=== PATIENT | female | born 1940 | race Caucasian/White ===

== ENCOUNTER → 2018-07-13 10:31 | Outpatient (CLI) | payer MEDICARE, OTHER, SELFPAY ==
[2018-07-13 11:13] LABS: Add Manual Diff / Slide Review NO; Basophils Percent Auto 0.7 % (0-2); Eosinophils Percent Auto 2.1 % (2-4); Hematocrit 43.7 % (36-46); Hemoglobin 14.8 g/dL (12.0-16.0); Lymphocytes Percent Auto 30.4 % (25-40); Mean Corpuscular Hemoglobin 31.5 PG (26-34); Mean Corpuscular Volume 92.6 fL (80-100); Monocytes Percent Auto 8.8 % (3-14); Neutrophils Absolute Auto 3700 /uL (3000-5900); Platelet Count 262 X10^3/uL (150-400); Red Blood Cell Count 4.72 X10^6/uL (4.0-5.2); Red Cell Distribution Width 12.7 % (11.6-14.8); White Blood Cell Count 6.4 X10^3/uL (4.5-11.0)
[2018-07-13 12:29] LABS: Alanine Aminotransferase 28 IU/L (9-52); Albumin 4.2 g/dL (3.5-5.0); Albumin Globulin Ratio 1.4 (1.0-2.8); Alkaline Phosphatase 79 U/L (38-126); Aspartate Aminotransferase 25 IU/L (14-36); BUN Creatinine Ratio 23.8 (6-22); Bilirubin Total 0.7 mg/dL (0.2-1.3); Blood Urea Nitrogen 19 mg/dL (7-17); Calcium 10.3 mg/dL (8.4-10.2); Carbon Dioxide 29 mmol/L (22-32); Chloride 105 mmol/L (98-107); Cholesterol 252 mg/dL (140-199); Estimated Glomerular Filt Rate > 60.0 mL/min (>60); Globulin 3.1 g/dL (1.7-4.1); Glucose 87 mg/dL (80-110); HDL Cholesterol 67 mg/dL (40-60); HEMOLYSIS < 15 (0-50); LDL Cholesterol Calculated 160 mg/dL (<100); Sodium 141 mmol/L (137-145); Total Protein 7.3 g/dL (6.3-8.2); Triglycerides 126 mg/dL (35-150)
[2018-07-13 12:33] LABS: Potassium 5.8 mmol/L (3.4-5.1)
[2018-07-13 12:58] LABS: TSH w/ Reflex to FT4 1.18 uIU/mL (0.47-4.68)
== END ==
PROVIDERS: PCP Internal Medicine; Visit Provider Internal Medicine
DX: E78.2 Mixed hyperlipidemia (principal); I10 Essential (primary) hypertension
CPT/HCPCS: 36415; 80053; 80061; 84443; 85025

== ENCOUNTER → 2018-07-19 15:12 | Outpatient (CLI) | payer MEDICARE, OTHER, SELFPAY ==
[2018-07-19 16:08] LABS: HEMOLYSIS < 15 (0-50)
== END ==
PROVIDERS: PCP Internal Medicine; Visit Provider Internal Medicine
DX: E87.5 Hyperkalemia (principal)
CPT/HCPCS: 36415; 84132

== ENCOUNTER → 2018-11-27 15:22 | Outpatient (CLI) | payer MEDICARE, OTHER, SELFPAY | PROVIDERS: PCP Internal Medicine; Visit Provider Internal Medicine | DX: M85.852 Other specified disorders of bone density and structure, left thigh (principal); Z78.0 Asymptomatic menopausal state; Z87.891 Personal history of nicotine dependence | CPT/HCPCS: 77080 ==

== ENCOUNTER 2018-12-01 14:30 | Outpatient (RCR) | payer MEDICARE, OTHER, SELFPAY ==
--- NOTE | 2018-08-25 11:15 | PT.OPPOC ---
Current Diagnoses Pain in left shoulder (08/25/18) Stiffness of left shoulder, not elsewhere classified (08/25/18) Muscle weakness (generalized) (08/25/18) Unspecified nondisplaced fracture of surgical neck of left humerus, initial encounter for closed fracture (08/25/18) Provider Visit Care Team Role Provider Type TANA Stock Primary Care Provider Advanced Air Conditioning Sheet Metal Installer Specialty: Family Practice Address: [address] [place] [address], [id number] Email: [email or web address] Kevin Corona MD Attending Provider Physician Specialty: Orthopedic Surgery Address: [address] [place] [address], [phone] Email: [email or web address] Plan Of Care PT-OP-T Assessment and Plan Start: 08/25/18 12:55 Freq: Status: Active Protocol: Document 08/25/18 11:15 DLM (Rec: 08/25/18 19:17 DLM [id number]) Physical Therapy Assessment Rehab Potential Rehabilitation Potential Good Evaluation Complexity Number of Personal Factors/Comorbidities 1-2 Number of Body Systems Impaired 4 or More Clinical Presentation at Evaluation Evolving Impairments Impairments Activity Tolerance Functional Activities Functional Mobility Pain ROM Soft Tissue Mobility Strength Goals Three Impairment Impaired left shoulder strength Short Term Goal (STG) she will be able to use left UE for simple functional ADL's at home STG Duration 4 weeks Group Home Goal (LTG) Increase left UE strength to 4 /5 in available ROM LTG Duration 8 weeks Two Impairment Impaired ROM Short Term Goal (STG) PROM left shoulder flexion 170 degrees and ER to 50 degrees STG Duration 4 weeks Group Home Goal (LTG) AROM left shoulder flexion 110 degrees, ER to 80 degrees, IR behind back to waistline LTG Duration 8 weeks One Impairment pain left shoulder Short Term Goal (STG) She will tolerate lying in supine to sleep STG Duration 2 weeks Group Home Goal (LTG) She will be able to use left shoulder functionally with less than 3/10 pain LTG Duration 8 weeks Assessment Summary Assessment She presents with left shoulder impairments following a fall from a chair and fx. Bruising and edema continues in left UE with an abrasion noted left forearm. She feels her pain is well managed at this time. She has no functional use of her left UE at this time and is immobilized in a sling. Will plan to advance her ROM and strength per her physician's protocal. Physical Therapy Plan Frequency and Duration Frequency of Treatment 2x/Week Duration of Treatment 8 weeks Plan of Care Start Date 08/25/18 Plan of Care End Date 10/29/18 Therapeutic Interventions Therapeutic Interventions Home Exercise Program Manual Therapy Patient/Caregiver Education Self-Care/Home Management Soft Tissue Mobilization Therapeutic Activities Therapeutic Exercises Modalities Cold Pack/Ice Massage Electric Stimulation Hot Packs Next Visit Focus/Plan Next Note Type Treatment Note Next Visit Plan progress PROM as tolerated, physician protocal in paper chart Plan of Care Dates Plan of Care Start Date 08/25/18 Plan of Care End Date 10/29/18 Please Sign and Return: I have reviewed this Plan of Care and certify that the skilled therapy services above are required to meet the patient?s needs. Physician Signature Date Printed Name and Credentials Clinical Instructor Signature Printed Name and Credentials
--- NOTE | 2018-08-25 11:15 | PT.OIE ---
Current Diagnoses Pain in left shoulder (08/25/18) Stiffness of left shoulder, not elsewhere classified (08/25/18) Muscle weakness (generalized) (08/25/18) Unspecified nondisplaced fracture of surgical neck of left humerus, initial encounter for closed fracture (08/25/18) Past Medical History (Last Updated 07/28/18 @ 18:56 by Rekha Vargas) Back pain (Chronic ~1973) Colon polyps (Chronic ~2011) Gas bloat syndrome (Chronic ~1984) Headache (Chronic ~1979) Knee pain (Chronic ~2013) Seasonal allergies (Chronic ~2011) Chicken pox (Resolved ~1944) Fractures (Resolved) Hepatitis B (Resolved ~1970) Herpes (Resolved ~1998) Measles (Resolved ~1944) Mumps (Resolved ~1944) Past Surgical History (Last Updated 07/28/18 @ 18:56 by Rekha Vargas) Anesthesia (Resolved) History of oral surgery (Resolved ~1979) History of varicose vein stripping (Resolved ~1977) Status post breast reduction (~1969) Status post colonoscopy Status post laminectomy (~1973) Provider Visit Care Team Role Provider Type TANA Stock Primary Care Provider Advanced Director Of Group Sales Specialty: Family Practice Address: [address] [place] [address], [address] Email: [email or web address] Kevin Corona MD Attending Provider Physician Specialty: Orthopedic Surgery Address: [address] [place] [address], [phone] Email: [email or web address] Physical Therapy Initial Evaluation PT-OP-A Visit Information Start: 08/25/18 12:55 Freq: Status: Active Protocol: Document 08/25/18 11:15 DLM (Rec: 08/25/18 13:45 DLM [id number]) Out-Patient Physical Therapy Visit Information Visit Information Visit Type Initial Evaluation Visit Start Time 11:20 Visit Stop Time 12:20 Total Visit Minutes 60 Visit Number 11/09 Number of PROMOTION WRITER Visits 0 Evaluation Information Evaluation Date 08/25/18 PT-OP-B Current Condition Start: 08/25/18 12:55 Freq: Status: Active Protocol: Document 08/25/18 11:15 DLM (Rec: 08/25/18 13:45 DL [id number]) Current Condition History of Current Condition Onset Date 08/09/18 Current Complaints left shoulder pain and unable to use it History of Current Condition She was in [place] when she pushed her chair back, it got stuck in a crack and she fell backwards onto her left shoulder. She had immediate pain. She also had dizziness and nausea after her fall that took an extended period of time to resolve while she sat on the ground. She received medical attention and was diagnosed with left humeral fx . She was placed in a shoulder sling. Once she got home she went to see Dr Corona who re- xrayed her shoulder and changed her to a different sling. She has been unable to sleep or lie in bed since the injury. She is sleeping in a chair. She also had an episode of stomach upset and diarrhea immediately after her injury that has resolved. 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 Function- Recreation/Hobbies likes to walk for exercise, walks 2-4 miles per day, likes to travel Baseline Function- Other left handed Current Functional Impairments (Reported) Functional Limitations- ADL's She needs assistance with all her ADL's, not able to lie in supine, has not been able to use her bed, staying in recliner, not sleeping well Functional Limitations- Mobility/Gait Independent gait without device Functional Limitations- Recreation/ has been walking with her Hobbies Spouse but not as far as usual Personal Factors Other Personal Factors That May Effect left handed Therapy/Recovery PT-OP-C Subjective Start: 08/25/18 12:55 Freq: Status: Active Protocol: Document 08/25/18 11:15 DLM (Rec: 08/25/18 13:45 [facility] [id number]) Patient Questionnaires Quick Dash- Upper Extremity Quick Dash UE Score 70.45 Quick Dash UE Impairment 60 to 79% Impaired (Score 60- 79) OP-PT Pain Assessment Location Left Shoulder Pain Location Details no pain at rest Intensity 1 Scale Used Numeric (1 - 10) Description Aching Frequency Intermittent Pain Aggravating Factors Changing Position Pain Alleviating Factors Cold Medication Splinting Other Pain Alleviating Factors wearing sling, supporting left shoulder Home Pain Medication Use Pain Medications Used Yes: Tylenol Home Pain Medication Frequency 2 x/day Pain Behaviors Pain Behaviors Guarding Comments Pain Comments she has also been using ice on an off PT-OP-G Mobility & Gait Start: 08/25/18 12:55 Freq: Status: Active Protocol: Document 08/25/18 11:15 DLM (Rec: 08/25/18 19:21 [facility] [id number]) OP Mobility Evaluation Bed Mobility Rolling needs assist to right side Supine to and from Sit needs min assist Transfers Sit to Stand independent OP Gait Assessment Gait Gait Assistance Required: Independent Assistive Devices Assistive Device None PT-OP-J Posture/Palpation/Skin Start: 08/25/18 12:55 Freq: Status: Active Protocol: Document 08/25/18 11:15 DLM (Rec: 08/25/18 19:21 [facility] [id number]) Skin Assessment Edema Assessment Left Arm Edema Type Pitting Edema Degree 2+ Edema Appearance Firm Comments bruising scattered on left UE, abrasion noted left forearm, edema greatest from wrist to just above elbow PT-OP-K Range of Motion Start: 08/25/18 12:55 Freq: Status: Active Protocol: Document 08/25/18 11:15 DLM (Rec: 08/25/18 19:17 [facility] [id number]) Shoulder Goniometric Range of Motion Shoulder Measured in Degrees Right Active Shoulder ROM WFL Yes Left Passive Testing Position Supine Flexion 60 Extension 0 Abduction 65 External Rotation at 0 degrees Abduction 0 Shoulder ROM Limitations Shoulder ROM Limitations Pain Comments shoulder IR to body only Orthopedic precautions at this time Pt wearing sling left LE Elbow/Forearm Range of Motion Elbow/Forearm Measured in Degrees Right Active Elbow/Forearm ROM WFL Yes Left Passive ROM Testing Position Supine Elbow Flexion (degrees) 137 Elbow Extension (degrees) 4 Wrist Goniometric Range of Motion Wrist Measured in Degrees Left Wrist ROM WFL No ROM Limitations Wrist Limitations of Range of Motion Swelling Comments general stiffness related to edema Finger Goniometric Range of Motion Finger Measured in Degrees Left Finger ROM WFL Yes Finger ROM Limitations Comments mild edema left hand PT-OP-M Strength Start: 08/25/18 12:55 Freq: Status: Active Protocol: Document 08/25/18 11:15 DLM (Rec: 08/25/18 19:17 DL [id number]) Shoulder Strength Shoulder Manual Muscle Testing Left Reason Not Measured Orthopedic Precautions Pain Comments unable to test at this time due to fx, orthopedic protocal for Passive ROM only at this time Right Reason Not Measured WFL Elbow/Forearm Strength Elbow and Forearm Manual Muscle Testing Left Flexion (C6) 2- Poor- Reason Not Measured Orthopedic Precautions Pain Comments needs assist to flex her elbow with weakness and pain Hand Professor Of Chemistry/Pinch Strength Hand Dominance Hand Dominance Left Hand Strength Left Comments weakness associated with pain and edema PT-OP-Q Treatments Start: 08/25/18 12:55 Freq: Status: Active Protocol: Document 08/25/18 11:15 DLM (Rec: 08/25/18 19:17 [facility] [id number]) Therapeutic Exercises Supine Exercises 2 Supine Exercise Name passive and active elbow flex/ ext Side left Comments therapist assisted to manage pain 1 Supine Exercise Name PROM left shoulder flexion, IR and ER Side left Comments within pain tolerance, per physician protocal Standing Exercises Pendulums Standing Exercise Name Pendulums Side left Resistance passive Comments right UE support Self-Care/Home Management Treatment Education Patient Education Home Exercise Program Pain Management Safety Other Education Educated her in use of sling, ice for home, how to get button-up shirt on with left shoulder precautions, and educated her in pendulum exercises. Explained her current precautions. Activities Self-Care/Home Management Activities how to get up/down from bed on right side to manage left shoulder pain and precautions PT-OP-T Assessment and Plan Start: 08/25/18 12:55 Freq: Status: Active Protocol: Document 08/25/18 11:15 DLM (Rec: 08/25/18 19:17 [facility] [id number]) Physical Therapy Assessment Rehab Potential Rehabilitation Potential Good Evaluation Complexity Number of Personal Factors/Comorbidities 1-2 Number of Body Systems Impaired 4 or More Clinical Presentation at Evaluation Evolving Impairments Impairments Activity Tolerance Functional Activities Functional Mobility Pain ROM Soft Tissue Mobility Strength Goals Three Impairment Impaired left shoulder strength Short Term Goal (STG) she will be able to use left UE for simple functional ADL's at home STG Duration 4 weeks Director Of Software Development Goal (LTG) Increase left UE strength to 4 /5 in available ROM LTG Duration 8 weeks Two Impairment Impaired ROM Short Term Goal (STG) PROM left shoulder flexion 170 degrees and ER to 50 degrees STG Duration 4 weeks Usp Goal (LTG) AROM left shoulder flexion 110 degrees, ER to 80 degrees, IR behind back to waistline LTG Duration 8 weeks One Impairment pain left shoulder Short Term Goal (STG) She will tolerate lying in supine to sleep STG Duration 2 weeks Usp Goal (LTG) She will be able to use left shoulder functionally with less than 3/10 pain LTG Duration 8 weeks Assessment Summary Assessment She presents with left shoulder impairments following a fall from a chair and fx. Bruising and edema continues in left UE with an abrasion noted left forearm. She feels her pain is well managed at this time. She has no functional use of her left UE at this time and is immobilized in a sling. Will plan to advance her ROM and strength per her physician's protocal. Physical Therapy Plan Frequency and Duration Frequency of Treatment 2x/Week Duration of Treatment 8 weeks Plan of Care Start Date 08/25/18 Plan of Care End Date 10/29/18 Therapeutic Interventions Therapeutic Interventions Home Exercise Program Manual Therapy Patient/Caregiver Education Self-Care/Home Management Soft Tissue Mobilization Therapeutic Activities Therapeutic Exercises Modalities Cold Pack/Ice Massage Electric Stimulation Hot Packs Next Visit Focus/Plan Next Note Type Treatment Note Next Visit Plan progress PROM as tolerated, physician protocal in paper chart
--- NOTE | 2018-08-28 13:00 | PT.OTN ---
Current Diagnoses Unspecified nondisplaced fracture of surgical neck of left humerus, initial encounter for closed fracture (08/28/18) Physical Therapy Treatment Note PT-OP-A Visit Information Start: 08/25/18 12:55 Freq: Status: Active Protocol: Document 08/28/18 13:00 DLM (Rec: 08/28/18 15:26 DLM [id number]) Out-Patient Physical Therapy Visit Information Visit Information Visit Type Treatment Note Visit Start Time 13:00 Visit Stop Time 13:44 Total Visit Minutes 44 Visit Number 2/ Number of HYDROTEL OPERATOR Visits 0 Evaluation Information Evaluation Date 08/25/18 PT-OP-B Current Condition Start: 08/25/18 12:55 Freq: Status: Active Protocol: Document 08/25/18 11:15 DLM (Rec: 08/25/18 13:45 DLM [id number]) Current Condition History of Current Condition Onset Date 08/09/18 Current Complaints left shoulder pain and unable to use it History of Current Condition She was in [place] when she pushed her chair back, it got stuck in a crack and she fell backwards onto her left shoulder. She had immediate pain. She also had dizziness and nausea after her fall that took an extended period of time to resolve while she sat on the ground. She received medical attention and was diagnosed with left humeral fx . She was placed in a shoulder sling. Once she got home she went to see Dr Corona who re- xrayed her shoulder and changed her to a different sling. She has been unable to sleep or lie in bed since the injury. She is sleeping in a chair. She also had an episode of stomach upset and diarrhea immediately after her injury that has resolved. 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 Function- Recreation/Hobbies likes to walk for exercise, walks 2-4 miles per day, likes to travel Baseline Function- Other left handed Current Functional Impairments (Reported) Functional Limitations- ADL's She needs assistance with all her ADL's, not able to lie in supine, has not been able to use her bed, staying in recliner, not sleeping well Functional Limitations- Mobility/Gait Independent gait without device Functional Limitations- Recreation/ has been walking with her Hobbies Spouse but not as far as usual Personal Factors Other Personal Factors That May Effect left handed Therapy/Recovery PT-OP-C Subjective Start: 08/25/18 12:55 Freq: Status: Active Protocol: Document 08/28/18 13:00 DLM (Rec: 08/28/18 15:26 DLM [id number]) OP-PT Subjective Patient Comments Patient Comments She has been able to wear shirts and was able to shower with help from her Spouse. She has questions about her exercises. Patient Reported Progress Improving PT-OP-G Mobility & Gait Start: 08/25/18 12:55 Freq: Status: Active Protocol: Document 08/25/18 11:15 DLM (Rec: 08/25/18 19:21 DLM [id number]) OP Mobility Evaluation Bed Mobility Rolling needs assist to right side Supine to and from Sit needs min assist Transfers Sit to Stand independent OP Gait Assessment Gait Gait Assistance Required: Independent Assistive Devices Assistive Device None PT-OP-J Posture/Palpation/Skin Start: 08/25/18 12:55 Freq: Status: Active Protocol: Document 08/25/18 11:15 DLM (Rec: 08/25/18 19:21 DLM [id number]) Skin Assessment Edema Assessment Left Arm Edema Type Pitting Edema Degree 2+ Edema Appearance Firm Comments bruising scattered on left UE, abrasion noted left forearm, edema greatest from wrist to just above elbow PT-OP-K Range of Motion Start: 08/25/18 12:55 Freq: Status: Active Protocol: Document 08/28/18 13:00 DLM (Rec: 08/28/18 15:26 DLM [id number]) Shoulder Goniometric Range of Motion Shoulder Measured in Degrees Left Passive Testing Position Supine Flexion 80 Extension 0 External Rotation at 0 degrees Abduction 12 PT-OP-M Strength Start: 08/25/18 12:55 Freq: Status: Active Protocol: Document 08/25/18 11:15 DLM (Rec: 08/25/18 19:17 DLM [id number]) Shoulder Strength Shoulder Manual Muscle Testing Left Reason Not Measured Orthopedic Precautions Pain Comments unable to test at this time due to fx, orthopedic protocal for Passive ROM only at this time Right Reason Not Measured WFL Elbow/Forearm Strength Elbow and Forearm Manual Muscle Testing Left Flexion (C6) 2- Poor- Reason Not Measured Orthopedic Precautions Pain Comments needs assist to flex her elbow with weakness and pain Hand Clinical Psychologist/Pinch Strength Hand Dominance Hand Dominance Left Hand Strength Left Comments weakness associated with pain and edema PT-OP-Q Treatments Start: 08/25/18 12:55 Freq: Status: Active Protocol: Document 08/28/18 13:00 DLM (Rec: 08/28/18 15:26 DLM [id number]) Therapeutic Exercises Supine Exercises 3 Supine Exercise Name AAROM pronation/supination Side left 2 Supine Exercise Name passive and active elbow flex/ ext Side left Comments pt able to do actively this visit 1 Supine Exercise Name PROM left shoulder flexion, IR and ER Side left Resistance gentle Comments within pain tolerance, per physician protocal Standing Exercises Pendulums Standing Exercise Name Pendulums Side left Resistance passive Comments right UE support Manual Therapy Treatment Soft Tissue Mobilization 3 Body Location left mid trap, just below scapula Mobilization Type Myofascial Release Strumming Intensity/Depth Superficial Body Position Standing Comments pt having pain in this area, no indication of rib involvement, improved with soft tissue mobilization 2 Body Location left upper trap Mobilization Type Strumming Sustained Pressure Intensity/Depth Moderate Body Position Supine Comments soft tissue tightness and pain improved with treatment 1 Body Location hand to elbow, left UE Mobilization Type Myofascial Release Strumming Other Intensity/Depth Superficial Body Position Supine Comments edema managment and scar tissue management in forearm PT-OP-T Assessment and Plan Start: 08/25/18 12:55 Freq: Status: Active Protocol: Document 08/28/18 13:00 DLM (Rec: 08/28/18 15:26 DLM [id number]) Physical Therapy Assessment Progress Towards Goals Progress Towards Goals Progressing Toward Goals Progress Comments improved PROM Assessment Summary Assessment She is tolerating treatment well. She is advancing in her ADL's at home. She is still not sleeping in bed (still in chair). Clarified her HEP this visit. She continues to ice at home. Bruising is improving but still present with the most severe at left medial elbow. Edema continues to pocket at her elbow but has improved in her left hand. Her PROM shows improvement this visit. Physical Therapy Plan Frequency and Duration Frequency of Treatment 2x/Week Duration of Treatment 8 weeks Plan of Care Start Date 08/25/18 Plan of Care End Date 10/29/18 Therapeutic Interventions Therapeutic Interventions Home Exercise Program Manual Therapy Patient/Caregiver Education Self-Care/Home Management Soft Tissue Mobilization Therapeutic Activities Therapeutic Exercises Modalities Cold Pack/Ice Massage Electric Stimulation Hot Packs Next Visit Focus/Plan Next Note Type Treatment Note Next Visit Plan progress PROM as tolerated, physician protocal in paper chart
--- NOTE | 2018-09-01 15:56 | PT.OTN ---
Current Diagnoses Unspecified nondisplaced fracture of surgical neck of left humerus, initial encounter for closed fracture (09/01/18) Physical Therapy Treatment Note PT-OP-A Visit Information Start: 08/25/18 12:55 Freq: Status: Active Protocol: Document 09/01/18 15:48 SA (Rec: 09/01/18 15:56 SA [id number]) Out-Patient Physical Therapy Visit Information Visit Information Visit Type Treatment Note Visit Start Time 14:30 Visit Stop Time 15:15 Total Visit Minutes 45 Visit Number 3/ Number of CIRCUS AGENT Visits 1 PT-OP-B Current Condition Start: 08/25/18 12:55 Freq: Status: Active Protocol: Document 08/25/18 11:15 DLM (Rec: 08/25/18 13:45 DLM [id number]) Current Condition History of Current Condition Onset Date 08/09/18 Current Complaints left shoulder pain and unable to use it History of Current Condition She was in [place] when she pushed her chair back, it got stuck in a crack and she fell backwards onto her left shoulder. She had immediate pain. She also had dizziness and nausea after her fall that took an extended period of time to resolve while she sat on the ground. She received medical attention and was diagnosed with left humeral fx . She was placed in a shoulder sling. Once she got home she went to see Dr Corona who re- xrayed her shoulder and changed her to a different sling. She has been unable to sleep or lie in bed since the injury. She is sleeping in a chair. She also had an episode of stomach upset and diarrhea immediately after her injury that has resolved. 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 Function- Recreation/Hobbies likes to walk for exercise, walks 2-4 miles per day, likes to travel Baseline Function- Other left handed Current Functional Impairments (Reported) Functional Limitations- ADL's She needs assistance with all her ADL's, not able to lie in supine, has not been able to use her bed, staying in recliner, not sleeping well Functional Limitations- Mobility/Gait Independent gait without device Functional Limitations- Recreation/ has been walking with her Hobbies Spouse but not as far as usual Personal Factors Other Personal Factors That May Effect left handed Therapy/Recovery PT-OP-C Subjective Start: 08/25/18 12:55 Freq: Status: Active Protocol: Document 09/01/18 15:48 SA (Rec: 09/01/18 15:56 SA [id number]) OP-PT Subjective Patient Comments Patient Comments Concerned about UE edema, has been doing pendulums, sup/ pronation and elbow flex/ extension at home with good tolerance. Patient Reported Progress Improving PT-OP-G Mobility & Gait Start: 08/25/18 12:55 Freq: Status: Active Protocol: Document 08/25/18 11:15 DLM (Rec: 08/25/18 19:21 DLM [id number]) OP Mobility Evaluation Bed Mobility Rolling needs assist to right side Supine to and from Sit needs min assist Transfers Sit to Stand independent OP Gait Assessment Gait Gait Assistance Required: Independent Assistive Devices Assistive Device None PT-OP-J Posture/Palpation/Skin Start: 08/25/18 12:55 Freq: Status: Active Protocol: Document 08/25/18 11:15 DLM (Rec: 08/25/18 19:21 DLM [id number]) Skin Assessment Edema Assessment Left Arm Edema Type Pitting Edema Degree 2+ Edema Appearance Firm Comments bruising scattered on left UE, abrasion noted left forearm, edema greatest from wrist to just above elbow PT-OP-K Range of Motion Start: 08/25/18 12:55 Freq: Status: Active Protocol: Document 08/28/18 13:00 DLM (Rec: 08/28/18 15:26 DLM [id number]) Shoulder Goniometric Range of Motion Shoulder Measured in Degrees Left Passive Testing Position Supine Flexion 80 Extension 0 External Rotation at 0 degrees Abduction 12 PT-OP-M Strength Start: 08/25/18 12:55 Freq: Status: Active Protocol: Document 08/25/18 11:15 DLM (Rec: 08/25/18 19:17 DLM [id number]) Shoulder Strength Shoulder Manual Muscle Testing Left Reason Not Measured Orthopedic Precautions Pain Comments unable to test at this time due to fx, orthopedic protocal for Passive ROM only at this time Right Reason Not Measured WFL Elbow/Forearm Strength Elbow and Forearm Manual Muscle Testing Left Flexion (C6) 2- Poor- Reason Not Measured Orthopedic Precautions Pain Comments needs assist to flex her elbow with weakness and pain Hand Machine Shop Repair Technician/Pinch Strength Hand Dominance Hand Dominance Left Hand Strength Left Comments weakness associated with pain and edema PT-OP-Q Treatments Start: 08/25/18 12:55 Freq: Status: Active Protocol: Document 09/01/18 15:48 SA (Rec: 09/01/18 15:56 SA [email or web address]) Therapeutic Exercises Supine Exercises 3 Supine Exercise Name AAROM pronation/supination Side left 2 Supine Exercise Name passive and active elbow flex/ ext Side left Comments pt able to do actively this visit 1 Supine Exercise Name PROM left shoulder flexion, IR and ER Side left Resistance gentle Comments within pain tolerance, per physician protocal Standing Exercises Pendulums Standing Exercise Name Pendulums Side left Resistance passive Comments right UE support Manual Therapy Treatment Soft Tissue Mobilization 3 Body Location left mid trap, just below scapula Mobilization Type Myofascial Release Strumming Intensity/Depth Superficial Body Position Standing Comments pt having pain in this area, no indication of rib involvement, improved with soft tissue mobilization 2 Body Location left upper trap Mobilization Type Strumming Sustained Pressure Intensity/Depth Moderate Body Position Supine Comments soft tissue tightness and pain improved with treatment 1 Body Location hand to elbow, left UE Mobilization Type Myofascial Release Strumming Other Intensity/Depth Superficial Body Position Supine Comments edema managment and scar tissue management in forearm PT-OP-T Assessment and Plan Start: 08/25/18 12:55 Freq: Status: Active Protocol: Document 09/01/18 15:48 SA (Rec: 09/01/18 15:56 SA [id number]) Physical Therapy Plan Frequency and Duration Frequency of Treatment 2x/Week Duration of Treatment 8 weeks Plan of Care Start Date 08/25/18 Plan of Care End Date 10/29/18 Next Visit Focus/Plan Next Note Type Treatment Note Next Visit Plan Continue with MD protocol, re- assess UE edema and response to STM and icing at home.
--- NOTE | 2018-09-04 17:23 | PT.OTN ---
Current Diagnoses Unspecified nondisplaced fracture of surgical neck of left humerus, initial encounter for closed fracture (09/04/18) Physical Therapy Treatment Note PT-OP-A Visit Information Start: 08/25/18 12:55 Freq: Status: Active Protocol: Document 09/04/18 15:08 EA (Rec: 09/04/18 15:12 EA [id number]) Out-Patient Physical Therapy Visit Information Visit Information Visit Type Treatment Note Visit Start Time 14:30 Visit Stop Time 15:15 Total Visit Minutes 45 Visit Number 4/10 Number of CORPORATE BOND TRADER Visits 1 PT-OP-B Current Condition Start: 08/25/18 12:55 Freq: Status: Active Protocol: Document 08/25/18 11:15 DLM (Rec: 08/25/18 13:45 DLM [id number]) Current Condition History of Current Condition Onset Date 08/09/18 Current Complaints left shoulder pain and unable to use it History of Current Condition She was in [place] when she pushed her chair back, it got stuck in a crack and she fell backwards onto her left shoulder. She had immediate pain. She also had dizziness and nausea after her fall that took an extended period of time to resolve while she sat on the ground. She received medical attention and was diagnosed with left humeral fx . She was placed in a shoulder sling. Once she got home she went to see Dr Corona who re- xrayed her shoulder and changed her to a different sling. She has been unable to sleep or lie in bed since the injury. She is sleeping in a chair. She also had an episode of stomach upset and diarrhea immediately after her injury that has resolved. 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 Function- Recreation/Hobbies likes to walk for exercise, walks 2-4 miles per day, likes to travel Baseline Function- Other left handed Current Functional Impairments (Reported) Functional Limitations- ADL's She needs assistance with all her ADL's, not able to lie in supine, has not been able to use her bed, staying in recliner, not sleeping well Functional Limitations- Mobility/Gait Independent gait without device Functional Limitations- Recreation/ has been walking with her Hobbies Spouse but not as far as usual Personal Factors Other Personal Factors That May Effect left handed Therapy/Recovery PT-OP-C Subjective Start: 08/25/18 12:55 Freq: Status: Active Protocol: Document 09/04/18 15:08 EA (Rec: 09/04/18 15:12 EA [id number]) OP-PT Subjective Patient Comments Patient Comments Pt reports she will be seeing her physician this week. Pt also reports that she is still using sling at all times and asking if she allowed to removed it. PT-OP-G Mobility & Gait Start: 08/25/18 12:55 Freq: Status: Active Protocol: Document 08/25/18 11:15 DLM (Rec: 08/25/18 19:21 DLM [id number]) OP Mobility Evaluation Bed Mobility Rolling needs assist to right side Supine to and from Sit needs min assist Transfers Sit to Stand independent OP Gait Assessment Gait Gait Assistance Required: Independent Assistive Devices Assistive Device None PT-OP-J Posture/Palpation/Skin Start: 08/25/18 12:55 Freq: Status: Active Protocol: Document 08/25/18 11:15 DLM (Rec: 08/25/18 19:21 DLM [id number]) Skin Assessment Edema Assessment Left Arm Edema Type Pitting Edema Degree 2+ Edema Appearance Firm Comments bruising scattered on left UE, abrasion noted left forearm, edema greatest from wrist to just above elbow PT-OP-K Range of Motion Start: 08/25/18 12:55 Freq: Status: Active Protocol: Document 08/28/18 13:00 DLM (Rec: 08/28/18 15:26 DLM [id number]) Shoulder Goniometric Range of Motion Shoulder Measured in Degrees Left Passive Testing Position Supine Flexion 80 Extension 0 External Rotation at 0 degrees Abduction 12 PT-OP-M Strength Start: 08/25/18 12:55 Freq: Status: Active Protocol: Document 08/25/18 11:15 DLM (Rec: 08/25/18 19:17 DLM [id number]) Shoulder Strength Shoulder Manual Muscle Testing Left Reason Not Measured Orthopedic Precautions Pain Comments unable to test at this time due to fx, orthopedic protocal for Passive ROM only at this time Right Reason Not Measured WFL Elbow/Forearm Strength Elbow and Forearm Manual Muscle Testing Left Flexion (C6) 2- Poor- Reason Not Measured Orthopedic Precautions Pain Comments needs assist to flex her elbow with weakness and pain Hand Cargoman/Pinch Strength Hand Dominance Hand Dominance Left Hand Strength Left Comments weakness associated with pain and edema PT-OP-Q Treatments Start: 08/25/18 12:55 Freq: Status: Active Protocol: Document 09/04/18 15:08 EA (Rec: 09/04/18 15:12 EA [id number]) Therapeutic Exercises Supine Exercises 3 Supine Exercise Name AAROM pronation/supination Side left 2 Supine Exercise Name passive and active elbow flex/ ext Side left Comments pt able to do actively this visit 1 Supine Exercise Name PROM left shoulder flexion, IR and ER Side left Resistance gentle Comments within pain tolerance, per physician protocal Standing Exercises Pendulums Standing Exercise Name Pendulums Side left Resistance passive Comments right UE support Manual Therapy Treatment Soft Tissue Mobilization 3 Body Location left mid trap, just below scapula Mobilization Type Myofascial Release Strumming Intensity/Depth Superficial Body Position Standing Comments pt having pain in this area, no indication of rib involvement, improved with soft tissue mobilization 2 Body Location left upper trap Mobilization Type Strumming Sustained Pressure Intensity/Depth Moderate Body Position Supine Comments soft tissue tightness and pain improved with treatment 1 Body Location hand to elbow, left UE Mobilization Type Myofascial Release Strumming Other Intensity/Depth Superficial Body Position Supine Comments edema managment and scar tissue management in forearm PT-OP-R Modalities Start: 08/25/18 12:55 Freq: Status: Active Protocol: Document 09/04/18 15:13 EA (Rec: 09/04/18 15:13 EA [id number]) Hot Pack/Cold Pack Treatment Cold Pack Location left shoulder Patient Position Supine Treatment Duration (minutes) 12 Patient Tolerance Good PT-OP-T Assessment and Plan Start: 08/25/18 12:55 Freq: Status: Active Protocol: Document 09/04/18 15:08 EA (Rec: 09/04/18 15:12 EA [id number]) Physical Therapy Assessment Assessment Summary Assessment Pt tolerated treatment well. Recommends frequents out of sling at home but no weight bearing and active motion to shoulder until next check up from the doctor Physical Therapy Plan Next Visit Focus/Plan Next Note Type Treatment Note Next Visit Plan Continue with MD protocol, re- assess UE edema and response to STM and icing at home.
--- NOTE | 2018-09-06 16:47 | PT.OTN ---
Current Diagnoses Unspecified nondisplaced fracture of surgical neck of left humerus, initial encounter for closed fracture (09/06/18) Physical Therapy Treatment Note PT-OP-A Visit Information Start: 08/25/18 12:55 Freq: Status: Active Protocol: Document 09/06/18 16:34 EA (Rec: 09/06/18 16:39 EA [id number]) Out-Patient Physical Therapy Visit Information Visit Information Visit Type Treatment Note Visit Start Time 16:00 Visit Stop Time 16:45 Visit Number 5/ Number of NEWSPAPER OR PERIODICAL EDITOR Visits 1 PT-OP-B Current Condition Start: 08/25/18 12:55 Freq: Status: Active Protocol: Document 08/25/18 11:15 DLM (Rec: 08/25/18 13:45 DLM [id number]) Current Condition History of Current Condition Onset Date 08/09/18 Current Complaints left shoulder pain and unable to use it History of Current Condition She was in [place] when she pushed her chair back, it got stuck in a crack and she fell backwards onto her left shoulder. She had immediate pain. She also had dizziness and nausea after her fall that took an extended period of time to resolve while she sat on the ground. She received medical attention and was diagnosed with left humeral fx . She was placed in a shoulder sling. Once she got home she went to see Dr Corona who re- xrayed her shoulder and changed her to a different sling. She has been unable to sleep or lie in bed since the injury. She is sleeping in a chair. She also had an episode of stomach upset and diarrhea immediately after her injury that has resolved. 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 Function- Recreation/Hobbies likes to walk for exercise, walks 2-4 miles per day, likes to travel Baseline Function- Other left handed Current Functional Impairments (Reported) Functional Limitations- ADL's She needs assistance with all her ADL's, not able to lie in supine, has not been able to use her bed, staying in recliner, not sleeping well Functional Limitations- Mobility/Gait Independent gait without device Functional Limitations- Recreation/ has been walking with her Hobbies Spouse but not as far as usual Personal Factors Other Personal Factors That May Effect left handed Therapy/Recovery PT-OP-C Subjective Start: 08/25/18 12:55 Freq: Status: Active Protocol: Document 09/06/18 16:34 EA (Rec: 09/06/18 16:39 EA [id number]) OP-PT Subjective Patient Comments Patient Comments Pt reports complaint to HEP and understands safety when out of sling at home; denies increased in pain. PT-OP-G Mobility & Gait Start: 08/25/18 12:55 Freq: Status: Active Protocol: Document 08/25/18 11:15 DLM (Rec: 08/25/18 19:21 DLM [id number]) OP Mobility Evaluation Bed Mobility Rolling needs assist to right side Supine to and from Sit needs min assist Transfers Sit to Stand independent OP Gait Assessment Gait Gait Assistance Required: Independent Assistive Devices Assistive Device None PT-OP-J Posture/Palpation/Skin Start: 08/25/18 12:55 Freq: Status: Active Protocol: Document 08/25/18 11:15 DLM (Rec: 08/25/18 19:21 DLM [id number]) Skin Assessment Edema Assessment Left Arm Edema Type Pitting Edema Degree 2+ Edema Appearance Firm Comments bruising scattered on left UE, abrasion noted left forearm, edema greatest from wrist to just above elbow PT-OP-K Range of Motion Start: 08/25/18 12:55 Freq: Status: Active Protocol: Document 08/28/18 13:00 DLM (Rec: 08/28/18 15:26 DLM [id number]) Shoulder Goniometric Range of Motion Shoulder Measured in Degrees Left Passive Testing Position Supine Flexion 80 Extension 0 External Rotation at 0 degrees Abduction 12 PT-OP-M Strength Start: 08/25/18 12:55 Freq: Status: Active Protocol: Document 08/25/18 11:15 DLM (Rec: 08/25/18 19:17 DLM [id number]) Shoulder Strength Shoulder Manual Muscle Testing Left Reason Not Measured Orthopedic Precautions Pain Comments unable to test at this time due to fx, orthopedic protocal for Passive ROM only at this time Right Reason Not Measured WFL Elbow/Forearm Strength Elbow and Forearm Manual Muscle Testing Left Flexion (C6) 2- Poor- Reason Not Measured Orthopedic Precautions Pain Comments needs assist to flex her elbow with weakness and pain Hand Inspector Repairer [place]stone/Pinch Strength Hand Dominance Hand Dominance Left Hand Strength Left Comments weakness associated with pain and edema PT-OP-Q Treatments Start: 08/25/18 12:55 Freq: Status: Active Protocol: Document 09/06/18 16:34 EA (Rec: 09/06/18 16:39 EA [id number]) Therapeutic Exercises Supine Exercises 2 Supine Exercise Name passive and active elbow flex/ ext Side left Comments pt able to do actively this visit 1 Supine Exercise Name PROM left shoulder flexion, IR and ER Side left Resistance gentle Comments within pain tolerance, per physician protocal Sitting Exercises 1 Sitting Exercise Name elbow,wrist DHARMESH Reps/Minutes x 15 reps x 2 sets Standing Exercises Pendulums Standing Exercise Name Pendulums Side left Resistance passive Comments right UE support Manual Therapy Treatment Soft Tissue Mobilization 3 Body Location left mid trap, just below scapula Mobilization Type Myofascial Release Strumming Intensity/Depth Superficial Body Position Standing Comments pt having pain in this area, no indication of rib involvement, improved with soft tissue mobilization 2 Body Location left upper trap Mobilization Type Strumming Sustained Pressure Intensity/Depth Moderate Body Position Supine Comments soft tissue tightness and pain improved with treatment 1 Body Location hand to elbow, left UE Mobilization Type Myofascial Release Strumming Other Intensity/Depth Superficial Body Position Supine Comments edema managment and scar tissue management in forearm PT-OP-R Modalities Start: 08/25/18 12:55 Freq: Status: Active Protocol: Document 09/06/18 16:34 EA (Rec: 09/06/18 16:39 EA [id number]) Hot Pack/Cold Pack Treatment Cold Pack Location left shoulder Patient Position Supine Treatment Duration (minutes) 12 Patient Tolerance Good PT-OP-T Assessment and Plan Start: 08/25/18 12:55 Freq: Status: Active Protocol: Document 09/06/18 16:34 EA (Rec: 09/06/18 16:39 EA [id number]) Physical Therapy Assessment Assessment Summary Assessment Patient received pendulum handout and educated with pre- cautions and safety. Physical Therapy Plan Next Visit Focus/Plan Next Note Type Treatment Note Next Visit Plan Continue with MD protocol, re- assess UE edema and response to STM and icing at home.
--- NOTE | 2018-09-12 17:54 | PT.OTN ---
Current Diagnoses Unspecified nondisplaced fracture of surgical neck of left humerus, initial encounter for closed fracture (09/12/18) Physical Therapy Treatment Note PT-OP-A Visit Information Start: 08/25/18 12:55 Freq: Status: Active Protocol: Document 09/12/18 15:15 DCW (Rec: 09/12/18 17:54 DCW [id number]) Out-Patient Physical Therapy Visit Information Visit Information Visit Type Treatment Note Visit Start Time 15:15 Visit Stop Time 16:00 Visit Number 04/09 Number of SUPERVISOR DAIRY SANITATION Visits 0 PT-OP-B Current Condition Start: 08/25/18 12:55 Freq: Status: Active Protocol: Document 08/25/18 11:15 DLM (Rec: 08/25/18 13:45 DLM [id number]) Current Condition History of Current Condition Onset Date 08/09/18 Current Complaints left shoulder pain and unable to use it History of Current Condition She was in [place] when she pushed her chair back, it got stuck in a crack and she fell backwards onto her left shoulder. She had immediate pain. She also had dizziness and nausea after her fall that took an extended period of time to resolve while she sat on the ground. She received medical attention and was diagnosed with left humeral fx . She was placed in a shoulder sling. Once she got home she went to see Dr Corona who re- xrayed her shoulder and changed her to a different sling. She has been unable to sleep or lie in bed since the injury. She is sleeping in a chair. She also had an episode of stomach upset and diarrhea immediately after her injury that has resolved. 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 Function- Recreation/Hobbies likes to walk for exercise, walks 2-4 miles per day, likes to travel Baseline Function- Other left handed Current Functional Impairments (Reported) Functional Limitations- ADL's She needs assistance with all her ADL's, not able to lie in supine, has not been able to use her bed, staying in recliner, not sleeping well Functional Limitations- Mobility/Gait Independent gait without device Functional Limitations- Recreation/ has been walking with her Hobbies Spouse but not as far as usual Personal Factors Other Personal Factors That May Effect left handed Therapy/Recovery PT-OP-C Subjective Start: 08/25/18 12:55 Freq: Status: Active Protocol: Document 09/12/18 15:15 DCW (Rec: 09/12/18 17:54 DCW [id number]) OP-PT Subjective Patient Comments Patient Comments Pt directly from ortho follow- up appointment, cleared for active ROM exercises. PT-OP-G Mobility & Gait Start: 08/25/18 12:55 Freq: Status: Active Protocol: Document 08/25/18 11:15 DLM (Rec: 08/25/18 19:21 DLM [id number]) OP Mobility Evaluation Bed Mobility Rolling needs assist to right side Supine to and from Sit needs min assist Transfers Sit to Stand independent OP Gait Assessment Gait Gait Assistance Required: Independent Assistive Devices Assistive Device None PT-OP-J Posture/Palpation/Skin Start: 08/25/18 12:55 Freq: Status: Active Protocol: Document 08/25/18 11:15 DLM (Rec: 08/25/18 19:21 DLM [id number]) Skin Assessment Edema Assessment Left Arm Edema Type Pitting Edema Degree 2+ Edema Appearance Firm Comments bruising scattered on left UE, abrasion noted left forearm, edema greatest from wrist to just above elbow PT-OP-K Range of Motion Start: 08/25/18 12:55 Freq: Status: Active Protocol: Document 08/28/18 13:00 DLM (Rec: 08/28/18 15:26 DLM [id number]) Shoulder Goniometric Range of Motion Shoulder Measured in Degrees Left Passive Testing Position Supine Flexion 80 Extension 0 External Rotation at 0 degrees Abduction 12 PT-OP-M Strength Start: 08/25/18 12:55 Freq: Status: Active Protocol: Document 08/25/18 11:15 DLM (Rec: 08/25/18 19:17 DLM [id number]) Shoulder Strength Shoulder Manual Muscle Testing Left Reason Not Measured Orthopedic Precautions Pain Comments unable to test at this time due to fx, orthopedic protocal for Passive ROM only at this time Right Reason Not Measured WFL Elbow/Forearm Strength Elbow and Forearm Manual Muscle Testing Left Flexion (C6) 2- Poor- Reason Not Measured Orthopedic Precautions Pain Comments needs assist to flex her elbow with weakness and pain Hand Commercial Lines Assistant/Pinch Strength Hand Dominance Hand Dominance Left Hand Strength Left Comments weakness associated with pain and edema PT-OP-Q Treatments Start: 08/25/18 12:55 Freq: Status: Active Protocol: Document 09/12/18 15:15 DCW (Rec: 09/12/18 17:54 DCW [id number]) Therapeutic Exercises Supine Exercises 1 Supine Exercise Name PROM left shoulder flexion, IR and ER Side left Resistance gentle Comments within pain tolerance, per physician protocal Sitting Exercises Shoulder IR/ER Sitting Exercise Name AROM ER/IR Side left Comments pain-free Shoulder Abduction Sitting Exercise Name AROM abduction Side left Comments pain-free Shoulder Flexion Sitting Exercise Name AROM flexion Side left Comments pain-free Standing Exercises Pendulums Standing Exercise Name Pendulums Side left Resistance passive Comments right UE support PT-OP-R Modalities Start: 08/25/18 12:55 Freq: Status: Active Protocol: Document 09/12/18 15:15 DCW (Rec: 09/12/18 17:54 DCW [id number]) Hot Pack/Cold Pack Treatment Cold Pack Location left shoulder Patient Position Supine Treatment Duration (minutes) 10 Patient Tolerance Good PT-OP-T Assessment and Plan Start: 08/25/18 12:55 Freq: Status: Active Protocol: Document 09/12/18 15:15 DCW (Rec: 09/12/18 17:54 DC [id number]) Physical Therapy Assessment Goals Three Impairment Impaired left shoulder strength Short Term Goal (STG) she will be able to use left UE for simple functional ADL's at home STG Duration 4 weeks Lobby Attendant Goal (LTG) Increase left UE strength to 4 /5 in available ROM LTG Duration 8 weeks Two Impairment Impaired ROM Short Term Goal (STG) PROM left shoulder flexion 170 degrees and ER to 50 degrees STG Duration 4 weeks Lobby Attendant Goal (LTG) AROM left shoulder flexion 110 degrees, ER to 80 degrees, IR behind back to waistline LTG Duration 8 weeks One Impairment pain left shoulder Short Term Goal (STG) She will tolerate lying in supine to sleep STG Duration 2 weeks Lobby Attendant Goal (LTG) She will be able to use left shoulder functionally with less than 3/10 pain LTG Duration 8 weeks Assessment Summary Assessment Pt required further instruction for proper pendulum exercises, and also received hand-out for new AROM mobility Physical Therapy Plan Frequency and Duration Frequency of Treatment 2x/Week Duration of Treatment 8 weeks Plan of Care Start Date 08/25/18 Plan of Care End Date 10/29/18 Next Visit Focus/Plan Next Note Type Treatment Note Next Visit Plan Continue with MD protocol, re- assess UE edema and response to STM and icing at home.
--- NOTE | 2018-09-15 15:17 | PT.OTN ---
Current Diagnoses Unspecified nondisplaced fracture of surgical neck of left humerus, initial encounter for closed fracture (09/15/18) Physical Therapy Treatment Note PT-OP-A Visit Information Start: 08/25/18 12:55 Freq: Status: Active Protocol: Document 09/15/18 15:07 SA (Rec: 09/15/18 15:17 SA [email or web address]) Out-Patient Physical Therapy Visit Information Visit Information Visit Type Treatment Note Visit Start Time 13:00 Visit Stop Time 13:47 Visit Number 05/09 Number of MATHEMATICAL ENGINEER Visits 1 PT-OP-B Current Condition Start: 08/25/18 12:55 Freq: Status: Active Protocol: Document 08/25/18 11:15 DLM (Rec: 08/25/18 13:45 DLM [id number]) Current Condition History of Current Condition Onset Date 08/09/18 Current Complaints left shoulder pain and unable to use it History of Current Condition She was in [place] when she pushed her chair back, it got stuck in a crack and she fell backwards onto her left shoulder. She had immediate pain. She also had dizziness and nausea after her fall that took an extended period of time to resolve while she sat on the ground. She received medical attention and was diagnosed with left humeral fx . She was placed in a shoulder sling. Once she got home she went to see Dr Corona who re- xrayed her shoulder and changed her to a different sling. She has been unable to sleep or lie in bed since the injury. She is sleeping in a chair. She also had an episode of stomach upset and diarrhea immediately after her injury that has resolved. 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 Function- Recreation/Hobbies likes to walk for exercise, walks 2-4 miles per day, likes to travel Baseline Function- Other left handed Current Functional Impairments (Reported) Functional Limitations- ADL's She needs assistance with all her ADL's, not able to lie in supine, has not been able to use her bed, staying in recliner, not sleeping well Functional Limitations- Mobility/Gait Independent gait without device Functional Limitations- Recreation/ has been walking with her Hobbies Spouse but not as far as usual Personal Factors Other Personal Factors That May Effect left handed Therapy/Recovery PT-OP-C Subjective Start: 08/25/18 12:55 Freq: Status: Active Protocol: Document 09/15/18 15:07 SA (Rec: 09/15/18 15:17 SA [email or web address]) OP-PT Subjective Patient Comments Patient Comments Needed some clarification on HEP for active ROM, feeling pretty good and not wearing sling. PT-OP-G Mobility & Gait Start: 08/25/18 12:55 Freq: Status: Active Protocol: Document 08/25/18 11:15 DLM (Rec: 08/25/18 19:21 DLM [id number]) OP Mobility Evaluation Bed Mobility Rolling needs assist to right side Supine to and from Sit needs min assist Transfers Sit to Stand independent OP Gait Assessment Gait Gait Assistance Required: Independent Assistive Devices Assistive Device None PT-OP-J Posture/Palpation/Skin Start: 08/25/18 12:55 Freq: Status: Active Protocol: Document 08/25/18 11:15 DLM (Rec: 08/25/18 19:21 DLM [id number]) Skin Assessment Edema Assessment Left Arm Edema Type Pitting Edema Degree 2+ Edema Appearance Firm Comments bruising scattered on left UE, abrasion noted left forearm, edema greatest from wrist to just above elbow PT-OP-K Range of Motion Start: 08/25/18 12:55 Freq: Status: Active Protocol: Document 08/28/18 13:00 DLM (Rec: 08/28/18 15:26 DLM [id number]) Shoulder Goniometric Range of Motion Shoulder Measured in Degrees Left Passive Testing Position Supine Flexion 80 Extension 0 External Rotation at 0 degrees Abduction 12 PT-OP-M Strength Start: 08/25/18 12:55 Freq: Status: Active Protocol: Document 08/25/18 11:15 DLM (Rec: 08/25/18 19:17 DLM [id number]) Shoulder Strength Shoulder Manual Muscle Testing Left Reason Not Measured Orthopedic Precautions Pain Comments unable to test at this time due to fx, orthopedic protocal for Passive ROM only at this time Right Reason Not Measured WFL Elbow/Forearm Strength Elbow and Forearm Manual Muscle Testing Left Flexion (C6) 2- Poor- Reason Not Measured Orthopedic Precautions Pain Comments needs assist to flex her elbow with weakness and pain Hand Tow Mate/Pinch Strength Hand Dominance Hand Dominance Left Hand Strength Left Comments weakness associated with pain and edema PT-OP-Q Treatments Start: 08/25/18 12:55 Freq: Status: Active Protocol: Document 09/15/18 15:07 (Rec: 09/15/18 15:17 [email or web address]) Therapeutic Exercises Sitting Exercises Shoulder IR/ER Sitting Exercise Name AROM ER/IR Side left Comments pain-free Shoulder Abduction Sitting Exercise Name AROM abduction Side left Comments pain-free Shoulder Flexion Sitting Exercise Name AROM flexion Side left Equipment Used Used stair banister for AA in standing Comments pain-free 1 Sitting Exercise Name elbow,wrist DHARMESH Reps/Minutes x 15 reps x 2 sets Standing Exercises Shoulder IR with Pulleys Equipment Used pulleys Reps/Minutes 2 min Comments pain-free Manual Therapy Treatment Soft Tissue Mobilization 3 Body Location left mid trap, just below scapula Mobilization Type Myofascial Release Strumming Intensity/Depth Superficial Body Position Side lying 2 Body Location left upper trap Mobilization Type Strumming Sustained Pressure Intensity/Depth Moderate Body Position Supine Comments soft tissue tightness and pain improved with treatment PT-OP-R Modalities Start: 08/25/18 12:55 Freq: Status: Active Protocol: Document 09/15/18 15:07 (Rec: 09/15/18 15:17 [email or web address]) Hot Pack/Cold Pack Treatment Cold Pack Location left shoulder Patient Position Supine Treatment Duration (minutes) 10 Patient Tolerance Good PT-OP-T Assessment and Plan Start: 08/25/18 12:55 Freq: Status: Active Protocol: Document 09/15/18 15:07 (Rec: 09/15/18 15:17 [email or web address]) Physical Therapy Assessment Progress Towards Goals Progress Towards Goals Progressing Toward Goals Assessment Summary Assessment Pt understands new HEP better and is doing AROM to tolerance and avoiding increased pain. Physical Therapy Plan Next Visit Focus/Plan Next Note Type Treatment Note Next Visit Plan Continue to progress AROM and strengthening as tolerated per MD protocol.
--- NOTE | 2018-09-26 15:53 | PT.OTN ---
Current Diagnoses Unspecified nondisplaced fracture of surgical neck of left humerus, initial encounter for closed fracture (09/26/18) Physical Therapy Treatment Note PT-OP-A Visit Information Start: 08/25/18 12:55 Freq: Status: Active Protocol: Document 09/26/18 15:42 SA (Rec: 09/26/18 15:52 SA [email or web address]) Out-Patient Physical Therapy Visit Information Visit Information Visit Type Treatment Note Visit Start Time 13:45 Visit Stop Time 14:29 Visit Number 06/09 Number of INSTRUMENT SPECIALIST Visits 2 PT-OP-B Current Condition Start: 08/25/18 12:55 Freq: Status: Active Protocol: Document 08/25/18 11:15 DLM (Rec: 08/25/18 13:45 DLM [id number]) Current Condition History of Current Condition Onset Date 08/09/18 Current Complaints left shoulder pain and unable to use it History of Current Condition She was in [place] when she pushed her chair back, it got stuck in a crack and she fell backwards onto her left shoulder. She had immediate pain. She also had dizziness and nausea after her fall that took an extended period of time to resolve while she sat on the ground. She received medical attention and was diagnosed with left humeral fx . She was placed in a shoulder sling. Once she got home she went to see Dr Corona who re- xrayed her shoulder and changed her to a different sling. She has been unable to sleep or lie in bed since the injury. She is sleeping in a chair. She also had an episode of stomach upset and diarrhea immediately after her injury that has resolved. 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 Function- Recreation/Hobbies likes to walk for exercise, walks 2-4 miles per day, likes to travel Baseline Function- Other left handed Current Functional Impairments (Reported) Functional Limitations- ADL's She needs assistance with all her ADL's, not able to lie in supine, has not been able to use her bed, staying in recliner, not sleeping well Functional Limitations- Mobility/Gait Independent gait without device Functional Limitations- Recreation/ has been walking with her Hobbies Spouse but not as far as usual Personal Factors Other Personal Factors That May Effect left handed Therapy/Recovery PT-OP-C Subjective Start: 08/25/18 12:55 Freq: Status: Active Protocol: Document 09/26/18 15:42 SA (Rec: 09/26/18 15:52 SA [email or web address]) OP-PT Subjective Patient Comments Patient Comments Pt reports having some mile pain with active movements but overall doing better each day . PT-OP-G Mobility & Gait Start: 08/25/18 12:55 Freq: Status: Active Protocol: Document 08/25/18 11:15 DLM (Rec: 08/25/18 19:21 DLM [id number]) OP Mobility Evaluation Bed Mobility Rolling needs assist to right side Supine to and from Sit needs min assist Transfers Sit to Stand independent OP Gait Assessment Gait Gait Assistance Required: Independent Assistive Devices Assistive Device None PT-OP-J Posture/Palpation/Skin Start: 08/25/18 12:55 Freq: Status: Active Protocol: Document 08/25/18 11:15 DLM (Rec: 08/25/18 19:21 DLM [id number]) Skin Assessment Edema Assessment Left Arm Edema Type Pitting Edema Degree 2+ Edema Appearance Firm Comments bruising scattered on left UE, abrasion noted left forearm, edema greatest from wrist to just above elbow PT-OP-K Range of Motion Start: 08/25/18 12:55 Freq: Status: Active Protocol: Document 08/28/18 13:00 DLM (Rec: 08/28/18 15:26 DLM [id number]) Shoulder Goniometric Range of Motion Shoulder Measured in Degrees Left Passive Testing Position Supine Flexion 80 Extension 0 External Rotation at 0 degrees Abduction 12 PT-OP-M Strength Start: 08/25/18 12:55 Freq: Status: Active Protocol: Document 08/25/18 11:15 DLM (Rec: 08/25/18 19:17 DLM [id number]) Shoulder Strength Shoulder Manual Muscle Testing Left Reason Not Measured Orthopedic Precautions Pain Comments unable to test at this time due to fx, orthopedic protocal for Passive ROM only at this time Right Reason Not Measured WFL Elbow/Forearm Strength Elbow and Forearm Manual Muscle Testing Left Flexion (C6) 2- Poor- Reason Not Measured Orthopedic Precautions Pain Comments needs assist to flex her elbow with weakness and pain Hand Metal Painter/Pinch Strength Hand Dominance Hand Dominance Left Hand Strength Left Comments weakness associated with pain and edema PT-OP-Q Treatments Start: 08/25/18 12:55 Freq: Status: Active Protocol: Document 09/26/18 15:42 SA (Rec: 09/26/18 15:52 SA [email or web address]) Therapeutic Exercises Sitting Exercises Shoulder IR/ER Sitting Exercise Name AROM ER/IR Side left Comments pain-free Shoulder Abduction Sitting Exercise Name AROM abduction Side left Comments pain-free Shoulder Flexion Sitting Exercise Name AROM flexion Side left Equipment Used Used stair banister for AA in standing Comments pain-free 1 Sitting Exercise Name elbow,wrist DHARMESH Reps/Minutes x 15 reps x 2 sets Standing Exercises Shoulder IR with Pulleys Equipment Used pulleys Reps/Minutes 2 min Comments pain-free Manual Therapy Treatment Soft Tissue Mobilization 3 Body Location left mid trap, just below scapula Mobilization Type Myofascial Release Strumming Intensity/Depth Moderate Body Position Side lying 2 Body Location left upper trap Mobilization Type Strumming Sustained Pressure Intensity/Depth Moderate Body Position Supine Comments soft tissue tightness and pain improved with treatment 1 Body Location hand to elbow, left UE Mobilization Type Myofascial Release Strumming Other Intensity/Depth Moderate Body Position Supine PT-OP-R Modalities Start: 08/25/18 12:55 Freq: Status: Active Protocol: Document 09/26/18 15:42 SA (Rec: 09/26/18 15:52 [email or web address]) Hot Pack/Cold Pack Treatment Cold Pack Location left shoulder Patient Position Supine Treatment Duration (minutes) 10 Patient Tolerance Good PT-OP-T Assessment and Plan Start: 08/25/18 12:55 Freq: Status: Active Protocol: Document 09/26/18 15:42 SA (Rec: 09/26/18 15:52 [email or web address]) Physical Therapy Assessment Progress Towards Goals Progress Towards Goals Progressing Toward Goals Assessment Summary Assessment Pt doing well with HEP, discussed sleeping positions and use of pillows for optimal comfort. Gradual improvement with active IE and shoulder flexion. Physical Therapy Plan Next Visit Focus/Plan Next Note Type Treatment Note Next Visit Plan Continue to progress AROM and gentle strengthening as tolerated.
--- NOTE | 2018-09-29 09:48 | PT.OTN ---
Current Diagnoses Unspecified nondisplaced fracture of surgical neck of left humerus, initial encounter for closed fracture (09/29/18) Physical Therapy Treatment Note PT-OP-A Visit Information Start: 08/25/18 12:55 Freq: Status: Active Protocol: Document 09/29/18 09:00 DCW (Rec: 09/29/18 09:48 DCW [id number]) Out-Patient Physical Therapy Visit Information Visit Information Visit Type Treatment Note Visit Start Time 09:00 Visit Stop Time 09:45 Visit Number 07/10 Number of MANUFACTURING MAINTENANCE MECHANIC Visits 0 Evaluation Information Evaluation Date 08/25/18 PT-OP-B Current Condition Start: 08/25/18 12:55 Freq: Status: Active Protocol: Document 08/25/18 11:15 DLM (Rec: 08/25/18 13:45 DLM [id number]) Current Condition History of Current Condition Onset Date 08/09/18 Current Complaints left shoulder pain and unable to use it History of Current Condition She was in [place] when she pushed her chair back, it got stuck in a crack and she fell backwards onto her left shoulder. She had immediate pain. She also had dizziness and nausea after her fall that took an extended period of time to resolve while she sat on the ground. She received medical attention and was diagnosed with left humeral fx . She was placed in a shoulder sling. Once she got home she went to see Dr Corona who re- xrayed her shoulder and changed her to a different sling. She has been unable to sleep or lie in bed since the injury. She is sleeping in a chair. She also had an episode of stomach upset and diarrhea immediately after her injury that has resolved. 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 Function- Recreation/Hobbies likes to walk for exercise, walks 2-4 miles per day, likes to travel Baseline Function- Other left handed Current Functional Impairments (Reported) Functional Limitations- ADL's She needs assistance with all her ADL's, not able to lie in supine, has not been able to use her bed, staying in recliner, not sleeping well Functional Limitations- Mobility/Gait Independent gait without device Functional Limitations- Recreation/ has been walking with her Hobbies Spouse but not as far as usual Personal Factors Other Personal Factors That May Effect left handed Therapy/Recovery PT-OP-C Subjective Start: 08/25/18 12:55 Freq: Status: Active Protocol: Document 09/29/18 09:00 DCW (Rec: 09/29/18 09:48 DCW [id number]) OP-PT Subjective Patient Comments Patient Comments It seems to be getting better every day. PT-OP-G Mobility & Gait Start: 08/25/18 12:55 Freq: Status: Active Protocol: Document 08/25/18 11:15 DLM (Rec: 08/25/18 19:21 DLM [id number]) OP Mobility Evaluation Bed Mobility Rolling needs assist to right side Supine to and from Sit needs min assist Transfers Sit to Stand independent OP Gait Assessment Gait Gait Assistance Required: Independent Assistive Devices Assistive Device None PT-OP-J Posture/Palpation/Skin Start: 08/25/18 12:55 Freq: Status: Active Protocol: Document 08/25/18 11:15 DLM (Rec: 08/25/18 19:21 DLM [id number]) Skin Assessment Edema Assessment Left Arm Edema Type Pitting Edema Degree 2+ Edema Appearance Firm Comments bruising scattered on left UE, abrasion noted left forearm, edema greatest from wrist to just above elbow PT-OP-K Range of Motion Start: 08/25/18 12:55 Freq: Status: Active Protocol: Document 08/28/18 13:00 DLM (Rec: 08/28/18 15:26 DLM [id number]) Shoulder Goniometric Range of Motion Shoulder Measured in Degrees Left Passive Testing Position Supine Flexion 80 Extension 0 External Rotation at 0 degrees Abduction 12 PT-OP-M Strength Start: 08/25/18 12:55 Freq: Status: Active Protocol: Document 08/25/18 11:15 DLM (Rec: 08/25/18 19:17 DLM [id number]) Shoulder Strength Shoulder Manual Muscle Testing Left Reason Not Measured Orthopedic Precautions Pain Comments unable to test at this time due to fx, orthopedic protocal for Passive ROM only at this time Right Reason Not Measured WFL Elbow/Forearm Strength Elbow and Forearm Manual Muscle Testing Left Flexion (C6) 2- Poor- Reason Not Measured Orthopedic Precautions Pain Comments needs assist to flex her elbow with weakness and pain Hand Multimedia Instructional Designer/Pinch Strength Hand Dominance Hand Dominance Left Hand Strength Left Comments weakness associated with pain and edema PT-OP-Q Treatments Start: 08/25/18 12:55 Freq: Status: Active Protocol: Document 09/29/18 09:00 DCW (Rec: 09/29/18 09:48 DCW [id number]) Therapeutic Exercises Sitting Exercises Shoulder Abduction Sitting Exercise Name AROM abduction Side left Equipment Used Pullies Comments pain-free Shoulder Flexion Sitting Exercise Name AROM flexion Side left Equipment Used Pullies Comments pain-free Standing Exercises Shoulder Flexion Standing Exercise Name Flexion Side bilateral Resistance 2# Equipment Used Wand Comments VCs to decrease shoulder shrug Shoulder Adduction Standing Exercise Name Adduction Side bilateral Resistance Lv 2 Equipment Used T-band Shoulder Extension Standing Exercise Name Extension Side bilateral Resistance Lv 2 Equipment Used T-band Shoulder IR with Pulleys Standing Exercise Name Shoulder IR Equipment Used pulleys Comments pain-free Manual Therapy Treatment Soft Tissue Mobilization 3 Body Location left mid trap, just below scapula Mobilization Type Myofascial Release Strumming Intensity/Depth Moderate Body Position Side lying 2 Body Location left upper trap Mobilization Type Strumming Sustained Pressure Intensity/Depth Moderate Body Position Supine Comments soft tissue tightness and pain improved with treatment PT-OP-R Modalities Start: 08/25/18 12:55 Freq: Status: Active Protocol: Document 09/29/18 09:00 DCW (Rec: 09/29/18 09:48 [facility] [id number]) Hot Pack/Cold Pack Treatment Cold Pack Location left shoulder Patient Position Supine Treatment Duration (minutes) 10 Patient Tolerance Good PT-OP-T Assessment and Plan Start: 08/25/18 12:55 Freq: Status: Active Protocol: Document 09/29/18 09:00 DCW (Rec: 09/29/18 09:48 [facility] [id number]) Physical Therapy Assessment Goals Three Impairment Impaired left shoulder strength Short Term Goal (STG) she will be able to use left UE for simple functional ADL's at home STG Duration 4 weeks Spreader Box Operator Goal (LTG) Increase left UE strength to 4 /5 in available ROM LTG Duration 8 weeks Two Impairment Impaired ROM Short Term Goal (STG) PROM left shoulder flexion 170 degrees and ER to 50 degrees STG Duration 4 weeks Spreader Box Operator Goal (LTG) AROM left shoulder flexion 110 degrees, ER to 80 degrees, IR behind back to waistline LTG Duration 8 weeks One Impairment pain left shoulder Short Term Goal (STG) She will tolerate lying in supine to sleep STG Duration 2 weeks Group Home Goal (LTG) She will be able to use left shoulder functionally with less than 3/10 pain LTG Duration 8 weeks Assessment Summary Assessment Per rehab protocol, advanced pt to active resistance training/strengthening, however limited ROM required continued PROM/Stretching as well. Physical Therapy Plan Frequency and Duration Frequency of Treatment 2x/Week Duration of Treatment 8 weeks Plan of Care Start Date 08/25/18 Plan of Care End Date 10/29/18 Next Visit Focus/Plan Next Note Type Treatment Note Next Visit Plan Continue with MD protocol, advance resistance training/ strengthening as tolerated
--- NOTE | 2018-10-03 14:28 | PT.OTN ---
Current Diagnoses Unspecified nondisplaced fracture of surgical neck of left humerus, initial encounter for closed fracture (10/03/18) Physical Therapy Treatment Note PT-OP-A Visit Information Start: 08/25/18 12:55 Freq: Status: Active Protocol: Document 10/03/18 13:45 DCW (Rec: 10/03/18 14:27 DCW [id number]) Out-Patient Physical Therapy Visit Information Visit Information Visit Type Treatment Note Visit Start Time 13:45 Visit Stop Time 14:35 Total Visit Minutes 50 Visit Number 08/09 Number of COST ESTIMATING MANAGER Visits 0 Evaluation Information Evaluation Date 08/25/18 PT-OP-B Current Condition Start: 08/25/18 12:55 Freq: Status: Active Protocol: Document 08/25/18 11:15 DLM (Rec: 08/25/18 13:45 DLM [id number]) Current Condition History of Current Condition Onset Date 08/09/18 Current Complaints left shoulder pain and unable to use it History of Current Condition She was in [place] when she pushed her chair back, it got stuck in a crack and she fell backwards onto her left shoulder. She had immediate pain. She also had dizziness and nausea after her fall that took an extended period of time to resolve while she sat on the ground. She received medical attention and was diagnosed with left humeral fx . She was placed in a shoulder sling. Once she got home she went to see Dr Corona who re- xrayed her shoulder and changed her to a different sling. She has been unable to sleep or lie in bed since the injury. She is sleeping in a chair. She also had an episode of stomach upset and diarrhea immediately after her injury that has resolved. 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 Function- Recreation/Hobbies likes to walk for exercise, walks 2-4 miles per day, likes to travel Baseline Function- Other left handed Current Functional Impairments (Reported) Functional Limitations- ADL's She needs assistance with all her ADL's, not able to lie in supine, has not been able to use her bed, staying in recliner, not sleeping well Functional Limitations- Mobility/Gait Independent gait without device Functional Limitations- Recreation/ has been walking with her Hobbies Spouse but not as far as usual Personal Factors Other Personal Factors That May Effect left handed Therapy/Recovery PT-OP-C Subjective Start: 08/25/18 12:55 Freq: Status: Active Protocol: Document 10/03/18 13:45 DCW (Rec: 10/03/18 14:27 DCW [id number]) OP-PT Subjective Patient Comments Patient Comments I think it is getting better, but I'm still having trouble doing things like ringing out a rag. PT-OP-G Mobility & Gait Start: 08/25/18 12:55 Freq: Status: Active Protocol: Document 08/25/18 11:15 DLM (Rec: 08/25/18 19:21 DLM [id number]) OP Mobility Evaluation Bed Mobility Rolling needs assist to right side Supine to and from Sit needs min assist Transfers Sit to Stand independent OP Gait Assessment Gait Gait Assistance Required: Independent Assistive Devices Assistive Device None PT-OP-J Posture/Palpation/Skin Start: 08/25/18 12:55 Freq: Status: Active Protocol: Document 08/25/18 11:15 DLM (Rec: 08/25/18 19:21 DLM [id number]) Skin Assessment Edema Assessment Left Arm Edema Type Pitting Edema Degree 2+ Edema Appearance Firm Comments bruising scattered on left UE, abrasion noted left forearm, edema greatest from wrist to just above elbow PT-OP-K Range of Motion Start: 08/25/18 12:55 Freq: Status: Active Protocol: Document 08/28/18 13:00 DLM (Rec: 08/28/18 15:26 DLM [id number]) Shoulder Goniometric Range of Motion Shoulder Measured in Degrees Left Passive Testing Position Supine Flexion 80 Extension 0 External Rotation at 0 degrees Abduction 12 PT-OP-M Strength Start: 08/25/18 12:55 Freq: Status: Active Protocol: Document 08/25/18 11:15 DLM (Rec: 08/25/18 19:17 DLM [id number]) Shoulder Strength Shoulder Manual Muscle Testing Left Reason Not Measured Orthopedic Precautions Pain Comments unable to test at this time due to fx, orthopedic protocal for Passive ROM only at this time Right Reason Not Measured WFL Elbow/Forearm Strength Elbow and Forearm Manual Muscle Testing Left Flexion (C6) 2- Poor- Reason Not Measured Orthopedic Precautions Pain Comments needs assist to flex her elbow with weakness and pain Hand Staff Software Engineer/Pinch Strength Hand Dominance Hand Dominance Left Hand Strength Left Comments weakness associated with pain and edema PT-OP-Q Treatments Start: 08/25/18 12:55 Freq: Status: Active Protocol: Document 10/03/18 13:45 DCW (Rec: 10/03/18 14:27 DCW [id number]) Cardio Equipment Upper Body Ergometer (UBE) Duration (Minutes) 6 Seat Position 12 Height 3 Therapeutic Exercises Supine Exercises 1 Supine Exercise Name PROM left shoulder flexion, IR and ER Side left Resistance gentle Comments within pain tolerance, per physician protocal Sitting Exercises Shoulder Abduction Sitting Exercise Name AROM abduction Side left Equipment Used Pullies Comments pain-free Shoulder Flexion Sitting Exercise Name AROM flexion Side left Equipment Used Pullies Comments pain-free Standing Exercises Wall slides Standing Exercise Name Flex/Abd wall slides Side left Equipment Used Superslider Shoulder Abduction Standing Exercise Name Abduction Side bilateral Resistance 1# Equipment Used Dumbbells Shoulder Flexion Standing Exercise Name Flexion Side bilateral Resistance 2# Equipment Used Wand Comments VCs to decrease shoulder shrug Shoulder Adduction Standing Exercise Name Adduction Side bilateral Resistance Lv 2 Equipment Used T-band Shoulder Extension Standing Exercise Name Extension Side bilateral Resistance Lv 2 Equipment Used T-band Shoulder IR with Pulleys Standing Exercise Name Shoulder IR Equipment Used pulleys Comments pain-free Manual Therapy Treatment Soft Tissue Mobilization 2 Body Location left upper trap Mobilization Type Strumming Sustained Pressure Intensity/Depth Moderate Body Position Supine Comments soft tissue tightness and pain improved with treatment PT-OP-R Modalities Start: 08/25/18 12:55 Freq: Status: Active Protocol: Document 10/03/18 13:45 DCW (Rec: 10/03/18 14:27 DCW [id number]) Hot Pack/Cold Pack Treatment Cold Pack Location left shoulder Patient Position Supine Treatment Duration (minutes) 10 Patient Tolerance Good PT-OP-T Assessment and Plan Start: 08/25/18 12:55 Freq: Status: Active Protocol: Document 10/03/18 13:45 DCW (Rec: 10/03/18 14:27 DCW [id number]) Physical Therapy Assessment Goals Three Impairment Impaired left shoulder strength Short Term Goal (STG) she will be able to use left UE for simple functional ADL's at home STG Duration 4 weeks Shelter Goal (LTG) Increase left UE strength to 4 /5 in available ROM LTG Duration 8 weeks Two Impairment Impaired ROM Short Term Goal (STG) PROM left shoulder flexion 170 degrees and ER to 50 degrees STG Duration 4 weeks Poll Clerk Goal (LTG) AROM left shoulder flexion 110 degrees, ER to 80 degrees, IR behind back to waistline LTG Duration 8 weeks One Impairment pain left shoulder Short Term Goal (STG) She will tolerate lying in supine to sleep STG Duration 2 weeks Poll Clerk Goal (LTG) She will be able to use left shoulder functionally with less than 3/10 pain LTG Duration 8 weeks Assessment Summary Assessment Pt progressing slowly, however tolerating new resistance exercises with no complaints of increased pain or stiffness . Physical Therapy Plan Frequency and Duration Frequency of Treatment 2x/Week Duration of Treatment 8 weeks Plan of Care Start Date 08/25/18 Plan of Care End Date 10/29/18 Next Visit Focus/Plan Next Note Type Treatment Note Next Visit Plan Continue with MD protocol, advance resistance training/ strengthening as tolerated
--- NOTE | 2018-10-06 15:34 | PT.OTN ---
Current Diagnoses Unspecified nondisplaced fracture of surgical neck of left humerus, initial encounter for closed fracture (10/06/18) Physical Therapy Treatment Note PT-OP-A Visit Information Start: 08/25/18 12:55 Freq: Status: Active Protocol: Document 10/06/18 15:24 SA (Rec: 10/06/18 15:33 SA [id number]) Out-Patient Physical Therapy Visit Information Visit Information Visit Type Treatment Note Visit Start Time 13:45 Visit Stop Time 14:33 Total Visit Minutes 45 Visit Number 11 Number of CURRENCY COUNTER Visits 1 PT-OP-B Current Condition Start: 08/25/18 12:55 Freq: Status: Active Protocol: Document 08/25/18 11:15 DLM (Rec: 08/25/18 13:45 DLM [id number]) Current Condition History of Current Condition Onset Date 08/09/18 Current Complaints left shoulder pain and unable to use it History of Current Condition She was in [place] when she pushed her chair back, it got stuck in a crack and she fell backwards onto her left shoulder. She had immediate pain. She also had dizziness and nausea after her fall that took an extended period of time to resolve while she sat on the ground. She received medical attention and was diagnosed with left humeral fx . She was placed in a shoulder sling. Once she got home she went to see Dr Corona who re- xrayed her shoulder and changed her to a different sling. She has been unable to sleep or lie in bed since the injury. She is sleeping in a chair. She also had an episode of stomach upset and diarrhea immediately after her injury that has resolved. 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 Function- Recreation/Hobbies likes to walk for exercise, walks 2-4 miles per day, likes to travel Baseline Function- Other left handed Current Functional Impairments (Reported) Functional Limitations- ADL's She needs assistance with all her ADL's, not able to lie in supine, has not been able to use her bed, staying in recliner, not sleeping well Functional Limitations- Mobility/Gait Independent gait without device Functional Limitations- Recreation/ has been walking with her Hobbies Spouse but not as far as usual Personal Factors Other Personal Factors That May Effect left handed Therapy/Recovery PT-OP-C Subjective Start: 08/25/18 12:55 Freq: Status: Active Protocol: Document 10/06/18 15:24 SA (Rec: 10/06/18 15:33 SA [id number]) OP-PT Subjective Patient Comments Patient Comments Seems to be gaining motion gradually. Doing exercises at home. PT-OP-G Mobility & Gait Start: 08/25/18 12:55 Freq: Status: Active Protocol: Document 08/25/18 11:15 DLM (Rec: 08/25/18 19:21 DLM [id number]) OP Mobility Evaluation Bed Mobility Rolling needs assist to right side Supine to and from Sit needs min assist Transfers Sit to Stand independent OP Gait Assessment Gait Gait Assistance Required: Independent Assistive Devices Assistive Device None PT-OP-J Posture/Palpation/Skin Start: 08/25/18 12:55 Freq: Status: Active Protocol: Document 08/25/18 11:15 DLM (Rec: 08/25/18 19:21 DLM [id number]) Skin Assessment Edema Assessment Left Arm Edema Type Pitting Edema Degree 2+ Edema Appearance Firm Comments bruising scattered on left UE, abrasion noted left forearm, edema greatest from wrist to just above elbow PT-OP-K Range of Motion Start: 08/25/18 12:55 Freq: Status: Active Protocol: Document 08/28/18 13:00 DLM (Rec: 08/28/18 15:26 DLM [id number]) Shoulder Goniometric Range of Motion Shoulder Measured in Degrees Left Passive Testing Position Supine Flexion 80 Extension 0 External Rotation at 0 degrees Abduction 12 PT-OP-M Strength Start: 08/25/18 12:55 Freq: Status: Active Protocol: Document 08/25/18 11:15 DLM (Rec: 08/25/18 19:17 DLM [id number]) Shoulder Strength Shoulder Manual Muscle Testing Left Reason Not Measured Orthopedic Precautions Pain Comments unable to test at this time due to fx, orthopedic protocal for Passive ROM only at this time Right Reason Not Measured WFL Elbow/Forearm Strength Elbow and Forearm Manual Muscle Testing Left Flexion (C6) 2- Poor- Reason Not Measured Orthopedic Precautions Pain Comments needs assist to flex her elbow with weakness and pain Hand Supervisor Electronics Inspection/Pinch Strength Hand Dominance Hand Dominance Left Hand Strength Left Comments weakness associated with pain and edema PT-OP-Q Treatments Start: 08/25/18 12:55 Freq: Status: Active Protocol: Document 10/06/18 15:24 SA (Rec: 10/06/18 15:33 SA [id number]) Cardio Equipment Upper Body Ergometer (UBE) Duration (Minutes) 6 Seat Position 12 Height 3 Therapeutic Exercises Standing Exercises Wall slides Standing Exercise Name Flex/Abd wall slides Side left Equipment Used Superslider Shoulder Abduction Standing Exercise Name Abduction Side bilateral Resistance 1# Equipment Used Dumbbells Shoulder Flexion Standing Exercise Name Flexion Side bilateral Resistance 2# Equipment Used Wand Comments VCs to decrease shoulder shrug Shoulder Adduction Standing Exercise Name Adduction Side bilateral Resistance Lv 2 Equipment Used T-band Shoulder Extension Standing Exercise Name Extension Side bilateral Resistance Lv 2 Equipment Used T-band Shoulder IR with Pulleys Standing Exercise Name Shoulder IR Equipment Used pulleys Comments pain-free PT-OP-R Modalities Start: 08/25/18 12:55 Freq: Status: Active Protocol: Document 10/06/18 15:33 SA (Rec: 10/06/18 15:33 SA [id number]) Hot Pack/Cold Pack Treatment Cold Pack Patient Position Supine Patient Tolerance Good PT-OP-T Assessment and Plan Start: 08/25/18 12:55 Freq: Status: Active Protocol: Document 10/06/18 15:24 SA (Rec: 10/06/18 15:33 SA [id number]) Physical Therapy Assessment Assessment Summary Assessment Pt still limited with IR but continues to work on with HEP, gradual improvement of ROM and strength. Physical Therapy Plan Next Visit Focus/Plan Next Note Type Treatment Note Next Visit Plan Continue to progress as per MD protocol.
--- NOTE | 2018-10-09 15:13 | PT.OTN ---
Current Diagnoses Unspecified nondisplaced fracture of surgical neck of left humerus, initial encounter for closed fracture (10/09/18) Physical Therapy Treatment Note PT-OP-A Visit Information Start: 08/25/18 12:55 Freq: Status: Active Protocol: Document 10/09/18 14:30 DCW (Rec: 10/09/18 15:13 DCW [id number]) Out-Patient Physical Therapy Visit Information Visit Information Visit Type Treatment Note Visit Start Time 13:45 Visit Stop Time 14:35 Total Visit Minutes 50 Visit Number 12 Number of CLIENT PROGRAM MANAGER Visits 0 Evaluation Information Evaluation Date 08/25/18 Precautions Precautions Advance per Ortho protocol. PT-OP-B Current Condition Start: 08/25/18 12:55 Freq: Status: Active Protocol: Document 08/25/18 11:15 DLM (Rec: 08/25/18 13:45 DLM [id number]) Current Condition History of Current Condition Onset Date 08/09/18 Current Complaints left shoulder pain and unable to use it History of Current Condition She was in [place] when she pushed her chair back, it got stuck in a crack and she fell backwards onto her left shoulder. She had immediate pain. She also had dizziness and nausea after her fall that took an extended period of time to resolve while she sat on the ground. She received medical attention and was diagnosed with left humeral fx . She was placed in a shoulder sling. Once she got home she went to see Dr Corona who re- xrayed her shoulder and changed her to a different sling. She has been unable to sleep or lie in bed since the injury. She is sleeping in a chair. She also had an episode of stomach upset and diarrhea immediately after her injury that has resolved. 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 Function- Recreation/Hobbies likes to walk for exercise, walks 2-4 miles per day, likes to travel Baseline Function- Other left handed Current Functional Impairments (Reported) Functional Limitations- ADL's She needs assistance with all her ADL's, not able to lie in supine, has not been able to use her bed, staying in recliner, not sleeping well Functional Limitations- Mobility/Gait Independent gait without device Functional Limitations- Recreation/ has been walking with her Hobbies Spouse but not as far as usual Personal Factors Other Personal Factors That May Effect left handed Therapy/Recovery PT-OP-C Subjective Start: 08/25/18 12:55 Freq: Status: Active Protocol: Document 10/09/18 14:30 DCW (Rec: 10/09/18 15:13 DCW [id number]) OP-PT Subjective Patient Comments Patient Comments Every week, it seems like I'm able to do stuff I couldn't do the week before. Pt does note some soreness due to trying to turn her steering wheel when parking today PT-OP-G Mobility & Gait Start: 08/25/18 12:55 Freq: Status: Active Protocol: Document 08/25/18 11:15 DLM (Rec: 08/25/18 19:21 DLM [id number]) OP Mobility Evaluation Bed Mobility Rolling needs assist to right side Supine to and from Sit needs min assist Transfers Sit to Stand independent OP Gait Assessment Gait Gait Assistance Required: Independent Assistive Devices Assistive Device None PT-OP-J Posture/Palpation/Skin Start: 08/25/18 12:55 Freq: Status: Active Protocol: Document 08/25/18 11:15 DLM (Rec: 08/25/18 19:21 DLM [id number]) Skin Assessment Edema Assessment Left Arm Edema Type Pitting Edema Degree 2+ Edema Appearance Firm Comments bruising scattered on left UE, abrasion noted left forearm, edema greatest from wrist to just above elbow PT-OP-K Range of Motion Start: 08/25/18 12:55 Freq: Status: Active Protocol: Document 08/28/18 13:00 DLM (Rec: 08/28/18 15:26 DLM [id number]) Shoulder Goniometric Range of Motion Shoulder Measured in Degrees Left Passive Testing Position Supine Flexion 80 Extension 0 External Rotation at 0 degrees Abduction 12 PT-OP-M Strength Start: 08/25/18 12:55 Freq: Status: Active Protocol: Document 08/25/18 11:15 DLM (Rec: 08/25/18 19:17 DLM [id number]) Shoulder Strength Shoulder Manual Muscle Testing Left Reason Not Measured Orthopedic Precautions Pain Comments unable to test at this time due to fx, orthopedic protocal for Passive ROM only at this time Right Reason Not Measured WFL Elbow/Forearm Strength Elbow and Forearm Manual Muscle Testing Left Flexion (C6) 2- Poor- Reason Not Measured Orthopedic Precautions Pain Comments needs assist to flex her elbow with weakness and pain Hand Physical Therapy Assistant Instructor/Pinch Strength Hand Dominance Hand Dominance Left Hand Strength Left Comments weakness associated with pain and edema PT-OP-Q Treatments Start: 08/25/18 12:55 Freq: Status: Active Protocol: Document 10/09/18 14:30 DCW (Rec: 10/09/18 15:13 DCW [id number]) Cardio Equipment Upper Body Ergometer (UBE) Duration (Minutes) 6 Seat Position 12 Height 3 Therapeutic Exercises Supine Exercises 1 Supine Exercise Name PROM left shoulder flexion, IR and ER Side left Resistance gentle Comments within pain tolerance, per physician protocal Sitting Exercises Shoulder Abduction Sitting Exercise Name AROM abduction Side left Equipment Used Pullies Comments pain-free Shoulder Flexion Sitting Exercise Name AROM flexion Side left Equipment Used Pullies Comments pain-free Standing Exercises Biceps Curls Standing Exercise Name Curls/Reverse Curls Side bilateral Resistance 2# Equipment Used Dumbbell Internal Rotation Standing Exercise Name Internal Rotation Side left Resistance Lv 2 Equipment Used T-band External Rotation Standing Exercise Name External Rotation Side left Resistance Lv 2 Equipment Used T-band Wall slides Standing Exercise Name Flex/Abd wall slides Side left Equipment Used Superslider Shoulder Abduction Standing Exercise Name Abduction Side bilateral Resistance 1# Equipment Used Dumbbells Shoulder Flexion Standing Exercise Name Flexion Side bilateral Resistance 2# Equipment Used Wand Comments VCs to decrease shoulder shrug Shoulder IR with Pulleys Standing Exercise Name Shoulder IR Equipment Used pulleys Comments pain-free PT-OP-R Modalities Start: 08/25/18 12:55 Freq: Status: Active Protocol: Document 10/09/18 14:30 DCW (Rec: 10/09/18 15:13 DCW [id number]) Hot Pack/Cold Pack Treatment Cold Pack Location left shoulder Patient Position Supine Treatment Duration (minutes) 10 Patient Tolerance Good PT-OP-T Assessment and Plan Start: 08/25/18 12:55 Freq: Status: Active Protocol: Document 10/09/18 14:30 DCW (Rec: 10/09/18 15:13 DCW [id number]) Physical Therapy Assessment Goals Three Impairment Impaired left shoulder strength Short Term Goal (STG) she will be able to use left UE for simple functional ADL's at home STG Duration 4 weeks Skilled Nursing Goal (LTG) Increase left UE strength to 4 /5 in available ROM LTG Duration 8 weeks Two Impairment Impaired ROM Short Term Goal (STG) PROM left shoulder flexion 170 degrees and ER to 50 degrees STG Duration 4 weeks Skilled Nursing Goal (LTG) AROM left shoulder flexion 110 degrees, ER to 80 degrees, IR behind back to waistline LTG Duration 8 weeks One Impairment pain left shoulder Short Term Goal (STG) She will tolerate lying in supine to sleep STG Duration 2 weeks Skilled Nursing Goal (LTG) She will be able to use left shoulder functionally with less than 3/10 pain LTG Duration 8 weeks Assessment Summary Assessment No new complaints with increased resistance exercises , continued limited ROM Physical Therapy Plan Frequency and Duration Frequency of Treatment 2x/Week Duration of Treatment 8 weeks Plan of Care Start Date 08/25/18 Plan of Care End Date 10/29/18 Next Visit Focus/Plan Next Note Type Treatment Note Next Visit Plan Continue with MD protocol, advance resistance training/ strengthening as tolerated
--- NOTE | 2018-10-13 15:31 | PT.OTN ---
Current Diagnoses Unspecified nondisplaced fracture of surgical neck of left humerus, initial encounter for closed fracture (10/13/18) Physical Therapy Treatment Note PT-OP-A Visit Information Start: 08/25/18 12:55 Freq: Status: Active Protocol: Document 10/13/18 15:22 SA (Rec: 10/13/18 15:31 SA [id number]) Out-Patient Physical Therapy Visit Information Visit Information Visit Type Treatment Note Visit Start Time 13:45 Visit Stop Time 14:32 Total Visit Minutes 47 Visit Number 13 Number of SECURITY INSTALLER Visits 1 PT-OP-B Current Condition Start: 08/25/18 12:55 Freq: Status: Active Protocol: Document 08/25/18 11:15 DLM (Rec: 08/25/18 13:45 DLM [id number]) Current Condition History of Current Condition Onset Date 08/09/18 Current Complaints left shoulder pain and unable to use it History of Current Condition She was in [place] when she pushed her chair back, it got stuck in a crack and she fell backwards onto her left shoulder. She had immediate pain. She also had dizziness and nausea after her fall that took an extended period of time to resolve while she sat on the ground. She received medical attention and was diagnosed with left humeral fx . She was placed in a shoulder sling. Once she got home she went to see Dr Corona who re- xrayed her shoulder and changed her to a different sling. She has been unable to sleep or lie in bed since the injury. She is sleeping in a chair. She also had an episode of stomach upset and diarrhea immediately after her injury that has resolved. 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 Function- Recreation/Hobbies likes to walk for exercise, walks 2-4 miles per day, likes to travel Baseline Function- Other left handed Current Functional Impairments (Reported) Functional Limitations- ADL's She needs assistance with all her ADL's, not able to lie in supine, has not been able to use her bed, staying in recliner, not sleeping well Functional Limitations- Mobility/Gait Independent gait without device Functional Limitations- Recreation/ has been walking with her Hobbies Spouse but not as far as usual Personal Factors Other Personal Factors That May Effect left handed Therapy/Recovery PT-OP-C Subjective Start: 08/25/18 12:55 Freq: Status: Active Protocol: Document 10/13/18 15:22 SA (Rec: 10/13/18 15:31 SA [id number]) OP-PT Subjective Patient Comments Patient Comments I would like to be able to put a baret in my hair Other than that I feel like my motion is getting better. PT-OP-G Mobility & Gait Start: 08/25/18 12:55 Freq: Status: Active Protocol: Document 08/25/18 11:15 DLM (Rec: 08/25/18 19:21 DLM [id number]) OP Mobility Evaluation Bed Mobility Rolling needs assist to right side Supine to and from Sit needs min assist Transfers Sit to Stand independent OP Gait Assessment Gait Gait Assistance Required: Independent Assistive Devices Assistive Device None PT-OP-J Posture/Palpation/Skin Start: 08/25/18 12:55 Freq: Status: Active Protocol: Document 08/25/18 11:15 DLM (Rec: 08/25/18 19:21 DLM [id number]) Skin Assessment Edema Assessment Left Arm Edema Type Pitting Edema Degree 2+ Edema Appearance Firm Comments bruising scattered on left UE, abrasion noted left forearm, edema greatest from wrist to just above elbow PT-OP-K Range of Motion Start: 08/25/18 12:55 Freq: Status: Active Protocol: Document 08/28/18 13:00 DLM (Rec: 08/28/18 15:26 DLM [id number]) Shoulder Goniometric Range of Motion Shoulder Measured in Degrees Left Passive Testing Position Supine Flexion 80 Extension 0 External Rotation at 0 degrees Abduction 12 PT-OP-M Strength Start: 08/25/18 12:55 Freq: Status: Active Protocol: Document 08/25/18 11:15 DLM (Rec: 08/25/18 19:17 DLM [id number]) Shoulder Strength Shoulder Manual Muscle Testing Left Reason Not Measured Orthopedic Precautions Pain Comments unable to test at this time due to fx, orthopedic protocal for Passive ROM only at this time Right Reason Not Measured WFL Elbow/Forearm Strength Elbow and Forearm Manual Muscle Testing Left Flexion (C6) 2- Poor- Reason Not Measured Orthopedic Precautions Pain Comments needs assist to flex her elbow with weakness and pain Hand Insurance Instructor/Pinch Strength Hand Dominance Hand Dominance Left Hand Strength Left Comments weakness associated with pain and edema PT-OP-Q Treatments Start: 08/25/18 12:55 Freq: Status: Active Protocol: Document 10/13/18 15:22 (Rec: 10/13/18 15:31 [email or web address]) Cardio Equipment Upper Body Ergometer (UBE) Duration (Minutes) 6 Seat Position 12 Height 3 Therapeutic Exercises Standing Exercises Biceps Curls Standing Exercise Name Curls/Reverse Curls Side bilateral Resistance 2# Equipment Used Dumbbell Internal Rotation Standing Exercise Name Internal Rotation Side left Resistance Lv 2 Equipment Used T-band External Rotation Standing Exercise Name External Rotation Side left Resistance Lv 2 Equipment Used T-band Wall slides Standing Exercise Name Flex/Abd wall slides Side left Equipment Used Superslider Shoulder Abduction Standing Exercise Name Abduction Side bilateral Resistance 2# Equipment Used Dumbbells Shoulder Flexion Standing Exercise Name Flexion Side bilateral Resistance 2# Comments VCs to decrease shoulder shrug Shoulder Adduction Standing Exercise Name Adduction Side bilateral Resistance Lv 2 Equipment Used T-band Shoulder Extension Standing Exercise Name Extension Side bilateral Resistance Lv 2 Equipment Used T-band Shoulder IR with Pulleys Standing Exercise Name Shoulder IR Equipment Used pulleys Manual Therapy Treatment Soft Tissue Mobilization 2 Body Location left upper trap/biceps/pecs Mobilization Type Rolling Strumming Sustained Pressure Intensity/Depth Moderate Body Position Supine PT-OP-R Modalities Start: 08/25/18 12:55 Freq: Status: Active Protocol: Document 10/13/18 15:22 (Rec: 10/13/18 15:31 [id number]) Hot Pack/Cold Pack Treatment Cold Pack Location left shoulder Patient Position Supine Treatment Duration (minutes) 10 Patient Tolerance Good PT-OP-T Assessment and Plan Start: 08/25/18 12:55 Freq: Status: Active Protocol: Document 10/13/18 15:22 (Rec: 10/13/18 15:31 [id number]) Physical Therapy Assessment Assessment Summary Assessment Pt tolerating exercise progressions well, consistent with HEP, continued ROM limitation. Passive stretching completed and tolerated well today. Physical Therapy Plan Next Visit Focus/Plan Next Note Type Treatment Note Next Visit Plan Continue to progress ROM and strengthening ther ex as tolerated.
--- NOTE | 2018-10-17 14:28 | PT.OTN ---
Current Diagnoses Unspecified nondisplaced fracture of surgical neck of left humerus, initial encounter for closed fracture (10/17/18) Physical Therapy Treatment Note PT-OP-A Visit Information Start: 08/25/18 12:55 Freq: Status: Active Protocol: Document 10/17/18 13:45 DCW (Rec: 10/17/18 14:28 DCW [id number]) Out-Patient Physical Therapy Visit Information Visit Information Visit Type Treatment Note Visit Start Time 13:45 Visit Stop Time 14:35 Total Visit Minutes 50 Visit Number 14 Number of DIRECTOR OF THERAPY SERVICES Visits 0 Evaluation Information Evaluation Date 08/25/18 Precautions Precautions Advance per Ortho protocol. PT-OP-B Current Condition Start: 08/25/18 12:55 Freq: Status: Active Protocol: Document 08/25/18 11:15 DLM (Rec: 08/25/18 13:45 DLM [id number]) Current Condition History of Current Condition Onset Date 08/09/18 Current Complaints left shoulder pain and unable to use it History of Current Condition She was in [place] when she pushed her chair back, it got stuck in a crack and she fell backwards onto her left shoulder. She had immediate pain. She also had dizziness and nausea after her fall that took an extended period of time to resolve while she sat on the ground. She received medical attention and was diagnosed with left humeral fx . She was placed in a shoulder sling. Once she got home she went to see Dr Corona who re- xrayed her shoulder and changed her to a different sling. She has been unable to sleep or lie in bed since the injury. She is sleeping in a chair. She also had an episode of stomach upset and diarrhea immediately after her injury that has resolved. 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 Function- Recreation/Hobbies likes to walk for exercise, walks 2-4 miles per day, likes to travel Baseline Function- Other left handed Current Functional Impairments (Reported) Functional Limitations- ADL's She needs assistance with all her ADL's, not able to lie in supine, has not been able to use her bed, staying in recliner, not sleeping well Functional Limitations- Mobility/Gait Independent gait without device Functional Limitations- Recreation/ has been walking with her Hobbies Spouse but not as far as usual Personal Factors Other Personal Factors That May Effect left handed Therapy/Recovery PT-OP-C Subjective Start: 08/25/18 12:55 Freq: Status: Active Protocol: Document 10/17/18 13:45 DCW (Rec: 10/17/18 14:28 DCW [id number]) OP-PT Subjective Patient Comments Patient Comments Pt notes that she has been able to put in earrings and do her own make-up, but still cannot get her arm up high enough to do her hair. PT-OP-G Mobility & Gait Start: 08/25/18 12:55 Freq: Status: Active Protocol: Document 08/25/18 11:15 DLM (Rec: 08/25/18 19:21 DLM [id number]) OP Mobility Evaluation Bed Mobility Rolling needs assist to right side Supine to and from Sit needs min assist Transfers Sit to Stand independent OP Gait Assessment Gait Gait Assistance Required: Independent Assistive Devices Assistive Device None PT-OP-J Posture/Palpation/Skin Start: 08/25/18 12:55 Freq: Status: Active Protocol: Document 08/25/18 11:15 DLM (Rec: 08/25/18 19:21 DLM [id number]) Skin Assessment Edema Assessment Left Arm Edema Type Pitting Edema Degree 2+ Edema Appearance Firm Comments bruising scattered on left UE, abrasion noted left forearm, edema greatest from wrist to just above elbow PT-OP-K Range of Motion Start: 08/25/18 12:55 Freq: Status: Active Protocol: Document 08/28/18 13:00 DLM (Rec: 08/28/18 15:26 DLM [id number]) Shoulder Goniometric Range of Motion Shoulder Measured in Degrees Left Passive Testing Position Supine Flexion 80 Extension 0 External Rotation at 0 degrees Abduction 12 PT-OP-M Strength Start: 08/25/18 12:55 Freq: Status: Active Protocol: Document 08/25/18 11:15 DLM (Rec: 08/25/18 19:17 DLM [id number]) Shoulder Strength Shoulder Manual Muscle Testing Left Reason Not Measured Orthopedic Precautions Pain Comments unable to test at this time due to fx, orthopedic protocal for Passive ROM only at this time Right Reason Not Measured WFL Elbow/Forearm Strength Elbow and Forearm Manual Muscle Testing Left Flexion (C6) 2- Poor- Reason Not Measured Orthopedic Precautions Pain Comments needs assist to flex her elbow with weakness and pain Hand Motor Vehicle Parts Interpreter/Pinch Strength Hand Dominance Hand Dominance Left Hand Strength Left Comments weakness associated with pain and edema PT-OP-Q Treatments Start: 08/25/18 12:55 Freq: Status: Active Protocol: Document 10/17/18 13:45 DCW (Rec: 10/17/18 14:28 DCW [id number]) Cardio Equipment Upper Body Ergometer (UBE) Duration (Minutes) 6 Seat Position 12 Height 3 Therapeutic Exercises Supine Exercises 1 Supine Exercise Name PROM left shoulder flexion, IR and ER Side left Resistance gentle Comments within pain tolerance, per physician protocal Sitting Exercises Shoulder Abduction Sitting Exercise Name AROM abduction Side left Equipment Used Pullies Comments pain-free Shoulder Flexion Sitting Exercise Name AROM flexion Side left Equipment Used Pullies Comments pain-free Standing Exercises Biceps Curls Standing Exercise Name Curls/Reverse Curls Side bilateral Resistance 2# Equipment Used Dumbbell Shoulder Abduction Standing Exercise Name Abduction Side bilateral Resistance 2# Equipment Used Dumbbells Shoulder Flexion Standing Exercise Name Flexion Side bilateral Resistance 2# Shoulder Extension Standing Exercise Name Extension Side bilateral Resistance 4# Equipment Used Wand Shoulder IR with Pulleys Standing Exercise Name Shoulder IR Equipment Used pulleys Manual Therapy Treatment Soft Tissue Mobilization 2 Body Location left upper trap/biceps/pecs Mobilization Type Rolling Strumming Sustained Pressure Intensity/Depth Moderate Body Position Supine PT-OP-R Modalities Start: 08/25/18 12:55 Freq: Status: Active Protocol: Document 10/17/18 13:45 DCW (Rec: 10/17/18 14:28 DCW [id number]) Hot Pack/Cold Pack Treatment Cold Pack Location left shoulder Patient Position Supine Treatment Duration (minutes) 10 Patient Tolerance Good PT-OP-T Assessment and Plan Start: 08/25/18 12:55 Freq: Status: Active Protocol: Document 10/17/18 13:45 DCW (Rec: 10/17/18 14:28 DCW [id number]) Physical Therapy Assessment Goals Three Impairment Impaired left shoulder strength Short Term Goal (STG) she will be able to use left UE for simple functional ADL's at home STG Duration 4 weeks Usp Goal (LTG) Increase left UE strength to 4 /5 in available ROM LTG Duration 8 weeks Two Impairment Impaired ROM Short Term Goal (STG) PROM left shoulder flexion 170 degrees and ER to 50 degrees STG Duration 4 weeks Usp Goal (LTG) AROM left shoulder flexion 110 degrees, ER to 80 degrees, IR behind back to waistline LTG Duration 8 weeks One Impairment pain left shoulder Short Term Goal (STG) She will tolerate lying in supine to sleep STG Duration 2 weeks Utility Worker [employer] Goal (LTG) She will be able to use left shoulder functionally with less than 3/10 pain LTG Duration 8 weeks Assessment Summary Assessment ROM continues to improve, pt reporting increased functional mobility of left GH joint. Physical Therapy Plan Frequency and Duration Frequency of Treatment 2x/Week Duration of Treatment 8 weeks Plan of Care Start Date 08/25/18 Plan of Care End Date 10/29/18 Next Visit Focus/Plan Next Note Type Treatment Note Next Visit Plan Continue with MD protocol, advance resistance training/ strengthening as tolerated
--- NOTE | 2018-10-20 15:24 | PT.OTN ---
Current Diagnoses Unspecified nondisplaced fracture of surgical neck of left humerus, initial encounter for closed fracture (10/20/18) Physical Therapy Treatment Note PT-OP-A Visit Information Start: 08/25/18 12:55 Freq: Status: Active Protocol: Document 10/20/18 15:14 SA (Rec: 10/20/18 15:24 SA [email or web address]) Out-Patient Physical Therapy Visit Information Visit Information Visit Type Treatment Note Visit Start Time 13:45 Visit Stop Time 14:31 Total Visit Minutes 46 Visit Number 15 Number of FENDER MECHANIC APPRENTICE Visits 1 PT-OP-B Current Condition Start: 08/25/18 12:55 Freq: Status: Active Protocol: Document 08/25/18 11:15 DLM (Rec: 08/25/18 13:45 DLM [id number]) Current Condition History of Current Condition Onset Date 08/09/18 Current Complaints left shoulder pain and unable to use it History of Current Condition She was in [place] when she pushed her chair back, it got stuck in a crack and she fell backwards onto her left shoulder. She had immediate pain. She also had dizziness and nausea after her fall that took an extended period of time to resolve while she sat on the ground. She received medical attention and was diagnosed with left humeral fx . She was placed in a shoulder sling. Once she got home she went to see Dr Corona who re- xrayed her shoulder and changed her to a different sling. She has been unable to sleep or lie in bed since the injury. She is sleeping in a chair. She also had an episode of stomach upset and diarrhea immediately after her injury that has resolved. 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 Function- Recreation/Hobbies likes to walk for exercise, walks 2-4 miles per day, likes to travel Baseline Function- Other left handed Current Functional Impairments (Reported) Functional Limitations- ADL's She needs assistance with all her ADL's, not able to lie in supine, has not been able to use her bed, staying in recliner, not sleeping well Functional Limitations- Mobility/Gait Independent gait without device Functional Limitations- Recreation/ has been walking with her Hobbies Spouse but not as far as usual Personal Factors Other Personal Factors That May Effect left handed Therapy/Recovery PT-OP-C Subjective Start: 08/25/18 12:55 Freq: Status: Active Protocol: Document 10/20/18 15:14 SA (Rec: 10/20/18 15:24 SA [email or web address]) OP-PT Subjective Patient Comments Patient Comments Pt reports increased soreness today d/t being cold all night since she lost power at home. PT-OP-G Mobility & Gait Start: 08/25/18 12:55 Freq: Status: Active Protocol: Document 08/25/18 11:15 DLM (Rec: 08/25/18 19:21 DLM [id number]) OP Mobility Evaluation Bed Mobility Rolling needs assist to right side Supine to and from Sit needs min assist Transfers Sit to Stand independent OP Gait Assessment Gait Gait Assistance Required: Independent Assistive Devices Assistive Device None PT-OP-J Posture/Palpation/Skin Start: 08/25/18 12:55 Freq: Status: Active Protocol: Document 08/25/18 11:15 DLM (Rec: 08/25/18 19:21 DLM [id number]) Skin Assessment Edema Assessment Left Arm Edema Type Pitting Edema Degree 2+ Edema Appearance Firm Comments bruising scattered on left UE, abrasion noted left forearm, edema greatest from wrist to just above elbow PT-OP-K Range of Motion Start: 08/25/18 12:55 Freq: Status: Active Protocol: Document 08/28/18 13:00 DLM (Rec: 08/28/18 15:26 DLM [id number]) Shoulder Goniometric Range of Motion Shoulder Measured in Degrees Left Passive Testing Position Supine Flexion 80 Extension 0 External Rotation at 0 degrees Abduction 12 PT-OP-M Strength Start: 08/25/18 12:55 Freq: Status: Active Protocol: Document 08/25/18 11:15 DLM (Rec: 08/25/18 19:17 DLM [id number]) Shoulder Strength Shoulder Manual Muscle Testing Left Reason Not Measured Orthopedic Precautions Pain Comments unable to test at this time due to fx, orthopedic protocal for Passive ROM only at this time Right Reason Not Measured WFL Elbow/Forearm Strength Elbow and Forearm Manual Muscle Testing Left Flexion (C6) 2- Poor- Reason Not Measured Orthopedic Precautions Pain Comments needs assist to flex her elbow with weakness and pain Hand Food Or Baggage Handling Rampman/Pinch Strength Hand Dominance Hand Dominance Left Hand Strength Left Comments weakness associated with pain and edema PT-OP-Q Treatments Start: 08/25/18 12:55 Freq: Status: Active Protocol: Document 10/20/18 15:14 SA (Rec: 10/20/18 15:24 [email or web address]) Cardio Equipment Upper Body Ergometer (UBE) Duration (Minutes) 6 Seat Position 12 Height 3 Therapeutic Exercises Standing Exercises Biceps Curls Standing Exercise Name Curls/Reverse Curls Side bilateral Resistance 2# Equipment Used Dumbbell Internal Rotation Standing Exercise Name Internal Rotation Side left Resistance Lv 2 Equipment Used T-band External Rotation Standing Exercise Name External Rotation Side left Resistance Lv 2 Equipment Used T-band Wall slides Standing Exercise Name Flex/Abd wall slides Side left Equipment Used Superslider Shoulder Abduction Standing Exercise Name Abduction Side bilateral Resistance 2# Equipment Used Dumbbells Shoulder Flexion Standing Exercise Name Flexion Side bilateral Resistance 2# Comments VCs to decrease shoulder shrug Shoulder Adduction Standing Exercise Name Adduction Side bilateral Resistance Lv 2 Equipment Used T-band Shoulder Extension Standing Exercise Name Extension Side bilateral Resistance 4# Equipment Used Wand Shoulder IR with Pulleys Standing Exercise Name Shoulder IR Equipment Used pulleys Manual Therapy Treatment Soft Tissue Mobilization 2 Body Location left upper trap/biceps/pecs Mobilization Type Rolling Strumming Sustained Pressure Intensity/Depth Moderate Body Position Supine Comments pocket of swelling persists at post/lateral upper arm. PT-OP-R Modalities Start: 08/25/18 12:55 Freq: Status: Active Protocol: Document 10/20/18 15:14 (Rec: 10/20/18 15:24 [email or web address]) Hot Pack/Cold Pack Treatment Moist hot pack Location L shoulder Patient Position Supine Treatment Duration (minutes) 10 PT-OP-T Assessment and Plan Start: 08/25/18 12:55 Freq: Status: Active Protocol: Document 10/20/18 15:14 (Rec: 10/20/18 15:24 [email or web address]) Physical Therapy Assessment Assessment Summary Assessment Pt with gradual ROM improvements and ability to completed HEP. Slight increase in soreness this visit from sleeping poorly and being cold. Physical Therapy Plan Next Visit Focus/Plan Next Note Type Treatment Note Next Visit Plan Continue to progress shoulder strengthening and ROM exercise as per MD protocol.
--- NOTE | 2018-11-03 16:04 | PT.OTN ---
Current Diagnoses Unspecified nondisplaced fracture of surgical neck of left humerus, initial encounter for closed fracture (11/03/18) Physical Therapy Treatment Note PT-OP-A Visit Information Start: 08/25/18 12:55 Freq: Status: Active Protocol: Document 11/03/18 15:15 SAK (Rec: 11/03/18 16:04 SAK [id number]) Out-Patient Physical Therapy Visit Information Visit Information Visit Type Treatment Note Visit Start Time 15:16 Visit Stop Time 16:06 Total Visit Minutes 50 Visit Number 16 Number of SUPERVISOR SIGN SHOP Visits 0 Evaluation Information Evaluation Date 08/25/18 PT-OP-B Current Condition Start: 08/25/18 12:55 Freq: Status: Active Protocol: Document 08/25/18 11:15 DLM (Rec: 08/25/18 13:45 DLM [id number]) Current Condition History of Current Condition Onset Date 08/09/18 Current Complaints left shoulder pain and unable to use it History of Current Condition She was in [place] when she pushed her chair back, it got stuck in a crack and she fell backwards onto her left shoulder. She had immediate pain. She also had dizziness and nausea after her fall that took an extended period of time to resolve while she sat on the ground. She received medical attention and was diagnosed with left humeral fx . She was placed in a shoulder sling. Once she got home she went to see Dr Corona who re- xrayed her shoulder and changed her to a different sling. She has been unable to sleep or lie in bed since the injury. She is sleeping in a chair. She also had an episode of stomach upset and diarrhea immediately after her injury that has resolved. 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 Function- Recreation/Hobbies likes to walk for exercise, walks 2-4 miles per day, likes to travel Baseline Function- Other left handed Current Functional Impairments (Reported) Functional Limitations- ADL's She needs assistance with all her ADL's, not able to lie in supine, has not been able to use her bed, staying in recliner, not sleeping well Functional Limitations- Mobility/Gait Independent gait without device Functional Limitations- Recreation/ has been walking with her Hobbies Spouse but not as far as usual Personal Factors Other Personal Factors That May Effect left handed Therapy/Recovery PT-OP-C Subjective Start: 08/25/18 12:55 Freq: Status: Active Protocol: Document 11/03/18 15:15 SAK (Rec: 11/03/18 16:04 SAK [id number]) OP-PT Subjective Patient Comments Patient Comments Reports when she put up [place] tree unable to reach the top, but when taking it down was able to reach the ornaments at the top. Still difficult to put shetty in hair well. Pain variable PT-OP-G Mobility & Gait Start: 08/25/18 12:55 Freq: Status: Active Protocol: Document 08/25/18 11:15 DLM (Rec: 08/25/18 19:21 DLM [id number]) OP Mobility Evaluation Bed Mobility Rolling needs assist to right side Supine to and from Sit needs min assist Transfers Sit to Stand independent OP Gait Assessment Gait Gait Assistance Required: Independent Assistive Devices Assistive Device None PT-OP-J Posture/Palpation/Skin Start: 08/25/18 12:55 Freq: Status: Active Protocol: Document 08/25/18 11:15 DLM (Rec: 08/25/18 19:21 DLM [id number]) Skin Assessment Edema Assessment Left Arm Edema Type Pitting Edema Degree 2+ Edema Appearance Firm Comments bruising scattered on left UE, abrasion noted left forearm, edema greatest from wrist to just above elbow PT-OP-K Range of Motion Start: 08/25/18 12:55 Freq: Status: Active Protocol: Document 08/28/18 13:00 DLM (Rec: 08/28/18 15:26 DLM [id number]) Shoulder Goniometric Range of Motion Shoulder Measured in Degrees Left Passive Testing Position Supine Flexion 80 Extension 0 External Rotation at 0 degrees Abduction 12 PT-OP-M Strength Start: 08/25/18 12:55 Freq: Status: Active Protocol: Document 08/25/18 11:15 DLM (Rec: 08/25/18 19:17 DLM [id number]) Shoulder Strength Shoulder Manual Muscle Testing Left Reason Not Measured Orthopedic Precautions Pain Comments unable to test at this time due to fx, orthopedic protocal for Passive ROM only at this time Right Reason Not Measured WFL Elbow/Forearm Strength Elbow and Forearm Manual Muscle Testing Left Flexion (C6) 2- Poor- Reason Not Measured Orthopedic Precautions Pain Comments needs assist to flex her elbow with weakness and pain Hand Optical Engineering Manager/Pinch Strength Hand Dominance Hand Dominance Left Hand Strength Left Comments weakness associated with pain and edema PT-OP-Q Treatments Start: 08/25/18 12:55 Freq: Status: Active Protocol: Document 11/03/18 15:15 [facility] (Rec: 11/03/18 16:04 [facility] [id number]) Cardio Equipment Upper Body Ergometer (UBE) Duration (Minutes) 6 Seat Position 12 Height 3 Therapeutic Exercises Supine Exercises shoulder flex with wand Reps/Minutes 10x butterfly stretch Supine Exercise Name hands behind head Reps/Minutes 10x Sidelying Exercises reach and roll Reps/Minutes 5x Sitting Exercises Shoulder Abduction Sitting Exercise Name AROM abduction Side left Equipment Used pulleys Comments pain-free Shoulder Flexion Sitting Exercise Name AROM flexion Side left Equipment Used pulleys Comments pain-free Standing Exercises Biceps Curls Standing Exercise Name Curls/Reverse Curls Side bilateral Resistance 2# Equipment Used Dumbbell Internal Rotation Standing Exercise Name Internal Rotation Side left Resistance Lv 2 Equipment Used T-band External Rotation Standing Exercise Name External Rotation Side left Resistance Lv 2 Equipment Used T-band Shoulder Abduction Standing Exercise Name Abduction Side bilateral Resistance 2# Equipment Used Dumbbells Shoulder Flexion Standing Exercise Name Flexion Side bilateral Resistance 2# Comments VCs to decrease shoulder shrug Shoulder Adduction Standing Exercise Name Adduction Side bilateral Resistance Lv 2 Equipment Used T-band Shoulder Extension Standing Exercise Name Extension Side bilateral Resistance 4# Equipment Used Wand Manual Therapy Treatment Soft Tissue Mobilization 2 Body Location left upper trap/biceps/pecs Mobilization Type Rolling Strumming Sustained Pressure Intensity/Depth Moderate Body Position Supine PT-OP-R Modalities Start: 08/25/18 12:55 Freq: Status: Active Protocol: Document 11/03/18 15:15 [facility] (Rec: 11/03/18 16:04 [facility] [id number]) Hot Pack/Cold Pack Treatment Moist hot pack Location L shoulder Patient Position Supine Treatment Duration (minutes) 10 PT-OP-T Assessment and Plan Start: 08/25/18 12:55 Freq: Status: Active Protocol: Document 11/03/18 15:15 [facility] (Rec: 11/03/18 16:04 [facility] [id number]) Physical Therapy Assessment Goals Three Impairment Impaired left shoulder strength Short Term Goal (STG) she will be able to use left UE for simple functional ADL's at home STG Duration 4 weeks Skilled Nursing Goal (LTG) Increase left UE strength to 4 /5 in available ROM LTG Duration 8 weeks Two Impairment Impaired ROM Short Term Goal (STG) PROM left shoulder flexion 170 degrees and ER to 50 degrees STG Duration 4 weeks Skilled Nursing Goal (LTG) AROM left shoulder flexion 110 degrees, ER to 80 degrees, IR behind back to waistline LTG Duration 8 weeks One Impairment pain left shoulder Short Term Goal (STG) She will tolerate lying in supine to sleep STG Duration 2 weeks Monotype Keyboard Operator Goal (LTG) She will be able to use left shoulder functionally with less than 3/10 pain LTG Duration 8 weeks Assessment Summary Assessment shoulder ROM continues to improve. Pain level variable. Needs verbal and manual cues for alignment and to prevent overactivation of upper traps Physical Therapy Plan Frequency and Duration Frequency of Treatment 2x/Week Duration of Treatment 8 weeks Plan of Care Start Date 08/25/18 Plan of Care End Date 10/29/18 Next Visit Focus/Plan Next Note Type Treatment Note Next Visit Plan Continue to progress shoulder strengthening and ROM exercise as per MD protocol.
--- NOTE | 2018-11-07 10:41 | PT.OTRE ---
Current Diagnoses Unspecified nondisplaced fracture of surgical neck of left humerus, initial encounter for closed fracture (11/03/18) Past Medical History (Last Updated 07/28/18 @ 18:56 by Rekha Vargas) Back pain (Chronic ~1973) Colon polyps (Chronic ~2011) Gas bloat syndrome (Chronic ~1984) Headache (Chronic ~1979) Knee pain (Chronic ~2013) Seasonal allergies (Chronic ~2011) Chicken pox (Resolved ~1944) Fractures (Resolved) Hepatitis B (Resolved ~1970) Herpes (Resolved ~1998) Measles (Resolved ~1944) Mumps (Resolved ~1944) Surgical History (Last Updated 07/28/18 @ 18:56 by Rekha Vargas) Anesthesia (Resolved) History of oral surgery (Resolved ~1979) History of varicose vein stripping (Resolved ~1977) Status post breast reduction (~1969) Status post colonoscopy Status post laminectomy (~1973) Provider Visit Care Team Role Provider Type TANA Stock Primary Care Provider Advanced Senior Wind Turbine Technician Specialty: Family Practice Address: [address] [place] [address], [id number] Email: [email or web address] Kevin Corona MD Attending Provider Physician Specialty: Orthopedic Surgery Address: [address] [place] [address], [id number] Email: [email or web address] Physical Therapy Re-Evaluation PT-OP-A Visit Information Start: 08/25/18 12:55 Freq: Status: Active Protocol: Document 11/03/18 15:15 SAK (Rec: 11/03/18 16:04 SAK [id number]) Out-Patient Physical Therapy Visit Information Visit Information Visit Type Treatment Note Visit Start Time 15:16 Visit Stop Time 16:06 Total Visit Minutes 50 Visit Number 16 Number of SAFE TECHNICIAN Visits 0 Evaluation Information Evaluation Date 08/25/18 PT-OP-B Current Condition Start: 08/25/18 12:55 Freq: Status: Active Protocol: Document 08/25/18 11:15 DLM (Rec: 08/25/18 13:45 DLM [id number]) Current Condition History of Current Condition Onset Date 08/09/18 Current Complaints left shoulder pain and unable to use it History of Current Condition She was in [place] when she pushed her chair back, it got stuck in a crack and she fell backwards onto her left shoulder. She had immediate pain. She also had dizziness and nausea after her fall that took an extended period of time to resolve while she sat on the ground. She received medical attention and was diagnosed with left humeral fx . She was placed in a shoulder sling. Once she got home she went to see Dr Corona who re- xrayed her shoulder and changed her to a different sling. She has been unable to sleep or lie in bed since the injury. She is sleeping in a chair. She also had an episode of stomach upset and diarrhea immediately after her injury that has resolved. 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 Function- Recreation/Hobbies likes to walk for exercise, walks 2-4 miles per day, likes to travel Baseline Function- Other left handed Current Functional Impairments (Reported) Functional Limitations- ADL's She needs assistance with all her ADL's, not able to lie in supine, has not been able to use her bed, staying in recliner, not sleeping well Functional Limitations- Mobility/Gait Independent gait without device Functional Limitations- Recreation/ has been walking with her Hobbies Spouse but not as far as usual Personal Factors Other Personal Factors That May Effect left handed Therapy/Recovery PT-OP-C Subjective Start: 08/25/18 12:55 Freq: Status: Active Protocol: Document 11/03/18 15:15 SAK (Rec: 11/03/18 16:04 SAK [id number]) OP-PT Subjective Patient Comments Patient Comments Reports when she put up [place] tree unable to reach the top, but when taking it down was able to reach the ornaments at the top. Still difficult to put shetty in hair well. Pain variable PT-OP-G Mobility & Gait Start: 08/25/18 12:55 Freq: Status: Active Protocol: Document 08/25/18 11:15 DLM (Rec: 08/25/18 19:21 DL [id number]) OP Mobility Evaluation Bed Mobility Rolling needs assist to right side Supine to and from Sit needs min assist Transfers Sit to Stand independent OP Gait Assessment Gait Gait Assistance Required: Independent Assistive Devices Assistive Device None PT-OP-J Posture/Palpation/Skin Start: 08/25/18 12:55 Freq: Status: Active Protocol: Document 08/25/18 11:15 DLM (Rec: 08/25/18 19:21 DL [id number]) Skin Assessment Edema Assessment Left Arm Edema Type Pitting Edema Degree 2+ Edema Appearance Firm Comments bruising scattered on left UE, abrasion noted left forearm, edema greatest from wrist to just above elbow PT-OP-K Range of Motion Start: 08/25/18 12:55 Freq: Status: Active Protocol: Document 08/28/18 13:00 DLM (Rec: 08/28/18 15:26 DLM [id number]) Shoulder Goniometric Range of Motion Shoulder Measured in Degrees Left Passive Testing Position Supine Flexion 80 Extension 0 External Rotation at 0 degrees Abduction 12 PT-OP-M Strength Start: 08/25/18 12:55 Freq: Status: Active Protocol: Document 08/25/18 11:15 DLM (Rec: 08/25/18 19:17 DL [id number]) Shoulder Strength Shoulder Manual Muscle Testing Left Reason Not Measured Orthopedic Precautions Pain Comments unable to test at this time due to fx, orthopedic protocal for Passive ROM only at this time Right Reason Not Measured WFL Elbow/Forearm Strength Elbow and Forearm Manual Muscle Testing Left Flexion (C6) 2- Poor- Reason Not Measured Orthopedic Precautions Pain Comments needs assist to flex her elbow with weakness and pain Hand Portfolio Analyst/Pinch Strength Hand Dominance Hand Dominance Left Hand Strength Left Comments weakness associated with pain and edema PT-OP-Q Treatments Start: 08/25/18 12:55 Freq: Status: Active Protocol: Document 11/03/18 15:15 SAK (Rec: 11/03/18 16:04 SAK [id number]) Cardio Equipment Upper Body Ergometer (UBE) Duration (Minutes) 6 Seat Position 12 Height 3 Therapeutic Exercises Supine Exercises shoulder flex with wand Reps/Minutes 10x butterfly stretch Supine Exercise Name hands behind head Reps/Minutes 10x Sidelying Exercises reach and roll Reps/Minutes 5x Sitting Exercises Shoulder Abduction Sitting Exercise Name AROM abduction Side left Equipment Used pulleys Comments pain-free Shoulder Flexion Sitting Exercise Name AROM flexion Side left Equipment Used pulleys Comments pain-free Standing Exercises Biceps Curls Standing Exercise Name Curls/Reverse Curls Side bilateral Resistance 2# Equipment Used Dumbbell Internal Rotation Standing Exercise Name Internal Rotation Side left Resistance Lv 2 Equipment Used T-band External Rotation Standing Exercise Name External Rotation Side left Resistance Lv 2 Equipment Used T-band Shoulder Abduction Standing Exercise Name Abduction Side bilateral Resistance 2# Equipment Used Dumbbells Shoulder Flexion Standing Exercise Name Flexion Side bilateral Resistance 2# Comments VCs to decrease shoulder shrug Shoulder Adduction Standing Exercise Name Adduction Side bilateral Resistance Lv 2 Equipment Used T-band Shoulder Extension Standing Exercise Name Extension Side bilateral Resistance 4# Equipment Used Wand Manual Therapy Treatment Soft Tissue Mobilization 2 Body Location left upper trap/biceps/pecs Mobilization Type Rolling Strumming Sustained Pressure Intensity/Depth Moderate Body Position Supine PT-OP-R Modalities Start: 08/25/18 12:55 Freq: Status: Active Protocol: Document 11/03/18 15:15 [facility] (Rec: 11/03/18 16:04 [facility] [id number]) Hot Pack/Cold Pack Treatment Moist hot pack Location L shoulder Patient Position Supine Treatment Duration (minutes) 10 PT-OP-T Assessment and Plan Start: 08/25/18 12:55 Freq: Status: Active Protocol: Document 11/03/18 15:15 [facility] (Rec: 11/03/18 16:04 [facility] [id number]) Physical Therapy Assessment Goals Three Impairment Impaired left shoulder strength Short Term Goal (STG) she will be able to use left UE for simple functional ADL's at home 11/03/18: goal achieved. Helmet Hat Sweatband Puncher Goal (LTG) Increase left UE strength to 4 /5 in available ROM 11/03/18: good goal progress LTG Duration 8 weeks Two Impairment Impaired ROM Short Term Goal (STG) PROM left shoulder flexion 170 degrees and ER to 50 degrees 11/03/18: good goal progress STG Duration 4 weeks Group Home Goal (LTG) AROM left shoulder flexion 110 degrees, ER to 80 degrees, IR behind back to waistline 11/03/18: goal progress LTG Duration 8 weeks One Impairment pain left shoulder Short Term Goal (STG) She will tolerate lying in supine to sleep 11/03/18: good goal progress STG Duration 2 weeks Group Home Goal (LTG) She will be able to use left shoulder functionally with less than 3/10 pain 11/03/18: good goal progress LTG Duration 8 weeks Assessment Summary Assessment shoulder ROM continues to improve. Pain level variable. Needs verbal and manual cues for alignment and to prevent overactivation of upper traps Would benefit from further PT to help her fully achieve her goals. Physical Therapy Plan Frequency and Duration Frequency of Treatment 2x/Week Duration of Treatment 8 weeks Plan of Care Start Date 11/03/18 Plan of Care End Date 01/01/19 Next Visit Focus/Plan Next Note Type Treatment Note Next Visit Plan Continue to progress shoulder strengthening and ROM exercise as per MD protocol.
--- NOTE | 2018-11-07 10:41 | PT.OPPOC ---
Current Diagnoses Unspecified nondisplaced fracture of surgical neck of left humerus, initial encounter for closed fracture (11/03/18) Provider Visit Care Team Role Provider Type TANA Stock Primary Care Provider Advanced Felling Machine Operator Specialty: Family Practice Address: [address] [place] [address], [address] Email: [email or web address] Kevin Corona MD Attending Provider Physician Specialty: Orthopedic Surgery Address: [address] [place] [address], [address] Email: [email or web address] Plan Of Care PT-OP-T Assessment and Plan Start: 08/25/18 12:55 Freq: Status: Active Protocol: Document 11/03/18 15:15 SAK (Rec: 11/03/18 16:04 SAK [id number]) Physical Therapy Assessment Goals Three Impairment Impaired left shoulder strength Short Term Goal (STG) she will be able to use left UE for simple functional ADL's at home 11/03/18: goal achieved. Couturiere Goal (LTG) Increase left UE strength to 4 /5 in available ROM 11/03/18: good goal progress LTG Duration 8 weeks Two Impairment Impaired ROM Short Term Goal (STG) PROM left shoulder flexion 170 degrees and ER to 50 degrees 11/03/18: good goal progress STG Duration 4 weeks Correction Goal (LTG) AROM left shoulder flexion 110 degrees, ER to 80 degrees, IR behind back to waistline 11/03/18: goal progress LTG Duration 8 weeks One Impairment pain left shoulder Short Term Goal (STG) She will tolerate lying in supine to sleep 11/03/18: good goal progress STG Duration 2 weeks Correction Goal (LTG) She will be able to use left shoulder functionally with less than 3/10 pain 11/03/18: good goal progress LTG Duration 8 weeks Assessment Summary Assessment shoulder ROM continues to improve. Pain level variable. Needs verbal and manual cues for alignment and to prevent overactivation of upper traps Would benefit from further PT to help her fully achieve her goals. Physical Therapy Plan Frequency and Duration Frequency of Treatment 2x/Week Duration of Treatment 8 weeks Plan of Care Start Date 11/03/18 Plan of Care End Date 01/01/19 Next Visit Focus/Plan Next Note Type Treatment Note Next Visit Plan Continue to progress shoulder strengthening and ROM exercise as per MD protocol. Plan of Care Dates Plan of Care Start Date 11/03/18 Plan of Care End Date 01/01/19 Please Sign and Return: I have reviewed this Plan of Care and certify that the skilled therapy services above are required to meet the patient?s needs. Physician Signature Date Printed Name and Credentials Clinical Instructor Signature Printed Name and Credentials
--- NOTE | 2018-11-07 15:58 | PT.OTN ---
Current Diagnoses Unspecified nondisplaced fracture of surgical neck of left humerus, initial encounter for closed fracture (11/07/18) Physical Therapy Treatment Note PT-OP-A Visit Information Start: 08/25/18 12:55 Freq: Status: Active Protocol: Document 11/07/18 15:15 DCW (Rec: 11/07/18 15:58 DCW [id number]) Out-Patient Physical Therapy Visit Information Visit Information Visit Type Treatment Note Visit Start Time 15:15 Visit Stop Time 16:05 Total Visit Minutes 50 Visit Number 17 Number of COUNTER INTELLIGENCE AGENT Visits 0 Evaluation Information Evaluation Date 08/25/18 PT-OP-B Current Condition Start: 08/25/18 12:55 Freq: Status: Active Protocol: Document 08/25/18 11:15 DLM (Rec: 08/25/18 13:45 DLM [id number]) Current Condition History of Current Condition Onset Date 08/09/18 Current Complaints left shoulder pain and unable to use it History of Current Condition She was in [place] when she pushed her chair back, it got stuck in a crack and she fell backwards onto her left shoulder. She had immediate pain. She also had dizziness and nausea after her fall that took an extended period of time to resolve while she sat on the ground. She received medical attention and was diagnosed with left humeral fx . She was placed in a shoulder sling. Once she got home she went to see Dr Corona who re- xrayed her shoulder and changed her to a different sling. She has been unable to sleep or lie in bed since the injury. She is sleeping in a chair. She also had an episode of stomach upset and diarrhea immediately after her injury that has resolved. 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 Function- Recreation/Hobbies likes to walk for exercise, walks 2-4 miles per day, likes to travel Baseline Function- Other left handed Current Functional Impairments (Reported) Functional Limitations- ADL's She needs assistance with all her ADL's, not able to lie in supine, has not been able to use her bed, staying in recliner, not sleeping well Functional Limitations- Mobility/Gait Independent gait without device Functional Limitations- Recreation/ has been walking with her Hobbies Spouse but not as far as usual Personal Factors Other Personal Factors That May Effect left handed Therapy/Recovery PT-OP-C Subjective Start: 08/25/18 12:55 Freq: Status: Active Protocol: Document 11/07/18 15:15 DCW (Rec: 11/07/18 15:58 DCW [id number]) OP-PT Subjective Patient Comments Patient Comments Pt reports that she saw Dr Corona today, and after seeing that her x-ray was all healed up, reportedly told her to continue with therapy for the remainder of this month, and then discharge to an indepednent HEP. Pt notes she still struggles getting her arm up high enough to assist clipping her hair into a barrette. Patient Reported Progress Improving PT-OP-G Mobility & Gait Start: 08/25/18 12:55 Freq: Status: Active Protocol: Document 08/25/18 11:15 DLM (Rec: 08/25/18 19:21 DL [id number]) OP Mobility Evaluation Bed Mobility Rolling needs assist to right side Supine to and from Sit needs min assist Transfers Sit to Stand independent OP Gait Assessment Gait Gait Assistance Required: Independent Assistive Devices Assistive Device None PT-OP-J Posture/Palpation/Skin Start: 08/25/18 12:55 Freq: Status: Active Protocol: Document 08/25/18 11:15 DLM (Rec: 08/25/18 19:21 DL [id number]) Skin Assessment Edema Assessment Left Arm Edema Type Pitting Edema Degree 2+ Edema Appearance Firm Comments bruising scattered on left UE, abrasion noted left forearm, edema greatest from wrist to just above elbow PT-OP-K Range of Motion Start: 08/25/18 12:55 Freq: Status: Active Protocol: Document 08/28/18 13:00 DLM (Rec: 08/28/18 15:26 DLM [id number]) Shoulder Goniometric Range of Motion Shoulder Measured in Degrees Left Passive Testing Position Supine Flexion 80 Extension 0 External Rotation at 0 degrees Abduction 12 PT-OP-M Strength Start: 08/25/18 12:55 Freq: Status: Active Protocol: Document 08/25/18 11:15 DLM (Rec: 08/25/18 19:17 DLM [id number]) Shoulder Strength Shoulder Manual Muscle Testing Left Reason Not Measured Orthopedic Precautions Pain Comments unable to test at this time due to fx, orthopedic protocal for Passive ROM only at this time Right Reason Not Measured WFL Elbow/Forearm Strength Elbow and Forearm Manual Muscle Testing Left Flexion (C6) 2- Poor- Reason Not Measured Orthopedic Precautions Pain Comments needs assist to flex her elbow with weakness and pain Hand Stationary Steam Engineer/Pinch Strength Hand Dominance Hand Dominance Left Hand Strength Left Comments weakness associated with pain and edema PT-OP-Q Treatments Start: 08/25/18 12:55 Freq: Status: Active Protocol: Document 11/07/18 15:15 DCW (Rec: 11/07/18 15:58 DCW [id number]) Cardio Equipment Upper Body Ergometer (UBE) Duration (Minutes) 6 Seat Position 12 Height 3 Therapeutic Exercises Supine Exercises butterfly stretch Supine Exercise Name hands behind head Reps/Minutes 10x 1 Supine Exercise Name PROM left shoulder flexion, IR and ER Side left Resistance gentle Comments within pain tolerance, per physician protocal Sitting Exercises Shoulder Abduction Sitting Exercise Name AROM abduction Side left Equipment Used pulleys Comments pain-free Shoulder Flexion Sitting Exercise Name AROM flexion Side left Equipment Used pulleys Comments pain-free Standing Exercises Biceps Curls Standing Exercise Name Curls/Reverse Curls Side bilateral Resistance 5# Equipment Used Dumbbell Internal Rotation Standing Exercise Name Internal Rotation Side left Resistance Lv 2 Equipment Used T-band External Rotation Standing Exercise Name External Rotation Side left Resistance Lv 2 Equipment Used T-band Shoulder Abduction Standing Exercise Name Abduction Side bilateral Resistance 5# Equipment Used Dumbbells Shoulder Flexion Standing Exercise Name Flexion Side bilateral Resistance 4# wand Comments VCs to decrease shoulder shrug Shoulder Extension Standing Exercise Name Extension Side bilateral Resistance 4# Equipment Used Wand Shoulder IR with Pulleys Standing Exercise Name Shoulder IR Equipment Used pulleys PT-OP-R Modalities Start: 08/25/18 12:55 Freq: Status: Active Protocol: Document 11/07/18 15:15 DCW (Rec: 11/07/18 15:58 DCW [id number]) Hot Pack/Cold Pack Treatment Moist hot pack Location L shoulder Patient Position Supine Treatment Duration (minutes) 10 PT-OP-T Assessment and Plan Start: 08/25/18 12:55 Freq: Status: Active Protocol: Document 11/07/18 15:15 DCW (Rec: 11/07/18 15:58 DCW [id number]) Physical Therapy Assessment Goals Three Impairment Impaired left shoulder strength Short Term Goal (STG) she will be able to use left UE for simple functional ADL's at home 11/03/18: goal achieved. Diver Helper Goal (LTG) Increase left UE strength to 4 /5 in available ROM 11/03/18: good goal progress LTG Duration 8 weeks Two Impairment Impaired ROM Short Term Goal (STG) PROM left shoulder flexion 170 degrees and ER to 50 degrees 11/03/18: good goal progress STG Duration 4 weeks Diver Helper Goal (LTG) AROM left shoulder flexion 110 degrees, ER to 80 degrees, IR behind back to waistline 11/03/18: goal progress LTG Duration 8 weeks One Impairment pain left shoulder Short Term Goal (STG) She will tolerate lying in supine to sleep 11/03/18: good goal progress STG Duration 2 weeks Diver Helper Goal (LTG) She will be able to use left shoulder functionally with less than 3/10 pain 11/03/18: good goal progress LTG Duration 8 weeks Assessment Summary Assessment Pt should continue planned PT appointments in an effort to improve ROM and strength as much as possible prior to discharge to an independent [facility]. Physical Therapy Plan Frequency and Duration Frequency of Treatment 2x/Week Duration of Treatment 8 weeks Plan of Care Start Date 11/03/18 Plan of Care End Date 01/01/19 Next Visit Focus/Plan Next Note Type Treatment Note Next Visit Plan Continue to progress shoulder strengthening and ROM exercise as per MD protocol.
--- NOTE | 2018-11-10 15:22 | PT.OTN ---
Current Diagnoses Unspecified nondisplaced fracture of surgical neck of left humerus, initial encounter for closed fracture (11/10/18) Physical Therapy Treatment Note PT-OP-A Visit Information Start: 08/25/18 12:55 Freq: Status: Active Protocol: Document 11/10/18 15:09 SA (Rec: 11/10/18 15:22 SA [email or web address]) Out-Patient Physical Therapy Visit Information Visit Information Visit Type Treatment Note Visit Start Time 14:30 Visit Stop Time 15:15 Total Visit Minutes 45 Visit Number 18 Number of FABRIC SEPARATOR OPERATOR Visits 1 PT-OP-B Current Condition Start: 08/25/18 12:55 Freq: Status: Active Protocol: Document 08/25/18 11:15 DLM (Rec: 08/25/18 13:45 DLM [id number]) Current Condition History of Current Condition Onset Date 08/09/18 Current Complaints left shoulder pain and unable to use it History of Current Condition She was in [place] when she pushed her chair back, it got stuck in a crack and she fell backwards onto her left shoulder. She had immediate pain. She also had dizziness and nausea after her fall that took an extended period of time to resolve while she sat on the ground. She received medical attention and was diagnosed with left humeral fx . She was placed in a shoulder sling. Once she got home she went to see Dr Corona who re- xrayed her shoulder and changed her to a different sling. She has been unable to sleep or lie in bed since the injury. She is sleeping in a chair. She also had an episode of stomach upset and diarrhea immediately after her injury that has resolved. 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 Function- Recreation/Hobbies likes to walk for exercise, walks 2-4 miles per day, likes to travel Baseline Function- Other left handed Current Functional Impairments (Reported) Functional Limitations- ADL's She needs assistance with all her ADL's, not able to lie in supine, has not been able to use her bed, staying in recliner, not sleeping well Functional Limitations- Mobility/Gait Independent gait without device Functional Limitations- Recreation/ has been walking with her Hobbies Spouse but not as far as usual Personal Factors Other Personal Factors That May Effect left handed Therapy/Recovery PT-OP-C Subjective Start: 08/25/18 12:55 Freq: Status: Active Protocol: Document 11/10/18 15:09 SA (Rec: 11/10/18 15:22 SA [email or web address]) OP-PT Subjective Patient Comments Patient Comments Pt reports feeling pretty good but still unable to clip hair in shetty at base of head but butterfly stretch is helping a little. PT-OP-G Mobility & Gait Start: 08/25/18 12:55 Freq: Status: Active Protocol: Document 08/25/18 11:15 DLM (Rec: 08/25/18 19:21 DLM [id number]) OP Mobility Evaluation Bed Mobility Rolling needs assist to right side Supine to and from Sit needs min assist Transfers Sit to Stand independent OP Gait Assessment Gait Gait Assistance Required: Independent Assistive Devices Assistive Device None PT-OP-J Posture/Palpation/Skin Start: 08/25/18 12:55 Freq: Status: Active Protocol: Document 08/25/18 11:15 DLM (Rec: 08/25/18 19:21 DLM [id number]) Skin Assessment Edema Assessment Left Arm Edema Type Pitting Edema Degree 2+ Edema Appearance Firm Comments bruising scattered on left UE, abrasion noted left forearm, edema greatest from wrist to just above elbow PT-OP-K Range of Motion Start: 08/25/18 12:55 Freq: Status: Active Protocol: Document 08/28/18 13:00 DLM (Rec: 08/28/18 15:26 DLM [id number]) Shoulder Goniometric Range of Motion Shoulder Measured in Degrees Left Passive Testing Position Supine Flexion 80 Extension 0 External Rotation at 0 degrees Abduction 12 PT-OP-M Strength Start: 08/25/18 12:55 Freq: Status: Active Protocol: Document 08/25/18 11:15 DLM (Rec: 08/25/18 19:17 DLM [id number]) Shoulder Strength Shoulder Manual Muscle Testing Left Reason Not Measured Orthopedic Precautions Pain Comments unable to test at this time due to fx, orthopedic protocal for Passive ROM only at this time Right Reason Not Measured WFL Elbow/Forearm Strength Elbow and Forearm Manual Muscle Testing Left Flexion (C6) 2- Poor- Reason Not Measured Orthopedic Precautions Pain Comments needs assist to flex her elbow with weakness and pain Hand Warp Tension Tester/Pinch Strength Hand Dominance Hand Dominance Left Hand Strength Left Comments weakness associated with pain and edema PT-OP-Q Treatments Start: 08/25/18 12:55 Freq: Status: Active Protocol: Document 11/10/18 15:09 (Rec: 11/10/18 15:22 [email or web address]) Cardio Equipment Upper Body Ergometer (UBE) Duration (Minutes) 6 Seat Position 12 Height 3 Other forward/backward Therapeutic Exercises Supine Exercises shoulder flex with wand Resistance 4# Reps/Minutes 10x butterfly stretch Supine Exercise Name hands behind head Reps/Minutes 10x Sitting Exercises Shoulder Flexion Sitting Exercise Name AROM flexion Side left Equipment Used pulleys Standing Exercises Biceps Curls Standing Exercise Name Curls/Reverse Curls Side bilateral Resistance 4# Equipment Used Dumbbell Internal Rotation Standing Exercise Name Internal Rotation Side left Resistance Lv 2 Equipment Used T-band External Rotation Standing Exercise Name External Rotation Side left Resistance Lv 2 Equipment Used T-band Shoulder Abduction Standing Exercise Name Abduction Side bilateral Resistance 5# Equipment Used Dumbbells Shoulder Flexion Standing Exercise Name Flexion Side bilateral Resistance 4# wand Shoulder Adduction Standing Exercise Name Adduction Side bilateral Resistance Lv 2 Equipment Used T-band Shoulder Extension Standing Exercise Name Extension Side bilateral Resistance 4# Equipment Used Wand Shoulder IR with Pulleys Standing Exercise Name Shoulder IR Equipment Used pulleys Reps/Minutes 2 min Manual Therapy Treatment Soft Tissue Mobilization 2 Body Location left upper trap/biceps/pecs Mobilization Type Rolling Strumming Sustained Pressure Intensity/Depth Moderate Body Position Hooklying PT-OP-R Modalities Start: 08/25/18 12:55 Freq: Status: Active Protocol: Document 11/10/18 15:09 (Rec: 11/10/18 15:22 [email or web address]) Hot Pack/Cold Pack Treatment Cold Pack Location left shoulder Patient Position Supine Treatment Duration (minutes) 10 Patient Tolerance Good PT-OP-T Assessment and Plan Start: 08/25/18 12:55 Freq: Status: Active Protocol: Document 11/10/18 15:09 (Rec: 11/10/18 15:22 [email or web address]) Physical Therapy Assessment Assessment Summary Assessment Pt still limited with IR and Flex with pain at end range. Consistent with HEP and demonstrates improving strength. Physical Therapy Plan Next Visit Focus/Plan Next Note Type Treatment Note Next Visit Plan Cont to progress ROM and strength program, encourage pt consistency with HEP.
--- NOTE | 2018-11-14 15:16 | PT.OTN ---
Current Diagnoses Unspecified nondisplaced fracture of surgical neck of left humerus, initial encounter for closed fracture (11/14/18) Physical Therapy Treatment Note PT-OP-A Visit Information Start: 08/25/18 12:55 Freq: Status: Active Protocol: Document 11/14/18 14:30 DCW (Rec: 11/14/18 15:16 DCW [id number]) Out-Patient Physical Therapy Visit Information Visit Information Visit Type Treatment Note Visit Start Time 14:30 Visit Stop Time 15:20 Total Visit Minutes 50 Visit Number 19 Number of FORESTRY AND WILDLIFE MANAGER Visits 1 Evaluation Information Evaluation Date 08/25/18 PT-OP-B Current Condition Start: 08/25/18 12:55 Freq: Status: Active Protocol: Document 08/25/18 11:15 DLM (Rec: 08/25/18 13:45 DLM [id number]) Current Condition History of Current Condition Onset Date 08/09/18 Current Complaints left shoulder pain and unable to use it History of Current Condition She was in [place] when she pushed her chair back, it got stuck in a crack and she fell backwards onto her left shoulder. She had immediate pain. She also had dizziness and nausea after her fall that took an extended period of time to resolve while she sat on the ground. She received medical attention and was diagnosed with left humeral fx . She was placed in a shoulder sling. Once she got home she went to see Dr Corona who re- xrayed her shoulder and changed her to a different sling. She has been unable to sleep or lie in bed since the injury. She is sleeping in a chair. She also had an episode of stomach upset and diarrhea immediately after her injury that has resolved. 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 Function- Recreation/Hobbies likes to walk for exercise, walks 2-4 miles per day, likes to travel Baseline Function- Other left handed Current Functional Impairments (Reported) Functional Limitations- ADL's She needs assistance with all her ADL's, not able to lie in supine, has not been able to use her bed, staying in recliner, not sleeping well Functional Limitations- Mobility/Gait Independent gait without device Functional Limitations- Recreation/ has been walking with her Hobbies Spouse but not as far as usual Personal Factors Other Personal Factors That May Effect left handed Therapy/Recovery PT-OP-C Subjective Start: 08/25/18 12:55 Freq: Status: Active Protocol: Document 11/14/18 14:30 DCW (Rec: 11/14/18 15:16 DCW [id number]) OP-PT Subjective Patient Comments Patient Comments It feels good, seems like I can do more each week. PT-OP-G Mobility & Gait Start: 08/25/18 12:55 Freq: Status: Active Protocol: Document 08/25/18 11:15 DLM (Rec: 08/25/18 19:21 DLM [id number]) OP Mobility Evaluation Bed Mobility Rolling needs assist to right side Supine to and from Sit needs min assist Transfers Sit to Stand independent OP Gait Assessment Gait Gait Assistance Required: Independent Assistive Devices Assistive Device None PT-OP-J Posture/Palpation/Skin Start: 08/25/18 12:55 Freq: Status: Active Protocol: Document 08/25/18 11:15 DLM (Rec: 08/25/18 19:21 DLM [id number]) Skin Assessment Edema Assessment Left Arm Edema Type Pitting Edema Degree 2+ Edema Appearance Firm Comments bruising scattered on left UE, abrasion noted left forearm, edema greatest from wrist to just above elbow PT-OP-K Range of Motion Start: 08/25/18 12:55 Freq: Status: Active Protocol: Document 08/28/18 13:00 DLM (Rec: 08/28/18 15:26 DLM [id number]) Shoulder Goniometric Range of Motion Shoulder Measured in Degrees Left Passive Testing Position Supine Flexion 80 Extension 0 External Rotation at 0 degrees Abduction 12 PT-OP-M Strength Start: 08/25/18 12:55 Freq: Status: Active Protocol: Document 08/25/18 11:15 DLM (Rec: 08/25/18 19:17 DLM [id number]) Shoulder Strength Shoulder Manual Muscle Testing Left Reason Not Measured Orthopedic Precautions Pain Comments unable to test at this time due to fx, orthopedic protocal for Passive ROM only at this time Right Reason Not Measured WFL Elbow/Forearm Strength Elbow and Forearm Manual Muscle Testing Left Flexion (C6) 2- Poor- Reason Not Measured Orthopedic Precautions Pain Comments needs assist to flex her elbow with weakness and pain Hand Lacing String Cutter/Pinch Strength Hand Dominance Hand Dominance Left Hand Strength Left Comments weakness associated with pain and edema PT-OP-Q Treatments Start: 08/25/18 12:55 Freq: Status: Active Protocol: Document 11/14/18 14:30 DCW (Rec: 11/14/18 15:16 DCW [id number]) Cardio Equipment Upper Body Ergometer (UBE) Duration (Minutes) 6 Seat Position 10 Height 4.5 Other forward/backward Therapeutic Exercises Supine Exercises shoulder flex with wand Resistance 5# Reps/Minutes 10x butterfly stretch Supine Exercise Name hands behind head Reps/Minutes 10x 1 Supine Exercise Name PROM left shoulder flexion, IR and ER Side left Resistance gentle Comments within pain tolerance, per physician protocal Sitting Exercises Shoulder Abduction Sitting Exercise Name AROM abduction Side left Equipment Used pulleys Comments pain-free Shoulder Flexion Sitting Exercise Name AROM flexion Side left Equipment Used pulleys Comments pain-free Standing Exercises Internal Rotation Standing Exercise Name Internal Rotation Side left Resistance Lv 3 Equipment Used T-band External Rotation Standing Exercise Name External Rotation Side left Resistance Lv 3 Equipment Used T-band Shoulder Abduction Standing Exercise Name Abduction Side bilateral Resistance 5# Equipment Used Dumbbells Shoulder Flexion Standing Exercise Name Flexion Side bilateral Resistance 5# wand Shoulder Adduction Standing Exercise Name Adduction Side bilateral Resistance Lv 3 Equipment Used T-band Shoulder Extension Standing Exercise Name Extension Side bilateral Resistance 5# Equipment Used Wand Shoulder IR with Pulleys Standing Exercise Name Shoulder IR Equipment Used pulleys Manual Therapy Treatment Soft Tissue Mobilization 2 Body Location left upper trap/biceps/pecs Mobilization Type Rolling Strumming Sustained Pressure Intensity/Depth Moderate Body Position Hooklying PT-OP-R Modalities Start: 08/25/18 12:55 Freq: Status: Active Protocol: Document 11/14/18 14:30 DCW (Rec: 11/14/18 15:16 DCW [id number]) Hot Pack/Cold Pack Treatment Cold Pack Location left shoulder Patient Position Supine Treatment Duration (minutes) 10 Patient Tolerance Good PT-OP-T Assessment and Plan Start: 08/25/18 12:55 Freq: Status: Active Protocol: Document 11/14/18 14:30 DCW (Rec: 11/14/18 15:16 DCW [id number]) Physical Therapy Assessment Goals Three Impairment Impaired left shoulder strength Short Term Goal (STG) she will be able to use left UE for simple functional ADL's at home 11/03/18: goal achieved. Longterm Goal (LTG) Increase left UE strength to 4 /5 in available ROM 11/03/18: good goal progress LTG Duration 8 weeks Two Impairment Impaired ROM Short Term Goal (STG) PROM left shoulder flexion 170 degrees and ER to 50 degrees 11/03/18: good goal progress STG Duration 4 weeks Longterm Goal (LTG) AROM left shoulder flexion 110 degrees, ER to 80 degrees, IR behind back to waistline 11/03/18: goal progress LTG Duration 8 weeks One Impairment pain left shoulder Short Term Goal (STG) She will tolerate lying in supine to sleep 11/03/18: good goal progress STG Duration 2 weeks Longterm Goal (LTG) She will be able to use left shoulder functionally with less than 3/10 pain 11/03/18: good goal progress LTG Duration 8 weeks Assessment Summary Assessment IR/ER ROM improving, pt tolerated increased PROM with no complaints of pain or difficulty. Increased resistance for some exercises did not cause any increased pain or symptoms. Physical Therapy Plan Frequency and Duration Frequency of Treatment 2x/Week Duration of Treatment 8 weeks Plan of Care Start Date 11/03/18 Plan of Care End Date 01/01/19 Next Visit Focus/Plan Next Note Type Treatment Note Next Visit Plan Continue to progress shoulder strengthening and ROM exercise as per MD protocol.
--- NOTE | 2018-11-17 15:26 | PT.OTN ---
Current Diagnoses Unspecified nondisplaced fracture of surgical neck of left humerus, initial encounter for closed fracture (11/17/18) Physical Therapy Treatment Note PT-OP-A Visit Information Start: 08/25/18 12:55 Freq: Status: Active Protocol: Document 11/17/18 15:16 SA (Rec: 11/17/18 15:26 SA [email or web address]) Out-Patient Physical Therapy Visit Information Visit Information Visit Type Treatment Note Visit Start Time 14:30 Visit Stop Time 15:16 Visit Number 20 Number of PULMONOLOGIST Visits 1 PT-OP-B Current Condition Start: 08/25/18 12:55 Freq: Status: Active Protocol: Document 08/25/18 11:15 DLM (Rec: 08/25/18 13:45 DLM [id number]) Current Condition History of Current Condition Onset Date 08/09/18 Current Complaints left shoulder pain and unable to use it History of Current Condition She was in [place] when she pushed her chair back, it got stuck in a crack and she fell backwards onto her left shoulder. She had immediate pain. She also had dizziness and nausea after her fall that took an extended period of time to resolve while she sat on the ground. She received medical attention and was diagnosed with left humeral fx . She was placed in a shoulder sling. Once she got home she went to see Dr Corona who re- xrayed her shoulder and changed her to a different sling. She has been unable to sleep or lie in bed since the injury. She is sleeping in a chair. She also had an episode of stomach upset and diarrhea immediately after her injury that has resolved. 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 Function- Recreation/Hobbies likes to walk for exercise, walks 2-4 miles per day, likes to travel Baseline Function- Other left handed Current Functional Impairments (Reported) Functional Limitations- ADL's She needs assistance with all her ADL's, not able to lie in supine, has not been able to use her bed, staying in recliner, not sleeping well Functional Limitations- Mobility/Gait Independent gait without device Functional Limitations- Recreation/ has been walking with her Hobbies Spouse but not as far as usual Personal Factors Other Personal Factors That May Effect left handed Therapy/Recovery PT-OP-C Subjective Start: 08/25/18 12:55 Freq: Status: Active Protocol: Document 11/17/18 15:16 SA (Rec: 11/17/18 15:26 SA [email or web address]) OP-PT Subjective Patient Comments Patient Comments Pt reports feeling sore from exercise but understands she may feel sore with strength and ROM progression. PT-OP-G Mobility & Gait Start: 08/25/18 12:55 Freq: Status: Active Protocol: Document 08/25/18 11:15 DLM (Rec: 08/25/18 19:21 DLM [id number]) OP Mobility Evaluation Bed Mobility Rolling needs assist to right side Supine to and from Sit needs min assist Transfers Sit to Stand independent OP Gait Assessment Gait Gait Assistance Required: Independent Assistive Devices Assistive Device None PT-OP-J Posture/Palpation/Skin Start: 08/25/18 12:55 Freq: Status: Active Protocol: Document 08/25/18 11:15 DLM (Rec: 08/25/18 19:21 DLM [id number]) Skin Assessment Edema Assessment Left Arm Edema Type Pitting Edema Degree 2+ Edema Appearance Firm Comments bruising scattered on left UE, abrasion noted left forearm, edema greatest from wrist to just above elbow PT-OP-K Range of Motion Start: 08/25/18 12:55 Freq: Status: Active Protocol: Document 08/28/18 13:00 DLM (Rec: 08/28/18 15:26 DLM [id number]) Shoulder Goniometric Range of Motion Shoulder Measured in Degrees Left Passive Testing Position Supine Flexion 80 Extension 0 External Rotation at 0 degrees Abduction 12 PT-OP-M Strength Start: 08/25/18 12:55 Freq: Status: Active Protocol: Document 08/25/18 11:15 DLM (Rec: 08/25/18 19:17 DLM [id number]) Shoulder Strength Shoulder Manual Muscle Testing Left Reason Not Measured Orthopedic Precautions Pain Comments unable to test at this time due to fx, orthopedic protocal for Passive ROM only at this time Right Reason Not Measured WFL Elbow/Forearm Strength Elbow and Forearm Manual Muscle Testing Left Flexion (C6) 2- Poor- Reason Not Measured Orthopedic Precautions Pain Comments needs assist to flex her elbow with weakness and pain Hand Field Inspector/Pinch Strength Hand Dominance Hand Dominance Left Hand Strength Left Comments weakness associated with pain and edema PT-OP-Q Treatments Start: 08/25/18 12:55 Freq: Status: Active Protocol: Document 11/17/18 15:16 (Rec: 11/17/18 15:26 [email or web address]) Cardio Equipment Upper Body Ergometer (UBE) Duration (Minutes) 6 Seat Position 10 Height 4.5 Other forward/backward Therapeutic Exercises Supine Exercises shoulder flex with wand Resistance 5# Reps/Minutes 15x butterfly stretch Supine Exercise Name hands behind head Reps/Minutes 10x 10 Standing Exercises Biceps Curls Standing Exercise Name Curls/Reverse Curls Side bilateral Resistance 5# Equipment Used Dumbbell Internal Rotation Standing Exercise Name Internal Rotation Side left Resistance Lv 3 Equipment Used T-band External Rotation Standing Exercise Name External Rotation Side left Resistance Lv 3 Equipment Used T-band Shoulder Abduction Standing Exercise Name Abduction Side bilateral Resistance 5# Equipment Used Dumbbells Shoulder Flexion Standing Exercise Name Flexion Side bilateral Resistance 5# wand Shoulder Adduction Standing Exercise Name Adduction Side bilateral Resistance Lv 3 Equipment Used T-band Shoulder Extension Standing Exercise Name Extension Side bilateral Resistance 5# Equipment Used Wand Manual Therapy Treatment Soft Tissue Mobilization 2 Body Location left upper trap/biceps/pecs Mobilization Type Rolling Strumming Sustained Pressure Intensity/Depth Moderate Body Position Supine Comments PROM with manual stretching into Flexion PT-OP-R Modalities Start: 08/25/18 12:55 Freq: Status: Active Protocol: Document 11/17/18 15:16 (Rec: 11/17/18 15:26 [email or web address]) Hot Pack/Cold Pack Treatment Moist hot pack Location L shoulder Patient Position Supine Treatment Duration (minutes) 10 PT-OP-T Assessment and Plan Start: 08/25/18 12:55 Freq: Status: Active Protocol: Document 11/17/18 15:16 (Rec: 11/17/18 15:26 [email or web address]) Physical Therapy Assessment Assessment Summary Assessment Pt tolerating exercise progressions well, encouraged to use mirror at home with HEP to monitor form and avoid shoulder hike with UT during Flexion and ABD. Physical Therapy Plan Next Visit Focus/Plan Next Note Type Treatment Note Next Visit Plan Continue to progress shoulder strengthening and ROM exercise as per MD protocol.
--- NOTE | 2018-11-21 15:46 | PT.OTN ---
Current Diagnoses Unspecified nondisplaced fracture of surgical neck of left humerus, initial encounter for closed fracture (11/21/18) Physical Therapy Treatment Note PT-OP-A Visit Information Start: 08/25/18 12:55 Freq: Status: Active Protocol: Document 11/21/18 15:35 SA (Rec: 11/21/18 15:46 SA [email or web address]) Out-Patient Physical Therapy Visit Information Visit Information Visit Start Time 14:30 Visit Stop Time 15:17 Visit Number 21 Number of DIRECTOR ADVANCED Visits 2 PT-OP-B Current Condition Start: 08/25/18 12:55 Freq: Status: Active Protocol: Document 08/25/18 11:15 DLM (Rec: 08/25/18 13:45 DLM [id number]) Current Condition History of Current Condition Onset Date 08/09/18 Current Complaints left shoulder pain and unable to use it History of Current Condition She was in [place] when she pushed her chair back, it got stuck in a crack and she fell backwards onto her left shoulder. She had immediate pain. She also had dizziness and nausea after her fall that took an extended period of time to resolve while she sat on the ground. She received medical attention and was diagnosed with left humeral fx . She was placed in a shoulder sling. Once she got home she went to see Dr Corona who re- xrayed her shoulder and changed her to a different sling. She has been unable to sleep or lie in bed since the injury. She is sleeping in a chair. She also had an episode of stomach upset and diarrhea immediately after her injury that has resolved. 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 Function- Recreation/Hobbies likes to walk for exercise, walks 2-4 miles per day, likes to travel Baseline Function- Other left handed Current Functional Impairments (Reported) Functional Limitations- ADL's She needs assistance with all her ADL's, not able to lie in supine, has not been able to use her bed, staying in recliner, not sleeping well Functional Limitations- Mobility/Gait Independent gait without device Functional Limitations- Recreation/ has been walking with her Hobbies Spouse but not as far as usual Personal Factors Other Personal Factors That May Effect left handed Therapy/Recovery PT-OP-C Subjective Start: 08/25/18 12:55 Freq: Status: Active Protocol: Document 11/21/18 15:35 SA (Rec: 11/21/18 15:46 SA [email or web address]) OP-PT Subjective Patient Comments Patient Comments Pt sore again today specificaaly with active flexion and ER, soing HEP daily. PT-OP-G Mobility & Gait Start: 08/25/18 12:55 Freq: Status: Active Protocol: Document 08/25/18 11:15 DLM (Rec: 08/25/18 19:21 DLM [id number]) OP Mobility Evaluation Bed Mobility Rolling needs assist to right side Supine to and from Sit needs min assist Transfers Sit to Stand independent OP Gait Assessment Gait Gait Assistance Required: Independent Assistive Devices Assistive Device None PT-OP-J Posture/Palpation/Skin Start: 08/25/18 12:55 Freq: Status: Active Protocol: Document 08/25/18 11:15 DLM (Rec: 08/25/18 19:21 DLM [id number]) Skin Assessment Edema Assessment Left Arm Edema Type Pitting Edema Degree 2+ Edema Appearance Firm Comments bruising scattered on left UE, abrasion noted left forearm, edema greatest from wrist to just above elbow PT-OP-K Range of Motion Start: 08/25/18 12:55 Freq: Status: Active Protocol: Document 08/28/18 13:00 DLM (Rec: 08/28/18 15:26 DLM [id number]) Shoulder Goniometric Range of Motion Shoulder Measured in Degrees Left Passive Testing Position Supine Flexion 80 Extension 0 External Rotation at 0 degrees Abduction 12 PT-OP-M Strength Start: 08/25/18 12:55 Freq: Status: Active Protocol: Document 08/25/18 11:15 DLM (Rec: 08/25/18 19:17 DLM [id number]) Shoulder Strength Shoulder Manual Muscle Testing Left Reason Not Measured Orthopedic Precautions Pain Comments unable to test at this time due to fx, orthopedic protocal for Passive ROM only at this time Right Reason Not Measured WFL Elbow/Forearm Strength Elbow and Forearm Manual Muscle Testing Left Flexion (C6) 2- Poor- Reason Not Measured Orthopedic Precautions Pain Comments needs assist to flex her elbow with weakness and pain 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 Strength Hand Dominance Hand Dominance Left Hand Strength Left Comments weakness associated with pain and edema PT-OP-Q Treatments Start: 08/25/18 12:55 Freq: Status: Active Protocol: Document 11/21/18 15:35 (Rec: 11/21/18 15:46 [email or web address]) Cardio Equipment Upper Body Ergometer (UBE) Duration (Minutes) 6 Seat Position 10 Height 4.5 Other forward/backward Therapeutic Exercises Supine Exercises shoulder flex with wand Resistance 5# Reps/Minutes 15 butterfly stretch Supine Exercise Name hands behind head Reps/Minutes 10x 10 1 Supine Exercise Name PROM left shoulder flexion, IR and ER Side left Comments gentle overpressure with ER and flexion Prone Exercises Scapular protraction Side left Resistance 3# Reps/Minutes 15x Standing Exercises Biceps Curls Standing Exercise Name Curls/Reverse Curls Side bilateral Resistance 5# Equipment Used Dumbbell Internal Rotation Standing Exercise Name Internal Rotation Side left Resistance Lv 3 Equipment Used T-band External Rotation Standing Exercise Name External Rotation Side left Resistance Lv 3 Equipment Used T-band Shoulder Abduction Standing Exercise Name Abduction Side bilateral Resistance 5# Equipment Used Dumbbells Shoulder Flexion Standing Exercise Name Flexion Side bilateral Resistance 5# wand Shoulder Extension Standing Exercise Name Extension Side bilateral Resistance 5# Equipment Used Wand Manual Therapy Treatment Soft Tissue Mobilization 2 Body Location left upper trap/biceps/pecs Mobilization Type Rolling Strumming Sustained Pressure Intensity/Depth Moderate Body Position Supine Comments PROM with manual stretching into Flexion PT-OP-R Modalities Start: 08/25/18 12:55 Freq: Status: Active Protocol: Document 11/21/18 15:35 (Rec: 11/21/18 15:46 [email or web address]) Hot Pack/Cold Pack Treatment Cold Pack Location left shoulder Patient Position Supine Treatment Duration (minutes) 10 Patient Tolerance Good PT-OP-T Assessment and Plan Start: 08/25/18 12:55 Freq: Status: Active Protocol: Document 11/21/18 15:35 (Rec: 11/21/18 15:46 [email or web address]) Physical Therapy Assessment Assessment Summary Assessment Pt with noted soreness with ROM progressions and strengthening, but understands this is normal and continues to do HEP regularly and use ice at home. Physical Therapy Plan Next Visit Focus/Plan Next Note Type Treatment Note Next Visit Plan Continue to progress shoulder strengthening and ROM exercise as per MD protocol.
--- NOTE | 2018-11-24 16:12 | PT.OTN ---
Current Diagnoses Unspecified nondisplaced fracture of surgical neck of left humerus, initial encounter for closed fracture (11/24/18) Physical Therapy Treatment Note PT-OP-A Visit Information Start: 08/25/18 12:55 Freq: Status: Active Protocol: Document 11/24/18 16:06 SA (Rec: 11/24/18 16:12 SA [email or web address]) Out-Patient Physical Therapy Visit Information Visit Information Visit Type Treatment Note Visit Start Time 14:30 Visit Stop Time 15:16 Visit Number 22 Number of PRODUCTION LAPPING MACHINE OPERATOR Visits 3 PT-OP-B Current Condition Start: 08/25/18 12:55 Freq: Status: Active Protocol: Document 08/25/18 11:15 DLM (Rec: 08/25/18 13:45 DLM [id number]) Current Condition History of Current Condition Onset Date 08/09/18 Current Complaints left shoulder pain and unable to use it History of Current Condition She was in [place] when she pushed her chair back, it got stuck in a crack and she fell backwards onto her left shoulder. She had immediate pain. She also had dizziness and nausea after her fall that took an extended period of time to resolve while she sat on the ground. She received medical attention and was diagnosed with left humeral fx . She was placed in a shoulder sling. Once she got home she went to see Dr Corona who re- xrayed her shoulder and changed her to a different sling. She has been unable to sleep or lie in bed since the injury. She is sleeping in a chair. She also had an episode of stomach upset and diarrhea immediately after her injury that has resolved. 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 Function- Recreation/Hobbies likes to walk for exercise, walks 2-4 miles per day, likes to travel Baseline Function- Other left handed Current Functional Impairments (Reported) Functional Limitations- ADL's She needs assistance with all her ADL's, not able to lie in supine, has not been able to use her bed, staying in recliner, not sleeping well Functional Limitations- Mobility/Gait Independent gait without device Functional Limitations- Recreation/ has been walking with her Hobbies Spouse but not as far as usual Personal Factors Other Personal Factors That May Effect left handed Therapy/Recovery PT-OP-C Subjective Start: 08/25/18 12:55 Freq: Status: Active Protocol: Document 11/24/18 16:06 SA (Rec: 11/24/18 16:12 SA [email or web address]) OP-PT Subjective Patient Comments Patient Comments Pt reports feeling good yeterday but sore again today, doing HEp with mirror at home . PT-OP-G Mobility & Gait Start: 08/25/18 12:55 Freq: Status: Active Protocol: Document 08/25/18 11:15 DLM (Rec: 08/25/18 19:21 DLM [id number]) OP Mobility Evaluation Bed Mobility Rolling needs assist to right side Supine to and from Sit needs min assist Transfers Sit to Stand independent OP Gait Assessment Gait Gait Assistance Required: Independent Assistive Devices Assistive Device None PT-OP-J Posture/Palpation/Skin Start: 08/25/18 12:55 Freq: Status: Active Protocol: Document 08/25/18 11:15 DLM (Rec: 08/25/18 19:21 DLM [id number]) Skin Assessment Edema Assessment Left Arm Edema Type Pitting Edema Degree 2+ Edema Appearance Firm Comments bruising scattered on left UE, abrasion noted left forearm, edema greatest from wrist to just above elbow PT-OP-K Range of Motion Start: 08/25/18 12:55 Freq: Status: Active Protocol: Document 08/28/18 13:00 DLM (Rec: 08/28/18 15:26 DLM [id number]) Shoulder Goniometric Range of Motion Shoulder Measured in Degrees Left Passive Testing Position Supine Flexion 80 Extension 0 External Rotation at 0 degrees Abduction 12 PT-OP-M Strength Start: 08/25/18 12:55 Freq: Status: Active Protocol: Document 08/25/18 11:15 DLM (Rec: 08/25/18 19:17 DLM [id number]) Shoulder Strength Shoulder Manual Muscle Testing Left Reason Not Measured Orthopedic Precautions Pain Comments unable to test at this time due to fx, orthopedic protocal for Passive ROM only at this time Right Reason Not Measured WFL Elbow/Forearm Strength Elbow and Forearm Manual Muscle Testing Left Flexion (C6) 2- Poor- Reason Not Measured Orthopedic Precautions Pain Comments needs assist to flex her elbow with weakness and pain Hand Block Hacker/Pinch Strength Hand Dominance Hand Dominance Left Hand Strength Left Comments weakness associated with pain and edema PT-OP-Q Treatments Start: 08/25/18 12:55 Freq: Status: Active Protocol: Document 11/24/18 16:06 (Rec: 11/24/18 16:12 [email or web address]) Cardio Equipment Upper Body Ergometer (UBE) Duration (Minutes) 6 Seat Position 10 Height 4.5 Other forward/backward Therapeutic Exercises Supine Exercises shoulder flex with wand Resistance 5# Reps/Minutes 20 butterfly stretch Supine Exercise Name hands behind head Reps/Minutes 10x 10 Standing Exercises Biceps Curls Standing Exercise Name Curls/Reverse Curls Side bilateral Resistance 4# Equipment Used Dumbbell Internal Rotation Standing Exercise Name Internal Rotation Side left Resistance 4# dumbell External Rotation Standing Exercise Name External Rotation Side left Resistance 4# dumbell Shoulder Abduction Standing Exercise Name Abduction Side bilateral Resistance 4# Equipment Used Dumbbells Shoulder Adduction Standing Exercise Name Adduction Side bilateral Resistance 4 # dumbell Shoulder Extension Standing Exercise Name Extension Side bilateral Resistance 5# Equipment Used Wand Shoulder IR with Pulleys Standing Exercise Name Shoulder IR Equipment Used pulleys Manual Therapy Treatment Soft Tissue Mobilization 2 Body Location left upper trap/biceps/pecs Mobilization Type Rolling Strumming Sustained Pressure Intensity/Depth Moderate Body Position Supine Comments PROM with manual stretching into Flexion PT-OP-R Modalities Start: 08/25/18 12:55 Freq: Status: Active Protocol: Document 11/24/18 16:06 (Rec: 11/24/18 16:12 [email or web address]) Hot Pack/Cold Pack Treatment Cold Pack Location left shoulder Patient Position Supine Treatment Duration (minutes) 10 Patient Tolerance Good PT-OP-T Assessment and Plan Start: 08/25/18 12:55 Freq: Status: Active Protocol: Document 11/24/18 16:06 (Rec: 11/24/18 16:12 [email or web address]) Physical Therapy Assessment Assessment Summary Assessment Pt tolerating ROM/ strengthening progressions well, continues to be limited with active Flexion and ER. Physical Therapy Plan Next Visit Focus/Plan Next Note Type Treatment Note Next Visit Plan Continue to progress shoulder strengthening and ROM exercise as per MD protocol.
--- NOTE | 2018-11-28 15:18 | PT.OTN ---
Current Diagnoses Unspecified nondisplaced fracture of surgical neck of left humerus, initial encounter for closed fracture (11/28/18) Physical Therapy Treatment Note PT-OP-A Visit Information Start: 08/25/18 12:55 Freq: Status: Active Protocol: Document 11/28/18 14:30 DCW (Rec: 11/28/18 15:18 DCW [id number]) Out-Patient Physical Therapy Visit Information Visit Information Visit Type Treatment Note Visit Start Time 14:30 Visit Stop Time 15:20 Total Visit Minutes 50 Visit Number 23 Number of CARD MAKER Visits 0 PT-OP-B Current Condition Start: 08/25/18 12:55 Freq: Status: Active Protocol: Document 08/25/18 11:15 DLM (Rec: 08/25/18 13:45 DLM [id number]) Current Condition History of Current Condition Onset Date 08/09/18 Current Complaints left shoulder pain and unable to use it History of Current Condition She was in [place] when she pushed her chair back, it got stuck in a crack and she fell backwards onto her left shoulder. She had immediate pain. She also had dizziness and nausea after her fall that took an extended period of time to resolve while she sat on the ground. She received medical attention and was diagnosed with left humeral fx . She was placed in a shoulder sling. Once she got home she went to see Dr Corona who re- xrayed her shoulder and changed her to a different sling. She has been unable to sleep or lie in bed since the injury. She is sleeping in a chair. She also had an episode of stomach upset and diarrhea immediately after her injury that has resolved. 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 Function- Recreation/Hobbies likes to walk for exercise, walks 2-4 miles per day, likes to travel Baseline Function- Other left handed Current Functional Impairments (Reported) Functional Limitations- ADL's She needs assistance with all her ADL's, not able to lie in supine, has not been able to use her bed, staying in recliner, not sleeping well Functional Limitations- Mobility/Gait Independent gait without device Functional Limitations- Recreation/ has been walking with her Hobbies Spouse but not as far as usual Personal Factors Other Personal Factors That May Effect left handed Therapy/Recovery PT-OP-C Subjective Start: 08/25/18 12:55 Freq: Status: Active Protocol: Document 11/28/18 14:30 DCW (Rec: 11/28/18 15:18 DCW [id number]) OP-PT Subjective Patient Comments Patient Comments Pt reports that she is overall doing well, she just feels like she needs to learn to use it more efficiently. PT-OP-G Mobility & Gait Start: 08/25/18 12:55 Freq: Status: Active Protocol: Document 08/25/18 11:15 DLM (Rec: 08/25/18 19:21 DLM [id number]) OP Mobility Evaluation Bed Mobility Rolling needs assist to right side Supine to and from Sit needs min assist Transfers Sit to Stand independent OP Gait Assessment Gait Gait Assistance Required: Independent Assistive Devices Assistive Device None PT-OP-J Posture/Palpation/Skin Start: 08/25/18 12:55 Freq: Status: Active Protocol: Document 08/25/18 11:15 DLM (Rec: 08/25/18 19:21 DLM [id number]) Skin Assessment Edema Assessment Left Arm Edema Type Pitting Edema Degree 2+ Edema Appearance Firm Comments bruising scattered on left UE, abrasion noted left forearm, edema greatest from wrist to just above elbow PT-OP-K Range of Motion Start: 08/25/18 12:55 Freq: Status: Active Protocol: Document 08/28/18 13:00 DLM (Rec: 08/28/18 15:26 DLM [id number]) Shoulder Goniometric Range of Motion Shoulder Measured in Degrees Left Passive Testing Position Supine Flexion 80 Extension 0 External Rotation at 0 degrees Abduction 12 PT-OP-M Strength Start: 08/25/18 12:55 Freq: Status: Active Protocol: Document 08/25/18 11:15 DLM (Rec: 08/25/18 19:17 DLM [id number]) Shoulder Strength Shoulder Manual Muscle Testing Left Reason Not Measured Orthopedic Precautions Pain Comments unable to test at this time due to fx, orthopedic protocal for Passive ROM only at this time Right Reason Not Measured WFL Elbow/Forearm Strength Elbow and Forearm Manual Muscle Testing Left Flexion (C6) 2- Poor- Reason Not Measured Orthopedic Precautions Pain Comments needs assist to flex her elbow with weakness and pain Hand Ediphone Operator/Pinch Strength Hand Dominance Hand Dominance Left Hand Strength Left Comments weakness associated with pain and edema PT-OP-Q Treatments Start: 08/25/18 12:55 Freq: Status: Active Protocol: Document 11/28/18 14:30 DCW (Rec: 11/28/18 15:18 DCW [id number]) Cardio Equipment Upper Body Ergometer (UBE) Duration (Minutes) 6 Seat Position 10 Height 4.5 Other forward/backward Therapeutic Exercises Supine Exercises 1 Supine Exercise Name PROM left shoulder flexion, IR and ER Side left Comments gentle overpressure with ER and flexion Sitting Exercises Shoulder Abduction Sitting Exercise Name AROM abduction Side left Equipment Used pulleys Comments pain-free Shoulder Flexion Sitting Exercise Name AROM flexion Side left Equipment Used pulleys Comments pain-free Standing Exercises Internal Rotation Standing Exercise Name Internal Rotation Side left Resistance Lv 3 Equipment Used T-band External Rotation Standing Exercise Name External Rotation Side left Resistance Lv 3 Equipment Used T-band Shoulder Abduction Standing Exercise Name Abduction Side bilateral Resistance 4# Equipment Used Dumbbells Shoulder Flexion Standing Exercise Name Flexion Side bilateral Resistance 5# wand Shoulder Adduction Standing Exercise Name Adduction Side left Resistance Lv 3 Equipment Used T-band Shoulder Extension Standing Exercise Name Extension Side bilateral Resistance 5# Equipment Used Wand Shoulder IR with Pulleys Standing Exercise Name Shoulder IR Equipment Used pulleys Manual Therapy Treatment Soft Tissue Mobilization 2 Body Location left upper trap/biceps/pecs Mobilization Type Rolling Strumming Sustained Pressure Intensity/Depth Moderate Body Position Supine Comments PROM with manual stretching into Flexion PT-OP-R Modalities Start: 08/25/18 12:55 Freq: Status: Active Protocol: Document 11/28/18 14:30 DCW (Rec: 11/28/18 15:18 DCW [id number]) Hot Pack/Cold Pack Treatment Cold Pack Location left shoulder Patient Position Supine Treatment Duration (minutes) 10 Patient Tolerance Good PT-OP-T Assessment and Plan Start: 08/25/18 12:55 Freq: Status: Active Protocol: Document 11/28/18 14:30 DCW (Rec: 11/28/18 15:18 DCW [id number]) Physical Therapy Assessment Goals Three Impairment Impaired left shoulder strength Short Term Goal (STG) she will be able to use left UE for simple functional ADL's at home 11/03/18: goal achieved. Prison Goal (LTG) Increase left UE strength to 4 /5 in available ROM 11/03/18: good goal progress LTG Duration 8 weeks Two Impairment Impaired ROM Short Term Goal (STG) PROM left shoulder flexion 170 degrees and ER to 50 degrees 11/03/18: good goal progress STG Duration 4 weeks [employer] Goal (LTG) AROM left shoulder flexion 110 degrees, ER to 80 degrees, IR behind back to waistline 11/03/18: goal progress LTG Duration 8 weeks One Impairment pain left shoulder Short Term Goal (STG) She will tolerate lying in supine to sleep 11/03/18: good goal progress STG Duration 2 weeks [employer] Goal (LTG) She will be able to use left shoulder functionally with less than 3/10 pain 11/03/18: good goal progress LTG Duration 8 weeks Assessment Summary Assessment Pt doing well, feels like she is appropriate for discharge following her next visit. Pt will likely do well post- discharge if she continues to be complaint with her HEP Physical Therapy Plan Frequency and Duration Frequency of Treatment 2x/Week Duration of Treatment 8 weeks Plan of Care Start Date 11/03/18 Plan of Care End Date 01/01/19 Next Visit Focus/Plan Next Note Type Discharge Summary Next Visit Plan Discharge following next visit .
--- NOTE | 2018-12-01 15:35 | PT.OTN ---
Current Diagnoses Unspecified nondisplaced fracture of surgical neck of left humerus, initial encounter for closed fracture (12/01/18) Physical Therapy Treatment Note PT-OP-A Visit Information Start: 08/25/18 12:55 Freq: Status: Active Protocol: Document 12/01/18 15:25 SA (Rec: 12/01/18 15:35 SA [email or web address]) Out-Patient Physical Therapy Visit Information Visit Information Visit Type Treatment Note Visit Start Time 14:30 Visit Stop Time 15:18 Visit Number 24 Number of SCORE CALLER Visits 1 PT-OP-B Current Condition Start: 08/25/18 12:55 Freq: Status: Active Protocol: Document 08/25/18 11:15 DLM (Rec: 08/25/18 13:45 DLM [id number]) Current Condition History of Current Condition Onset Date 08/09/18 Current Complaints left shoulder pain and unable to use it History of Current Condition She was in [place] when she pushed her chair back, it got stuck in a crack and she fell backwards onto her left shoulder. She had immediate pain. She also had dizziness and nausea after her fall that took an extended period of time to resolve while she sat on the ground. She received medical attention and was diagnosed with left humeral fx . She was placed in a shoulder sling. Once she got home she went to see Dr Corona who re- xrayed her shoulder and changed her to a different sling. She has been unable to sleep or lie in bed since the injury. She is sleeping in a chair. She also had an episode of stomach upset and diarrhea immediately after her injury that has resolved. 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 Function- Recreation/Hobbies likes to walk for exercise, walks 2-4 miles per day, likes to travel Baseline Function- Other left handed Current Functional Impairments (Reported) Functional Limitations- ADL's She needs assistance with all her ADL's, not able to lie in supine, has not been able to use her bed, staying in recliner, not sleeping well Functional Limitations- Mobility/Gait Independent gait without device Functional Limitations- Recreation/ has been walking with her Hobbies Spouse but not as far as usual Personal Factors Other Personal Factors That May Effect left handed Therapy/Recovery PT-OP-C Subjective Start: 08/25/18 12:55 Freq: Status: Active Protocol: Document 12/01/18 15:25 SA (Rec: 12/01/18 15:35 SA [email or web address]) OP-PT Subjective Patient Comments Patient Comments Pt reports that she purchased over door pulleys for home, understands her HEP and feels prepared to be d/homero from PT. PT-OP-G Mobility & Gait Start: 08/25/18 12:55 Freq: Status: Active Protocol: Document 08/25/18 11:15 DLM (Rec: 08/25/18 19:21 DLM [id number]) OP Mobility Evaluation Bed Mobility Rolling needs assist to right side Supine to and from Sit needs min assist Transfers Sit to Stand independent OP Gait Assessment Gait Gait Assistance Required: Independent Assistive Devices Assistive Device None PT-OP-J Posture/Palpation/Skin Start: 08/25/18 12:55 Freq: Status: Active Protocol: Document 08/25/18 11:15 DLM (Rec: 08/25/18 19:21 DLM [id number]) Skin Assessment Edema Assessment Left Arm Edema Type Pitting Edema Degree 2+ Edema Appearance Firm Comments bruising scattered on left UE, abrasion noted left forearm, edema greatest from wrist to just above elbow PT-OP-K Range of Motion Start: 08/25/18 12:55 Freq: Status: Active Protocol: Document 08/28/18 13:00 DLM (Rec: 08/28/18 15:26 DLM [id number]) Shoulder Goniometric Range of Motion Shoulder Measured in Degrees Left Passive Testing Position Supine Flexion 80 Extension 0 External Rotation at 0 degrees Abduction 12 PT-OP-M Strength Start: 08/25/18 12:55 Freq: Status: Active Protocol: Document 08/25/18 11:15 DLM (Rec: 08/25/18 19:17 DLM [id number]) Shoulder Strength Shoulder Manual Muscle Testing Left Reason Not Measured Orthopedic Precautions Pain Comments unable to test at this time due to fx, orthopedic protocal for Passive ROM only at this time Right Reason Not Measured WFL Elbow/Forearm Strength Elbow and Forearm Manual Muscle Testing Left Flexion (C6) 2- Poor- Reason Not Measured Orthopedic Precautions Pain Comments needs assist to flex her elbow with weakness and pain Hand Vice President [employer]/Pinch Strength Hand Dominance Hand Dominance Left Hand Strength Left Comments weakness associated with pain and edema PT-OP-Q Treatments Start: 08/25/18 12:55 Freq: Status: Active Protocol: Document 12/01/18 15:25 SA (Rec: 12/01/18 15:35 SA [email or web address]) Cardio Equipment Upper Body Ergometer (UBE) Duration (Minutes) 6 Seat Position 10 Height 4.5 Other forward/backward Therapeutic Exercises Supine Exercises shoulder flex with wand Resistance 5# Reps/Minutes 20 butterfly stretch Supine Exercise Name hands behind head Reps/Minutes 10x 10 1 Supine Exercise Name PROM left shoulder flexion, IR and ER Side left Comments gentle overpressure with ER and flexion Standing Exercises Shoulder Abduction Standing Exercise Name Abduction Side bilateral Resistance 4# Equipment Used Dumbbells Shoulder Adduction Standing Exercise Name Adduction Side left Resistance 4# dumbbell Shoulder Extension Standing Exercise Name Extension Side bilateral Resistance 5# Equipment Used Wand Shoulder IR with Pulleys Standing Exercise Name Shoulder IR Equipment Used pulleys Reps/Minutes 3 min Manual Therapy Treatment Soft Tissue Mobilization 2 Body Location left upper trap/biceps/pecs Mobilization Type Rolling Strumming Sustained Pressure Intensity/Depth Moderate Body Position Supine Comments PROM with manual stretching into Flexion PT-OP-R Modalities Start: 08/25/18 12:55 Freq: Status: Active Protocol: Document 12/01/18 15:25 SA (Rec: 12/01/18 15:35 [email or web address]) Hot Pack/Cold Pack Treatment Moist hot pack Location L shoulder Patient Position Supine Treatment Duration (minutes) 10 PT-OP-T Assessment and Plan Start: 08/25/18 12:55 Freq: Status: Active Protocol: Document 12/01/18 15:25 SA (Rec: 12/01/18 15:35 SA [email or web address]) Physical Therapy Assessment Assessment Summary Assessment Active L shoulder Flexion at 116 degrees and ABD 115 degrees. Pt plans to continue with strengthening/ROM HEP to progress as able and feels ready for d/c. Physical Therapy Plan Next Visit Focus/Plan Next Visit Plan Pt's last visit today.
--- NOTE | 2019-02-20 12:22 | PT.OPDS ---
Current Diagnoses Unspecified nondisplaced fracture of surgical neck of left humerus, initial encounter for closed fracture (12/01/18) Provider Visit Care Team Role Provider Type TANA Stock Primary Care Provider Advanced Blood Bank Custodian Specialty: Family Practice Address: [address] [place] [address], [facility] [place], [address] Email: [email or web address] Kevin Corona MD Attending Provider Physician Specialty: Orthopedic Surgery Address: [address] [place] [address], [id number] Email: [email or web address] Visit Number Visit Number 24 Discharge Summary PT-OP-B Current Condition Start: 08/25/18 12:55 Freq: Status: Active Protocol: Document 08/25/18 11:15 DLM (Rec: 08/25/18 13:45 DLM [id number]) Current Condition History of Current Condition Onset Date 08/09/18 Current Complaints left shoulder pain and unable to use it History of Current Condition She was in [place] when she pushed her chair back, it got stuck in a crack and she fell backwards onto her left shoulder. She had immediate pain. She also had dizziness and nausea after her fall that took an extended period of time to resolve while she sat on the ground. She received medical attention and was diagnosed with left humeral fx . She was placed in a shoulder sling. Once she got home she went to see Dr Corona who re- xrayed her shoulder and changed her to a different sling. She has been unable to sleep or lie in bed since the injury. She is sleeping in a chair. She also had an episode of stomach upset and diarrhea immediately after her injury that has resolved. 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 Function- Recreation/Hobbies likes to walk for exercise, walks 2-4 miles per day, likes to travel Baseline Function- Other left handed Current Functional Impairments (Reported) Functional Limitations- ADL's She needs assistance with all her ADL's, not able to lie in supine, has not been able to use her bed, staying in recliner, not sleeping well Functional Limitations- Mobility/Gait Independent gait without device Functional Limitations- Recreation/ has been walking with her Hobbies Spouse but not as far as usual Personal Factors Other Personal Factors That May Effect left handed Therapy/Recovery PT-OP-C Subjective Start: 08/25/18 12:55 Freq: Status: Active Protocol: Document 12/01/18 15:25 SA (Rec: 12/01/18 15:35 SA [email or web address]) OP-PT Subjective Patient Comments Patient Comments Pt reports that she purchased over door pulleys for home, understands her HEP and feels prepared to be d/homero from PT. PT-OP-G Mobility & Gait Start: 08/25/18 12:55 Freq: Status: Active Protocol: Document 08/25/18 11:15 DLM (Rec: 08/25/18 19:21 DLM [id number]) OP Mobility Evaluation Bed Mobility Rolling needs assist to right side Supine to and from Sit needs min assist Transfers Sit to Stand independent OP Gait Assessment Gait Gait Assistance Required: Independent Assistive Devices Assistive Device None PT-OP-J Posture/Palpation/Skin Start: 08/25/18 12:55 Freq: Status: Active Protocol: Document 08/25/18 11:15 DLM (Rec: 08/25/18 19:21 DLM [id number]) Skin Assessment Edema Assessment Left Arm Edema Type Pitting Edema Degree 2+ Edema Appearance Firm Comments bruising scattered on left UE, abrasion noted left forearm, edema greatest from wrist to just above elbow PT-OP-K Range of Motion Start: 08/25/18 12:55 Freq: Status: Active Protocol: Document 08/28/18 13:00 DLM (Rec: 08/28/18 15:26 DLM [id number]) Shoulder Goniometric Range of Motion Shoulder Measured in Degrees Left Passive Testing Position Supine Flexion 80 Extension 0 External Rotation at 0 degrees Abduction 12 PT-OP-M Strength Start: 08/25/18 12:55 Freq: Status: Active Protocol: Document 08/25/18 11:15 DLM (Rec: 08/25/18 19:17 DL [id number]) Shoulder Strength Shoulder Manual Muscle Testing Left Reason Not Measured Orthopedic Precautions Pain Comments unable to test at this time due to fx, orthopedic protocal for Passive ROM only at this time Right Reason Not Measured WFL Elbow/Forearm Strength Elbow and Forearm Manual Muscle Testing Left Flexion (C6) 2- Poor- Reason Not Measured Orthopedic Precautions Pain Comments needs assist to flex her elbow with weakness and pain Hand [employer]/Pinch Strength Hand Dominance Hand Dominance Left Hand Strength Left Comments weakness associated with pain and edema PT-OP-T Assessment and Plan Start: 08/25/18 12:55 Freq: Status: Active Protocol: Document 02/20/19 12:22 DCW (Rec: 02/20/19 12:22 DC [id number]) Physical Therapy Assessment Assessment Summary Assessment Pt appropriate for discharge at this time. Physical Therapy Plan Discharge Physical Therapy Discharge Reasons Goals Met Next Visit Focus/Plan Next Note Type Discharge Summary
== END 2018-12-01 16:30 ==
LOC: PHYS 14:30
PROVIDERS: PCP Internal Medicine; Visit Provider Orthopaedic Surgery
DX: S42.215A Unspecified nondisplaced fracture of surgical neck of left humerus, initial encounter for closed fracture (principal)
CPT/HCPCS: 97010; 97110; 97140; 97162

== ENCOUNTER → 2019-12-12 11:03 | Outpatient (CLI) | payer MEDICARE, OTHER, SELFPAY ==
--- NOTE | 2019-12-12 | DI.RAD.S_ITS ---
PROCEDURE: XR KNEE RT 3V INDICATIONS: RIGHT KNEE PAIN TECHNIQUE: 3 views of the knee were acquired. COMPARISON: [facility], , KNEE 3V LEFT, 11/22/2013, 11:22. FINDINGS: Bones: No fractures or dislocations. No suspicious bony lesions. Scattered degenerative subchondral sclerosis and spurring. Chondrocalcinosis projects in the medial compartment. There is mild medial joint space narrowing. Mild patellofemoral joint space narrowing Soft tissues: Small joint effusion. IMPRESSION: Mild knee joint degeneration Small joint effusion Right knee chondrocalcinosis. Dictated by: Kevan aBrfield M.D. on 12/12/2019 at 15:45 Approved by: Kevan Barfield M.D. on 12/12/2019 at 15:47
== END ==
PROVIDERS: PCP Internal Medicine; Referring Provider Internal Medicine; Visit Provider Internal Medicine
DX: M25.561 Pain in right knee (principal); M17.11 Unilateral primary osteoarthritis, right knee; M25.461 Effusion, right knee; M11.261 Other chondrocalcinosis, right knee
CPT/HCPCS: 73562

== ENCOUNTER 2020-04-10 14:30 | Outpatient (RCR) | payer MEDICARE, OTHER, SELFPAY ==
--- NOTE | 2020-01-08 15:13 | PT.OIE ---
Current Diagnoses Pain in right knee (01/08/20) Past Medical History (Last Updated 07/28/18 @ 18:56 by Rekha Vargas) Back pain (Chronic ~1973) Chicken pox (Resolved ~1944) Colon polyps (Chronic ~2011) Fractures (Resolved) Gas bloat syndrome (Chronic ~1984) Headache (Chronic ~1979) Hepatitis B (Resolved ~1970) Herpes (Resolved ~1998) Knee pain (Chronic ~2013) Measles (Resolved ~1944) Mumps (Resolved ~1944) Seasonal allergies (Chronic ~2011) Past Surgical History (Last Updated 07/28/18 @ 18:56 by Rekha Vargas) Anesthesia (Resolved) History of oral surgery (Resolved ~1979) History of varicose vein stripping (Resolved ~1977) Status post breast reduction (~1969) Status post colonoscopy Status post laminectomy (~1973) Visit Care Team Role Provider Type TANA Stock Attending Provider Advanced Senior Instrumentation Engineer Primary Care Provider Referring Provider Specialty: [facility] Address: [address] [place] [address], [facility] Email: [email or web address] Physical Therapy Initial Evaluation PT-OP-A Visit Information Start: 01/08/20 12:53 Freq: Status: Active Protocol: Document 01/08/20 13:50 HH (Rec: 01/08/20 15:13 HH [email or web address]) Out-Patient Physical Therapy Visit Information Visit Information Visit Type Initial Evaluation Visit Start Time 13:50 Visit Stop Time 14:30 Total Visit Minutes 40 Visit Number 11/18 Number of CANE PILER Visits 0 Evaluation Information Evaluation Date 01/08/20 PT-OP-B Current Condition Start: 01/08/20 12:53 Freq: Status: Active Protocol: Document 01/08/20 13:50 HH (Rec: 01/08/20 15:13 HH [email or web address]) Current Condition History of Current Condition Onset Date 6 months ago Current Complaints R knee pain, difficulty in prolonged walking, fall risk History of Current Condition Pt is a 79 yo female presented to clinic with c/o R knee pain started 6 months ago. Pt reports her pain started randomly in the morning. She described her pain 3/10 as achy and sore which usually gets worse with going downstairs/ walking downhill and specifically placing her R leg onto pedal during car transfers. Her pain tends to take place at knee joint line center and medial > lateral. She stated ice helps and she did try some hamstrings exercises but it did not help. Pt also reports she has a few falls and usually caused by tripping over obstacles but does not remember which side. She currently walks 2 miles/ day x 5 /week. 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 Prior Treatments and Tests 12/12/19 X-ray : Bones: No fractures or dislocations. No suspicious bony lesions. Scattered degenerative subchondral sclerosis and spurring. Chondrocalcinosis projects in the medial compartment. There is mild medial joint space narrowing. Mild patellofemoral joint space narrowing Soft tissues: Small joint effusion. IMPRESSION: Mild knee joint degeneration Small joint effusion Right knee chondrocalcinosis. Treatment Goals Patient/Caregiver Goals 1. To be able to walk long distance without any discomfort 2. To be able to strengthen her R LE Current Functional Impairments (Reported) Functional Limitations- Mobility/Gait pain during downstairs and downhill discomfort during car transfer . PT-OP-C Subjective Start: 01/08/20 12:53 Freq: Status: Active Protocol: Document 01/08/20 13:50 HH (Rec: 01/08/20 15:13 HH [email or web address]) OP-PT Subjective Patient Comments Patient Comments I am just wondering how can i get better PT-OP-D Balance Start: 01/08/20 12:53 Freq: Status: Active Protocol: Document 01/08/20 13:50 HH (Rec: 01/08/20 15:13 HH [email or web address]) Balance Tests Single Limb Standing Single Limb- Right 5-7s Single Limb- Left 7s Other Other Balance Tests Performed excessive R knee strategy during SLS PT-OP-F Manual Assessment Start: 01/08/20 12:53 Freq: Status: Active Protocol: Document 01/08/20 13:50 HH (Rec: 01/08/20 15:13 HH [email or web address]) Manual Assessments Joint Mobility Assessment Joint Mobility Assessment decreased R patella lateral and medial mobility. PT-OP-G Mobility & Gait Start: 01/08/20 12:53 Freq: Status: Active Protocol: Document 01/08/20 13:50 HH (Rec: 01/08/20 15:13 HH [email or web address]) OP Gait Assessment Gait Deviations General Gait Pattern Decreased Stride Length, Decreased Feet Clearance Factors Limiting Gait Function Factors Limiting Gait Function Decreased Strength,Limited Range of Motion,Pain Comments Gait Comments Decreased R knee extension during initial contact on RLE, along with decreased heel strike. PT-OP-H Neuro Start: 01/08/20 12:53 Freq: Status: Active Protocol: Document 01/08/20 13:50 HH (Rec: 01/08/20 15:13 [email or web address]) Deep Tendon Reflex & Clonus Assessment Deep Tendon Reflex Bilateral Achilles Deep Tendon Reflex 2+ Normal Bilateral Patellar Deep Tendon Reflex 2+ Normal PT-OP-J Posture/Palpation/Skin Start: 01/08/20 12:53 Freq: Status: Active Protocol: Document 01/08/20 13:50 HH (Rec: 01/08/20 15:13 [email or web address]) Posture Evaluation Position Standing Weight Distribution Weight Shifted Left Knee Posture (R) Excess Flexion PT-OP-K Range of Motion Start: 01/08/20 12:53 Freq: Status: Active Protocol: Document 01/08/20 13:50 HH (Rec: 01/08/20 15:13 [email or web address]) Knee Goniometric Range of Motion Knee Right Knee ROM WFL No Patient Position Supine Flexion Active (degrees) 125 Extension Passive (degrees) 4 Left Knee ROM WFL Yes Flexion Active (degrees) 131 Extension Passive (degrees) 0 Knee ROM Limitations Knee ROM Limitations Pain Comments pain at end range of active knee flexion and extension PT-OP-L Special Tests Start: 01/08/20 12:53 Freq: Status: Active Protocol: Document 01/08/20 13:50 HH (Rec: 01/08/20 15:13 [email or web address]) Special Tests Knee Special Tests Luis's Sign Test Results +VE R Varus- 25 Degrees Test Results -ve R Varus- 0 Degrees Test Results -ve R Valgus- 0 Degrees Test Results +VE R Comments medial joint line pain at R knee Valgus- 25 Degrees Test Results +VE R Comments medial joint line pain at R knee PT-OP-M Strength Start: 01/08/20 12:53 Freq: Status: Active Protocol: Document 01/08/20 13:50 HH (Rec: 01/08/20 15:13 [email or web address]) Hip Strength Hip Manual Muscle Testing Right Flexion (L2) 5 Normal Extension (S1) 4+ Good+ Abduction 4+ Good+ Adduction 5 Normal Left Flexion (L2) 5 Normal Extension (S1) 5 Normal Abduction 5 Normal Adduction 5 Normal Knee Strength Knee Manual Muscle Testing Right Flexion (S2) 5 Normal Extension (L3) 4+ Good+ Reason Not Measured Pain Left Flexion (S2) 5 Normal Extension (L3) 5 Normal PT-OP-Q Treatments Start: 01/08/20 12:53 Freq: Status: Active Protocol: Document 01/08/20 13:50 (Rec: 01/08/20 15:13 HH [email or web address]) Manual Therapy Treatment Soft Tissue Mobilization knee joint line Mobilization Type Sustained Pressure,Trigger Point Release Intensity/Depth Moderate Body Position Supine Comments proximal stroke R lateral quad Mobilization Type Instrument Assisted,Sustained Pressure,Trigger Point Release Intensity/Depth Moderate Body Position Supine Comments with rolling pin Taping KT tape Body Location R knee Treatment Focus patellar stabilization Type of Tape Kinesio Tape PT-OP-T Assessment and Plan Start: 01/08/20 12:53 Freq: Status: Active Protocol: Document 01/08/20 13:50 (Rec: 01/08/20 15:13 [email or web address]) Physical Therapy Assessment Goals balance Impairment Pt has poor single leg balance Short Term Goal (STG) Pt will improve single leg balance to 10 secs bilaterally STG Duration 4 weeks Residential Goal (LTG) Pt will improve single leg balance to 15 secs bilaterally to reduce her fall risk. LTG Duration 8 weeks HEP Impairment pt does not have a HEP [place]man Goal (LTG) Pt will be compliant to HEP daily to improve her overall RLE strength and mobility LTG Duration 4 weeks ROM Impairment ROM deficits Short Term Goal (STG) Pt will improve her extension to 0 and 130' with minimal pain no more than 2>10 STG Duration 4 weeks Residential Goal (LTG) Pt will improve her extension to 0 and 130' with no pain to improve her gait mechanics on initial contact on heel. LTG Duration 8 weeks Assessment Summary Assessment This is a low complexity evaluation for this 79yo female with c/o R knee pain started 6 months ago. X-ray in Dec shows : Mild knee joint degeneration Small joint effusion and Right knee chondrocalcinosis. Upon assessment, pt has lack of full R knee extension and flexion which limited by pain. There's noticeable weakness on R hip and knee as well. She was positive for valgus stress test and menon's test which show degenerative changes at her knee joint. Pt also has limited knee extension during heel strike/ static standing which possibly increase her fall risk with decreased toe clearance and increase biomechanical stress on patellofemoral joint during stair climbing and walking downhill. Pt will benefit from skilled therapy to improve her R knee ROM, balance and strength to maintain her lifestyle in pain free. Physical Therapy Plan Frequency and Duration Frequency of Treatment 2x/Week Duration of Treatment 8 weeks Plan of Care Start Date 01/08/20 Plan of Care End Date 03/08/20 Therapeutic Interventions Therapeutic Interventions Balance Training,Gait Training ,Home Exercise Program,Joint Mobilizations,Manual Therapy, Neuromuscular Re-education, Patient/Caregiver Education, Self-Care/Home Management,Soft Tissue Mobilization,Taping, Therapeutic Activities, Therapeutic Exercises Modalities Cold Pack/Ice Massage,Electric Stimulation,Hot Packs, Infrared Therapy,Ultrasound Next Visit Focus/Plan Next Note Type Treatment Note Next Visit Plan complete LEFS knee ext and flexion (supine) R TKE marching in place
--- NOTE | 2020-01-08 15:13 | PT.OPPOC ---
Physical, Occupational & Speech Therapy At [facility] Current Diagnoses Pain in right knee (01/08/20) Visit Care Team Role Provider Type TANA Stock Attending Provider Advanced Substance Abuse Specialist Primary Care Provider Referring Provider Specialty: Family Practice Address: [address] [place] [address], [facility] [place], [address] Email: [email or web address] Plan Of Care PT-OP-T Assessment and Plan Start: 01/08/20 12:53 Freq: Status: Active Protocol: Document 01/08/20 13:50 HH (Rec: 01/08/20 15:13 HH [email or web address]) Physical Therapy Assessment Goals balance Impairment Pt has poor single leg balance Short Term Goal (STG) Pt will improve single leg balance to 10 secs bilaterally STG Duration 4 weeks Crown Ceramist Goal (LTG) Pt will improve single leg balance to 15 secs bilaterally to reduce her fall risk. LTG Duration 8 weeks HEP Impairment pt does not have a HEP Detention Goal (LTG) Pt will be compliant to HEP daily to improve her overall RLE strength and mobility LTG Duration 4 weeks ROM Impairment ROM deficits Short Term Goal (STG) Pt will improve her extension to 0 and 130' with minimal pain no more than 2>10 STG Duration 4 weeks Crown Ceramist Goal (LTG) Pt will improve her extension to 0 and 130' with no pain to improve her gait mechanics on initial contact on heel. LTG Duration 8 weeks Assessment Summary Assessment This is a low complexity evaluation for this 79yo female with c/o R knee pain started 6 months ago. X-ray in Dec shows : Mild knee joint degeneration Small joint effusion and Right knee chondrocalcinosis. Upon assessment, pt has lack of full R knee extension and flexion which limited by pain. There's noticeable weakness on R hip and knee as well. She was positive for valgus stress test and menon's test which show degenerative changes at her knee joint. Pt also has limited knee extension during heel strike/ static standing which possibly increase her fall risk with decreased toe clearance and increase biomechanical stress on patellofemoral joint during stair climbing and walking downhill. Pt will benefit from skilled therapy to improve her R knee ROM, balance and strength to maintain her lifestyle in pain free. Physical Therapy Plan Frequency and Duration Frequency of Treatment 2x/Week Duration of Treatment 8 weeks Plan of Care Start Date 01/08/20 Plan of Care End Date 03/08/20 Therapeutic Interventions Therapeutic Interventions Balance Training,Gait Training ,Home Exercise Program,Joint Mobilizations,Manual Therapy, Neuromuscular Re-education, Patient/Caregiver Education, Self-Care/Home Management,Soft Tissue Mobilization,Taping, Therapeutic Activities, Therapeutic Exercises Modalities Cold Pack/Ice Massage,Electric Stimulation,Hot Packs, Infrared Therapy,Ultrasound Next Visit Focus/Plan Next Note Type Treatment Note Next Visit Plan complete LEFS knee ext and flexion (supine) R TKE marching in place Plan of Care Dates Plan of Care Start Date 01/08/20 Plan of Care End Date 03/08/20 Electronically Signed by: Kevin Mayorga, PT 01/08/20 6810 Please Sign and Return: I have reviewed this Plan of Care and certify that the skilled therapy services above are required to meet the patient?s needs. Physician Signature Date Printed Name and Credentials Clinical Instructor Signature Printed Name and Credentials
--- NOTE | 2020-01-08 16:01 | PT.OTN ---
Current Diagnoses Pain in right knee (01/08/20) Physical Therapy Treatment Note PT-OP-A Visit Information Start: 01/08/20 12:53 Freq: Status: Active Protocol: Document 01/08/20 13:50 HH (Rec: 01/08/20 15:13 HH [email or web address]) Out-Patient Physical Therapy Visit Information Visit Information Visit Type Initial Evaluation Visit Start Time 13:50 Visit Stop Time 14:30 Total Visit Minutes 40 Visit Number 11/18 Number of STRAP MAKING MACHINE OPERATOR Visits 0 Evaluation Information Evaluation Date 01/08/20 PT-OP-B Current Condition Start: 01/08/20 12:53 Freq: Status: Active Protocol: Document 01/08/20 13:50 HH (Rec: 01/08/20 15:13 HH [email or web address]) Current Condition History of Current Condition Onset Date 6 months ago Current Complaints R knee pain, difficulty in prolonged walking, fall risk History of Current Condition Pt is a 79 yo female presented to clinic with c/o R knee pain started 6 months ago. Pt reports her pain started randomly in the morning. She described her pain 3/10 as achy and sore which usually gets worse with going downstairs/ walking downhill and specifically placing her R leg onto pedal during car transfers. Her pain tends to take place at knee joint line center and medial > lateral. She stated ice helps and she did try some hamstrings exercises but it did not help. Pt also reports she has a few falls and usually caused by tripping over obstacles but does not remember which side. She currently walks 2 miles/ day x 5 /week. 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 Prior Treatments and Tests 12/12/19 X-ray : Bones: No fractures or dislocations. No suspicious bony lesions. Scattered degenerative subchondral sclerosis and spurring. Chondrocalcinosis projects in the medial compartment. There is mild medial joint space narrowing. Mild patellofemoral joint space narrowing Soft tissues: Small joint effusion. IMPRESSION: Mild knee joint degeneration Small joint effusion Right knee chondrocalcinosis. Treatment Goals Patient/Caregiver Goals 1. To be able to walk long distance without any discomfort 2. To be able to strengthen her R LE Current Functional Impairments (Reported) Functional Limitations- Mobility/Gait pain during downstairs and downhill discomfort during car transfer . PT-OP-C Subjective Start: 01/08/20 12:53 Freq: Status: Active Protocol: Document 01/08/20 13:50 HH (Rec: 01/08/20 15:13 [email or web address]) OP-PT Subjective Patient Comments Patient Comments I am just wondering how can i get better PT-OP-D Balance Start: 01/08/20 12:53 Freq: Status: Active Protocol: Document 01/08/20 13:50 HH (Rec: 01/08/20 15:13 [email or web address]) Balance Tests Single Limb Standing Single Limb- Right 5-7s Single Limb- Left 7s Other Other Balance Tests Performed excessive R knee strategy during SLS PT-OP-F Manual Assessment Start: 01/08/20 12:53 Freq: Status: Active Protocol: Document 01/08/20 13:50 HH (Rec: 01/08/20 15:13 [email or web address]) Manual Assessments Joint Mobility Assessment Joint Mobility Assessment decreased R patella lateral and medial mobility. PT-OP-G Mobility & Gait Start: 01/08/20 12:53 Freq: Status: Active Protocol: Document 01/08/20 13:50 HH (Rec: 01/08/20 15:13 [email or web address]) OP Gait Assessment Gait Deviations General Gait Pattern Decreased Stride Length, Decreased Feet Clearance Factors Limiting Gait Function Factors Limiting Gait Function Decreased Strength,Limited Range of Motion,Pain Comments Gait Comments Decreased R knee extension during initial contact on RLE, along with decreased heel strike. PT-OP-H Neuro Start: 01/08/20 12:53 Freq: Status: Active Protocol: Document 01/08/20 13:50 HH (Rec: 01/08/20 15:13 [email or web address]) Deep Tendon Reflex & Clonus Assessment Deep Tendon Reflex Bilateral Achilles Deep Tendon Reflex 2+ Normal Bilateral Patellar Deep Tendon Reflex 2+ Normal PT-OP-J Posture/Palpation/Skin Start: 01/08/20 12:53 Freq: Status: Active Protocol: Document 01/08/20 13:50 HH (Rec: 01/08/20 15:13 [email or web address]) Posture Evaluation Position Standing Weight Distribution Weight Shifted Left Knee Posture (R) Excess Flexion PT-OP-K Range of Motion Start: 01/08/20 12:53 Freq: Status: Active Protocol: Document 01/08/20 13:50 HH (Rec: 01/08/20 15:13 [email or web address]) Knee Goniometric Range of Motion Knee Right Knee ROM WFL No Patient Position Supine Flexion Active (degrees) 125 Extension Passive (degrees) 4 Left Knee ROM WFL Yes Flexion Active (degrees) 131 Extension Passive (degrees) 0 Knee ROM Limitations Knee ROM Limitations Pain Comments pain at end range of active knee flexion and extension PT-OP-L Special Tests Start: 01/08/20 12:53 Freq: Status: Active Protocol: Document 01/08/20 13:50 (Rec: 01/08/20 15:13 [email or web address]) Special Tests Knee Special Tests Luis's Sign Test Results +VE R Varus- 25 Degrees Test Results -ve R Varus- 0 Degrees Test Results -ve R Valgus- 0 Degrees Test Results +VE R Comments medial joint line pain at R knee Valgus- 25 Degrees Test Results +VE R Comments medial joint line pain at R knee PT-OP-M Strength Start: 01/08/20 12:53 Freq: Status: Active Protocol: Document 01/08/20 13:50 (Rec: 01/08/20 15:13 [email or web address]) Hip Strength Hip Manual Muscle Testing Right Flexion (L2) 5 Normal Extension (S1) 4+ Good+ Abduction 4+ Good+ Adduction 5 Normal Left Flexion (L2) 5 Normal Extension (S1) 5 Normal Abduction 5 Normal Adduction 5 Normal Knee Strength Knee Manual Muscle Testing Right Flexion (S2) 5 Normal Extension (L3) 4+ Good+ Reason Not Measured Pain Left Flexion (S2) 5 Normal Extension (L3) 5 Normal PT-OP-Q Treatments Start: 01/08/20 12:53 Freq: Status: Active Protocol: Document 01/08/20 13:50 HH (Rec: 01/08/20 15:13 [email or web address]) Manual Therapy Treatment Soft Tissue Mobilization knee joint line Mobilization Type Sustained Pressure,Trigger Point Release Intensity/Depth Moderate Body Position Supine Comments proximal stroke R lateral quad Mobilization Type Instrument Assisted,Sustained Pressure,Trigger Point Release Intensity/Depth Moderate Body Position Supine Comments with rolling pin Taping KT tape Body Location R knee Treatment Focus patellar stabilization Type of Tape Kinesio Tape PT-OP-T Assessment and Plan Start: 01/08/20 12:53 Freq: Status: Active Protocol: Document 01/08/20 13:50 (Rec: 01/08/20 15:13 HH [email or web address]) Physical Therapy Assessment Goals balance Impairment Pt has poor single leg balance Short Term Goal (STG) Pt will improve single leg balance to 10 secs bilaterally STG Duration 4 weeks Automotive Title Clerk Goal (LTG) Pt will improve single leg balance to 15 secs bilaterally to reduce her fall risk. LTG Duration 8 weeks HEP Impairment pt does not have a HEP Automotive Title Clerk Goal (LTG) Pt will be compliant to HEP daily to improve her overall RLE strength and mobility LTG Duration 4 weeks ROM Impairment ROM deficits Short Term Goal (STG) Pt will improve her extension to 0 and 130' with minimal pain no more than 2>10 STG Duration 4 weeks Automotive Title Clerk Goal (LTG) Pt will improve her extension to 0 and 130' with no pain to improve her gait mechanics on initial contact on heel. LTG Duration 8 weeks Assessment Summary Assessment This is a low complexity evaluation for this 79yo female with c/o R knee pain started 6 months ago. X-ray in Feb shows : Mild knee joint degeneration Small joint effusion and Right knee chondrocalcinosis. Upon assessment, pt has lack of full R knee extension and flexion which limited by pain. There's noticeable weakness on R hip and knee as well. She was positive for valgus stress test and menon's test which show degenerative changes at her knee joint. Pt also has limited knee extension during heel strike/ static standing which possibly increase her fall risk with decreased toe clearance and increase biomechanical stress on patellofemoral joint during stair climbing and walking downhill. Pt will benefit from skilled therapy to improve her R knee ROM, balance and strength to maintain her lifestyle in pain free. Physical Therapy Plan Frequency and Duration Frequency of Treatment 2x/Week Duration of Treatment 8 weeks Plan of Care Start Date 01/08/20 Plan of Care End Date 03/08/20 Therapeutic Interventions Therapeutic Interventions Balance Training,Gait Training ,Home Exercise Program,Joint Mobilizations,Manual Therapy, Neuromuscular Re-education, Patient/Caregiver Education, Self-Care/Home Management,Soft Tissue Mobilization,Taping, Therapeutic Activities, Therapeutic Exercises Modalities Cold Pack/Ice Massage,Electric Stimulation,Hot Packs, Infrared Therapy,Ultrasound Next Visit Focus/Plan Next Note Type Treatment Note Next Visit Plan complete LEFS knee ext and flexion (supine) R TKE marching in place
--- NOTE | 2020-01-11 14:51 | PT.OTN ---
Current Diagnoses Pain in right knee (01/11/20) Physical Therapy Treatment Note PT-OP-A Visit Information Start: 01/08/20 12:53 Freq: Status: Active Protocol: Document 01/11/20 13:51 HH (Rec: 01/11/20 14:48 HH [id number]) Out-Patient Physical Therapy Visit Information Visit Information Visit Type Treatment Note Visit Start Time 13:51 Visit Stop Time 14:35 Total Visit Minutes 44 Visit Number 12/19 PT-OP-B Current Condition Start: 01/08/20 12:53 Freq: Status: Active Protocol: Document 01/08/20 13:50 HH (Rec: 01/08/20 15:13 HH [email or web address]) Current Condition History of Current Condition Onset Date 6 months ago Current Complaints R knee pain, difficulty in prolonged walking, fall risk History of Current Condition Pt is a 79 yo female presented to clinic with c/o R knee pain started 6 months ago. Pt reports her pain started randomly in the morning. She described her pain 3/10 as achy and sore which usually gets worse with going downstairs/ walking downhill and specifically placing her R leg onto pedal during car transfers. Her pain tends to take place at knee joint line center and medial > lateral. She stated ice helps and she did try some hamstrings exercises but it did not help. Pt also reports she has a few falls and usually caused by tripping over obstacles but does not remember which side. She currently walks 2 miles/ day x 5 /week. 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 Prior Treatments and Tests 12/12/19 X-ray : Bones: No fractures or dislocations. No suspicious bony lesions. Scattered degenerative subchondral sclerosis and spurring. Chondrocalcinosis projects in the medial compartment. There is mild medial joint space narrowing. Mild patellofemoral joint space narrowing Soft tissues: Small joint effusion. IMPRESSION: Mild knee joint degeneration Small joint effusion Right knee chondrocalcinosis. Treatment Goals Patient/Caregiver Goals 1. To be able to walk long distance without any discomfort 2. To be able to strengthen her R LE Current Functional Impairments (Reported) Functional Limitations- Mobility/Gait pain during downstairs and downhill discomfort during car transfer . PT-OP-C Subjective Start: 01/08/20 12:53 Freq: Status: Active Protocol: Document 01/11/20 13:51 HH (Rec: 01/11/20 14:48 HH [id number]) OP-PT Subjective Patient Comments Patient Comments I actually getting better since last time and it didnt hurt since then. Lucy been using rolling pin and it seems to help. I acutally 2-3 miles yesterday and it didnt bother me at all. Patient Reported Progress Improving Patient Questionnaires Lower Extremity Functional Scale LEFS Score 45 LEFS Impairment 40 to 59% Impaired (Score 32- 47) PT-OP-D Balance Start: 01/08/20 12:53 Freq: Status: Active Protocol: Document 01/08/20 13:50 HH (Rec: 01/08/20 15:13 [email or web address]) Balance Tests Single Limb Standing Single Limb- Right 5-7s Single Limb- Left 7s Other Other Balance Tests Performed excessive R knee strategy during SLS PT-OP-F Manual Assessment Start: 01/08/20 12:53 Freq: Status: Active Protocol: Document 01/08/20 13:50 HH (Rec: 01/08/20 15:13 [email or web address]) Manual Assessments Joint Mobility Assessment Joint Mobility Assessment decreased R patella lateral and medial mobility. PT-OP-G Mobility & Gait Start: 01/08/20 12:53 Freq: Status: Active Protocol: Document 01/08/20 13:50 HH (Rec: 01/08/20 15:13 HH [email or web address]) OP Gait Assessment Gait Deviations General Gait Pattern Decreased Stride Length, Decreased Feet Clearance Factors Limiting Gait Function Factors Limiting Gait Function Decreased Strength,Limited Range of Motion,Pain Comments Gait Comments Decreased R knee extension during initial contact on RLE, along with decreased heel strike. PT-OP-H Neuro Start: 01/08/20 12:53 Freq: Status: Active Protocol: Document 01/08/20 13:50 HH (Rec: 01/08/20 15:13 HH [email or web address]) Deep Tendon Reflex & Clonus Assessment Deep Tendon Reflex Bilateral Achilles Deep Tendon Reflex 2+ Normal Bilateral Patellar Deep Tendon Reflex 2+ Normal PT-OP-J Posture/Palpation/Skin Start: 01/08/20 12:53 Freq: Status: Active Protocol: Document 01/08/20 13:50 HH (Rec: 01/08/20 15:13 [email or web address]) Posture Evaluation Position Standing Weight Distribution Weight Shifted Left Knee Posture (R) Excess Flexion PT-OP-K Range of Motion Start: 01/08/20 12:53 Freq: Status: Active Protocol: Document 01/08/20 13:50 HH (Rec: 01/08/20 15:13 HH [email or web address]) Knee Goniometric Range of Motion Knee Right Knee ROM WFL No Patient Position Supine Flexion Active (degrees) 125 Extension Passive (degrees) 4 Left Knee ROM WFL Yes Flexion Active (degrees) 131 Extension Passive (degrees) 0 Knee ROM Limitations Knee ROM Limitations Pain Comments pain at end range of active knee flexion and extension PT-OP-L Special Tests Start: 01/08/20 12:53 Freq: Status: Active Protocol: Document 01/08/20 13:50 HH (Rec: 01/08/20 15:13 HH [email or web address]) Special Tests Knee Special Tests Luis's Sign Test Results +VE R Varus- 25 Degrees Test Results -ve R Varus- 0 Degrees Test Results -ve R Valgus- 0 Degrees Test Results +VE R Comments medial joint line pain at R knee Valgus- 25 Degrees Test Results +VE R Comments medial joint line pain at R knee PT-OP-M Strength Start: 01/08/20 12:53 Freq: Status: Active Protocol: Document 01/08/20 13:50 HH (Rec: 01/08/20 15:13 [email or web address]) Hip Strength Hip Manual Muscle Testing Right Flexion (L2) 5 Normal Extension (S1) 4+ Good+ Abduction 4+ Good+ Adduction 5 Normal Left Flexion (L2) 5 Normal Extension (S1) 5 Normal Abduction 5 Normal Adduction 5 Normal Knee Strength Knee Manual Muscle Testing Right Flexion (S2) 5 Normal Extension (L3) 4+ Good+ Reason Not Measured Pain Left Flexion (S2) 5 Normal Extension (L3) 5 Normal PT-OP-Q Treatments Start: 01/08/20 12:53 Freq: Status: Active Protocol: Document 01/11/20 13:51 HH (Rec: 01/11/20 14:48 HH [id number]) Cardio Equipment Recumbent Bicycle Duration (Minutes) 5 Resistance 5 Therapeutic Exercises Supine Exercises supine heel slide Side right Reps/Minutes 10 x2 Comments pain reported at the end range supine knee extension Supine Exercise Name towel underneath ankle Side right Reps/Minutes 3 secs hold x15 reps x 2 Comments tightness c/o at back of the knee Manual Therapy Treatment Soft Tissue Mobilization hamstrings Mobilization Type Sustained Pressure,Trigger Point Release Intensity/Depth Moderate Body Position Prone knee joint line Mobilization Type Sustained Pressure,Trigger Point Release Intensity/Depth Moderate Body Position Supine Comments proximal stroke R lateral quad Body Location R lateral HS Mobilization Type Instrument Assisted,Sustained Pressure,Trigger Point Release Intensity/Depth Moderate Body Position Supine Comments with rolling pin Joint Mobilizations patella Joint lateral and medial glide Grade III Body Position Supine Reps/Duration 4 mins Taping KT tape Body Location R knee Treatment Focus patellar stabilization Type of Tape Kinesio Tape Comments cross pattern at patella tendon with 2 I strips PT-OP-T Assessment and Plan Start: 01/08/20 12:53 Freq: Status: Active Protocol: Document 01/11/20 13:51 (Rec: 01/11/20 14:48 [id number]) Physical Therapy Assessment Goals LEFS Impairment pt scores 45 on LEFS Short Term Goal (STG) Pt will score >48 (20-39% impairment) to improver her quality of life. STG Duration 4 weeks Stitch Cleaner Goal (LTG) Pt will score >63 (1-19% impairment) to improve her overall mobility so she could walk 2-3 miles including up or downhill daily without discomfort LTG Duration 8 weeks balance Impairment Pt has poor single leg balance Short Term Goal (STG) Pt will improve single leg balance to 10 secs bilaterally STG Duration 4 weeks Prison Goal (LTG) Pt will improve single leg balance to 15 secs bilaterally to reduce her fall risk. LTG Duration 8 weeks HEP Impairment pt does not have a HEP Stitch Cleaner Goal (LTG) Pt will be compliant to HEP daily to improve her overall RLE strength and mobility LTG Duration 4 weeks ROM Impairment ROM deficits Short Term Goal (STG) Pt will improve her extension to 0 and 130' with minimal pain no more than 2>10 STG Duration 4 weeks Prison Goal (LTG) Pt will improve her extension to 0 and 130' with no pain to improve her gait mechanics on initial contact on heel. LTG Duration 8 weeks Assessment Summary Assessment Pt appears to have significant improvements since evaluation . Her ROM does improve after manual therapy at lateral quad and lateral hamstrings. Added TKE, heel slide and rolling pin for HEP. Physical Therapy Plan Next Visit Focus/Plan Next Note Type Treatment Note Next Visit Plan knee ext and flexion (supine) R TKE in standing if tolerable marching in place bike after manual therapy
--- NOTE | 2020-01-16 13:52 | PT.OTN ---
Current Diagnoses Pain in right knee (01/16/20) Physical Therapy Treatment Note PT-OP-A Visit Information Start: 01/08/20 12:53 Freq: Status: Active Protocol: Document 01/16/20 13:02 HH (Rec: 01/16/20 13:52 HH [id number]) Out-Patient Physical Therapy Visit Information Visit Information Visit Type Treatment Note Visit Start Time 13:02 Visit Stop Time 13:47 Total Visit Minutes 45 Visit Number 01/16 PT-OP-B Current Condition Start: 01/08/20 12:53 Freq: Status: Active Protocol: Document 01/08/20 13:50 HH (Rec: 01/08/20 15:13 HH [email or web address]) Current Condition History of Current Condition Onset Date 6 months ago Current Complaints R knee pain, difficulty in prolonged walking, fall risk History of Current Condition Pt is a 79 yo female presented to clinic with c/o R knee pain started 6 months ago. Pt reports her pain started randomly in the morning. She described her pain 3/10 as achy and sore which usually gets worse with going downstairs/ walking downhill and specifically placing her R leg onto pedal during car transfers. Her pain tends to take place at knee joint line center and medial > lateral. She stated ice helps and she did try some hamstrings exercises but it did not help. Pt also reports she has a few falls and usually caused by tripping over obstacles but does not remember which side. She currently walks 2 miles/ day x 5 /week. 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 Prior Treatments and Tests 12/12/19 X-ray : Bones: No fractures or dislocations. No suspicious bony lesions. Scattered degenerative subchondral sclerosis and spurring. Chondrocalcinosis projects in the medial compartment. There is mild medial joint space narrowing. Mild patellofemoral joint space narrowing Soft tissues: Small joint effusion. IMPRESSION: Mild knee joint degeneration Small joint effusion Right knee chondrocalcinosis. Treatment Goals Patient/Caregiver Goals 1. To be able to walk long distance without any discomfort 2. To be able to strengthen her R LE Current Functional Impairments (Reported) Functional Limitations- Mobility/Gait pain during downstairs and downhill discomfort during car transfer . PT-OP-C Subjective Start: 01/08/20 12:53 Freq: Status: Active Protocol: Document 01/16/20 13:02 HH (Rec: 01/16/20 13:52 HH [id number]) OP-PT Subjective Patient Comments Patient Comments I did get soreness at the back of my knee after knee extension. Lucy been doing better going downstairs now with less pain. I was able to walk 3 miles sometimes but it' s pretty good also. Patient Reported Progress Improving PT-OP-D Balance Start: 01/08/20 12:53 Freq: Status: Active Protocol: Document 01/08/20 13:50 HH (Rec: 01/08/20 15:13 HH [email or web address]) Balance Tests Single Limb Standing Single Limb- Right 5-7s Single Limb- Left 7s Other Other Balance Tests Performed excessive R knee strategy during SLS PT-OP-F Manual Assessment Start: 01/08/20 12:53 Freq: Status: Active Protocol: Document 01/08/20 13:50 HH (Rec: 01/08/20 15:13 [email or web address]) Manual Assessments Joint Mobility Assessment Joint Mobility Assessment decreased R patella lateral and medial mobility. PT-OP-G Mobility & Gait Start: 01/08/20 12:53 Freq: Status: Active Protocol: Document 01/08/20 13:50 HH (Rec: 01/08/20 15:13 HH [email or web address]) OP Gait Assessment Gait Deviations General Gait Pattern Decreased Stride Length, Decreased Feet Clearance Factors Limiting Gait Function Factors Limiting Gait Function Decreased Strength,Limited Range of Motion,Pain Comments Gait Comments Decreased R knee extension during initial contact on RLE, along with decreased heel strike. PT-OP-H Neuro Start: 01/08/20 12:53 Freq: Status: Active Protocol: Document 01/08/20 13:50 HH (Rec: 01/08/20 15:13 HH [email or web address]) Deep Tendon Reflex & Clonus Assessment Deep Tendon Reflex Bilateral Achilles Deep Tendon Reflex 2+ Normal Bilateral Patellar Deep Tendon Reflex 2+ Normal PT-OP-J Posture/Palpation/Skin Start: 01/08/20 12:53 Freq: Status: Active Protocol: Document 01/08/20 13:50 HH (Rec: 01/08/20 15:13 HH [email or web address]) Posture Evaluation Position Standing Weight Distribution Weight Shifted Left Knee Posture (R) Excess Flexion PT-OP-K Range of Motion Start: 01/08/20 12:53 Freq: Status: Active Protocol: Document 01/08/20 13:50 HH (Rec: 01/08/20 15:13 [email or web address]) Knee Goniometric Range of Motion Knee Right Knee ROM WFL No Patient Position Supine Flexion Active (degrees) 125 Extension Passive (degrees) 4 Left Knee ROM WFL Yes Flexion Active (degrees) 131 Extension Passive (degrees) 0 Knee ROM Limitations Knee ROM Limitations Pain Comments pain at end range of active knee flexion and extension PT-OP-L Special Tests Start: 01/08/20 12:53 Freq: Status: Active Protocol: Document 01/08/20 13:50 HH (Rec: 01/08/20 15:13 [email or web address]) Special Tests Knee Special Tests Luis's Sign Test Results +VE R Varus- 25 Degrees Test Results -ve R Varus- 0 Degrees Test Results -ve R Valgus- 0 Degrees Test Results +VE R Comments medial joint line pain at R knee Valgus- 25 Degrees Test Results +VE R Comments medial joint line pain at R knee PT-OP-M Strength Start: 01/08/20 12:53 Freq: Status: Active Protocol: Document 01/08/20 13:50 HH (Rec: 01/08/20 15:13 [email or web address]) Hip Strength Hip Manual Muscle Testing Right Flexion (L2) 5 Normal Extension (S1) 4+ Good+ Abduction 4+ Good+ Adduction 5 Normal Left Flexion (L2) 5 Normal Extension (S1) 5 Normal Abduction 5 Normal Adduction 5 Normal Knee Strength Knee Manual Muscle Testing Right Flexion (S2) 5 Normal Extension (L3) 4+ Good+ Reason Not Measured Pain Left Flexion (S2) 5 Normal Extension (L3) 5 Normal PT-OP-Q Treatments Start: 01/08/20 12:53 Freq: Status: Active Protocol: Document 01/16/20 13:02 HH (Rec: 01/16/20 13:52 HH [id number]) Cardio Equipment Recumbent Bicycle Duration (Minutes) 6 Resistance 5 Gym Equipment Shuttle Rebound single leg squat Exercise Details #50 Reps/Duration 12 x2 Therapeutic Exercises Supine Exercises supine knee extension Supine Exercise Name towel underneath ankle Side right Reps/Minutes 3 secs hold x10 reps Comments tightness c/o at back of the knee Prone Exercises hamstrings curl Side right Equipment Used 3 lb ankle weight Reps/Minutes 2 mins Comments pillow underneath upper thigh Standing Exercises single leg stance Standing Exercise Name finger touch on grab bar Side bilateral Reps/Minutes 5 secs each leg x 5 Manual Therapy Treatment Soft Tissue Mobilization hamstrings Mobilization Type Sustained Pressure,Trigger Point Release Intensity/Depth Moderate Body Position Prone knee joint line Mobilization Type Sustained Pressure,Trigger Point Release Intensity/Depth Moderate Body Position Supine Comments proximal stroke R lateral quad Body Location R lateral HS Mobilization Type Instrument Assisted,Sustained Pressure,Trigger Point Release Intensity/Depth Moderate Body Position Supine Comments with rolling pin PT-OP-T Assessment and Plan Start: 01/08/20 12:53 Freq: Status: Active Protocol: Document 01/16/20 13:02 (Rec: 01/16/20 13:52 [id number]) Physical Therapy Assessment Goals LEFS Impairment pt scores 45 on LEFS Short Term Goal (STG) Pt will score >48 (20-39% impairment) to improver her quality of life. STG Duration 4 weeks Fci Goal (LTG) Pt will score >63 (1-19% impairment) to improve her overall mobility so she could walk 2-3 miles including up or downhill daily without discomfort LTG Duration 8 weeks balance Impairment Pt has poor single leg balance Short Term Goal (STG) Pt will improve single leg balance to 10 secs bilaterally STG Duration 4 weeks Intelligence Senior Sergeant Goal (LTG) Pt will improve single leg balance to 15 secs bilaterally to reduce her fall risk. LTG Duration 8 weeks HEP Impairment pt does not have a HEP [facility]ci Goal (LTG) Pt will be compliant to HEP daily to improve her overall RLE strength and mobility LTG Duration 4 weeks ROM Impairment ROM deficits Short Term Goal (STG) Pt will improve her extension to 0 and 130' with minimal pain no more than 2>10 STG Duration 4 weeks [facility]ci Goal (LTG) Pt will improve her extension to 0 and 130' with no pain to improve her gait mechanics on initial contact on heel. LTG Duration 8 weeks Assessment Summary Assessment Pt cont to improve with activity tolerance and knee AROM. She also stated she has been able to 2-3 miles without much discomfort. Tx focused on R knee A/PROM, SL balance and single leg strengthening. Will add standing TKE next time.
--- NOTE | 2020-03-03 15:08 | PT-OP ANOTE ---
This PT clinic has been closed since 01/22 d/t coronavirus pademic. Contacted pt via phone 02/27/20 but her answered since pt was not available, he stated pt has been doing very well with knee pain, but she would like to continue therapy service to improve her knee and hip mobility and single leg strength for walking. Reminded them to follow CDC guidelines to wear mask, wash hands frequently and maintain social distancing during visits.
--- NOTE | 2020-03-13 18:48 | PT.OPPN ---
Current Diagnoses Pain in right knee (03/13/20) Physical Therapy Progress Note PT-OP-A Visit Information Start: 01/08/20 12:53 Freq: Status: Active Protocol: Document 03/13/20 14:30 HH (Rec: 03/13/20 18:48 HH [email or web address]) Out-Patient Physical Therapy Visit Information Visit Information Visit Type Progress Note Visit Start Time 14:30 Visit Stop Time 15:16 Total Visit Minutes 46 Visit Number 02/16 PT-OP-B Current Condition Start: 01/08/20 12:53 Freq: Status: Active Protocol: Document 01/08/20 13:50 HH (Rec: 01/08/20 15:13 HH [email or web address]) Current Condition History of Current Condition Onset Date 6 months ago Current Complaints R knee pain, difficulty in prolonged walking, fall risk History of Current Condition Pt is a 79 yo female presented to clinic with c/o R knee pain started 6 months ago. Pt reports her pain started randomly in the morning. She described her pain 3/10 as achy and sore which usually gets worse with going downstairs/ walking downhill and specifically placing her R leg onto pedal during car transfers. Her pain tends to take place at knee joint line center and medial > lateral. She stated ice helps and she did try some hamstrings exercises but it did not help. Pt also reports she has a few falls and usually caused by tripping over obstacles but does not remember which side. She currently walks 2 miles/ day x 5 /week. 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 Prior Treatments and Tests 12/12/19 X-ray : Bones: No fractures or dislocations. No suspicious bony lesions. Scattered degenerative subchondral sclerosis and spurring. Chondrocalcinosis projects in the medial compartment. There is mild medial joint space narrowing. Mild patellofemoral joint space narrowing Soft tissues: Small joint effusion. IMPRESSION: Mild knee joint degeneration Small joint effusion Right knee chondrocalcinosis. Treatment Goals Patient/Caregiver Goals 1. To be able to walk long distance without any discomfort 2. To be able to strengthen her R LE Current Functional Impairments (Reported) Functional Limitations- Mobility/Gait pain during downstairs and downhill discomfort during car transfer . PT-OP-C Subjective Start: 01/08/20 12:53 Freq: Status: Active Protocol: Document 03/13/20 14:30 HH (Rec: 03/13/20 18:48 HH [email or web address]) OP-PT Subjective Patient Comments Patient Comments I am getting better in general. Able to walk and climb stair without much discomfort. I still have achy pain at night once in awhile. Patient Reported Progress Improving PT-OP-D Balance Start: 01/08/20 12:53 Freq: Status: Active Protocol: Document 03/13/20 14:30 HH (Rec: 03/13/20 18:48 HH [email or web address]) Balance Tests Single Limb Standing Single Limb- Right 3 Single Limb- Left 8 PT-OP-F Manual Assessment Start: 01/08/20 12:53 Freq: Status: Active Protocol: Document 01/08/20 13:50 HH (Rec: 01/08/20 15:13 HH [email or web address]) Manual Assessments Joint Mobility Assessment Joint Mobility Assessment decreased R patella lateral and medial mobility. PT-OP-G Mobility & Gait Start: 01/08/20 12:53 Freq: Status: Active Protocol: Document 03/13/20 14:30 HH (Rec: 03/13/20 18:48 HH [email or web address]) OP Gait Assessment Comments Gait Comments pt has lack of R heel strike and R knee extension and B hip extension during gait. PT-OP-H Neuro Start: 01/08/20 12:53 Freq: Status: Active Protocol: Document 01/08/20 13:50 HH (Rec: 01/08/20 15:13 HH [email or web address]) Deep Tendon Reflex & Clonus Assessment Deep Tendon Reflex Bilateral Achilles Deep Tendon Reflex 2+ Normal Bilateral Patellar Deep Tendon Reflex 2+ Normal PT-OP-J Posture/Palpation/Skin Start: 01/08/20 12:53 Freq: Status: Active Protocol: Document 01/08/20 13:50 HH (Rec: 01/08/20 15:13 HH [email or web address]) Posture Evaluation Position Standing Weight Distribution Weight Shifted Left Knee Posture (R) Excess Flexion PT-OP-K Range of Motion Start: 01/08/20 12:53 Freq: Status: Active Protocol: Document 03/13/20 14:30 HH (Rec: 03/13/20 18:48 HH [email or web address]) Knee Goniometric Range of Motion Knee Measured in Degrees Right Patient Position Supine Flexion Active (degrees) 125 Extension Active (degrees) 3 Left Patient Position Supine Flexion Active (degrees) 130 Flexion Passive (degrees) 0 Ankle and Foot Goniometric Range of Motion Ankle and Foot Measured in Degrees Right Active Testing Position Supine Dorsiflexion with Knee Extended 7 Left Active Testing Position Supine Dorsiflexion with Knee Extended 8 PT-OP-L Special Tests Start: 01/08/20 12:53 Freq: Status: Active Protocol: Document 01/08/20 13:50 HH (Rec: 01/08/20 15:13 HH [email or web address]) Special Tests Knee Special Tests Luis's Sign Test Results +VE R Varus- 25 Degrees Test Results -ve R Varus- 0 Degrees Test Results -ve R Valgus- 0 Degrees Test Results +VE R Comments medial joint line pain at R knee Valgus- 25 Degrees Test Results +VE R Comments medial joint line pain at R knee PT-OP-M Strength Start: 01/08/20 12:53 Freq: Status: Active Protocol: Document 03/13/20 14:30 HH (Rec: 03/13/20 18:48 HH [email or web address]) Knee Strength Knee Manual Muscle Testing Right Flexion (S2) 4+ Good+ Extension (L3) 4+ Good+ Left Flexion (S2) 4+ Good+ Extension (L3) 4+ Good+ PT-OP-T Assessment and Plan Start: 01/08/20 12:53 Freq: Status: Active Protocol: Document 03/13/20 14:30 HH (Rec: 03/13/20 18:48 HH [email or web address]) Physical Therapy Assessment Goals stairs/ hill climbing Impairment pain noted during ascend / descending Snf Goal (LTG) Pt will be pain free during walking on uphill/ downhill as her daily routine. LTG Duration 8 weeks balance Impairment Pt has poor single leg balance Short Term Goal (STG) 03/13 cont in progress Pt will improve single leg balance to 10 secs bilaterally STG Duration 4 weeks Supervisor Color Paste Mixing Goal (LTG) Pt will improve single leg balance to 15 secs bilaterally to reduce her fall risk. LTG Duration 8 weeks HEP Impairment pt does not have a HEP Supervisor Color Paste Mixing Goal (LTG) cont in progress 03/13. Pt currently does HEP 3-4x/ week Pt will be compliant to HEP daily to improve her overall RLE strength and mobility LTG Duration 4 weeks ROM Impairment ROM deficits Short Term Goal (STG) 03/13 cont in progress Pt will improve her extension to 0 and 130' with minimal pain no more than 2>10 STG Duration 4 weeks Supervisor Color Paste Mixing Goal (LTG) Pt will improve her extension to 0 and 130' with no pain to improve her gait mechanics on initial contact on heel. LTG Duration 8 weeks Assessment Summary Assessment Pt overall shows improved knee pain and activity tolerance. However, she still presents lack of R heel strike and knee extension, along with lack of B hip extension during gait. Added heel toe gait for new HEP to improve balance and gait quality. Pt will cont benefit from skilled therapy to improve her overall single leg balance, gait efficiency in order to reduce her fall risks. Physical Therapy Plan Frequency and Duration Frequency of Treatment 1x/Week Duration of Treatment 8 weeks Plan of Care Start Date 03/13/20 Plan of Care End Date 05/12/20
--- NOTE | 2020-03-13 18:48 | PT.OPPOC ---
Physical, Occupational & Speech Therapy At [facility] Current Diagnoses Pain in right knee (03/13/20) Visit Care Team Role Provider Type TANA Stock Attending Provider Advanced Sql Data Architect Primary Care Provider Referring Provider Specialty: Family Practice Address: [address] [place] [address] [place], [address] Email: [email or web address] Plan Of Care PT-OP-T Assessment and Plan Start: 01/08/20 12:53 Freq: Status: Active Protocol: Document 03/13/20 14:30 HH (Rec: 03/13/20 18:48 HH [email or web address]) Physical Therapy Assessment Goals stairs/ hill climbing Impairment pain noted during ascend / descending Custodial Goal (LTG) Pt will be pain free during walking on uphill/ downhill as her daily routine. LTG Duration 8 weeks balance Impairment Pt has poor single leg balance Short Term Goal (STG) 03/13 cont in progress Pt will improve single leg balance to 10 secs bilaterally STG Duration 4 weeks Custodial Goal (LTG) Pt will improve single leg balance to 15 secs bilaterally to reduce her fall risk. LTG Duration 8 weeks HEP Impairment pt does not have a HEP Irrigation Pump Installer Goal (LTG) cont in progress 03/13. Pt currently does HEP 3-4x/ week Pt will be compliant to HEP daily to improve her overall RLE strength and mobility LTG Duration 4 weeks ROM Impairment ROM deficits Short Term Goal (STG) 03/13 cont in progress Pt will improve her extension to 0 and 130' with minimal pain no more than 2>10 STG Duration 4 weeks Irrigation Pump Installer Goal (LTG) Pt will improve her extension to 0 and 130' with no pain to improve her gait mechanics on initial contact on heel. LTG Duration 8 weeks Assessment Summary Assessment Pt overall shows improved knee pain and activity tolerance. However, she still presents lack of R heel strike and knee extension, along with lack of B hip extension during gait. Added heel toe gait for new HEP to improve balance and gait quality. Pt will cont benefit from skilled therapy to improve her overall single leg balance, gait efficiency in order to reduce her fall risks. Physical Therapy Plan Frequency and Duration Frequency of Treatment 1x/Week Duration of Treatment 8 weeks Plan of Care Start Date 03/13/20 Plan of Care End Date 05/12/20 Plan of Care Dates Plan of Care Start Date 03/13/20 Plan of Care End Date 05/12/20 Electronically Signed by: Kevin Mayorga, PT 03/13/20 [id number] Please Sign and Return: I have reviewed this Plan of Care and certify that the skilled therapy services above are required to meet the patient?s needs. Physician Signature Date Printed Name and Credentials Clinical Instructor Signature Printed Name and Credentials
--- NOTE | 2020-03-20 17:51 | PT.OTN ---
Current Diagnoses Pain in right knee (03/20/20) Physical Therapy Treatment Note PT-OP-A Visit Information Start: 01/08/20 12:53 Freq: Status: Active Protocol: Document 03/20/20 15:01 HH (Rec: 03/20/20 17:51 [id number]) Out-Patient Physical Therapy Visit Information Visit Information Visit Type Treatment Note Visit Start Time 15:01 Visit Stop Time 15:45 Total Visit Minutes 44 Visit Number 03/18 PT-OP-B Current Condition Start: 01/08/20 12:53 Freq: Status: Active Protocol: Document 01/08/20 13:50 HH (Rec: 01/08/20 15:13 [email or web address]) Current Condition History of Current Condition Onset Date 6 months ago Current Complaints R knee pain, difficulty in prolonged walking, fall risk History of Current Condition Pt is a 79 yo female presented to clinic with c/o R knee pain started 6 months ago. Pt reports her pain started randomly in the morning. She described her pain 3/10 as achy and sore which usually gets worse with going downstairs/ walking downhill and specifically placing her R leg onto pedal during car transfers. Her pain tends to take place at knee joint line center and medial > lateral. She stated ice helps and she did try some hamstrings exercises but it did not help. Pt also reports she has a few falls and usually caused by tripping over obstacles but does not remember which side. She currently walks 2 miles/ day x 5 /week. 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 Prior Treatments and Tests 12/12/19 X-ray : Bones: No fractures or dislocations. No suspicious bony lesions. Scattered degenerative subchondral sclerosis and spurring. Chondrocalcinosis projects in the medial compartment. There is mild medial joint space narrowing. Mild patellofemoral joint space narrowing Soft tissues: Small joint effusion. IMPRESSION: Mild knee joint degeneration Small joint effusion Right knee chondrocalcinosis. Treatment Goals Patient/Caregiver Goals 1. To be able to walk long distance without any discomfort 2. To be able to strengthen her R LE Current Functional Impairments (Reported) Functional Limitations- Mobility/Gait pain during downstairs and downhill discomfort during car transfer . PT-OP-C Subjective Start: 01/08/20 12:53 Freq: Status: Active Protocol: Document 03/20/20 15:01 HH (Rec: 03/20/20 17:51 HH [id number]) OP-PT Subjective Patient Comments Patient Comments Lucy been working on landing on my heels. Patient Reported Progress Improving PT-OP-D Balance Start: 01/08/20 12:53 Freq: Status: Active Protocol: Document 03/13/20 14:30 HH (Rec: 03/13/20 18:48 HH [email or web address]) Balance Tests Single Limb Standing Single Limb- Right 3 Single Limb- Left 8 PT-OP-F Manual Assessment Start: 01/08/20 12:53 Freq: Status: Active Protocol: Document 01/08/20 13:50 HH (Rec: 01/08/20 15:13 HH [email or web address]) Manual Assessments Joint Mobility Assessment Joint Mobility Assessment decreased R patella lateral and medial mobility. PT-OP-G Mobility & Gait Start: 01/08/20 12:53 Freq: Status: Active Protocol: Document 03/13/20 14:30 HH (Rec: 03/13/20 18:48 HH [email or web address]) OP Gait Assessment Comments Gait Comments pt has lack of R heel strike and R knee extension and B hip extension during gait. PT-OP-H Neuro Start: 01/08/20 12:53 Freq: Status: Active Protocol: Document 01/08/20 13:50 HH (Rec: 01/08/20 15:13 HH [email or web address]) Deep Tendon Reflex & Clonus Assessment Deep Tendon Reflex Bilateral Achilles Deep Tendon Reflex 2+ Normal Bilateral Patellar Deep Tendon Reflex 2+ Normal PT-OP-J Posture/Palpation/Skin Start: 01/08/20 12:53 Freq: Status: Active Protocol: Document 01/08/20 13:50 HH (Rec: 01/08/20 15:13 HH [email or web address]) Posture Evaluation Position Standing Weight Distribution Weight Shifted Left Knee Posture (R) Excess Flexion PT-OP-K Range of Motion Start: 01/08/20 12:53 Freq: Status: Active Protocol: Document 03/13/20 14:30 HH (Rec: 03/13/20 18:48 HH [email or web address]) Knee Goniometric Range of Motion Knee Right Patient Position Supine Flexion Active (degrees) 125 Extension Active (degrees) 3 Left Patient Position Supine Flexion Active (degrees) 130 Flexion Passive (degrees) 0 Ankle and Foot Goniometric Range of Motion Ankle and Foot Right Active Testing Position Supine Dorsiflexion with Knee Extended 7 Left Active Testing Position Supine Dorsiflexion with Knee Extended 8 PT-OP-L Special Tests Start: 01/08/20 12:53 Freq: Status: Active Protocol: Document 01/08/20 13:50 HH (Rec: 01/08/20 15:13 HH [email or web address]) Special Tests Knee Special Tests Luis's Sign Test Results +VE R Varus- 25 Degrees Test Results -ve R Varus- 0 Degrees Test Results -ve R Valgus- 0 Degrees Test Results +VE R Comments medial joint line pain at R knee Valgus- 25 Degrees Test Results +VE R Comments medial joint line pain at R knee PT-OP-M Strength Start: 01/08/20 12:53 Freq: Status: Active Protocol: Document 03/13/20 14:30 HH (Rec: 03/13/20 18:48 HH [email or web address]) Knee Strength Knee Manual Muscle Testing Right Flexion (S2) 4+ Good+ Extension (L3) 4+ Good+ Left Flexion (S2) 4+ Good+ Extension (L3) 4+ Good+ PT-OP-Q Treatments Start: 01/08/20 12:53 Freq: Status: Active Protocol: Document 03/20/20 15:01 HH (Rec: 03/20/20 17:51 [id number]) Cardio Equipment Bicycle (Upright) Duration (Minutes) 8 Resistance 5 Gym Equipment Shuttle Rebound single leg squat Exercise Details #50 Reps/Duration 12 x2 Shuttle Balance red Details regular stance then staggered stance Reps/Duration 10 mins total Comments witohut support 20 secs each, gait belt on Therapeutic Exercises Supine Exercises supine hip flexor Supine Exercise Name PT assistance Side bilateral Manual Therapy Treatment Soft Tissue Mobilization knee joint line Mobilization Type Sustained Pressure,Trigger Point Release Intensity/Depth Moderate Body Position Supine Comments proximal stroke Joint Mobilizations tibial IR /ER Joint tibialfemoral joint Grade II Body Position Supine Comments tibial IR during flexion tibial ER during ext Neuro Re-Education Treatment Balance Activities heel toe walk Details semi tandem Surface ground level Equipment next to grab bar Reps/Duration 8 round of 20 ft Comments cues on heel strike and knee extension PT-OP-T Assessment and Plan Start: 01/08/20 12:53 Freq: Status: Active Protocol: Document 03/20/20 15:01 HH (Rec: 03/20/20 17:51 [id number]) Physical Therapy Assessment Goals stairs/ hill climbing Impairment pain noted during ascend / descending Halfway Goal (LTG) Pt will be pain free during walking on uphill/ downhill as her daily routine. LTG Duration 8 weeks LEFS Impairment pt scores 45 on LEFS Short Term Goal (STG) Pt will score >48 (20-39% impairment) to improver her quality of life. STG Duration 4 weeks Bonding Supervisor Goal (LTG) Pt will score >63 (1-19% impairment) to improve her overall mobility so she could walk 2-3 miles including up or downhill daily without discomfort LTG Duration 8 weeks balance Impairment Pt has poor single leg balance Short Term Goal (STG) Pt will improve single leg balance to 10 secs bilaterally STG Duration 4 weeks Halfway Goal (LTG) Pt will improve single leg balance to 15 secs bilaterally to reduce her fall risk. LTG Duration 8 weeks HEP Impairment pt does not have a HEP Bonding Supervisor Goal (LTG) cont in progress 03/13. Pt currently does HEP 3-4x/ week Pt will be compliant to HEP daily to improve her overall RLE strength and mobility LTG Duration 4 weeks ROM Impairment ROM deficits Short Term Goal (STG) Pt will improve her extension to 0 and 130' with minimal pain no more than 2>10 STG Duration 4 weeks Halfway Goal (LTG) Pt will improve her extension to 0 and 130' with no pain to improve her gait mechanics on initial contact on heel. LTG Duration 8 weeks Assessment Summary Assessment Pt ann marie session very well. No discomfort noted. Pt shows good retention from gait training with focus on heel strike. Added balance board ex today to facilitate ankle strategy for balance. She also ann marie well with leg press and biking. Physical Therapy Plan Next Visit Focus/Plan Next Note Type Treatment Note Next Visit Plan start with manual therapy for TKE and end range flexion, single leg strengthening (step up and down) single leg balance gait training end with biking
--- NOTE | 2020-03-27 15:18 | PT.OTN ---
Current Diagnoses Pain in right knee (03/27/20) Physical Therapy Treatment Note PT-OP-A Visit Information Start: 01/08/20 12:53 Freq: Status: Active Protocol: Document 03/27/20 14:37 HH (Rec: 03/27/20 15:17 HH [id number]) Out-Patient Physical Therapy Visit Information Visit Information Visit Type Treatment Note Visit Start Time 14:37 Visit Stop Time 15:17 Total Visit Minutes 45 Visit Number 04/18 PT-OP-B Current Condition Start: 01/08/20 12:53 Freq: Status: Active Protocol: Document 01/08/20 13:50 HH (Rec: 01/08/20 15:13 HH [email or web address]) Current Condition History of Current Condition Onset Date 6 months ago Current Complaints R knee pain, difficulty in prolonged walking, fall risk History of Current Condition Pt is a 79 yo female presented to clinic with c/o R knee pain started 6 months ago. Pt reports her pain started randomly in the morning. She described her pain 3/10 as achy and sore which usually gets worse with going downstairs/ walking downhill and specifically placing her R leg onto pedal during car transfers. Her pain tends to take place at knee joint line center and medial > lateral. She stated ice helps and she did try some hamstrings exercises but it did not help. Pt also reports she has a few falls and usually caused by tripping over obstacles but does not remember which side. She currently walks 2 miles/ day x 5 /week. 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 Prior Treatments and Tests 12/12/19 X-ray : Bones: No fractures or dislocations. No suspicious bony lesions. Scattered degenerative subchondral sclerosis and spurring. Chondrocalcinosis projects in the medial compartment. There is mild medial joint space narrowing. Mild patellofemoral joint space narrowing Soft tissues: Small joint effusion. IMPRESSION: Mild knee joint degeneration Small joint effusion Right knee chondrocalcinosis. Treatment Goals Patient/Caregiver Goals 1. To be able to walk long distance without any discomfort 2. To be able to strengthen her R LE Current Functional Impairments (Reported) Functional Limitations- Mobility/Gait pain during downstairs and downhill discomfort during car transfer . PT-OP-C Subjective Start: 01/08/20 12:53 Freq: Status: Active Protocol: Document 03/27/20 14:37 HH (Rec: 03/27/20 15:17 HH [id number]) OP-PT Subjective Patient Comments Patient Comments I got little sore from last time, but it went away overnight. Lucy been able to get in and out of the car and stepping on gas pedal without discomfort. Also able to stretch before sleep so i t doenst hurt . Patient Reported Progress Improving PT-OP-D Balance Start: 01/08/20 12:53 Freq: Status: Active Protocol: Document 03/13/20 14:30 HH (Rec: 03/13/20 18:48 HH [email or web address]) Balance Tests Single Limb Standing Single Limb- Right 3 Single Limb- Left 8 PT-OP-F Manual Assessment Start: 01/08/20 12:53 Freq: Status: Active Protocol: Document 01/08/20 13:50 HH (Rec: 01/08/20 15:13 HH [email or web address]) Manual Assessments Joint Mobility Assessment Joint Mobility Assessment decreased R patella lateral and medial mobility. PT-OP-G Mobility & Gait Start: 01/08/20 12:53 Freq: Status: Active Protocol: Document 03/13/20 14:30 HH (Rec: 03/13/20 18:48 HH [email or web address]) OP Gait Assessment Comments Gait Comments pt has lack of R heel strike and R knee extension and B hip extension during gait. PT-OP-H Neuro Start: 01/08/20 12:53 Freq: Status: Active Protocol: Document 01/08/20 13:50 HH (Rec: 01/08/20 15:13 HH [email or web address]) Deep Tendon Reflex & Clonus Assessment Deep Tendon Reflex Bilateral Achilles Deep Tendon Reflex 2+ Normal Bilateral Patellar Deep Tendon Reflex 2+ Normal PT-OP-J Posture/Palpation/Skin Start: 01/08/20 12:53 Freq: Status: Active Protocol: Document 01/08/20 13:50 HH (Rec: 01/08/20 15:13 HH [email or web address]) Posture Evaluation Position Standing Weight Distribution Weight Shifted Left Knee Posture (R) Excess Flexion PT-OP-K Range of Motion Start: 01/08/20 12:53 Freq: Status: Active Protocol: Document 03/13/20 14:30 HH (Rec: 03/13/20 18:48 HH [email or web address]) Knee Goniometric Range of Motion Knee Right Patient Position Supine Flexion Active (degrees) 125 Extension Active (degrees) 3 Left Patient Position Supine Flexion Active (degrees) 130 Flexion Passive (degrees) 0 Ankle and Foot Goniometric Range of Motion Ankle and Foot Right Active Testing Position Supine Dorsiflexion with Knee Extended 7 Left Active Testing Position Supine Dorsiflexion with Knee Extended 8 PT-OP-L Special Tests Start: 01/08/20 12:53 Freq: Status: Active Protocol: Document 01/08/20 13:50 HH (Rec: 01/08/20 15:13 HH [email or web address]) Special Tests Knee Special Tests Luis's Sign Test Results +VE R Varus- 25 Degrees Test Results -ve R Varus- 0 Degrees Test Results -ve R Valgus- 0 Degrees Test Results +VE R Comments medial joint line pain at R knee Valgus- 25 Degrees Test Results +VE R Comments medial joint line pain at R knee PT-OP-M Strength Start: 01/08/20 12:53 Freq: Status: Active Protocol: Document 03/13/20 14:30 HH (Rec: 03/13/20 18:48 HH [email or web address]) Knee Strength Knee Manual Muscle Testing Right Flexion (S2) 4+ Good+ Extension (L3) 4+ Good+ Left Flexion (S2) 4+ Good+ Extension (L3) 4+ Good+ PT-OP-Q Treatments Start: 01/08/20 12:53 Freq: Status: Active Protocol: Document 03/27/20 14:37 HH (Rec: 03/27/20 15:17 [id number]) Cardio Equipment Recumbent Bicycle Duration (Minutes) 6 Resistance 8 Therapeutic Exercises Standing Exercises static standing sway Standing Exercise Name sagittal plane with B knee extension Side bilateral Reps/Minutes 15 times Comments to faciliate ankle strategy adn closed chain TKE. side steps Side bilateral Reps/Minutes 10 ft x 4rounds step up Standing Exercise Name on bosu ball Side bilateral Reps/Minutes 10 x2 each Comments pt reported R leg is weaker high knee walks Standing Exercise Name next to grab bar Side bilateral Reps/Minutes 10 ft each x 8 Manual Therapy Treatment Joint Mobilizations tibial IR /ER Joint tibialfemoral joint Grade II Body Position Supine Comments tibial IR during flexion tibial ER during ext PT-OP-T Assessment and Plan Start: 01/08/20 12:53 Freq: Status: Active Protocol: Document 03/27/20 14:37 (Rec: 03/27/20 15:17 [id number]) Physical Therapy Assessment Goals stairs/ hill climbing Impairment pain noted during ascend / descending Shelter Goal (LTG) Pt will be pain free during walking on uphill/ downhill as her daily routine. LTG Duration 8 weeks LEFS Impairment pt scores 45 on LEFS Short Term Goal (STG) Pt will score >48 (20-39% impairment) to improver her quality of life. STG Duration 4 weeks Shelter Goal (LTG) Pt will score >63 (1-19% impairment) to improve her overall mobility so she could walk 2-3 miles including up or downhill daily without discomfort LTG Duration 8 weeks balance Impairment Pt has poor single leg balance Short Term Goal (STG) Pt will improve single leg balance to 10 secs bilaterally STG Duration 4 weeks Wafer Polisher Goal (LTG) Pt will improve single leg balance to 15 secs bilaterally to reduce her fall risk. LTG Duration 8 weeks HEP Impairment pt does not have a HEP Wafer Polisher Goal (LTG) cont in progress 03/13. Pt currently does HEP 3-4x/ week Pt will be compliant to HEP daily to improve her overall RLE strength and mobility LTG Duration 4 weeks ROM Impairment ROM deficits Short Term Goal (STG) Pt will improve her extension to 0 and 130' with minimal pain no more than 2>10 STG Duration 4 weeks Shelter Goal (LTG) Pt will improve her extension to 0 and 130' with no pain to improve her gait mechanics on initial contact on heel. LTG Duration 8 weeks Assessment Summary Assessment Pt R knee ROM = WNL now. She also does not c/o knee pain with car transfer and driving. Cont to focus on single leg balance and single leg strengthening. Educated pt to do step up and high knee walk at home. Physical Therapy Plan Next Visit Focus/Plan Next Note Type Treatment Note Next Visit Plan start with manual therapy for TKE and end range flexion, single leg strengthening (step up and down) single leg balance gait training end with biking
--- NOTE | 2020-04-03 16:02 | PT.OTN ---
Current Diagnoses Pain in right knee (04/03/20) Physical Therapy Treatment Note PT-OP-A Visit Information Start: 01/08/20 12:53 Freq: Status: Active Protocol: Document 04/03/20 15:18 HH (Rec: 04/03/20 16:02 HH [id number]) Out-Patient Physical Therapy Visit Information Visit Information Visit Type Treatment Note Visit Start Time 15:18 Visit Stop Time 16:00 Total Visit Minutes 43 Visit Number 05/18 PT-OP-B Current Condition Start: 01/08/20 12:53 Freq: Status: Active Protocol: Document 01/08/20 13:50 HH (Rec: 01/08/20 15:13 HH [email or web address]) Current Condition History of Current Condition Onset Date 6 months ago Current Complaints R knee pain, difficulty in prolonged walking, fall risk History of Current Condition Pt is a 79 yo female presented to clinic with c/o R knee pain started 6 months ago. Pt reports her pain started randomly in the morning. She described her pain 3/10 as achy and sore which usually gets worse with going downstairs/ walking downhill and specifically placing her R leg onto pedal during car transfers. Her pain tends to take place at knee joint line center and medial > lateral. She stated ice helps and she did try some hamstrings exercises but it did not help. Pt also reports she has a few falls and usually caused by tripping over obstacles but does not remember which side. She currently walks 2 miles/ day x 5 /week. 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 Prior Treatments and Tests 12/12/19 X-ray : Bones: No fractures or dislocations. No suspicious bony lesions. Scattered degenerative subchondral sclerosis and spurring. Chondrocalcinosis projects in the medial compartment. There is mild medial joint space narrowing. Mild patellofemoral joint space narrowing Soft tissues: Small joint effusion. IMPRESSION: Mild knee joint degeneration Small joint effusion Right knee chondrocalcinosis. Treatment Goals Patient/Caregiver Goals 1. To be able to walk long distance without any discomfort 2. To be able to strengthen her R LE Current Functional Impairments (Reported) Functional Limitations- Mobility/Gait pain during downstairs and downhill discomfort during car transfer . PT-OP-C Subjective Start: 01/08/20 12:53 Freq: Status: Active Protocol: Document 04/03/20 15:18 HH (Rec: 04/03/20 16:02 HH [id number]) OP-PT Subjective Patient Comments Patient Comments My knee is doing pretty good most of the time. But yesterday my knee got sore with supine knee extension/ flexion. Patient Reported Progress Improving PT-OP-D Balance Start: 01/08/20 12:53 Freq: Status: Active Protocol: Document 03/13/20 14:30 HH (Rec: 03/13/20 18:48 HH [email or web address]) Balance Tests Single Limb Standing Single Limb- Right 3 Single Limb- Left 8 PT-OP-F Manual Assessment Start: 01/08/20 12:53 Freq: Status: Active Protocol: Document 01/08/20 13:50 HH (Rec: 01/08/20 15:13 HH [email or web address]) Manual Assessments Joint Mobility Assessment Joint Mobility Assessment decreased R patella lateral and medial mobility. PT-OP-G Mobility & Gait Start: 01/08/20 12:53 Freq: Status: Active Protocol: Document 03/13/20 14:30 HH (Rec: 03/13/20 18:48 HH [email or web address]) OP Gait Assessment Comments Gait Comments pt has lack of R heel strike and R knee extension and B hip extension during gait. PT-OP-H Neuro Start: 01/08/20 12:53 Freq: Status: Active Protocol: Document 01/08/20 13:50 HH (Rec: 01/08/20 15:13 HH [email or web address]) Deep Tendon Reflex & Clonus Assessment Deep Tendon Reflex Bilateral Achilles Deep Tendon Reflex 2+ Normal Bilateral Patellar Deep Tendon Reflex 2+ Normal PT-OP-J Posture/Palpation/Skin Start: 01/08/20 12:53 Freq: Status: Active Protocol: Document 01/08/20 13:50 HH (Rec: 01/08/20 15:13 HH [email or web address]) Posture Evaluation Position Standing Weight Distribution Weight Shifted Left Knee Posture (R) Excess Flexion PT-OP-K Range of Motion Start: 01/08/20 12:53 Freq: Status: Active Protocol: Document 03/13/20 14:30 HH (Rec: 03/13/20 18:48 HH [email or web address]) Knee Goniometric Range of Motion Knee Right Patient Position Supine Flexion Active (degrees) 125 Extension Active (degrees) 3 Left Patient Position Supine Flexion Active (degrees) 130 Flexion Passive (degrees) 0 Ankle and Foot Goniometric Range of Motion Ankle and Foot Right Active Testing Position Supine Dorsiflexion with Knee Extended 7 Left Active Testing Position Supine Dorsiflexion with Knee Extended 8 PT-OP-L Special Tests Start: 01/08/20 12:53 Freq: Status: Active Protocol: Document 01/08/20 13:50 HH (Rec: 01/08/20 15:13 [email or web address]) Special Tests Knee Special Tests Luis's Sign Test Results +VE R Varus- 25 Degrees Test Results -ve R Varus- 0 Degrees Test Results -ve R Valgus- 0 Degrees Test Results +VE R Comments medial joint line pain at R knee Valgus- 25 Degrees Test Results +VE R Comments medial joint line pain at R knee PT-OP-M Strength Start: 01/08/20 12:53 Freq: Status: Active Protocol: Document 03/13/20 14:30 HH (Rec: 03/13/20 18:48 [email or web address]) Knee Strength Knee Manual Muscle Testing Right Flexion (S2) 4+ Good+ Extension (L3) 4+ Good+ Left Flexion (S2) 4+ Good+ Extension (L3) 4+ Good+ PT-OP-Q Treatments Start: 01/08/20 12:53 Freq: Status: Active Protocol: Document 04/03/20 15:18 HH (Rec: 04/03/20 16:02 [id number]) Cardio Equipment Bicycle (Upright) Duration (Minutes) 6 Resistance 5 Therapeutic Exercises Standing Exercises toe tap Standing Exercise Name next to table, toe tap to 4 direction Side bilateral Reps/Minutes 4 mins Comments single leg balance step down Standing Exercise Name 4 inch (foward) Side bilateral Reps/Minutes 10 x2 Comments eccentric control ankle board Standing Exercise Name ankle rock platform Side bilateral Equipment Used within //bar Reps/Minutes 4 mins Comments to facilitate ankle strategy. side step Standing Exercise Name with hurdles Side bilateral Equipment Used within //bar Comments 4 rounds hurdles Standing Exercise Name with heel toe gait Side bilateral Equipment Used within //bar Comments 8 rounds sissy squat Side bilateral Equipment Used christiano wedge Reps/Minutes 12 x 2 PT-OP-T Assessment and Plan Start: 01/08/20 12:53 Freq: Status: Active Protocol: Document 04/03/20 15:18 HH (Rec: 06/04/20 16:02 [id number]) Physical Therapy Assessment Goals stairs/ hill climbing Impairment pain noted during ascend / descending Penitentiary Goal (LTG) Pt will be pain free during walking on uphill/ downhill as her daily routine. LTG Duration 8 weeks LEFS Impairment pt scores 45 on LEFS Short Term Goal (STG) Pt will score >48 (20-39% impairment) to improver her quality of life. STG Duration 4 weeks Penitentiary Goal (LTG) Pt will score >63 (1-19% impairment) to improve her overall mobility so she could walk 2-3 miles including up or downhill daily without discomfort LTG Duration 8 weeks balance Impairment Pt has poor single leg balance Short Term Goal (STG) Pt will improve single leg balance to 10 secs bilaterally STG Duration 4 weeks Penitentiary Goal (LTG) Pt will improve single leg balance to 15 secs bilaterally to reduce her fall risk. LTG Duration 8 weeks HEP Impairment pt does not have a HEP Hunting Sales Leader Goal (LTG) cont in progress 03/13. Pt currently does HEP 3-4x/ week Pt will be compliant to HEP daily to improve her overall RLE strength and mobility LTG Duration 4 weeks ROM Impairment ROM deficits Short Term Goal (STG) Pt will improve her extension to 0 and 130' with minimal pain no more than 2>10 STG Duration 4 weeks Penitentiary Goal (LTG) Pt will improve her extension to 0 and 130' with no pain to improve her gait mechanics on initial contact on heel. LTG Duration 8 weeks Assessment Summary Assessment Pt cont to progress with only occasional discomfort. Pt was able to tolerate single leg step down from 4, SL balance upto 10secs each, and good awareness for heel toe gait. Expect to be DC from next visit. Physical Therapy Plan Next Visit Focus/Plan Next Note Type Treatment Note Next Visit Plan single leg strengthening (step up and down) single leg balance gait training end with biking
--- NOTE | 2020-04-10 15:16 | PT.OTN ---
Current Diagnoses Pain in right knee (04/10/20) Physical Therapy Treatment Note PT-OP-A Visit Information Start: 01/08/20 12:53 Freq: Status: Active Protocol: Document 04/10/20 14:32 HH (Rec: 04/10/20 15:16 HH [id number]) Out-Patient Physical Therapy Visit Information Visit Information Visit Type Treatment Note Visit Start Time 14:35 Visit Stop Time 15:10 Total Visit Minutes 35 Visit Number 05/18 PT-OP-B Current Condition Start: 01/08/20 12:53 Freq: Status: Active Protocol: Document 01/08/20 13:50 HH (Rec: 01/08/20 15:13 HH [email or web address]) Current Condition History of Current Condition Onset Date 6 months ago Current Complaints R knee pain, difficulty in prolonged walking, fall risk History of Current Condition Pt is a 79 yo female presented to clinic with c/o R knee pain started 6 months ago. Pt reports her pain started randomly in the morning. She described her pain 3/10 as achy and sore which usually gets worse with going downstairs/ walking downhill and specifically placing her R leg onto pedal during car transfers. Her pain tends to take place at knee joint line center and medial > lateral. She stated ice helps and she did try some hamstrings exercises but it did not help. Pt also reports she has a few falls and usually caused by tripping over obstacles but does not remember which side. She currently walks 2 miles/ day x 5 /week. 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 Prior Treatments and Tests 12/12/19 X-ray : Bones: No fractures or dislocations. No suspicious bony lesions. Scattered degenerative subchondral sclerosis and spurring. Chondrocalcinosis projects in the medial compartment. There is mild medial joint space narrowing. Mild patellofemoral joint space narrowing Soft tissues: Small joint effusion. IMPRESSION: Mild knee joint degeneration Small joint effusion Right knee chondrocalcinosis. Treatment Goals Patient/Caregiver Goals 1. To be able to walk long distance without any discomfort 2. To be able to strengthen her R LE Current Functional Impairments (Reported) Functional Limitations- Mobility/Gait pain during downstairs and downhill discomfort during car transfer . PT-OP-C Subjective Start: 01/08/20 12:53 Freq: Status: Active Protocol: Document 04/10/20 14:32 HH (Rec: 04/10/20 15:16 HH [id number]) OP-PT Subjective Patient Comments Patient Comments My knees have been doing really good. And i am ready to be discharged Patient Reported Progress Improving PT-OP-D Balance Start: 01/08/20 12:53 Freq: Status: Active Protocol: Document 03/13/20 14:30 HH (Rec: 03/13/20 18:48 HH [email or web address]) Balance Tests Single Limb Standing Single Limb- Right 3 Single Limb- Left 8 PT-OP-F Manual Assessment Start: 01/08/20 12:53 Freq: Status: Active Protocol: Document 01/08/20 13:50 HH (Rec: 01/08/20 15:13 HH [email or web address]) Manual Assessments Joint Mobility Assessment Joint Mobility Assessment decreased R patella lateral and medial mobility. PT-OP-G Mobility & Gait Start: 01/08/20 12:53 Freq: Status: Active Protocol: Document 03/13/20 14:30 HH (Rec: 03/13/20 18:48 HH [email or web address]) OP Gait Assessment Comments Gait Comments pt has lack of R heel strike and R knee extension and B hip extension during gait. PT-OP-H Neuro Start: 01/08/20 12:53 Freq: Status: Active Protocol: Document 01/08/20 13:50 HH (Rec: 01/08/20 15:13 HH [email or web address]) Deep Tendon Reflex & Clonus Assessment Deep Tendon Reflex Bilateral Achilles Deep Tendon Reflex 2+ Normal Bilateral Patellar Deep Tendon Reflex 2+ Normal PT-OP-J Posture/Palpation/Skin Start: 01/08/20 12:53 Freq: Status: Active Protocol: Document 01/08/20 13:50 HH (Rec: 01/08/20 15:13 HH [email or web address]) Posture Evaluation Position Standing Weight Distribution Weight Shifted Left Knee Posture (R) Excess Flexion PT-OP-K Range of Motion Start: 01/08/20 12:53 Freq: Status: Active Protocol: Document 03/13/20 14:30 HH (Rec: 03/13/20 18:48 HH [email or web address]) Knee Goniometric Range of Motion Knee Right Patient Position Supine Flexion Active (degrees) 125 Extension Active (degrees) 3 Left Patient Position Supine Flexion Active (degrees) 130 Flexion Passive (degrees) 0 Ankle and Foot Goniometric Range of Motion Ankle and Foot Right Active Testing Position Supine Dorsiflexion with Knee Extended 7 Left Active Testing Position Supine Dorsiflexion with Knee Extended 8 PT-OP-L Special Tests Start: 01/08/20 12:53 Freq: Status: Active Protocol: Document 01/08/20 13:50 HH (Rec: 01/08/20 15:13 HH [email or web address]) Special Tests Knee Special Tests Luis's Sign Test Results +VE R Varus- 25 Degrees Test Results -ve R Varus- 0 Degrees Test Results -ve R Valgus- 0 Degrees Test Results +VE R Comments medial joint line pain at R knee Valgus- 25 Degrees Test Results +VE R Comments medial joint line pain at R knee PT-OP-M Strength Start: 01/08/20 12:53 Freq: Status: Active Protocol: Document 03/13/20 14:30 HH (Rec: 03/13/20 18:48 HH [email or web address]) Knee Strength Knee Manual Muscle Testing Right Flexion (S2) 4+ Good+ Extension (L3) 4+ Good+ Left Flexion (S2) 4+ Good+ Extension (L3) 4+ Good+ PT-OP-Q Treatments Start: 01/08/20 12:53 Freq: Status: Active Protocol: Document 04/10/20 14:32 HH (Rec: 04/10/20 15:16 HH [id number]) Cardio Equipment Recumbent Bicycle Duration (Minutes) 8 Resistance 5 Therapeutic Exercises Standing Exercises toe tap Standing Exercise Name next to table, toe tap to 4 direction Side bilateral Reps/Minutes 8 mins Comments single leg balance step down Standing Exercise Name 4 inch (foward) Side bilateral Reps/Minutes 10 x2 Comments eccentric control ankle board Standing Exercise Name ankle rock platform Side bilateral Equipment Used within //bar Reps/Minutes 4 mins Comments to facilitate ankle strategy. sissy squat Side bilateral Equipment Used christiano wedge Reps/Minutes 12 x 2 step up Standing Exercise Name on bosu ball Side bilateral Reps/Minutes 10 x2 each Comments pt reported R leg is weaker high knee walks Standing Exercise Name next to grab bar Side bilateral Reps/Minutes 10 ft each x 8 PT-OP-T Assessment and Plan Start: 01/08/20 12:53 Freq: Status: Active Protocol: Document 04/10/20 14:32 HH (Rec: 04/10/20 15:16 [id number]) Physical Therapy Assessment Goals stairs/ hill climbing Impairment pain noted during ascend / descending Longterm Goal (LTG) 04/10 pt still has minimal discomfort during downhill only but not uphill. LTG Duration 8 weeks balance Longterm Goal (LTG) 04/10 Pt reached 20 secs each for SLS HEP Longterm Goal (LTG) goal met 04/10 pt has been compliant to all her HEP ROM Longterm Goal (LTG) 04/10 reach full ROM in pain free. Progress Towards Goals Progress Towards Goals Goals Met Assessment Summary Assessment Pt has met all her rehab goals . Was able to reach SLS 20seconds each and pain free for most activities except going downhill occasionally. D /C from PT today. Physical Therapy Plan Discharge Physical Therapy Discharge Reasons Goals Met
== END 2020-04-10 17:00 ==
LOC: PHYS 14:30
PROVIDERS: PCP Internal Medicine; Referring Provider Internal Medicine; Visit Provider Internal Medicine
DX: M25.561 Pain in right knee (principal)
CPT/HCPCS: 97110; 97112; 97140; 97161

== ENCOUNTER → 2021-01-16 11:34 | Outpatient (CLI) | payer MEDICARE, OTHER, SELFPAY ==
--- NOTE | 2021-01-16 | DI.RAD.S_ITS ---
PROCEDURE: XR CERVICAL SPINE 2V OR 3V INDICATIONS: Bilateral Paresthesias hand TECHNIQUE: 3 view(s) of the cervical spine were acquired. COMPARISON: None. FINDINGS: Bones: No fractures or dislocations to the T1 level. The lateral masses of C1 appear intact on the odontoid view. No suspicious bony lesions. Severe C3-C4, C5-C6 and C6-C7 degenerative disc disease. Moderate C4-C5 degenerative disc disease. Moderate facet arthropathy noted throughout the cervical spine. Moderate bilateral C3-C4, C4-C5, C5-C6 and C6-C7 uncovertebral joint hypertrophy. Soft tissues: No prevertebral soft tissue swelling. IMPRESSION: 1. Multilevel degenerative disc disease. 2. Multilevel facet and uncovertebral arthropathy. 3. No fracture. No acute osseous lesion. If symptoms and/or clinical suspicion for pathology persists, evaluation with MRI should be considered for further assessment. Dictated by: Rebecca Andrews MD, PhD on 01/16/2021 at 16:48 Approved by: Rebecca Andrews MD, PhD on 01/16/2021 at 16:50
== END ==
PROVIDERS: PCP Internal Medicine; Referring Provider Internal Medicine; Visit Provider Internal Medicine
DX: R20.2 Paresthesia of skin (principal); M47.812 Spondylosis without myelopathy or radiculopathy, cervical region
CPT/HCPCS: 72040

== ENCOUNTER → 2021-02-12 12:39 | Outpatient (CLI) | payer MEDICARE, OTHER, SELFPAY ==
--- NOTE | 2021-02-12 12:41 | DI.MRI.S_ITS ---
PROCEDURE: MR CERVICAL SPINE WO CON INDICATIONS: Paresthesia of skin TECHNIQUE: Noncontrast sagittal T1 spin echo and T2 fast spin echo, sagittal STIR, foraminal oblique sagittal T2 fast spin echo, and axial gradient echo or T2 fast spin echo through the cervical spine. COMPARISON: None. Vertebral body height and marrow signal is normal throughout the exam. Normal cervical lordosis present. The craniocervical relationships are unremarkable. The cervical cord is normal in caliber and signal intensity. The paravertebral soft tissues are unremarkable. Occiput-C2: The anatomic relationships are normal without canal stenosis. C2-3: Disc height is maintained. There is posterior disc bulge which touches the ventral surface of the cord without cord indentation. Both neural foramina are patent. C3-4: Moderate disc space narrowing with posterior disc osteophyte complex and hypertrophic facet joints is associated mild retrolisthesis resulting in moderate canal stenosis. No cord indentation. Hypertrophic facet and uncovertebral joints results in severe bilateral foraminal stenosis. C4-5: Moderate disc space narrowing without significant disc bulge present. Hypertrophic facet and uncovertebral joints results in moderate bilateral foraminal stenosis no central stenosis. C5-6: Moderate disc space narrowing with circumferential disc osteophyte complex results in moderate central stenosis and mild cord flattening. Hypertrophic facet joints results in mild right and moderate left foraminal stenosis C6-7: Moderate disc space narrowing and small circumferential disc bulge combines with hypertrophic facet and uncovertebral joints resulting moderate bilateral foraminal stenosis and no significant central stenosis. C7-T1: Moderate disc space narrowing and hypertrophic facet joints results in grade 1 anterior subluxation of C7 over T1. Circumferential disc bulge contributes to mild central stenosis. There is mild right moderate left foraminal stenosis. IMPRESSION: 1. Multilevel degenerative disc disease arthropathy results in varying degrees of central and foraminal stenosis including moderate central stenosis at C3-4 and C5-6 Dictated by: Keith Wolfe M.D. on 02/12/2021 at 13:48 Approved by: Keith Wofle M.D. on 02/12/2021 at 14:09
== END ==
PROVIDERS: PCP Internal Medicine; Referring Provider Internal Medicine; Visit Provider Internal Medicine
DX: R20.2 Paresthesia of skin (principal); M50.31 Other cervical disc degeneration, high cervical region; M48.02 Spinal stenosis, cervical region
CPT/HCPCS: 72141

== ENCOUNTER 2021-06-18 09:00 | Outpatient (RCR) | payer MEDICARE, OTHER, SELFPAY ==
--- NOTE | 2021-06-09 16:15 | PT.OIE ---
Current Diagnoses Spondylosis without myelopathy or radiculopathy, cervical region (06/09/21) Cervicalgia (06/09/21) Muscle weakness (generalized) (06/09/21) Weakness (06/09/21) Past Medical History (Last Updated 07/28/18 @ 18:56 by Rekha Vargas) Back pain (~1973) Chicken pox (~194) Colon polyps (~2011) Fractures Gas bloat syndrome (~1984) Headache (~1979) Hepatitis B (~1970) Herpes (~1998) History of oral surgery (~1979) History of varicose vein stripping (~1977) Knee pain (~2013) Measles (~194) Mumps (~1944) Seasonal allergies (~2011) Past Surgical History (Last Updated 07/28/18 @ 18:56 by Rekha Vargas) Anesthesia History of oral surgery (~1979) History of varicose vein stripping (~1977) Status post breast reduction (~1969) Status post colonoscopy Status post laminectomy (~1973) Visit Care Team Role Provider Type TANA Stock Primary Care Provider [employer] Teacher Specialty: [facility] Address: [address] [place] [address], [facility] Email: [email or web address] Maryann Ferguson MD Attending Provider Non-Staff Referring Provider Specialty: Neurology Address: [address] [place] [address], [id number] Email: Physical Therapy Initial Evaluation PT-OP-A Visit Information Start: 06/05/21 18:26 Freq: Status: Active Protocol: Document 06/09/21 14:20 LRN (Rec: 06/09/21 16:03 LRN [id number]) Out-Patient Physical Therapy Visit Information Visit Information Visit Type Initial Evaluation Visit Start Time 14:20 Visit Stop Time 15:15 Total Visit Minutes 55 Visit Number 1 Evaluation Information Evaluation Date 06/09/21 Precautions Precautions Osteopenia, bilateral hand neuropathy PT-OP-B Current Condition Start: 06/05/21 18:26 Freq: Status: Active Protocol: Document 06/09/21 14:20 LRN (Rec: 06/09/21 16:03 LRN [id number]) Current Condition History of Current Condition Onset Date 1.5 yrs ago. Current Complaints Tinging at night and constant numbness. History of Current Condition Pt having numbness of all 10 fingers, can feel pressure. When started, thought it was carpel tunnel and wears splints that helps minimize numbness and helps keep her sleeping. Sometimes happens anyway and wakes due to tingling in the hands. NEW: 10 days ago felt zap from collar bone to ear. Spouse opens things for her. Has contraptions to help open jars . Prior Treatments and Tests X-ray of neck: No fracture, Multilevel degenerative disc disease, Multilevel facet and uncovertebral arthropathy. MRI of neck: Shows Multilevel degenerative disc disease arthropathy results in varying degrees of central and foraminal stenosis including moderate central stenosis at C3-4 and C5-6 Future Testing and Treatments Planned Nerve conduction study this week. Developmental History Developmental History PMH: arthritis, osteopenia with treatments of Fosomax and vit D, neuropathy of hands, high blood pressure controlled by medication, hepatitis, laminectomy 1969'. Pt is L handed. Treatment Goals Patient/Caregiver Goals Pt goal is to normalize hand sensation, decrease tingling at nighttime. can't open jars, fumbles picking up objects off the floor, can't button clothing easily, can't put in ear rings easily and clumsy with use of knife. Goals: yard coupler a piece of food or something small within 1 try. Button clothing in 1 try without fumbling. Less clumsy with knife (hold knife with fingers vs palm of hand). Pt agreeable to independent HEP at [place] Prior Functional Status Baseline Function- ADL's Independent Baseline Function- Mobility Independent Baseline Function- Other Able to open jars, slate picker small objects, button clothing , use a knife properly Current Functional Impairments (Reported) Functional Limitations- Other Clumsy and difficulty with opening jars, picking up small objects, buttoning clothing, using a knife properly Personal Factors Other Personal Factors That May Effect Hx of fx'd L shoulder, L Therapy/Recovery middle trigger finger, neuropathy of hands, osteopenia. PT-OP-C Subjective Start: 06/05/21 18:26 Freq: Status: Active Protocol: Document 06/09/21 14:20 LRN (Rec: 06/09/21 16:03 LRN [id number]) OP-PT Subjective Patient Comments Patient Comments Pt will wait to do OT until after PT is started in the process, then will decide if needed. Patient Questionnaires Neck Disability Index NDI Score 5 Neck Disability Index Impairment 1 to 19% Impaired (Score 1-9) Quick Dash- Upper Extremity Quick Dash UE Score 18.18 Quick Dash UE Impairment 1 to 19% Impaired (Score 1-19) OP-PT Pain Assessment Pain Assessment Grid Paper Pain Assessment Grid Completed Yes Location Neck Pain Location Details Neck Intensity 0 Scale Used Numeric (0 - 10) Comments Pain Comments Pt primary plan complaint is L middle trigger finger. PT-OP-H Neuro Start: 06/05/21 18:26 Freq: Status: Active Protocol: Document 06/09/21 14:20 LRN (Rec: 06/09/21 16:03 LRN [id number]) Sensation Evaluation Comments Summary Comments Decreased sensation of hands from MCP joints distally of all digits. Pt able to detect sharp and dull pressure accurately in the hand/wrist forearm bilaterally. Pt reports lack of hot/cold sensation at home. Deep Tendon Reflex & Clonus Assessment Deep Tendon Reflex Bilateral Brachioradialis Deep Tendon Reflex 2+ Normal Bilateral Tricep Deep Tendon Reflex 2+ Normal Bilateral Bicep Deep Tendon Reflex 2+ Normal PT-OP-J Posture/Palpation/Skin Start: 06/05/21 18:26 Freq: Status: Active Protocol: Document 06/09/21 14:20 LRN (Rec: 06/09/21 16:03 LRN [id number]) Posture Evaluation Position Standing Head/C-Spine Posture Forward Head T-Spine Posture Increased Kyphosis L-Spine Posture Increased Lordosis Shoulder Posture Neutral Scapula Posture (L) Neutral,(R) Neutral Arm Posture (L) Internally Rotated,(R) Internally Rotated PT-OP-K Range of Motion Start: 06/05/21 18:26 Freq: Status: Active Protocol: Document 06/09/21 14:20 LRN (Rec: 06/09/21 16:03 LRN [id number]) Cervical Spine Range of Motion Cervical Spine Active Degrees Testing Position Sitting Flexion 17 Extension 42 Rotation Left 32 Rotation Right 43 Lateral Flexion Left 15 Lateral Flexion Right 17 Shoulder Goniometric Range of Motion Shoulder Right Active Shoulder ROM WFL Yes Testing Position Sitting Flexion 160 Abduction 160 External Rotation at 0 degrees Abduction 80 Internal Rotation Behind Back (text) T7 Left Active Shoulder ROM WFL No Testing Position Sitting Flexion 145 Abduction 160 External Rotation at 0 degrees Abduction 58 Internal Rotation Behind Back (text) T9 Finger Goniometric Range of Motion Finger ROM Limitations Comments Able to perform opposition with all fingers and able to touch thumb to MCP fortune surface. PT-OP-L Special Tests Start: 06/05/21 18:26 Freq: Status: Active Protocol: Document 06/09/21 14:20 LRN (Rec: 06/09/21 16:03 LRN [id number]) Special Tests Cervical Spine Special Tests Traction Test Results + Comments Decrease numbness of hands, indicative of cervical involvement. Foraminal Compression Test Results - Comments No change in sensatioin Vertebral Artery Test Results negative bilaterally Comments Stiff with L neck rotation Shoulder Special Tests Addson's Test Results L side: Negative Comments Positive is indicative of thoracic outlet syndrome. 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 Strength Hand Dominance Hand Dominance Left Hand Strength Left Comments High School Drafting Teacher strength in kg's (3 trials): 10, 8, 6 Right Comments High School Drafting Teacher strength in kg's (3 trials): 15, 13, 12 kg PT-OP-Q Treatments Start: 06/05/21 18:26 Freq: Status: Active Protocol: Document 06/09/21 14:20 LRN (Rec: 06/09/21 16:03 LRN [id number]) Therapeutic Exercises Sitting Exercises Neck stretch Sitting Exercise Name Active Rotation Side bilateral Reps/Minutes 3' Pec stretch Sitting Exercise Name AA Pec stretch Side left Reps/Minutes 3' Manual Therapy Treatment Manual Traction Cervical Details Sitting manual C. Tx Body Position Sitting Reps/Duration 3' Comments Decrease sensation of numbness in fingers. Self-Care/Home Management Treatment Education Other Education Discussed at length and educated pt in result of evaluation, discussed goals and plan of care. PT-OP-T Assessment and Plan Start: 06/05/21 18:26 Freq: Status: Active Protocol: Document 06/09/21 14:20 LRN (Rec: 06/09/21 16:03 LRN [id number]) Physical Therapy Assessment Rehab Potential Rehabilitation Potential Good Evaluation Complexity Number of Personal Factors/Comorbidities 1-2 Number of Body Systems Impaired 4 or More Clinical Presentation at Evaluation Evolving Impairments Impairments Functional Activities,ROM, Sensation,Strength Goals Four Impairment Decreased strength of dominant L hand Fpc Goal (LTG) Improve strength of hands with pt able to open jars with greater ease. LTG Duration 09/07/21 Three Impairment Decreased functional of picking up small objects (food ) & buttoning Short Term Goal (STG) Pt will be able to slate picker pieces of food dropped within 1 try, or put in earrings without fumbling/dropping. STG Duration 07/24/21 Craft Superintendent Goal (LTG) Pt will be able to button clothing in 1 try with minimal fumbling. LTG Duration 09/07/21 Two Impairment Decreased function per UE Quick DASH score of 18.18 (1- 19% impaired) Short Term Goal (STG) Pt will be able to be less clumsy with a knife by holding it with her fingers (vs palm) to cut food, (improving QuickDASH score) STG Duration 07/24/21 Fpc Goal (LTG) Pt will normalize numbness/ nighttime tingiling in the hands for improved function as noted with UE QuickDASH score of no greater than 11. LTG Duration 09/07/21 One Impairment Lacks appropriate self care HEP Short Term Goal (STG) Pt will be independent on a self care HEP to do while on vacation of neck stretches/ stabilization, shoulder stretches and postural ex's. STG Duration 07/24/21 Craft Superintendent Goal (LTG) Pt will be independent on a self care HEP at [place]. LTG Duration 09/07/21 Assessment Summary Assessment Pt presents with symptoms of cervical involvement in her decreased sensation of her fingers and thumbs (distal of MCP jt's), with some sensation improvement with manual cervical traction. Pt shows signs of neck and bilateral shoulder mobility restrictions that will hinder her progress towards improving her hand sensation. She actually is able to discern between sharp/ dull sensation and is able to accurately identify sharp or dull locations of her hands with eyes closed, but she feels she has lack of sensation. She reported concerns of not being able to identify things that are hot in temperature. This will be assessed at the next appointment due to time constraints today. The pt shows decreased strength of her L dominant hand with grounds maintenance supervisor testing and decreased neck and shoulder mobility (R worse than L), probably due to her prior history of L shoulder fracture. The pt requests a HEP this month since she will be going away on vacation until July and is agreeable to start consistently scheduled PT on her return. The pt will benefit from skilled physical therapy to work towards achieving the above stated goals. Physical Therapy Plan Frequency and Duration Frequency of Treatment 2x/Week Plan of Care Start Date 06/09/21 Plan of Care End Date 09/07/21 Therapeutic Interventions Therapeutic Interventions Home Exercise Program,Joint Mobilizations,Manual Therapy, Neuromuscular Re-education, Patient/Caregiver Education, Self-Care/Home Management,Soft Tissue Mobilization, Therapeutic Activities, Therapeutic Exercises Modalities Cold Pack/Ice Massage,Electric Stimulation,Hot Packs, Ultrasound Other Therapeutic Interventions Manual cervical traction. Other Referrals/Consults Referrals/Consults Recommended Recommend pt see a hand specialist for her L middle tigger finger splint. Next Visit Focus/Plan Next Note Type Treatment Note Next Visit Plan Check hot/cold sensation, Cervical/shoulder and pincer strength (caution L middle tigger finger), Rib mobility. HEP within 3 visits appropriate for current condition and manual cervical traction (caution osteopenia), then pt will be seen in Jul after she returns from vacation for formal rehab of the neck, shoulders, hands and thoracic region for ROM ex's and mobility of neck/shoulders to decrease numbness of hands and improve function.
--- NOTE | 2021-06-09 16:16 | PT.OPPOC ---
Physical, Occupational & Speech Therapy At [facility] Current Diagnoses Spondylosis without myelopathy or radiculopathy, cervical region (06/09/21) Cervicalgia (06/09/21) Muscle weakness (generalized) (06/09/21) Weakness (06/09/21) Visit Care Team Role Provider Type TANA Stock Primary Care Provider Advanced Property Claim Rep Specialty: Family Practice Address: [address] [place] [address], [facility] [place], [address] Email: Maryann Ferguson MD Attending Provider Non-Staff Referring Provider Specialty: Neurology Address: [address] [place], [address] Email: Plan Of Care PT-OP-T Assessment and Plan Start: 06/05/21 18:26 Freq: Status: Active Protocol: Document 06/09/21 14:20 LRN (Rec: 06/09/21 16:03 LRN [id number]) Physical Therapy Assessment Rehab Potential Rehabilitation Potential Good Evaluation Complexity Number of Personal Factors/Comorbidities 1-2 Number of Body Systems Impaired 4 or More Clinical Presentation at Evaluation Evolving Impairments Impairments Functional Activities,ROM, Sensation,Strength Goals Four Impairment Decreased strength of dominant L hand Pill Coater Goal (LTG) Improve strength of hands with pt able to open jars with greater ease. LTG Duration 09/07/21 Three Impairment Decreased functional of picking up small objects (food ) & buttoning Short Term Goal (STG) Pt will be able to flower picker pieces of food dropped within 1 try, or put in earrings without fumbling/dropping. STG Duration 07/24/21 Pill Coater Goal (LTG) Pt will be able to button clothing in 1 try with minimal fumbling. LTG Duration 09/07/21 Two Impairment Decreased function per UE Quick DASH score of 18.18 (1- 19% impaired) Short Term Goal (STG) Pt will be able to be less clumsy with a knife by holding it with her fingers (vs palm) to cut food, (improving QuickDASH score) STG Duration 07/24/21 Pill Coater Goal (LTG) Pt will normalize numbness/ nighttime tingiling in the hands for improved function as noted with UE QuickDASH score of no greater than 11. LTG Duration 09/07/21 One Impairment Lacks appropriate self care HEP Short Term Goal (STG) Pt will be independent on a self care HEP to do while on vacation of neck stretches/ stabilization, shoulder stretches and postural ex's. STG Duration 07/24/21 Pill Coater Goal (LTG) Pt will be independent on a self care HEP at [place]. LTG Duration 09/07/21 Assessment Summary Assessment Pt presents with symptoms of cervical involvement in her decreased sensation of her fingers and thumbs (distal of MCP jt's), with some sensation improvement with manual cervical traction. Pt shows signs of neck and bilateral shoulder mobility restrictions that will hinder her progress towards improving her hand sensation. She actually is able to discern between sharp/ dull sensation and is able to accurately identify sharp or dull locations of her hands with eyes closed, but she feels she has lack of sensation. She reported concerns of not being able to identify things that are hot in temperature. This will be assessed at the next appointment due to time constraints today. The pt shows decreased strength of her L dominant hand with scarfing machine operator testing and decreased neck and shoulder mobility (R worse than L), probably due to her prior history of L shoulder fracture. The pt requests a HEP this month since she will be going away on vacation until July and is agreeable to start consistently scheduled PT on her return. The pt will benefit from skilled physical therapy to work towards achieving the above stated goals. Physical Therapy Plan Frequency and Duration Frequency of Treatment 2x/Week Plan of Care Start Date 06/09/21 Plan of Care End Date 09/07/21 Therapeutic Interventions Therapeutic Interventions Home Exercise Program,Joint Mobilizations,Manual Therapy, Neuromuscular Re-education, Patient/Caregiver Education, Self-Care/Home Management,Soft Tissue Mobilization, Therapeutic Activities, Therapeutic Exercises Modalities Cold Pack/Ice Massage,Electric Stimulation,Hot Packs, Ultrasound Other Therapeutic Interventions Manual cervical traction. Other Referrals/Consults Referrals/Consults Recommended Recommend pt see a hand specialist for her L middle tigger finger splint. Next Visit Focus/Plan Next Note Type Treatment Note Next Visit Plan Check hot/cold sensation, Cervical/shoulder and pincer strength (caution L middle tigger finger), Rib mobility. HEP within 3 visits appropriate for current condition and manual cervical traction (caution osteopenia), then pt will be seen in Jul after she returns from vacation for formal rehab of the neck, shoulders, hands and thoracic region for ROM ex's and mobility of neck/shoulders to decrease numbness of hands and improve function. Plan of Care Dates Plan of Care Start Date 06/09/21 Plan of Care End Date 09/07/21 Electronically Signed by: Diana Red, PT 06/09/21 [id number] Please Sign and Return: I have reviewed this Plan of Care and certify that the skilled therapy services above are required to meet the patient?s needs. Physician Signature Date Printed Name and Credentials Clinical Instructor Signature Printed Name and Credentials
--- NOTE | 2021-06-11 16:14 | PT-OP ANOTE ---
Pt arrived for her appointment having had EMG study today which showed acute carpal tunnel syndrome. Pt has decided she will have surgery. Pt wished to save her therapy visits for after surgery and asked to cancel appointments until next visit with evaluating PT (as originally planned). She will call to discuss plan with evaluating PT next week.
--- NOTE | 2021-06-18 16:50 | PT.OTN ---
Current Diagnoses Spondylosis without myelopathy or radiculopathy, cervical region (06/18/21) Cervicalgia (06/18/21) Muscle weakness (generalized) (06/18/21) Weakness (06/18/21) Physical Therapy Treatment Note PT-OP-A Visit Information Start: 06/05/21 18:26 Freq: Status: Active Protocol: Document 06/18/21 09:03 LRN (Rec: 06/18/21 09:52 LRN [id number]) Out-Patient Physical Therapy Visit Information Visit Information Visit Type Treatment Note Visit Start Time 09:03 Visit Stop Time 09:52 Total Visit Minutes 48 Visit Number 2 Evaluation Information Evaluation Date 06/09/21 Precautions Precautions Osteopenia, bilateral hand neuropathy PT-OP-B Current Condition Start: 06/05/21 18:26 Freq: Status: Active Protocol: Document 06/09/21 14:20 LRN (Rec: 06/09/21 16:03 LRN [id number]) Current Condition History of Current Condition Onset Date 1.5 yrs ago. Current Complaints Tinging at night and constant numbness. History of Current Condition Pt having numbness of all 10 fingers, can feel pressure. When started, thought it was carpel tunnel and wears splints that helps minimize numbness and helps keep her sleeping. Sometimes happens anyway and wakes due to tingling in the hands. NEW: 10 days ago felt zap from collar bone to ear. Spouse opens things for her. Has contraptions to help open jars . Prior Treatments and Tests X-ray of neck: No fracture, Multilevel degenerative disc disease, Multilevel facet and uncovertebral arthropathy. MRI of neck: Shows Multilevel degenerative disc disease arthropathy results in varying degrees of central and foraminal stenosis including moderate central stenosis at C3-4 and C5-6 Future Testing and Treatments Planned Nerve conduction study this week. Developmental History Developmental History PMH: arthritis, osteopenia with treatments of Fosomax and vit D, neuropathy of hands, high blood pressure controlled by medication, hepatitis, laminectomy 1969's. Pt is L handed. Treatment Goals Patient/Caregiver Goals Pt goal is to normalize hand sensation, decrease tingling at nighttime. can't open jars, fumbles picking up objects off the floor, can't button clothing easily, can't put in ear rings easily and clumsy with use of knife. Goals: prepress supervisor a piece of food or something small within 1 try. Button clothing in 1 try without fumbling. Less clumsy with knife (hold knife with fingers vs palm of hand). Pt agreeable to independent HEP at [place] Prior Functional Status Baseline Function- ADL's Independent Baseline Function- Mobility Independent Baseline Function- Other Able to open jars, steel pickler small objects, button clothing , use a knife properly Current Functional Impairments (Reported) Functional Limitations- Other Clumsy and difficulty with opening jars, picking up small objects, buttoning clothing, using a knife properly Personal Factors Other Personal Factors That May Effect Hx of fx'd L shoulder, L Therapy/Recovery middle trigger finger, neuropathy of hands, osteopenia. PT-OP-C Subjective Start: 06/05/21 18:26 Freq: Status: Active Protocol: Document 06/18/21 09:03 LRN (Rec: 06/18/21 09:52 LRN [id number]) OP-PT Subjective Patient Comments Patient Comments States last she did a nerve conduction study and found she has bilateral carpel tunnel. Prefers to DC since she prefers to have surgery over continuation of PT. PT-OP-H Neuro Start: 06/05/21 18:26 Freq: Status: Active Protocol: Document 06/09/21 14:20 LRN (Rec: 06/09/21 16:03 LRN [id number]) Sensation Evaluation Comments Summary Comments Decreased sensation of hands from MCP joints distally of all digits. Pt able to detect sharp and dull pressure accurately in the hand/wrist forearm bilaterally. Pt reports lack of hot/cold sensation at home. Deep Tendon Reflex & Clonus Assessment Deep Tendon Reflex Bilateral Brachioradialis Deep Tendon Reflex 2+ Normal Bilateral Tricep Deep Tendon Reflex 2+ Normal Bilateral Bicep Deep Tendon Reflex 2+ Normal PT-OP-J Posture/Palpation/Skin Start: 06/05/21 18:26 Freq: Status: Active Protocol: Document 06/09/21 14:20 LRN (Rec: 06/09/21 16:03 LRN [id number]) Posture Evaluation Position Standing Head/C-Spine Posture Forward Head T-Spine Posture Increased Kyphosis L-Spine Posture Increased Lordosis Shoulder Posture Neutral Scapula Posture (L) Neutral,(R) Neutral Arm Posture (L) Internally Rotated,(R) Internally Rotated PT-OP-K Range of Motion Start: 06/05/21 18:26 Freq: Status: Active Protocol: Document 06/09/21 14:20 LRN (Rec: 06/09/21 16:03 LRN [id number]) Cervical Spine Range of Motion Cervical Spine Active Degrees Testing Position Sitting Flexion 17 Extension 42 Rotation Left 32 Rotation Right 43 Lateral Flexion Left 15 Lateral Flexion Right 17 Shoulder Goniometric Range of Motion Shoulder Right Active Shoulder ROM WFL Yes Testing Position Sitting Flexion 160 Abduction 160 External Rotation at 0 degrees Abduction 80 Internal Rotation Behind Back (text) T7 Left Active Shoulder ROM WFL No Testing Position Sitting Flexion 145 Abduction 160 External Rotation at 0 degrees Abduction 58 Internal Rotation Behind Back (text) T9 Finger Goniometric Range of Motion Finger ROM Limitations Comments Able to perform opposition with all fingers and able to touch thumb to MCP fortune surface. PT-OP-L Special Tests Start: 06/05/21 18:26 Freq: Status: Active Protocol: Document 06/18/21 09:03 LRN (Rec: 06/18/21 09:52 LRN [id number]) Special Tests Cervical Spine Special Tests Traction Test Results + Comments Decrease numbness of hands, indicative of cervical involvement. PT-OP-M Strength Start: 06/05/21 18:26 Freq: Status: Active Protocol: Document 06/09/21 14:20 LRN (Rec: 06/09/21 16:03 LRN [id number]) Hand Family Preservation Caseworker/Pinch Strength Hand Dominance Hand Dominance Left Hand Strength Left Comments Family Preservation Caseworker strength in kg's (3 trials): 10, 8, 6 Right Comments Family Preservation Caseworker strength in kg's (3 trials): 15, 13, 12 kg PT-OP-Q Treatments Start: 06/05/21 18:26 Freq: Status: Active Protocol: Document 06/18/21 09:03 LRN (Rec: 06/18/21 09:52 LRN [id number]) Therapeutic Exercises Supine Exercises Scap pinches Supine Exercise Name Scap pinch on 2 towels rolled Side bilateral Equipment Used 4' Reps/Minutes 5 H x 10 Pec stretch Supine Exercise Name Passive stretch over 2 towels roll Side bilateral Reps/Minutes 6' UT stretch Supine Exercise Name Passive UT stretch Side bilateral Reps/Minutes 6' Manual Therapy Treatment Soft Tissue Mobilization Sagar Pec Body Location Pec Red & Pec Minor Mobilization Type Sustained Pressure,Other Intensity/Depth Moderate Body Position Hooklying Manual Traction Cervical Details Supine manual C. Tx Body Position Supine Reps/Duration 8' Comments Decrease sensation of tingling in fingers, from worst case 1010 to 7/10. Self-Care/Home Management Treatment Education Patient Education Home Exercise Program Other Education Educated and discussed proper posturing of head on shoulders with various activities to minimize numbness/tingling of hands. Activities Self-Care/Home Management Activities Issued & reviewed HEP of pec stretch using a towel roll down the spine. PT-OP-T Assessment and Plan Start: 06/05/21 18:26 Freq: Status: Active Protocol: Document 06/18/21 09:03 LRN (Rec: 06/18/21 09:52 LRN [id number]) Physical Therapy Assessment Goals Four Impairment Decreased strength of dominant L hand Appeals Officer Goal (LTG) Improve strength of hands with pt able to open jars with greater ease. LTG Duration 09/07/21 (06/18/21: Early DC, no change) Three Impairment Decreased functional of picking up small objects (food ) & buttoning Short Term Goal (STG) Pt will be able to steel pickler pieces of food dropped within 1 try, or put in earrings without fumbling/dropping. STG Duration 07/24/21 (06/18/21: Early DC, no change) Retirement Goal (LTG) Pt will be able to button clothing in 1 try with minimal fumbling. LTG Duration 09/07/21 (06/18/21: Early DC, no change) Two Impairment Decreased function per UE Quick DASH score of 18.18 (1- 19% impaired) Short Term Goal (STG) Pt will be able to be less clumsy with a knife by holding it with her fingers (vs palm) to cut food, (improving QuickDASH score) STG Duration 07/24/21 (06/18/21: Early DC, no change) Appeals Officer Goal (LTG) Pt will normalize numbness/ nighttime tingiling in the hands for improved function as noted with UE QuickDASH score of no greater than 11. LTG Duration 09/07/21 (06/18/21: Early DC, no change) One Impairment Lacks appropriate self care HEP Short Term Goal (STG) Pt will be independent on a self care HEP to do while on vacation of neck stretches/ stabilization, shoulder stretches and postural ex's. (06/18/21: HEP: postural stretch and education on proper posturing) STG Duration 07/24/21 (06/18/21: Partially met goal, early DC) Retirement Goal (LTG) Pt will be independent on a self care HEP at [place]. (06/18/21: HEP: postural stretch and education on proper posturing) LTG Duration 09/07/21 (06/18/21: Partially met, early DC) Assessment Summary Assessment Pt has been seen for an initial evaluation and comes today requesting discharge due to choosing to seek surgical intervention for her hand symptoms. The pt was started on home ex's today, but was not able to complete a full home program due to early discharge. Goals were not met . Physical Therapy Plan Discharge Physical Therapy Discharge Reasons Patient Request Discharge Comments Pt is chosing to seek surgery instead of continuing physical therapy. Thank you for your referral.
== END 2021-06-19 07:56 | disposition home or self-care (01) ==
LOC: PHYS 09:00
PROVIDERS: PCP Internal Medicine; Referring Provider Psychiatry & Neurology Neurology; Visit Provider Psychiatry & Neurology Neurology
DX: M47.812 Spondylosis without myelopathy or radiculopathy, cervical region (principal); M54.2 Cervicalgia; M62.81 Muscle weakness (generalized)
CPT/HCPCS: 97110; 97140; 97162; 97535

== ENCOUNTER 2021-12-13 14:12 | Emergency (ER) | payer MEDICARE, OTHER, SELFPAY ==
[2021-12-13] VITALS (10 sets, daily range): BP systolic 151–182; BP diastolic 69–100; PULSE 86–98; RESP 18–33; TEMP 36.5; O2SAT 92–98
--- NOTE | 2021-12-13 14:05 | DI.CT.S_ITS ---
PROCEDURE: CT CHEST ABD PEL W CON INDICATIONS: fall trauma TECHNIQUE: Helical axial CT of the chest abdomen and pelvis was obtained after intravenous contrast injection and reformatted in multiple planes. Automated exposure control and/or adjustment of the dose parameters according to patient's size were utilized as radiation dose reduction strategies. COMPARISON: None. FINDINGS: Chest: Cardiovascular: Heart size is normal. No evidence of pulmonary embolism, aortic aneurysm or dissection. Lungs and pleural spaces: Pulmonary contusions noted particular right upper lobe but also to a lesser degree in the periphery of the left lower lobe. A calcified benign-appearing granuloma noted in the superior segment of the left upper lobe measuring 1.2 cm is associated with calcified left hilar and mediastinal nodes, consistent with prior granulomatous disease. No pneumothorax. Lymph nodes: As above. No mediastinal, hilar or axillary adenopathy. Mediastinum: Unremarkable. No hiatal hernia. Thyroid within normal limits. Chest Wall and Bones: There are nondisplaced fractures through the anterior right 2nd, 3rd and 4th ribs, nondisplaced posterior right 3rd and 4th ribs and displaced 5th, 6th right posterior ribs. Additionally, there are displaced left anterior 1st and 2nd rib fractures. Nondisplaced fracture through the right scapular coracoid process as well as through the scapular glenoid fossa with intra-articular involvement. Proximal humerus unremarkable. 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 Abdomen and Pelvis: Liver: Normal in size and attenuation. No contour deformity present. Biliary system: No calcified cholelithiasis or pericholecystic inflammation. No intra or extrahepatic bile duct dilatation. Pancreas: Unremarkable without mass or inflammation evident. Spleen: Normal in size and density. Adrenals: Normal morphology and density. Reproductive system: Unremarkable as visualized. Urinary system: Normal renal size and attenuation. No renal calculi, hydronephrosis, or solid mass present. Urinary bladder unremarkable. Gastrointestinal system: The bowel is unremarkable with no evidence of bowel obstruction or inflammation. The stomach appears unremarkable. No findings to suggest acute appendicitis. Lymph nodes: No mesenteric or retroperitoneal adenopathy. Peritoneal spaces: No free air. No free fluid. Vasculature: The IVC, aorta and iliac vasculature are unremarkable. Abdominal wall: Abdominal wall intact without evidence of ventral or inguinal hernias. Musculoskeletal: Normal bone mineralization. No acute fractures in the lumbosacral spine, pelvis and proximal femurs. Multilevel degenerative disc disease and arthropathy in the lower lumbar spine results in moderate central stenosis at L4-5. IMPRESSION: 1. Multiple displaced and nondisplaced rib fractures noted on the right and upper left chest associated with right upper lobe pulmonary contusions. No pneumothorax. 2. Displaced right scapular fractures extend into the glenohumeral joint 3. 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 No thoracic spine fracture. 4. No evidence of solid organ injury, free air or free fluid in the abdomen and pelvis Note: Critical results were discussed with Dr. Rodas at 01:50 PM [place] time on 12/13/21 Approved by: Keith Wolfe M.D. on 12/13/2021 at 14:16
--- NOTE | 2021-12-13 14:05 | DI.CT.S_ITS ---
PROCEDURE: CT CERVICAL SPINE WO CON INDICATIONS: fall trauma TECHNIQUE: Noncontrast 3 mm thick sections acquired from the skull base to the T4 level. Sagittal and coronal reformats were then constructed. For radiation dose reduction, the following was used: automated exposure control, adjustment of mA and/or kV according to patient size. COMPARISON: None. FINDINGS: Image quality: Excellent. Bones: No fractures or dislocations. Visualized superior ribs are intact. Multilevel degenerative disc disease and arthropathy noted in the cervical spine results in moderate central stenosis at C3-4 and C5-6 as well as C6-7. Severe foraminal stenosis present on the right at C3-4, C4-5 and on the left at C5-6.. Bone mineralization and craniovertebral a shapes nor. Soft tissues: Prevertebral soft tissues are normal in thickness. No paravertebral hematomas. No apical pneumothoraces. IMPRESSION: 1. No evidence of fracture or traumatic malalignment 2. Multilevel degenerative disc disease and arthropathy results in varying degrees of central and foraminal stenosis including moderate central and severe foraminal stenosis as above. Approved by: Keith Wolfe M.D. on 12/13/2021 at 13:57
--- NOTE | 2021-12-13 14:05 | DI.CT.S_ITS ---
PROCEDURE: CT HEAD/BRAIN WO CON INDICATIONS: fall trauma TECHNIQUE: Noncontrast 4.5 mm thick angled axial sections acquired from the foramen magnum to the vertex, with coronal and sagittal reformats. For radiation dose reduction, the following was used: automated exposure control, adjustment of mA and/or kV according to patient size. COMPARISON: [facility], CT, CT CHEST ABD PEL W CON, 12/13/2021, 14:07. [facility], CT, CT CERVICAL SPINE WO CON, 12/13/2021, 14:07. FINDINGS: Image quality: Excellent. CSF spaces: Basal cisterns are patent. No extra-axial fluid collections. Ventricles are normal in size and shape. Brain: There is focal small subdural hematoma noted in the left middle cranial fossa measuring up to 4 5 mm in thickness. Associated subarachnoid hemorrhage noted in the adjacent sulci. No evidence of parenchymal contusion. No mass effect or midline shift. No underlying atrophy and multifocal white matter chronic ischemic change. Skull and face: Calvarium and visualized facial bones are intact, without suspicious lesions. Sinuses: Retention cysts noted in the sphenoid and right posterior ethmoid sinuses. IMPRESSION: 1. Thin 5 mm subdural hematoma associated with adjacent subarachnoid hemorrhage in the left middle cranial fossa. No skull fracture 2. Atrophy and chronic ischemic change without midline shift. 3. Sphenoid and right ethmoid mucosal sinus disease Note: Critical results were discussed with Dr. Rodas at 01:50 PM [place] time on 12/13/21 Approved by: Keith Wolfe M.D. on 12/13/2021 at 13:53
[2021-12-13 14:21] LABS: Add Manual Diff / Slide Review NO; Basophils Absolute Auto 0 /uL (0-100); Basophils Percent Auto 0.3 % (0-2); Eosinophils Absolute Auto 200 /uL (0-450); Eosinophils Percent Auto 1.5 % (2-4); Hematocrit 40.7 % (36-46); Hemoglobin 13.6 g/dL (12.0-16.0); Lymphocytes Absolute Auto 2900 /uL (1100-4500); Mean Corpuscular HGB Conc 33.5 % (30-36); Mean Corpuscular Hemoglobin 31.2 PG (26-34); Mean Corpuscular Volume 93.2 fL (80-100); Monocytes Absolute Auto 1000 /uL (0-900); Monocytes Percent Auto 7.8 % (3-14); Neutrophils Absolute Auto 8500 /uL (1500-7000); Neutrophils Percent Auto 67.4 % (50-75); Platelet Count 265 X10^3/uL (150-400); Red Blood Cell Count 4.36 X10^6/uL (4.0-5.2); White Blood Cell Count 12.6 X10^3/uL (4.5-11.0)
[2021-12-13 14:30] LABS: Alanine Aminotransferase 25 IU/L (<35); Albumin Globulin Ratio 1.2 (1.0-2.8); Alkaline Phosphatase 79 U/L (38-126); Aspartate Aminotransferase 33 IU/L (14-36); BUN Creatinine Ratio 20.3 (6-22); Bilirubin Total 0.6 mg/dL (0.2-1.3); Blood Urea Nitrogen 15 mg/dL (7-17); Calcium 9.7 mg/dL (8.4-10.2); Carbon Dioxide 27 mmol/L (22-32); Chloride 103 mmol/L (98-107); Creatine Kinase 166 U/L (30-135); Estimated Glomerular Filt Rate > 60.0 mL/min (>60); Globulin 3.4 g/dL (1.7-4.1); Glucose 121 mg/dL (80-110); HEMOLYSIS 34 (0-50); Potassium 3.7 mmol/L (3.4-5.1); Sodium 132 mmol/L (137-145); Total Protein 7.4 g/dL (6.3-8.2)
--- NOTE | 2021-12-13 14:33 | ED.FALL ---
HPI - Fall General Chief Complaint: Fall Stated Complaint: Fall down 6 stairs Time Seen by Provider: 12/13/21 14:15 Source: EMS Mode of arrival: EMS History of Present Illness HPI Narrative: Patient is an 81-year-old female with history of hepatitis, hypertension not taking any anticoagulation presenting as a modified trauma. She apparently fell down 6 carpeted stairs and hit her head against a wall. states he heard her fall he rushed to her she was moaning but not responsive. This lasted for approximately 5 minutes. EMS reports when they arrived she was able to answer questions but then in route started having repetitive questioning. She has not had any nausea or vomiting. She initially was able to give him quite a bit of information but is unable to do so now. She does not remember what happened or where she is. She is currently C-collar and backboarded. Has been also reports that she was having pain on the right side. Related Data Home Medications Medication Instructions Recorded Confirmed alendronate 70 mg tablet 70 mg PO QWEEK 12/13/21 12/13/21 hydrocodone 5 mg-acetaminophen 325 1 tab PO Q6H PRN 12/13/21 12/13/21 mg tablet metoprolol succinate 25 mg 50 mg PO QDAY 12/13/21 12/13/21 tablet,extended release 24 hr (Toprol XL) trazodone 50 mg tablet 50 mg PO BEDTIME 12/13/21 12/13/21 Previous Rx's Medication Instructions Recorded acyclovir 400 mg tablet 400 mg PO BID PRN #180 tab 07/31/18 Allergies Allergy/AdvReac Type Severity Reaction Status Date / Time Sulfa (Sulfonamide Allergy Mild Verified 07/31/18 09:07 Antibiotics) Review of Systems Review of Systems ROS Unobtainable: Unobtainable due to medical condition Patient History Medical History (Updated 12/13/21 @ 16:04 by Natalia Rodas DO) Back pain (~1973) Chicken pox (~1944) Colon polyps (~2011) Fractures Gas bloat syndrome (~1984) Headache (~1979) Hepatitis B (~1970) Herpes (~1998) Knee pain (~2013) Measles (~1944) Mumps (~1944) Seasonal allergies (~2011) Surgical History (Updated 07/28/18 @ 18:56 by Rekha Vargas) Anesthesia History of oral surgery (~1979) History of varicose vein stripping (~1977) Status post breast reduction (~1969) Status post colonoscopy Status post laminectomy (~1973) Family History (Updated 01/18/15 @ 00:00 by Conversion Provider) Father Heart disease Mother Mental health problem Social History marital status: number of children: 3 household members: spouse lives independently: Yes education level: master's degree occupational status: other (retired) Smoking Status: Former smoker alcohol intake: current (1 glass of wine daily) substance use type: does not use Smoking Status: Former smoker Exam Initial Vital Signs Initial Vital Signs: Vital Signs Pulse Rate 92 H 12/13/21 14:02 Respiratory Rate 18 12/13/21 14:02 Blood Pressure 181/78 H 12/13/21 14:02 Pulse Oximetry 95 12/13/21 14:02 GENERAL: Alert 81-year-old female awake and alert confused HEENT: Head normocephalic,, EOMI, pupils reactive, face symmetric, moist mucous membranes, NECK: C-collar in place no vertebral tenderness CARDIOVASCULAR: Regular rate and rhythm without murmurs, rubs or gallops. RESPIRATORY: Breath sounds equal bilaterally, no wheezes rales or rhonchi. No crepitations, no subcutaneous air, chest is nontender, no signs of trauma ABDOMEN: Soft, nontender. Normoactive bowel sounds all 4 quadrants. No guarding or rebound. BACK: Nontender vertebrae, no step-offs, no contusions PELVIS: stable. EXTREMITIES: Normal range of motion, no clubbing or edema. Right upper extremity: No chronic over step-offs no shoulder deformity peripheral radial pulse intact Left upper extremity: Within normal limits Right lower extremity: Within normal limits Left lower extremity:Within normal limits NEUROLOGICAL: [employer] Messenger strength equal bilaterally moving all extremities SKIN: Warm, dry, no petechiae, no rashes or lesions, no contusions or ecchymosis Scores GCS [place] coma scale eye opening: Spontaneous Valeriy coma scale verbal response: Words [place] coma scale motor response: Obey commands [place] coma scale total score: 13 Course Orders Ordered: ED Orders 12/13/21 14:05 CT cervical spine wo con Stat CT chest abd pel w con Stat CT head/brain wo con Stat 12/13/21 14:10 CBC Auto Diff [Complete Blood Count AUTO DIFF] Stat CMP [Comprehensive Metabolic Panel] Stat ETOH [Ethanol (ETOH)] Stat Lipase Stat Troponin & CK Cardiac Panel Stat 12/13/21 14:13 COVID19 -Nasal swab/Pre-Proc Stat 12/13/21 14:16 EKG-12 Lead Stat Discontinued Medications Acetaminophen (Acetaminophen 325 Mg Tablet) 975 mg PO NOW ONE Stop: 12/13/21 15:18 Last Admin: 12/13/21 15:26 Dose: 975 mg Documented by: PATI Nicardipine HCl 25 mg/ Sodium (Chloride) 250 mls @ 50 mls/hr IV TITRATE DARINEL; Protocol Last Titration: 12/13/21 16:15 Dose: 0 mg/hr, 0 mls/hr Documented by: Admin: 12/13/21 15:53 Dose: 5 mg/hr, 50 mls/hr Documented by: CORDELL Ondansetron HCl (Ondansetron 4 Mg/2 Ml Inj) 4 mg IV NOW ONE Stop: 12/13/21 15:40 Last Admin: 12/13/21 15:48 Dose: 4 mg Documented by: CORDELL Vital Signs Vital signs: Vital Signs - 8 hr 12/13/21 14:02 12/13/21 14:15 12/13/21 14:24 Temperature 97.7 F Pulse Rate 92 H 94 H Respiratory Rate 18 21 Blood Pressure 181/78 H Pulse Oximetry 95 93 12/13/21 14:30 12/13/21 14:31 12/13/21 14:45 Temperature Pulse Rate 98 H 92 H 88 Respiratory Rate 22 25 H 20 Blood Pressure 175/84 H 151/69 H Pulse Oximetry 92 93 92 12/13/21 15:00 12/13/21 15:17 12/13/21 15:30 Temperature Pulse Rate 92 H 86 98 H Respiratory Rate 25 H 18 20 Blood Pressure 164/93 H 178/98 H 165/100 H Pulse Oximetry 98 95 96 12/13/21 15:45 Temperature Pulse Rate 95 H Respiratory Rate 33 H Blood Pressure 182/99 H Pulse Oximetry 94 MDM - Fall Lab Data Result diagrams: 12/13/21 14:10 12/13/21 14:10 Labs: Lab Results 12/13/21 12/13/21 12/13/21 Range/Units 14:10 14:10 14:10 WBC 12.6 H (4.5-11.0) X10^3/uL RBC 4.36 (4.0-5.2) X10^6/uL Hgb 13.6 (12.0-16.0) g/dL Hct 40.7 (36-46) % MCV 93.2 (80-100) fL MCH 31.2 (26-34) PG MCHC 33.5 (30-36) % RDW 13.0 (11.6-14.8) % Plt Count 265 (150-400) X10^3/uL Neut % (Auto) 67.4 (50-75) % Lymph % (Auto) 23.0 L (25-40) % Hardy % (Auto) 7.8 (3-14) % Eos % (Auto) 1.5 L (2-4) % Baso % (Auto) 0.3 (0-2) % Neut # (Auto) 8500 H (1137-3534) /uL Lymph # (Auto) 2900 (0475-7895) /uL Hardy # (Auto) 1000 H (0-900) /uL Eos # (Auto) 200 (0-450) /uL Baso # (Auto) 0 (0-100) /uL Sodium 132 L (137-145) mmol/L Potassium 3.7 (3.4-5.1) mmol/L Chloride 103 (98-107) mmol/L Carbon Dioxide 27 (22-32) mmol/L BUN 15 (7-17) mg/dL Creatinine 0.74 (0.52-1.04) mg/dL Estimated GFR > 60.0 (>60) mL/min BUN/Creatinine Ratio 20.3 (6-22) Glucose 121 H (80-110) mg/dL Calcium 9.7 (8.4-10.2) mg/dL Total Bilirubin 0.6 (0.2-1.3) mg/dL AST 33 (14-36) IU/L ALT 25 (<35) IU/L Alkaline Phosphatase 79 (38-126) U/L Total Creatine Kinase 166 H (30-135) U/L CK-MB (CK-2) 4.57 H (<2.37) ng/mL CK-MB (CK-2) Rel Index 2.8 (1.5-5.0) % Troponin I < 0.012 (0.01-0.034) ng/mL Total Protein 7.4 (6.3-8.2) g/dL Albumin 4.0 (3.5-5.0) g/dL Globulin 3.4 (1.7-4.1) g/dL Albumin/Globulin Ratio 1.2 (1.0-2.8) Lipase (23-300) U/L Ethyl Alcohol ( - 10) mg/dL SARS-CoV-2 (PCR) (Negative) 12/13/21 12/13/21 Range/Units 14:10 14:13 WBC (4.5-11.0) X10^3/uL RBC (4.0-5.2) X10^6/uL Hgb (12.0-16.0) g/dL Hct (36-46) % MCV (80-100) fL MCH (26-34) PG MCHC (30-36) % RDW (11.6-14.8) % Plt Count (150-400) X10^3/uL Neut % (Auto) (50-75) % Lymph % (Auto) (25-40) % Hardy % (Auto) (3-14) % Eos % (Auto) (2-4) % Baso % (Auto) (0-2) % Neut # (Auto) (2443-7417) /uL Lymph # (Auto) (0055-5019) /uL Hardy # (Auto) (0-900) /uL Eos # (Auto) (0-450) /uL Baso # (Auto) (0-100) /uL Sodium (137-145) mmol/L Potassium (3.4-5.1) mmol/L Chloride (98-107) mmol/L Carbon Dioxide (22-32) mmol/L BUN (7-17) mg/dL Creatinine (0.52-1.04) mg/dL Estimated GFR (>60) mL/min BUN/Creatinine Ratio (6-22) Glucose (80-110) mg/dL Calcium (8.4-10.2) mg/dL Total Bilirubin (0.2-1.3) mg/dL AST (14-36) IU/L ALT (<35) IU/L Alkaline Phosphatase (38-126) U/L Total Creatine Kinase (30-135) U/L CK-MB (CK-2) (<2.37) ng/mL CK-MB (CK-2) Rel Index (1.5-5.0) % Troponin I (0.01-0.034) ng/mL Total Protein (6.3-8.2) g/dL Albumin (3.5-5.0) g/dL Globulin (1.7-4.1) g/dL Albumin/Globulin Ratio (1.0-2.8) Lipase 75 (23-300) U/L Ethyl Alcohol < 10 ( - 10) mg/dL SARS-CoV-2 (PCR) Negative (Negative) Imaging Data CT scan - head: Radiologist's Impression: Thin 5 mm subdural hematoma associated with adjacent subarachnoid hemorrhage in the left middle cranial fossa. No skull fracture 2. Atrophy and chronic ischemic change without midline shift. 3. Sphenoid and right ethmoid mucosal sinus disease CT - cervical spine: Radiologist's Impression: 1. No evidence of fracture or traumatic malalignment 2. Multilevel degenerative disc disease and arthropathy results in varying degrees of central and foraminal stenosis including moderate central and severe foraminal stenosis as above CT scan - chest: Radiologist's Impression: 1. Multiple displaced and nondisplaced rib fractures noted on the right and upper left chest associated with right upper lobe pulmonary contusions. No pneumothorax 2. Displaced right scapular fractures extend into the glenohumeral joint 3. 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 No thoracic spine fracture For. No evidence of solid organ injury, free air or free fluid in abdomen and pelvis ECG Data Interpretation: Sinus rhythm rate 89 AK interval 162 QRS [address] changes MDM Narrative Medical decision making narrative: Patient is modified trauma she is fairly confused with repetitive questioning. CT concurrent small subdural and subarachnoid hemorrhage. Not on any anti-platelet or anticoagulation medication. CT also confirms multiple rib fractures pulmonary contusion and right scapular fracture. who is now at bedside agrees that patient is full code would like her transferred to [facility], agrees with airlift [id number] Dr. Ceballos, trauma ED attending has been updated patient's symptoms test results and happily accepts. Patient remains confused but awake. She started vomiting, blood pressure is elevated initial is 181/78, then 151/69 with intracranial hemorrhage and vomiting she started on nicardipine drip, for blood pressure control. Critical Care Time Critical Care Time Critical Care Time: Yes Total Critical Care Time: 45 Attestation: The high probability of a clinically significant, sudden or life threatening deterioration of the [cardiovascular] system(s) required my full and direct attention, intervention and personal management. The aggregate critical care time was [45] minutes. This time is in addition to time spent performing reported procedures but includes the following: [x] Data Review and interpretation [x] Patient assessment and monitoring of vital signs [x] Documentation [x] Medication orders and management Discharge Plan Departure Patient Disposition: [facility] Clinical Impression: Acute subdural hematoma, Subarachnoid hemorrhage, Multiple rib fractures, Closed fracture of right scapula Prescriptions: No Action acyclovir 400 mg tablet 400 mg PO BID PRN (Reason: herpes simplex) Qty: 180 1RF trazodone 50 mg tablet 50 mg PO BEDTIME 0RF hydrocodone-acetaminophen 5-325 mg tablet 1 tab PO Q6H PRN (Reason: Pain (Scale Score 4-6)) 0RF Label Comments: TAKE 1 TABLET BY MOUTH EVERY 6 HOURS FOR MODERATE PAIN FOR UP TO 3 DAYS. alendronate 70 mg tablet 70 mg PO QWEEK 0RF Label Comments: TAKE 1 TABLET BY MOUTH EVERY 7 DAYS INSTRUCTED. metoprolol succinate [Toprol XL] 25 MG tablet extended release 24 hr 50 mg PO QDAY 0RF Referrals: Jenny Tee ARNP [Primary Care Provider] -
[2021-12-13 14:42] LABS: Troponin I < 0.012 ng/mL (0.01-0.034)
[2021-12-13 14:46] LABS: CKMB % Relative Index 2.8 % (1.5-5.0); Creatine Kinase MB 4.57 ng/mL (<2.37)
[2021-12-13 14:49] LABS: Ethanol (ETOH) < 10 mg/dL; Lipase 75 U/L (23-300)
--- NOTE | 2021-12-13 14:52 | PC.NURSE ---
Addendum entered by Mary Cameron R.N. 12/13/21 16:29: Flight team departed with Nicardipine drip infusing. Original Note: Provider cleared c-spine per radiologist, removed c-collar. Applied oxygen for support d/t pulmonary contusion and rib fractures. Patient is alert to self only, does not recall the fall, situation, place, date, or other pertinent information.
[2021-12-13 15:05] LABS: COVID19 -Nasal RAPID Negative (Negative)
[2021-12-13] MEDS: ACETAMINOPHEN 325 MG TABLET 975 MG PO (15:26)
[2021-12-13] MEDS: ONDANSETRON 4 MG/2 ML INJ IV (15:48)
[2021-12-13] MEDS: NICARDIPINE 25 MG in SODIUM CHLORIDE 0.9% 240 ML 50 ML IV (15:53)
--- NOTE | 2021-12-13 15:55 | PC.NURSE ---
Nicadipine dose set up on pump, double verified with Merry WEAVER.
== END 2021-12-13 16:15 | disposition short-term general hospital (02) ==
PROVIDERS: Emergency Provider Emergency Medicine; PCP Internal Medicine
DX: S06.5X9A Traumatic subdural hemorrhage with loss of consciousness of unspecified duration, initial encounter (principal); S06.6X9A Traumatic subarachnoid hemorrhage with loss of consciousness of unspecified duration, initial encounter; S22.43XA Multiple fractures of ribs, bilateral, initial encounter for closed fracture; S42.101A Fracture of unspecified part of scapula, right shoulder, initial encounter for closed fracture; S27.321A Contusion of lung, unilateral, initial encounter; I49.3 Ventricular premature depolarization; W10.9XXA Fall (on) (from) unspecified stairs and steps, initial encounter
CPT/HCPCS: 36415; 70450; 71260; 72125; 74177; 80053; 80320; 82550; 82553; 83690; 84484; 85025; 87635; 93005; 93010; 96365; 96375; 99285; 99291; 99292; C9803; G0390; J2405; Q9967

== ENCOUNTER → 2022-01-22 14:47 | Outpatient (CLI) | payer MEDICARE, OTHER, SELFPAY ==
--- NOTE | 2022-01-22 | DI.CT.S_ITS ---
PROCEDURE: CT HEAD/BRAIN WO CON INDICATIONS: Nontraumatic subarachnoid hemorrhage TECHNIQUE: Noncontrast 4.5 mm thick angled axial sections acquired from the foramen magnum to the vertex, with coronal and sagittal reformats. For radiation dose reduction, the following was used: automated exposure control, adjustment of mA and/or kV according to patient size. COMPARISON: [facility], CT, CT HEAD/BRAIN WO CON, 12/13/2021, 14:07. FINDINGS: Image quality: Excellent. CSF spaces: Basal cisterns are patent. No extra-axial fluid collections. The ventricles are symmetric in size and shape. Brain: The previously seen mild intracranial hemorrhage has resolved. No intracranial masses. There is cerebral volume loss for age, with resultant ventricular and sulcal prominence. There are periventricular and deep white matter chronic small vessel ischemic changes. There is intracranial internal carotid artery atherosclerosis. Skull and face: Calvarium and visualized facial bones appear intact, without suspicious lesions. Sinuses: There is mild to moderate mucosal thickening within the sphenoid sinuses Visualized sinuses and mastoids are otherwise clear. IMPRESSION: Resolution of the previously seen intracranial hemorrhage. Note is made of age-appropriate brain parenchymal volume loss and chronic small vessel ischemic changes. Interval improved paranasal sinus disease. Dictated by: Miguel Angel Hollingsworth M.D. on 01/22/2022 at 14:27 Approved by: Miguel Angel Hollingsworth M.D. on 01/22/2022 at 14:29
== END ==
PROVIDERS: Family Provider Internal Medicine; PCP Internal Medicine; Referring Provider Internal Medicine; Visit Provider Internal Medicine
DX: I60.9 Nontraumatic subarachnoid hemorrhage, unspecified
CPT/HCPCS: 70450

== ENCOUNTER → 2022-04-21 14:47 | Outpatient (CLI) | payer MEDICARE, OTHER, SELFPAY ==
--- NOTE | 2022-05-12 11:22 | PM.CARDMON.1 ---
[employer] Report Referral & Results Date Patient Seen: 04/21/22 Requesting provider: Jenny Tee Indication: Syncope Duration of monitoring (days): 14 Diary information: There were no patient events to review Data: Minimum heart rate identified was 50 beats per minute at 16:40 on 04/22/2022 Maximum sinus heart rate was 121 beats per minute at 13:20 on 04/29/2022 Maximum overall heart rate was 152 beats per minute at 00:00 on 04/24/2022 during a run of SVT Less than 1% of identified beats were supraventricular ectopic in origin which would classify them as rare Approximately 9.1% of identified beats were ventricular ectopic in origin which would classify them as frequent this included an 8 minute 26 second run of ventricular trigeminy and a 58.9 second run ventricular bigeminy There were 96 runs of SVT there were 4 beats were longer in duration with the fastest being 11 beat run at the above rate of 152 beats per minute and the longest lasting 15.9 seconds There were no pauses of 3 seconds or longer or episodes of atrial fibrillation identified on this study Impression: 14 day compliance monitor demonstrating rare brief runs of SVT as well as frequent PVCs as above No other more significant dysrhythmias identified and no obvious etiology for syncope identified on this study Clinical correlation suggested
== END ==
PROVIDERS: Family Provider Internal Medicine; PCP Internal Medicine; Referring Provider Internal Medicine; Visit Provider Internal Medicine
DX: R55 Syncope and collapse (principal)
CPT/HCPCS: 93246; 93248

== ENCOUNTER → 2022-05-11 11:35 | Outpatient (CLI) | payer MEDICARE, OTHER, SELFPAY ==
[2022-05-11 13:10] LABS: Magnesium 2.1 mg/dL (1.6-2.3)
[2022-05-11 14:03] LABS: Thyroid Stimulating Hormone 1.16 uIU/mL (0.47-4.68)
== END ==
PROVIDERS: Family Provider Internal Medicine; PCP Internal Medicine; Referring Provider Nurse Practitioner Family; Visit Provider Nurse Practitioner Family
DX: R55 Syncope and collapse (principal); R00.2 Palpitations; I49.3 Ventricular premature depolarization
CPT/HCPCS: 36415; 83735; 84443

== ENCOUNTER → 2022-05-25 12:34 | Outpatient (CLI) | payer MEDICARE, OTHER, SELFPAY ==
--- NOTE | 2022-05-25 12:58 | DI.ECHO.S_ITS ---
Interpretation Summary The patient was in sinus rhythm with heart rates between 63-84 bpm during the exam. The left ventricle is normal in size and wall thickness. The ejection fraction is estimated to be 55-60%. Diastolic parameters suggest a pseudonormalization pattern, consistent with probable elevated filling pressures. The right ventricle is borderline dilated. The left atrium is severely dilated. There is mild to moderate mitral regurgitation. There is mild tricuspid regurgitation. The right ventricular systolic pressure is estimated to be at least 23 mmHg based on an estimated right atrial pressure of 3 mm Hg. Compared to prior study on 10/20/2016, mitral regurgitation has progressed. Procedure: A two-dimensional transthoracic echocardiogram with color flow and Doppler was performed. The study quality was technically adequate. Comparison is made with the echocardiogram of 10/20/2016. The patient was in sinus rhythm with heart rates between 63-84 bpm during the exam. Left Ventricle: The left ventricle is normal in size and wall thickness. The ejection fraction is estimated to be 55-60%. Diastolic parameters suggest a pseudonormalization pattern, consistent with probable elevated filling pressures. Right Ventricle: The right ventricle is borderline dilated. The right ventricular systolic function is normal. Atria: The left atrium is severely dilated. Right atrial size is normal. There is no Doppler evidence for an interatrial shunt. Mitral Valve: There is mild mitral annular calcification. The mitral valve leaflets appear mildly thickened, but open well. There is mild to moderate mitral regurgitation. Aortic Valve: The aortic valve is trileaflet. The aortic valve opens well. There is no aortic valve stenosis. No aortic regurgitation is present. Tricuspid Valve: The tricuspid valve is normal in structure and function. There is mild tricuspid regurgitation. The right ventricular systolic pressure is estimated to be at least 23 mmHg based on an estimated right atrial pressure of 3 mm Hg. Pulmonic Valve: The pulmonic valve is not well visualized. There is no pulmonic valvular regurgitation. Great Vessels: The aortic root is normal size. The dimensions of the ascending aorta are normal. The IVC is of normal diameter and collapses greater than 50% with a sniff. This suggests a low right atrial pressure of 3 mm Hg. Pericardium/ Pleura There is no pericardial effusion. There is no pleural effusion. MMode/2D Measurements & Calculations LVIDd: 4.7 cm LVOT diam: 2.0 cm LVIDs: 3.0 cm Ao root diam: 2.8 cm FS: 35.7 % asc Aorta Diam: 2.9 cm IVSd: 0.81 cm LVPWd: 0.87 cm LV sofia. diameter/BSA (cm/m^2): 2.6 LV sys. diameter/BSA (cm/m^2): 1.7 LA A2 area: 25.1 cm2 RA long axis: 5.2 cm LA A4 area: 23.2 cm2 RA area: 17.5 cm2 LA length (vol): 5.5 cm RA vol: 50.1 ml LA vol: 89.7 ml RA : 27.7 ml/m2 LA vol index: 49.6 ml/m2 IVC diam: 0.71 cm RVD1 (basal): 4.1 cm RVD2 (mid): 3.1 cm TAPSE: 2.1 cm Doppler Measurements & Calculations Ao V2 max: 109.7 cm/sec LVOT Max Ronaldo: 76.3 cm/sec Ao V2 mean: 77.7 cm/sec LV V1 max P.3 mmHg Ao max P.8 mmHg LV V1 VTI: 17.2 cm Ao mean P.7 mmHg ANUP(I,D): 2.2 cm2 Ao V2 VTI: 25.2 cm ANUP(V,D): 2.2 cm2 sev ratio: 0.68 ANUP indexed to BSA (cm^2/m^2): 1.2 MV E max ronaldo: 60.0 cm/sec TR max ronaldo: 224.8 cm/sec MV A max ronaldo: 60.4 cm/sec TR max P.2 mmHg MV E/A: 0.99 PA V2 max: 99.9 cm/sec Med Peak E' Ronaldo: 4.4 cm/sec PA V2 mean: 69.6 cm/sec E/E' med: 13.6 PA mean P.2 mmHg Lat Peak E' Ronaldo: 7.8 cm/sec PA pr(Accel): 44.7 mmHg E/E' lat: 7.7 E/e' average: 10.6 MV dec time: 0.32 sec SV(LVOT): 54.4 ml Reading Physician:PM
== END ==
PROVIDERS: Family Provider Internal Medicine; PCP Internal Medicine; Referring Provider Internal Medicine; Visit Provider Internal Medicine
DX: I08.1 Rheumatic disorders of both mitral and tricuspid valves (principal); R55 Syncope and collapse
CPT/HCPCS: 93306

== ENCOUNTER → 2022-06-03 09:48 | Outpatient (CLI) | payer MEDICARE, OTHER, SELFPAY ==
[2022-06-03 10:44] LABS: COVID19 -Nasal RAPID Negative (Negative)
--- NOTE | 2022-06-03 18:49 | DI.NM.S_ITS ---
DATE OF SERVICE: 06/03/2022 PROCEDURE PERFORMED: Exercise stress test. INDICATION: Syncope, palpitation, PVCs. RADIOPHARMACEUTICAL: 25.1 millicurie technetium-99m Myoview IV was injected at stress and 11.8 millicurie technetium-99m Myoview IV was injected at rest. CARDIAC STRESS: The patient underwent exercise perfusion study under the supervision of an attending staff. She walked on Chilo protocol for 4 minutes and 46 seconds, achieved 94 percent of target heart rate and normal blood pressure response. Peak blood pressure 152/72 mmHg. Achieved seven METs of workload. HECTOR -6 percent. Baseline rhythm was sinus with frequent isolated PVCs, which continued to happen during early part of exercise. However, during peak exercise, PVCs got suppressed and reappeared in the recovery. No ventricular tachycardia seen. The patient did not have chest pain. Had some shortness of breath. Achieved seven METs of workload. RAW DATA: There was breast shadow seen. GATED STUDY: Stress LV ejection fraction 71 percent without any obvious wall motion abnormalities. Resting end-diastolic volume 71 mL. TID reported to be 1.36. However, up on visual evaluation, I do not see any significant transient ischemic dilatation. Lung/heart ratio 0.37, which is within normal limits. MYOCARDIAL PERFUSION SCAN: Stress supine, resting supine and stress prone images were compared to each other. Stress supine and resting supine images reveal small size, mildly decreased perfusion of mid to distal anterior wall, anteroapex, which got completely resolved during stress prone images, suggestive of breast tissue attenuation artifact. CONCLUSION: I will call this study a normal myocardial perfusion study with evidence of breast tissue attenuation artifact, which got completely resolved during stress prone images. Fair exercise tolerance. HECTOR -6 percent. The patient achieved 7 metabolic equivalents of workload. Normal hemodynamic response. Baseline sided sinus rhythm with frequent monomorphic isolated premature ventricular contractions, which got suppressed during peak exercise and reappeared in the recovery. No ventricular tachycardia. On visual inspection, no significant transient ischemic dilatation. The stress left ventricular ejection fraction 71 percent. Lung/heart ratio within normal limits. As far as perfusion scan is concerned, this is a low-risk myocardial perfusion scan. Maranda Pelayo - Hay/iris doc#: [id number]/job#: [id number] dd: 06/03/2022 17:30:00 dt: 06/03/2022 18:13:00 DICTATING MD/COPIES TO: Prisca Silva MD COPIES MNE: LOLA;
== END ==
PROVIDERS: Family Provider Internal Medicine; PCP Internal Medicine; Referring Provider Nurse Practitioner Family; Visit Provider Nurse Practitioner Family
DX: R00.2 Palpitations (principal); I49.3 Ventricular premature depolarization; R55 Syncope and collapse; Z20.822 Contact with and (suspected) exposure to COVID-19
CPT/HCPCS: 78452; 87635; 93017; A9502

== ENCOUNTER → 2022-06-10 08:44 | Outpatient (CLI) | payer MEDICARE, OTHER, SELFPAY ==
--- NOTE | 2022-06-10 | DI.MRI.S_ITS ---
PROCEDURE: MR STROKE Pre- and post-contrast brain MRI, non-contrast brain MR angiogram, pre- and postcontrast neck MR angiogram INDICATIONS: Paresthesia of skin TECHNIQUE: Brain: Noncontrast axial T1 spin echo, axial T2 fast spin echo, sagittal and axial FLAIR, coronal T2 fast spin echo, axial gradient echo, axial diffusion and ADC through the brain. After the administration of contrast, axial 3D VIBE of the cranial vasculature and brain. Brain MRA: Non-contrast 3-D time of flight MR angiogram, with multiple avnjebk-eptivozuh-kmmzmrbnva (MIP) reformats performed. Neck MRA: Axial and sagittal TruFISP through the neck. Coronal dynamic MR angiogram during administration of contrast in the arterial and venous phases, with 3-dimenstional ccqlleo-mgvpfrlad-szlqixkaom (MIP) reformats constructed from subtraction images. COMPARISON: None. FINDINGS: Image quality: Excellent. BRAIN: No restricted diffusion to indicate recent ischemia. The major intracranial vascular flow-related signal voids are maintained. No abnormal extra-axial fluid collection, mass effect, or midline shift. Mild chronic microvascular ischemic changes. Moderate global cerebral volume loss with passive expansion of the ventricular system and extra-axial spaces. The basilar cisterns and ventricles are patent. No unexpected intracranial susceptibility or enhancement. BRAIN MR ANGIOGRAM: Anterior circulation: Intracranial internal carotid arteries are normal in size and enhancement. The flow within the paired anterior cerebral arteries is normal and symmetric. The flow within the middle cerebral arteries is normal and symmetric. The anterior communicating artery is seen. No stenoses, occlusions, or aneurysms. Posterior circulation: The visualized portions of the vertebral arteries demonstrate normal caliber, and join to form a normal appearing basilar artery. Normal flow-related signal within the cerebellar arteries. The flow within the posterior cerebral arteries appears normal and symmetric. No stenoses, occlusions, or aneurysms. NECK MR ANGIOGRAM: Carotids: Great vessels demonstrate a conventional anatomy as they arise from the aortic arch. The origins of the common carotid arteries appear patent. The calibers and courses of both common carotid arteries are normal. The bifurcation regions appear normal bilaterally. The internal carotid arteries demonstrate normal course and caliber. Posterior circulation: Focal short segment highly diminished flow-related signal at the origin of the left vertebral artery. Normal flow-related signal in the vertebral arteries otherwise. Miscellaneous: Subclavian arteries appear patent. Pre-contrast images through the neck show no soft tissue abnormalities. IMPRESSION: BRAIN MRI: No acute infarct or other acute intracranial process. Moderate global cerebral volume loss and mild chronic microvascular ischemic changes. BRAIN MR ANGIOGRAM: No flow-limiting stenosis of the major intracranial arterial circulation. NECK MR ANGIOGRAM: Focal short segment decrease in flow-related signal at the left vertebral artery origin. Findings likely represent at least moderate origin stenosis. CT angiogram will provide more detailed anatomic evaluation. Dictated by: Eris Raza M.D. on 06/10/2022 at 13:13 Approved by: Eris Raza M.D. on 06/10/2022 at 13:17
== END ==
PROVIDERS: Family Provider Internal Medicine; PCP Internal Medicine; Referring Provider Internal Medicine; Visit Provider Internal Medicine
DX: R20.2 Paresthesia of skin (principal); R55 Syncope and collapse; R42 Dizziness and giddiness; H53.8 Other visual disturbances; S06.5X9D Traumatic subdural hemorrhage with loss of consciousness of unspecified duration, subsequent encounter
CPT/HCPCS: 70548; 70553

== ENCOUNTER 2022-06-21 13:00 | Outpatient (RCR) | payer MEDICARE, OTHER, SELFPAY ==
--- NOTE | 2022-06-07 14:26 | PT.OIE ---
Current Diagnoses Unspecified lack of coordination (06/07/22) Dizziness and giddiness (06/07/22) Past Medical History (Last Updated 07/28/18 @ 18:56 by Rekha Vargas) Back pain (~1973) Chicken pox (~1944) Colon polyps (~2011) Fractures Gas bloat syndrome (~1984) Headache (~1979) Hepatitis B (~1970) Herpes (~1998) Knee pain (~2013) Measles (~194) Mumps (~1944) Seasonal allergies (~2011) Past Surgical History (Last Updated 07/28/18 @ 18:56 by Rekha Vargas) Anesthesia History of oral surgery (~1979) History of varicose vein stripping (~1977) Status post breast reduction (~1969) Status post colonoscopy Status post laminectomy (~1973) Visit Care Team Role Provider Type TANA Stock Attending Provider Advanced Ent Surgeon Family Provider Primary Care Provider Referring Provider Specialty: [facility] Practice Address: [address] [place] [address], [facility] Email: [email or web address] Initial Evaluation PT-OP-A Visit Information Start: 06/01/22 15:06 Freq: Status: Active Protocol: Document 06/07/22 12:54 AMB (Rec: 06/07/22 13:14 AMB [id number]) Out-Patient Physical Therapy Visit Information Visit Information Visit Type Initial Evaluation Visit Start Time 13:00 Visit Stop Time 13:45 Total Visit Minutes 45 PT-OP-B Current Condition Start: 06/01/22 15:06 Freq: Status: Active Protocol: Document 06/07/22 12:54 AMB (Rec: 06/07/22 13:14 AMB [id number]) Current Condition History of Current Condition Onset Date December 2021 Current Complaints dizziness History of Current Condition Subarachnoid hemorrhage, stayed at [facility] x 5 days/ s/p fall down stairs. Has been dizzy since. Lying down at night increases dizziness. The room spins 30 seconds. Lying down on the right side is worse to the left. Neck pain- arthritis. Passed out x2. Did have orthostatic hypotension. Getting worked up for fainting, dizziness is different, more spinning. Also has a feeling of walking on cobblestones when first getting up. Denies double vision, hearing/vision changes , numbness/tingling, ear pressure pain. Personal Factors Other Personal Factors That May Effect Osteoporosis, HTN, Therapy/Recovery PT-OP-C Subjective Start: 06/01/22 15:06 Freq: Status: Active Protocol: Document 06/07/22 13:59 AMB (Rec: 06/07/22 14:17 AMB [id number]) Patient Questionnaires Dizziness Handicap Inventory DHI Score 32 DHI Functional Impairment 20 to 39% Impaired (Score 20- 39) PT-OP-O Vestibular Start: 06/01/22 15:06 Freq: Status: Active Protocol: Document 06/07/22 13:59 AMB (Rec: 06/07/22 14:17 AMB [id number]) Vestibular Assessment Positional Testing Lionel-Hallpike Positive Left,Negative Right, Upbeating,< 60 Seconds Rolling Test Negative Left,Negative Right PT-OP-T Assessment and Plan Start: 06/01/22 15:06 Freq: Status: Active Protocol: Document 06/07/22 13:59 AMB (Rec: 06/07/22 14:17 AMB [id number]) Physical Therapy Assessment Goals Two Impairment Dizziness Short Term Goal (STG) Pat will not have dizziness with lying down in bed. STG Duration 3 weeks Alf Goal (LTG) Pat will stand up from a chair and walk across the room without a feeling of being off balance. LTG Duration 6 weeks One Impairment positive Joe Short Term Goal (STG) Pat will have no dizziness or nystagmus with Joe maneuver. STG Duration 3 weeks LTG Duration 6 weeks Assessment Summary Assessment Pat attends physical therapy with signs and symptoms consistent with BPPV. She did show brief torsional nystagmus with L Lion[place]-Hallpike, none with right. She did have a subarachnoid hemorrhage in December, after passing out and falling down the stairs, and that is when she thinks symptoms started. She also notes orthostatic hypotension and a feeling of walking on cobblestones when she first stands up, denies neuropathy. She will benefit from PT to treat her BPPV and then further evaluate balance. Physical Therapy Plan Frequency and Duration Frequency of Treatment 2x/Week Duration of Treatment 6 weeks Plan of Care Start Date 06/07/22 Plan of Care End Date 07/12/22 Therapeutic Interventions Therapeutic Interventions Balance Training,Home Exercise Program,Neuromuscular Re- education,Self-Care/Home Management,Therapeutic Activities,Therapeutic Exercises,Vestibular Rehabilitation Next Visit Focus/Plan Next Note Type Treatment Note Next Visit Plan Chidi Tinajero- when clear, assess balance- foot function re pt describing walking on cobblestones
--- NOTE | 2022-06-07 14:26 | PT.OPPOC ---
Physical, Occupational & Speech Therapy At [facility] Current Diagnoses Unspecified lack of coordination (06/07/22) Dizziness and giddiness (06/07/22) Visit Care Team Role Provider Type TANA Stock Attending Provider Advanced Gin Inspector Family Provider Primary Care Provider Referring Provider Specialty: Family Practice Address: [address] [place] [address], [facility] Email: [email or web address] Plan Of Care PT-OP-T Assessment and Plan Start: 06/01/22 15:06 Freq: Status: Active Protocol: Document 06/07/22 13:59 AMB (Rec: 06/07/22 14:17 AMB [id number]) Physical Therapy Assessment Goals Two Impairment Dizziness Short Term Goal (STG) Pat will not have dizziness with lying down in bed. STG Duration 3 weeks Usp Goal (LTG) Pat will stand up from a chair and walk across the room without a feeling of being off balance. LTG Duration 6 weeks One Impairment positive Joe Short Term Goal (STG) Pat will have no dizziness or nystagmus with Joe maneuver. STG Duration 3 weeks LTG Duration 6 weeks Assessment Summary Assessment Pat attends physical therapy with signs and symptoms consistent with BPPV. She did show brief torsional nystagmus with L [place]-Hallpike, none with right. She did have a subarachnoid hemorrhage in December, after passing out and falling down the stairs, and that is when she thinks symptoms started. She also notes orthostatic hypotension and a feeling of walking on cobblestones when she first stands up, denies neuropathy. She will benefit from PT to treat her BPPV and then further evaluate balance. Physical Therapy Plan Frequency and Duration Frequency of Treatment 2x/Week Duration of Treatment 6 weeks Plan of Care Start Date 06/07/22 Plan of Care End Date 07/12/22 Therapeutic Interventions Therapeutic Interventions Balance Training,Home Exercise Program,Neuromuscular Re- education,Self-Care/Home Management,Therapeutic Activities,Therapeutic Exercises,Vestibular Rehabilitation Next Visit Focus/Plan Next Note Type Treatment Note Next Visit Plan Recheck L DixHallpike- when clear, assess balance- foot function re pt describing walking on cobblestones Plan of Care Dates Plan of Care Start Date 06/07/22 Plan of Care End Date 07/12/22 Electronically Signed by: Lesly Ramos, DYLON 06/07/22 [id number] If you are in agreement with this Plan of Care, please return a signed and dated copy. I have reviewed this Plan of Care and certify that the skilled therapy services above are required to meet the patient?s needs. Physician Signature Date Printed Name and Credentials Clinical Instructor Signature Printed Name and Credentials
--- NOTE | 2022-06-11 13:46 | PT.OTN ---
Current Diagnoses Unspecified lack of coordination (06/11/22) Dizziness and giddiness (06/11/22) Physical Therapy Treatment Note PT-OP-A Visit Information Start: 06/01/22 15:06 Freq: Status: Active Protocol: Document 06/11/22 13:28 AMB (Rec: 06/11/22 13:40 AMB [id number]) Out-Patient Physical Therapy Visit Information Visit Information Visit Type Treatment Note Visit Start Time 13:00 Visit Stop Time 13:45 Total Visit Minutes 45 PT-OP-B Current Condition Start: 06/01/22 15:06 Freq: Status: Active Protocol: Document 06/07/22 12:54 AMB (Rec: 06/07/22 13:14 AMB [id number]) Current Condition History of Current Condition Onset Date December 2021 Current Complaints dizziness History of Current Condition Subarachnoid hemhorrhage, stayed at [facility] x 5 days/ s/p fall down stairs. Has been dizzy since. Lying down at night increases dizziness. The room spins 30 seconds. Lying down on the right side is worse to the left. Neck pain- arthritis. Passed out x2. Did have orthostatic hypotension. Getting worked up for fainting, dizziness is different, more spinning. Also has a feeling of walking on cobblestones when first getting up. Denies double vision, hearing/vision changes , numbness/tingling, ear pressure pain. Personal Factors Other Personal Factors That May Effect Osteoporosis, HTN, Therapy/Recovery PT-OP-C Subjective Start: 06/01/22 15:06 Freq: Status: Active Protocol: Document 06/11/22 13:28 AMB (Rec: 06/11/22 13:40 AMB [id number]) OP-PT Subjective Patient Comments Patient Reported Progress Same PT-OP-O Vestibular Start: 06/01/22 15:06 Freq: Status: Active Protocol: Document 06/07/22 13:59 AMB (Rec: 06/07/22 14:17 AMB [id number]) Vestibular Assessment Positional Testing [place]-Hallpike Positive Left,Negative Right, Upbeating,< 60 Seconds Rolling Test Negative Left,Negative Right PT-OP-Q Treatments Start: 06/01/22 15:06 Freq: Status: Active Protocol: Document 06/11/22 13:28 AMB (Rec: 06/11/22 13:40 AMB [id number]) Canalithic Repositioning BPPV Treatment Joe Affected Canal(s) L Reps x2 PT-OP-T Assessment and Plan Start: 06/01/22 15:06 Freq: Status: Active Protocol: Document 06/11/22 13:28 AMB (Rec: 06/11/22 13:40 AMB [id number]) Physical Therapy Assessment Goals Two Impairment Dizziness Short Term Goal (STG) Pat will not have dizziness with lying down in bed. STG Duration 3 weeks Criminal Researcher Goal (LTG) Pat will stand up from a chair and walk across the room without a feeling of being off balance. LTG Duration 6 weeks One Impairment positive Joe Short Term Goal (STG) Pat will have no dizziness or nystagmus with Joe maneuver. STG Duration 3 weeks LTG Duration 6 weeks Assessment Summary Assessment Pt with positive L Joe, improved with second repetition. Did have difficulty with NBOS EC no falls but increased ankle sway . Will recheck balance when [place]-Hallpike clear.
--- NOTE | 2022-06-14 15:56 | PT.OTN ---
Current Diagnoses Unspecified lack of coordination (06/14/22) Dizziness and giddiness (06/14/22) Physical Therapy Treatment Note PT-OP-A Visit Information Start: 06/01/22 15:06 Freq: Status: Active Protocol: Document 06/14/22 09:47 AMB (Rec: 06/14/22 11:00 AMB [id number]) Out-Patient Physical Therapy Visit Information Visit Information Visit Type Treatment Note Visit Start Time 09:45 Visit Stop Time 10:30 Total Visit Minutes 45 Visit Number 3 PT-OP-B Current Condition Start: 06/01/22 15:06 Freq: Status: Active Protocol: Document 06/07/22 12:54 AMB (Rec: 06/07/22 13:14 AMB [id number]) Current Condition History of Current Condition Onset Date December 2021 Current Complaints dizziness History of Current Condition Subarachnoid hemhorrhage, stayed at [facility] x 5 days/ s/p fall down stairs. Has been dizzy since. Lying down at night increases dizziness. The room spins 30 seconds. Lying down on the right side is worse to the left. Neck pain- arthritis. Passed out x2. Did have orthostatic hypotension. Getting worked up for fainting, dizziness is different, more spinning. Also has a feeling of walking on cobblestones when first getting up. Denies double vision, hearing/vision changes , numbness/tingling, ear pressure pain. Personal Factors Other Personal Factors That May Effect Osteoporosis, HTN, Therapy/Recovery PT-OP-C Subjective Start: 06/01/22 15:06 Freq: Status: Active Protocol: Document 06/14/22 09:47 AMB (Rec: 06/14/22 11:00 AMB [id number]) OP-PT Subjective Patient Comments Patient Comments Dizziness is gone PT-OP-O Vestibular Start: 06/01/22 15:06 Freq: Status: Active Protocol: Document 06/07/22 13:59 AMB (Rec: 06/07/22 14:17 AMB [id number]) Vestibular Assessment Positional Testing [place]-Hallpike Positive Left,Negative Right, Upbeating,< 60 Seconds Rolling Test Negative Left,Negative Right PT-OP-Q Treatments Start: 06/01/22 15:06 Freq: Status: Active Protocol: Document 06/14/22 09:47 AMB (Rec: 06/14/22 11:00 AMB [id number]) Neuro Re-Education Treatment Balance Activities walking with head turns Comments challenging horizontal and vertical Stride stance Details HT NBOS Details eyes closed Vestibular Rehabilitation VOR Retraining Details NBOS Background plain Distance From Target 5' Comments 100 bpm Other Activities 1 Details recheck L and R Lionel-Hallpike Comments negative bilaterally PT-OP-T Assessment and Plan Start: 06/01/22 15:06 Freq: Status: Active Protocol: Document 06/14/22 09:47 AMB (Rec: 06/14/22 11:00 AMB [id number]) Physical Therapy Assessment Goals Two Impairment Dizziness Short Term Goal (STG) Pat will not have dizziness with lying down in bed. STG Duration 3 weeks Half-Way Goal (LTG) Pat will stand up from a chair and walk across the room without a feeling of being off balance. LTG Duration 6 weeks One Impairment positive Joe Short Term Goal (STG) Pat will have no dizziness or nystagmus with Joe maneuver. STG Duration 3 weeks LTG Duration 6 weeks Assessment Summary Assessment DGI: . Increased difficulty with head turns, 180 degree turn and stairs. Recheck L [place] Hallpike and was negative. Pt continues to have difficulty when first moving Physical Therapy Plan Next Visit Focus/Plan Next Note Type Treatment Note Next Visit Plan follow up on VOR
--- NOTE | 2022-06-21 13:43 | PT.OTN ---
Current Diagnoses Unspecified lack of coordination (06/21/22) Dizziness and giddiness (06/21/22) Physical Therapy Treatment Note PT-OP-A Visit Information Start: 06/01/22 15:06 Freq: Status: Active Protocol: Document 06/21/22 13:11 AMB (Rec: 06/21/22 13:42 AMB [id number]) Out-Patient Physical Therapy Visit Information Visit Information Visit Type Treatment Note Visit Start Time 13:00 Visit Stop Time 13:45 Total Visit Minutes 45 Visit Number 4 PT-OP-B Current Condition Start: 06/01/22 15:06 Freq: Status: Active Protocol: Document 06/07/22 12:54 AMB (Rec: 06/07/22 13:14 AMB [id number]) Current Condition History of Current Condition Onset Date December 2021 Current Complaints dizziness History of Current Condition Subarachnoid hemhorrhage, stayed at [facility] x 5 days/ s/p fall down stairs. Has been dizzy since. Lying down at night increases dizziness. The room spins 30 seconds. Lying down on the right side is worse to the left. Neck pain- arthritis. Passed out x2. Did have orthostatic hypotension. Getting worked up for fainting, dizziness is different, more spinning. Also has a feeling of walking on cobblestones when first getting up. Denies double vision, hearing/vision changes , numbness/tingling, ear pressure pain. Personal Factors Other Personal Factors That May Effect Osteoporosis, HTN, Therapy/Recovery PT-OP-C Subjective Start: 06/01/22 15:06 Freq: Status: Active Protocol: Document 06/21/22 13:11 AMB (Rec: 06/21/22 13:42 AMB [id number]) OP-PT Subjective Patient Comments Patient Comments Pt continues to no spinning PT-OP-O Vestibular Start: 06/01/22 15:06 Freq: Status: Active Protocol: Document 06/07/22 13:59 AMB (Rec: 06/07/22 14:17 AMB [id number]) Vestibular Assessment Positional Testing [place]-Hallpike Positive Left,Negative Right, Upbeating,< 60 Seconds Rolling Test Negative Left,Negative Right PT-OP-Q Treatments Start: 06/01/22 15:06 Freq: Status: Active Protocol: Document 06/21/22 13:11 AMB (Rec: 06/21/22 13:42 AMB [id number]) Neuro Re-Education Treatment Balance Activities sit to stand Reps/Duration 5 single leg stance Details challenging Stride stance Details HT, EC NBOS Details eyes closed PT-OP-T Assessment and Plan Start: 06/01/22 15:06 Freq: Status: Active Protocol: Document 06/21/22 13:11 AMB (Rec: 06/21/22 13:42 [facility] [id number]) Physical Therapy Assessment Goals Two Impairment Dizziness Short Term Goal (STG) Pat will not have dizziness with lying down in bed. STG Duration MET Skilled Nursing Goal (LTG) Pat will stand up from a chair and walk across the room without a feeling of being off balance. LTG Duration MET One Impairment positive Joe Short Term Goal (STG) Pat will have no dizziness or nystagmus with Joe maneuver. STG Duration MET LTG Duration 6 weeks Assessment Summary Assessment Pt got out old balance HEP, but would like to go over that . Overall feels better, doing VOR exercises, interested in single leg stance, given modified tandem as HEP, as SLS challenging at this point. Pt feels ready for discharge.
== END 2022-06-24 09:17 ==
LOC: PHYS 13:00
PROVIDERS: Family Provider Internal Medicine; PCP Internal Medicine; Referring Provider Internal Medicine; Visit Provider Internal Medicine
DX: R42 Dizziness and giddiness (principal); R27.9 Unspecified lack of coordination
CPT/HCPCS: 95992; 97112; 97161

== ENCOUNTER → 2023-01-18 | Outpatient (CLI) | payer MEDICARE, OTHER, SELFPAY ==
--- NOTE | 2023-01-18 | DI.RAD.S_ITS ---
Bone Density Report Name: VIOLETTE BRUNO Age: 82 Sex: Female Ethnicity: White Date of : 1940 Indication: osteopenia; monitoring treatment; Referring Provider: MAHI VILLASEÑOR Study: Bone densitometry was performed. Exam Date: January 18, 2023 Accession number: [id number] Bone Density: Region BMD T-score Z-score Classification AP Spine(L1-L4) 1.014 -0.3 2.5 Normal Femoral Neck (Left) 0.648 -1.8 0.6 Osteopenia Total Hip (Left) 0.753 -1.6 0.7 Osteopenia Femoral Neck (Right) 0.769 -0.7 1.7 Normal Total Hip (Right) 0.820 -1.0 1.2 Normal Total Hip Mean 0.786 -1.3 1.0 Osteopenia World Health Organization criteria for BMD impression classify patients as: Normal (T-score at or above -1.0), Osteopenia (T-score between -1.0 and -2.5), or Osteoporosis (T-score at or below -2.5). 10-year Fracture Risk: FRAX not reported because: Treated for osteoporosis Previous Exams: -- Region Exam Age BMD T-score BMD Change BMD Change Date g/cm2 vs Baseline vs Previous -- AP Spine (L1-L4) 01/18/2023 82 1.014 -0.3 0.002 (0.2%)# 0.002 (0.2%)# 11/27/2018 78 1.012 -0.3 Total Hip(Left) 01/18/2023 82 0.753 -1.6 0.044 (6.2%)# 0.044 (6.2%)# 11/27/2018 78 0.709 -1.9 Total Hip(Right) 01/18/2023 82 0.820 -1.0 0.056 (7.3%)# 0.056 (7.3%)# 11/27/2018 78 0.764 -1.5 -- *Denotes significance at 95% confidence level, LSC for AP Spine = 0.022 g/cm2, LSC for Total Hip = 0.027 g/cm2 # Denotes dissimilar scan types or analysis methods Impression: The patient has low bone mass, based on the Left Femoral Neck T-score. No significant bone loss was observed. Discussion: PATIENT UNDER TREATMENT WITH NO SIGNIFICANT BMD LOSS SINCE LAST EXAM. In an untreated patient, BMD typically declines with age. A lack of decline or gain is usually a sign that treatment is efficacious and fracture risk is reduced. It is important to ask patients whether they are taking their medications and to encourage continued and appropriate compliance with their osteoporosis therapies to reduce fracture risk. It is also important to review their risk factors and encourage appropriate calcium and vitamin D intakes, exercise, fall prevention and other lifestyle measures. Follow-Up: Consider a repeat BMD and Vertebral Fracture Assessment (VFA) exam in 2 years or sooner if medically necessary, to reassess this patient's status. Reported by: JAROD CRUZ M.D. on 01/18/2023 12:43:00 PM.
== END ==
PROVIDERS: Family Provider Internal Medicine; PCP Internal Medicine; Referring Provider Internal Medicine Endocrinology, Diabetes & Metabolism; Visit Provider Internal Medicine Endocrinology, Diabetes & Metabolism
DX: M81.0 Age-related osteoporosis without current pathological fracture (principal); Z79.83 Long term (current) use of bisphosphonates; Z92.23 Personal history of estrogen therapy
CPT/HCPCS: 77080

== ENCOUNTER → 2023-06-01 11:28 | Outpatient (RCR) | payer MEDICARE, OTHER, SELFPAY ==
--- NOTE | 2022-01-05 16:00 | PT.OIE ---
Current Diagnoses Pain in right shoulder (01/05/22) Weakness (01/05/22) Nondisplaced fracture of coracoid process, right shoulder, subsequent encounter for fracture with routine healing (01/05/22) Past Medical History (Last Updated 07/28/18 @ 18:56 by Rekha Vargas) Back pain (~1973) Chicken pox (~194) Colon polyps (~2011) Fractures Gas bloat syndrome (~1984) Headache (~1979) Hepatitis B (~1970) Herpes (~1998) History of oral surgery (~1979) History of varicose vein stripping (~1977) Knee pain (~2013) Measles (~194) Mumps (~1944) Seasonal allergies (~2011) Past Surgical History (Last Updated 07/28/18 @ 18:56 by Rekha Vargas) Anesthesia History of oral surgery (~1979) History of varicose vein stripping (~1977) Status post breast reduction (~1969) Status post colonoscopy Status post laminectomy (~1973) Visit Care Team Role Provider Type TANA Stock Family Provider 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 Primary Care Provider Specialty: Family Practice Address: [address] [place] [address], [facility] Email: [email or web address] Ofelia Rivera MD Attending Provider Physician Referring Provider Specialty: Orthopedics Address: [address] [place] [address], [id number] Email: [email or web address] Initial Evaluation PT-OP-A Visit Information Start: 01/04/22 08:36 Freq: Status: Active Protocol: Document 01/05/22 12:58 SAK (Rec: 01/05/22 13:41 SAK [id number]) Out-Patient Physical Therapy Visit Information Visit Information Visit Type Initial Evaluation Visit Start Time 13:00 Visit Stop Time 13:50 Total Visit Minutes 50 Visit Number 1 Evaluation Information Evaluation Date 01/05/22 PT-OP-B Current Condition Start: 01/04/22 08:36 Freq: Status: Active Protocol: Document 01/05/22 12:58 SAK (Rec: 01/05/22 13:41 SAK [id number]) Current Condition History of Current Condition Onset Date 12/13/21 Current Complaints right shoulder pain and loss of function History of Current Condition fell and fell onto right UE while going down carpeted stairs, fractured coracoid process. Was unconscious for 16 hours; had brain blead as well as 6 fractured ribs, was at [facility] x 5 days, left . 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 Now has grab bars in bathroom, bannister up to bedroom, goes down backward. Has been sleeping in recliner. Has been doing pendulum exercises; instructed by physician. Has had nausea and dizziness, gradually getting better. Also reports floaters in visual field. Agreeable to go to doctor to discuss these persistent symptoms. Scheduled for CT of head . Patient is left handed. Fractured left arm 3 years ago with full recovery. Prior Treatments and Tests Sees TANA Stock tomorrow. Not using ice or heat. Takes Tylenol (2) at night. Treatment Goals Patient/Caregiver Goals Regain full active use of right UE Prior Functional Status Baseline Function- ADL's Independent Baseline Function- Mobility Independent Baseline Function- Recreation/Hobbies no difficulties Current Functional Impairments (Reported) Functional Limitations- ADL's unable to use right UE Functional Limitations- Mobility/Gait sleeps in bed due to inability to use right UE in and out of bed Functional Limitations- Recreation/ unable using right UE Hobbies PT-OP-C Subjective Start: 01/04/22 08:36 Freq: Status: Active Protocol: Document 01/05/22 12:58 [facility] (Rec: 01/06/22 10:43 [facility] [id number]) Patient Questionnaires Quick Dash- Upper Extremity Quick Dash UE Score 68 OP-PT Pain Assessment Pain Assessment Grid Paper Pain Assessment Grid Completed Yes Location right shoulder Intensity 2 Scale Used Numeric (0 - 10) PT-OP-F Manual Assessment Start: 01/04/22 08:36 Freq: Status: Active Protocol: Document 01/05/22 12:58 [facility] (Rec: 01/06/22 10:43 [facility] [id number]) Manual Assessments Joint Mobility Assessment Joint Mobility Assessment not done due to recent fracture PT-OP-G Mobility & Gait Start: 01/04/22 08:36 Freq: Status: Active Protocol: Document 01/05/22 12:58 [facility] (Rec: 01/06/22 10:43 [facility] [id number]) OP Mobility Evaluation Bed Mobility Supine to and from Sit mod assist due to inability to use right UE Transfers Sit to Stand indep Bed to Chair Transfers indep Car Transfers min assist Functional Movements Lifting and Carrying unable PT-OP-J Posture/Palpation/Skin Start: 01/04/22 08:36 Freq: Status: Active Protocol: Document 01/05/22 12:58 [facility] (Rec: 01/06/22 10:43 [facility] [id number]) Posture Evaluation Position Sitting Head/C-Spine Posture Forward Head T-Spine Posture Increased Kyphosis L-Spine Posture Increased Lordosis Shoulder Posture (L) Rounded,(R) Rounded Scapula Posture (L) Protracted,(R) Protracted Arm Posture (L) Internally Rotated,(R) Internally Rotated Skin Assessment Edema Assessment right shoulder Comments intact PT-OP-K Range of Motion Start: 01/04/22 08:36 Freq: Status: Active Protocol: Document 01/05/22 12:58 [facility] (Rec: 01/06/22 10:43 [facility] [id number]) Shoulder Goniometric Range of Motion Shoulder Right Passive Flexion 80 Extension 0 Abduction 65 External Rotation at 45 degrees 30 Abduction Internal Rotation 25 Comments Passive only allowed at this time Left Shoulder ROM WFL Yes Shoulder ROM Limitations Shoulder ROM Limitations Soft Tissue Tightness,Pain Elbow/Forearm Range of Motion Elbow/Forearm crow Elbow/Forearm ROM WFL Yes PT-OP-M Strength Start: 01/04/22 08:36 Freq: Status: Active Protocol: Document 01/05/22 12:58 [facility] (Rec: 01/06/22 10:43 [facility] [id number]) Shoulder Strength Shoulder Manual Muscle Testing Left Comments 5/5 Right Comments no MMT due to recent fracture, only PROM allowed at this time PT-OP-Q Treatments Start: 01/04/22 08:36 Freq: Status: Active Protocol: Document 01/05/22 12:58 [facility] (Rec: 01/06/22 10:43 [facility] [id number]) Self-Care/Home Management Treatment Education Patient Education Home Exercise Program,Pain Management,Posture Other Education issued written handout for HEP Activities Self-Care/Home Management Activities frequent icing of shoulder, especially after HEP PT-OP-R Modalities Start: 01/04/22 08:36 Freq: Status: Active Protocol: Document 01/05/22 12:58 [facility] (Rec: 01/06/22 10:43 SAK [id number]) Hot Pack/Cold Pack Treatment Cold Pack Location right shoulder Patient Position Supine PT-OP-T Assessment and Plan Start: 01/04/22 08:36 Freq: Status: Active Protocol: Document 01/05/22 12:58 [facility] (Rec: 01/06/22 10:43 [facility] [id number]) Physical Therapy Assessment Rehab Potential Rehabilitation Potential Good Evaluation Complexity Number of Personal Factors/Comorbidities 1-2 Number of Body Systems Impaired 3 Clinical Presentation at Evaluation Evolving Impairments Impairments Functional Activities,Posture, ROM,Strength Goals Three Impairment unable to sleep in her bed due to shoulder need for assist to get out Usp Goal (LTG) patient able to get in and out of bed independently and sleep comfortably in her bed again. LTG Duration 04/06/22 Two Impairment ROM and strength impairment right shoudler Short Term Goal (STG) Patient to be independent and compliant with HEP for purposes of ROM and strengthening right shoulder STG Duration 02/19/22 Rn Surgical Goal (LTG) Patient will demonstrate right shoulder ROM WNL and strength at least 4/5 all motions to allow her to return to prior activities using right UE with minimal to no pain. LTG Duration 04/06/22 One Impairment functional activities Impairment Quickdash UE disability index score 68% Short Term Goal (STG) Improve Quickdash score to no greater than 40% STG Duration 02/19/22 Rn Surgical Goal (LTG) Improve Quickdash score to no greater than 20% as measure of improved right shoulder function LTG Duration 04/06/22 Assessment Summary Assessment Patient presents to PT 3 weeks s/p right coracoid process fracture, wearing a sling. Protocol for weaning off sling by 4 weeks. Start with pendulum and PROM. May begin AROM at 6 weeks (01/25/22), and strengthening at 7 weeks as tolerated. Patient instructed in pendulum by physician office and has been doing, though not bending forward very far and was doing active motion instead of passive so performance corrected with good understanding demonstrated by patient. Initiated further ther ex of PROM by PT and issued HEP for gentle PROM and postural correction. We discussed protocol and patient demonstrated good understanding. Physical Therapy Plan Frequency and Duration Frequency of Treatment 2x/Week Duration of Treatment 12 weeks Plan of Care Start Date 01/05/22 Plan of Care End Date 04/06/22 Therapeutic Interventions Therapeutic Interventions Aquatic Therapy,Gait Training, Home Exercise Program,Manual Therapy,Patient/Caregiver Education,Self-Care/Home Management,Soft Tissue Mobilization,Taping, Therapeutic Activities, Therapeutic Exercises Modalities Cold Pack/Ice Massage,Electric Stimulation,Hot Packs, Infrared Therapy,Iontophoresis ,Ultrasound Next Visit Focus/Plan Next Note Type Treatment Note Next Visit Plan Review HEP, PROM right shoulder moving to AAROM gently as tolerated. AROM not to start until 6 weeks post fracture
--- NOTE | 2022-01-05 16:00 | PT.OPPOC ---
Physical, Occupational & Speech Therapy At [facility] Current Diagnoses Pain in right shoulder (01/05/22) Weakness (01/05/22) Nondisplaced fracture of coracoid process, right shoulder, subsequent encounter for fracture with routine healing (01/05/22) Visit Care Team Role Provider Type TANA Stock Family Provider Advanced Tube Machine Operator Primary Care Provider Specialty: Family Practice Address: [address] [place] [address], [facility] [place], [address] Email: [email or web address] Attending Provider Physician Referring Provider Specialty: Orthopedics Address: [address] [place] [address], [id number] Email: [email or web address] Plan Of Care PT-OP-T Assessment and Plan Start: 01/04/22 08:36 Freq: Status: Active Protocol: Document 01/05/22 12:58 [facility] (Rec: 01/06/22 10:43 [facility] [id number]) Physical Therapy Assessment Rehab Potential Rehabilitation Potential Good Evaluation Complexity Number of Personal Factors/Comorbidities 1-2 Number of Body Systems Impaired 3 Clinical Presentation at Evaluation Evolving Impairments Impairments Functional Activities,Posture, ROM,Strength Goals Three Impairment unable to sleep in her bed due to shoulder need for assist to get out Inspector And Adjuster [employer] Head Goal (LTG) patient able to get in and out of bed independently and sleep comfortably in her bed again. LTG Duration 04/06/22 Two Impairment ROM and strength impairment right shoudler Short Term Goal (STG) Patient to be independent and compliant with HEP for purposes of ROM and strengthening right shoulder STG Duration 02/19/22 Assisted Goal (LTG) Patient will demonstrate right shoulder ROM WNL and strength at least 4/5 all motions to allow her to return to prior activities using right UE with minimal to no pain. LTG Duration 04/06/22 One Impairment functional activities Impairment Quickdash UE disability index score 68% Short Term Goal (STG) Improve Quickdash score to no greater than 40% STG Duration 02/19/22 Inspector And Adjuster [employer] Head Goal (LTG) Improve Quickdash score to no greater than 20% as measure of improved right shoulder function LTG Duration 04/06/22 Assessment Summary Assessment Patient presents to PT 3 weeks s/p right coracoid process fracture, wearing a sling. Protocol for weaning off sling by 4 weeks. Start with pendulum and PROM. May begin AROM at 6 weeks (01/25/22), and strengthening at 7 weeks as tolerated. Patient instructed in pendulum by physician office and has been doing, though not bending forward very far and was doing active motion instead of passive so performance corrected with good understanding demonstrated by patient. Initiated further ther ex of PROM by PT and issued HEP for gentle PROM and postural correction. We discussed protocol and patient demonstrated good understanding. Physical Therapy Plan Frequency and Duration Frequency of Treatment 2x/Week Duration of Treatment 12 weeks Plan of Care Start Date 01/05/22 Plan of Care End Date 04/06/22 Therapeutic Interventions Therapeutic Interventions Aquatic Therapy,Gait Training, Home Exercise Program,Manual Therapy,Patient/Caregiver Education,Self-Care/Home Management,Soft Tissue Mobilization,Taping, Therapeutic Activities, Therapeutic Exercises Modalities Cold Pack/Ice Massage,Electric Stimulation,Hot Packs, Infrared Therapy,Iontophoresis ,Ultrasound Next Visit Focus/Plan Next Note Type Treatment Note Next Visit Plan Review HEP, PROM right shoulder moving to AAROM gently as tolerated. AROM not to start until 6 weeks post fracture Plan of Care Dates Plan of Care Start Date 01/05/22 Plan of Care End Date 04/06/22 Electronically Signed by: Bailey Garrett, PT 01/06/22 1044 Please Sign and Return: I have reviewed this Plan of Care and certify that the skilled therapy services above are required to meet the patient?s needs. Physician Signature Date Printed Name and Credentials Clinical Instructor Signature Printed Name and Credentials
--- NOTE | 2022-01-13 16:36 | PT.OTN ---
Current Diagnoses Pain in right shoulder (01/13/22) Weakness (01/13/22) Nondisplaced fracture of coracoid process, right shoulder, subsequent encounter for fracture with routine healing (01/13/22) Physical Therapy Treatment Note PT-OP-A Visit Information Start: 01/04/22 08:36 Freq: Status: Active Protocol: Document 01/13/22 08:16 [facility] (Rec: 01/13/22 09:04 [facility] [id number]) Out-Patient Physical Therapy Visit Information Visit Information Visit Type Treatment Note Visit Start Time 08:15 Visit Stop Time 09:05 Total Visit Minutes 50 Visit Number 2 Evaluation Information Evaluation Date 01/05/22 Precautions Precautions no AROM until 6 weeks PT-OP-B Current Condition Start: 01/04/22 08:36 Freq: Status: Active Protocol: Document 01/13/22 08:16 [facility] (Rec: 01/13/22 09:04 [facility] [id number]) Current Condition History of Current Condition Onset Date 12/13/21 Current Complaints right shoulder pain and loss of function History of Current Condition fell and fell onto right UE while going down carpeted stairs, fractured coracoid process. Was unconscious for 16 hours; had brain blead as well as 6 fractured ribs, was at [facility] x 5 days, left . 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 Now has grab bars in bathroom, bannister up to bedroom, goes down backward. Has been sleeping in recliner. Has been doing pendulum exercises; instructed by physician. Has had nausea and dizziness, gradually getting better. Also reports floaters in visual field. Agreeable to go to doctor to discuss these persistent symptoms. Scheduled for CT of head . Patient is left handed. Fractured left arm 3 years ago with full recovery. Prior Treatments and Tests Sees TANA Stock tomorrow. Not using ice or heat. Takes Tylenol (2) at night. PT-OP-C Subjective Start: 01/04/22 08:36 Freq: Status: Active Protocol: Document 01/13/22 08:16 [facility] (Rec: 01/13/22 16:26 [facility] [id number]) OP-PT Subjective Patient Comments Patient Comments Some aching in shoulder, realizes may be cheating by using her arm even when in the sling. HEP going well. Patient Reported Progress Improving PT-OP-F Manual Assessment Start: 01/04/22 08:36 Freq: Status: Active Protocol: Document 01/05/22 12:58 [facility] (Rec: 01/06/22 10:43 [facility] [id number]) Manual Assessments Joint Mobility Assessment Joint Mobility Assessment not done due to recent fracture PT-OP-G Mobility & Gait Start: 01/04/22 08:36 Freq: Status: Active Protocol: Document 01/05/22 12:58 [facility] (Rec: 01/06/22 10:43 [facility] [id number]) OP Mobility Evaluation Bed Mobility Supine to and from Sit mod assist due to inability to use right UE Transfers Sit to Stand indep Bed to Chair Transfers indep Car Transfers min assist Functional Movements Lifting and Carrying unable PT-OP-J Posture/Palpation/Skin Start: 01/04/22 08:36 Freq: Status: Active Protocol: Document 01/05/22 12:58 [facility] (Rec: 01/06/22 10:43 [facility] [id number]) Posture Evaluation Position Sitting Head/C-Spine Posture Forward Head T-Spine Posture Increased Kyphosis L-Spine Posture Increased Lordosis Shoulder Posture (L) Rounded,(R) Rounded Scapula Posture (L) Protracted,(R) Protracted Arm Posture (L) Internally Rotated,(R) Internally Rotated Skin Assessment Edema Assessment right shoulder Comments intact PT-OP-K Range of Motion Start: 01/04/22 08:36 Freq: Status: Active Protocol: Document 01/05/22 12:58 [facility] (Rec: 01/06/22 10:43 [facility] [id number]) Shoulder Goniometric Range of Motion Shoulder Right Passive Flexion 80 Extension 0 Abduction 65 External Rotation at 45 degrees 30 Abduction Internal Rotation 25 Comments Passive only allowed at this time Left Shoulder ROM WFL Yes Shoulder ROM Limitations Shoulder ROM Limitations Soft Tissue Tightness,Pain Elbow/Forearm Range of Motion Elbow/Forearm crow Elbow/Forearm ROM WFL Yes PT-OP-M Strength Start: 01/04/22 08:36 Freq: Status: Active Protocol: Document 01/05/22 12:58 [facility] (Rec: 01/06/22 10:43 [facility] [id number]) Shoulder Strength Shoulder Manual Muscle Testing Left Comments 5/5 Right Comments no MMT due to recent fracture, only PROM allowed at this time PT-OP-Q Treatments Start: 01/04/22 08:36 Freq: Status: Active Protocol: Document 01/13/22 08:16 [facility] (Rec: 01/13/22 09:04 [facility] [id number]) Therapeutic Exercises Supine Exercises PROM Supine Exercise Name flex,abd, IR/ER Reps/Minutes 10x ea Comments passive, manual Sitting Exercises table slide Reps/Minutes 10x Comments left hand on top of right shoulder ER Sitting Exercise Name passive Equipment Used cane Reps/Minutes 10x shoulder extension Sitting Exercise Name row Equipment Used cane Comments passive pulleys Sitting Exercise Name flexion, scaption Reps/Minutes 10x ea forward flex Equipment Used cane upright with right hand on top Reps/Minutes 10x Comments forward lean passive cervical ROM Sitting Exercise Name flex/ext, rot, sidebending Reps/Minutes 5x Standing Exercises pendulum Reps/Minutes 10x ea Self-Care/Home Management Treatment Education Patient Education Home Exercise Program,Pain Management,Posture Other Education instructed in weaning from sling gradually, wear when going to be in crowds, no active movement of right shoulder for 2 more weeks. PT-OP-R Modalities Start: 01/04/22 08:36 Freq: Status: Active Protocol: Document 01/13/22 08:16 [facility] (Rec: 01/13/22 16:26 [facility] [id number]) Hot Pack/Cold Pack Treatment Cold Pack Location right shoulder Patient Position Supine PT-OP-T Assessment and Plan Start: 01/04/22 08:36 Freq: Status: Active Protocol: Document 01/13/22 08:16 [facility] (Rec: 01/13/22 09:04 [facility] [id number]) Physical Therapy Assessment Goals Three Impairment unable to sleep in her bed due to shoulder need for assist to get out Ndt Inspector Goal (LTG) patient able to get in and out of bed independently and sleep comfortably in her bed again. LTG Duration 04/06/22 Two Impairment ROM and strength impairment right shoudler Short Term Goal (STG) Patient to be independent and compliant with HEP for purposes of ROM and strengthening right shoulder STG Duration 02/19/22 [facility] Goal (LTG) Patient will demonstrate right shoulder ROM WNL and strength at least 4/5 all motions to allow her to return to prior activities using right UE with minimal to no pain. LTG Duration 04/06/22 One Impairment functional activities Impairment Quickdash UE disability index score 68% Short Term Goal (STG) Improve Quickdash score to no greater than 40% STG Duration 02/19/22 Ndt Inspector Goal (LTG) Improve Quickdash score to no greater than 20% as measure of improved right shoulder function LTG Duration 04/06/22 Assessment Summary Assessment Patient with some increase in aching, reminded not to use right UE actively including when saw get up from chair in waiting room PT observed patient pushing down on chair with right UE. Instructed in protocol now allowing her to wean from sling, no active movement of right shoulder for 2 more weeks. Demonstrated good understanding. Physical Therapy Plan Frequency and Duration Frequency of Treatment 2x/Week Duration of Treatment 12 weeks Plan of Care Start Date 01/05/22 Plan of Care End Date 04/06/22 Therapeutic Interventions Therapeutic Interventions Aquatic Therapy,Gait Training, Home Exercise Program,Manual Therapy,Patient/Caregiver Education,Self-Care/Home Management,Soft Tissue Mobilization,Taping, Therapeutic Activities, Therapeutic Exercises Modalities Cold Pack/Ice Massage,Electric Stimulation,Hot Packs, Infrared Therapy,Iontophoresis ,Ultrasound Next Visit Focus/Plan Next Note Type Treatment Note Next Visit Plan Continue right shoulder rehab with JACQUELINE PIZANO ok as tolerated. Modalitkies and manual therapy to decrease muscle tension and pain as tolerated. No AROM until 6 weeks post fracture.
--- NOTE | 2022-01-15 13:00 | PT.OTN ---
Current Diagnoses Pain in right shoulder (01/15/22) Weakness (01/15/22) Nondisplaced fracture of coracoid process, right shoulder, subsequent encounter for fracture with routine healing (01/15/22) Physical Therapy Treatment Note PT-OP-A Visit Information Start: 01/04/22 08:36 Freq: Status: Active Protocol: Document 01/15/22 12:18 [facility] (Rec: 01/15/22 13:06 SP [id number]) Out-Patient Physical Therapy Visit Information Visit Information Visit Type Treatment Note Visit Start Time 12:18 Visit Stop Time 13:00 Total Visit Minutes 42 Visit Number 3 Number of EVENT SALES ASSISTANT Visits 1 Evaluation Information Evaluation Date 01/05/22 Precautions Precautions no AROM until 6 weeks PT-OP-B Current Condition Start: 01/04/22 08:36 Freq: Status: Active Protocol: Document 01/13/22 08:16 [facility] (Rec: 01/13/22 09:04 [facility] [id number]) Current Condition History of Current Condition Onset Date 12/13/21 Current Complaints right shoulder pain and loss of function History of Current Condition fell and fell onto right UE while going down carpeted stairs, fractured coracoid process. Was unconscious for 16 hours; had brain blead as well as 6 fractured ribs, was at [facility] x 5 days, left . 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 Now has grab bars in bathroom, bannister up to bedroom, goes down backward. Has been sleeping in recliner. Has been doing pendulum exercises; instructed by physician. Has had nausea and dizziness, gradually getting better. Also reports floaters in visual field. Agreeable to go to doctor to discuss these persistent symptoms. Scheduled for CT of head . Patient is left handed. Fractured left arm 3 years ago with full recovery. Prior Treatments and Tests Sees TANA Stock tomorrow. Not using ice or heat. Takes Tylenol (2) at night. PT-OP-C Subjective Start: 01/04/22 08:36 Freq: Status: Active Protocol: Document 01/15/22 12:18 [facility] (Rec: 01/15/22 13:06 SP [id number]) OP-PT Subjective Patient Comments Patient Comments Pt reported just little achy, no pain after last tx. States wants to review HEP make sure doing correctly PT-OP-F Manual Assessment Start: 01/04/22 08:36 Freq: Status: Active Protocol: Document 01/05/22 12:58 [facility] (Rec: 01/06/22 10:43 [facility] [id number]) Manual Assessments Joint Mobility Assessment Joint Mobility Assessment not done due to recent fracture PT-OP-G Mobility & Gait Start: 01/04/22 08:36 Freq: Status: Active Protocol: Document 01/05/22 12:58 [facility] (Rec: 01/06/22 10:43 [facility] [id number]) OP Mobility Evaluation Bed Mobility Supine to and from Sit mod assist due to inability to use right UE Transfers Sit to Stand indep Bed to Chair Transfers indep Car Transfers min assist Functional Movements Lifting and Carrying unable PT-OP-J Posture/Palpation/Skin Start: 01/04/22 08:36 Freq: Status: Active Protocol: Document 01/05/22 12:58 [facility] (Rec: 01/06/22 10:43 [facility] [id number]) Posture Evaluation Position Sitting Head/C-Spine Posture Forward Head T-Spine Posture Increased Kyphosis L-Spine Posture Increased Lordosis Shoulder Posture (L) Rounded,(R) Rounded Scapula Posture (L) Protracted,(R) Protracted Arm Posture (L) Internally Rotated,(R) Internally Rotated Skin Assessment Edema Assessment right shoulder Comments intact PT-OP-K Range of Motion Start: 01/04/22 08:36 Freq: Status: Active Protocol: Document 01/05/22 12:58 [facility] (Rec: 01/06/22 10:43 [facility] [id number]) Shoulder Goniometric Range of Motion Shoulder Right Passive Flexion 80 Extension 0 Abduction 65 External Rotation at 45 degrees 30 Abduction Internal Rotation 25 Comments Passive only allowed at this time Left Shoulder ROM WFL Yes Shoulder ROM Limitations Shoulder ROM Limitations Soft Tissue Tightness,Pain Elbow/Forearm Range of Motion Elbow/Forearm crow Elbow/Forearm ROM WFL Yes PT-OP-M Strength Start: 01/04/22 08:36 Freq: Status: Active Protocol: Document 01/05/22 12:58 [facility] (Rec: 01/06/22 10:43 [facility] [id number]) Shoulder Strength Shoulder Manual Muscle Testing Left Comments 5/5 Right Comments no MMT due to recent fracture, only PROM allowed at this time PT-OP-Q Treatments Start: 01/04/22 08:36 Freq: Status: Active Protocol: Document 01/15/22 12:18 SP (Rec: 01/15/22 13:06 SP [id number]) Therapeutic Exercises Supine Exercises PROM Supine Exercise Name flex,abd, IR/ER Resistance AROM Reps/Minutes 10x ea Comments manual Sitting Exercises table slide Side right Resistance PROM Equipment Used hand in pillow case Reps/Minutes 10x Comments hip hinge trunk flexion/ ext shoulder ER Sitting Exercise Name passive Resistance PROM Equipment Used cane Reps/Minutes 10x Comments cane adjustment 3 from belly no further back into ext. shoulder extension Sitting Exercise Name row (standing) Equipment Used cane Reps/Minutes x10 Comments passive pulleys Sitting Exercise Name flexion, scaption Side right Resistance AAROM Reps/Minutes 10x ea Comments cued LUE assist RUE, slow pacing control. forward flex Side right Resistance PROM no higher than shld Equipment Used cane upright with right hand on top Reps/Minutes 10x Comments forward lean passive cervical ROM Sitting Exercise Name flex/ext, rot, sidebending Side bilateral Equipment Used use mirror for self feedback no UT and proper form Reps/Minutes 5x, 15 sec hold for stretch if Comments cued no UT recruitment Standing Exercises pendulum Reps/Minutes 10x ea Comments seated better than standing. Manual Therapy Treatment Joint Mobilizations GH glide Joint R PT-OP-R Modalities Start: 01/04/22 08:36 Freq: Status: Active Protocol: Document 01/13/22 08:16 [facility] (Rec: 01/13/22 16:26 [facility] [id number]) Hot Pack/Cold Pack Treatment Cold Pack Location right shoulder Patient Position Supine PT-OP-T Assessment and Plan Start: 01/04/22 08:36 Freq: Status: Active Protocol: Document 01/15/22 12:18 SP (Rec: 01/15/22 13:06 SP [id number]) Physical Therapy Assessment Goals Three Impairment unable to sleep in her bed due to shoulder need for assist to get out Technical Training Instructor Goal (LTG) patient able to get in and out of bed independently and sleep comfortably in her bed again. LTG Duration 04/06/22 Two Impairment ROM and strength impairment right desiraeler Short Term Goal (STG) Patient to be independent and compliant with HEP for purposes of ROM and strengthening right shoulder STG Duration 02/19/22 Technical Training Instructor Goal (LTG) Patient will demonstrate right shoulder ROM WNL and strength at least 4/5 all motions to allow her to return to prior activities using right UE with minimal to no pain. LTG Duration 04/06/22 One Impairment functional activities Impairment Quickdash UE disability index score 68% Short Term Goal (STG) Improve Quickdash score to no greater than 40% STG Duration 02/19/22 [facility] Goal (LTG) Improve Quickdash score to no greater than 20% as measure of improved right shoulder function LTG Duration 04/06/22 Assessment Summary Assessment Pt had better understanding of set up and performance of HEP this tx. Used mirror for self alignment for no UT recruitment and modified pendulum to sitting to maintain PROM precautions, standing noted AROM/ challenged balance and stated has some dizziness with transition positions and so felt safer in sitting. Pt stated will apply CP at home if needed later. She states no pain just some achiness end of tx in R shld. Education for arm fully back in sling, elevated hand more and stated use of LUE for RUE movement at this time. Provided copy of scanned in protocol for awareness, appreciated the feedback. Physical Therapy Plan Frequency and Duration Frequency of Treatment 2x/Week Duration of Treatment 12 weeks Plan of Care Start Date 01/05/22 Plan of Care End Date 04/06/22 Therapeutic Interventions Therapeutic Interventions Aquatic Therapy,Gait Training, Home Exercise Program,Manual Therapy,Patient/Caregiver Education,Self-Care/Home Management,Soft Tissue Mobilization,Taping, Therapeutic Activities, Therapeutic Exercises Modalities Cold Pack/Ice Massage,Electric Stimulation,Hot Packs, Infrared Therapy,Iontophoresis ,Ultrasound Next Visit Focus/Plan Next Note Type Treatment Note Next Visit Plan Continue right shoulder rehab with PROM, AAROM ok as tolerated. Modalitkies and manual therapy to decrease muscle tension and pain as tolerated. No AROM until 6 weeks post fracture.
--- NOTE | 2022-01-26 14:30 | PT.OTN ---
Current Diagnoses Pain in right shoulder (01/26/22) Weakness (01/26/22) Nondisplaced fracture of coracoid process, right shoulder, subsequent encounter for fracture with routine healing (01/26/22) Physical Therapy Treatment Note PT-OP-A Visit Information Start: 01/04/22 08:36 Freq: Status: Active Protocol: Document 01/26/22 13:49 SP (Rec: 01/26/22 14:32 SP [id number]) Out-Patient Physical Therapy Visit Information Visit Information Visit Type Treatment Note Visit Note 12/18/21 5.5 weeks post fracture. Visit Start Time 13:49 Visit Stop Time 14:30 Total Visit Minutes 41 Visit Number 1 Evaluation Information Evaluation Date 01/05/22 Precautions Precautions no AROM until 6 weeks PT-OP-B Current Condition Start: 01/04/22 08:36 Freq: Status: Active Protocol: Document 01/13/22 08:16 SAK (Rec: 01/13/22 09:04 SAK [id number]) Current Condition History of Current Condition Onset Date 12/13/21 Current Complaints right shoulder pain and loss of function History of Current Condition fell and fell onto right UE while going down carpeted stairs, fractured coracoid process. Was unconscious for 16 hours; had brain blead as well as 6 fractured ribs, was at [facility] x 5 days, left . 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 Now has grab bars in bathroom, bannister up to bedroom, goes down backward. Has been sleeping in recliner. Has been doing pendulum exercises; instructed by physician. Has had nausea and dizziness, gradually getting better. Also reports floaters in visual field. Agreeable to go to doctor to discuss these persistent symptoms. Scheduled for CT of head . Patient is left handed. Fractured left arm 3 years ago with full recovery. Prior Treatments and Tests Sees TANA Stock tomorrow. Not using ice or heat. Takes Tylenol (2) at night. PT-OP-C Subjective Start: 01/04/22 08:36 Freq: Status: Active Protocol: Document 01/26/22 13:49 SP (Rec: 01/26/22 14:32 SP [id number]) OP-PT Subjective Patient Comments Patient Comments Pt reported trying to sleep in bed and not doing well. Sleeps on R side small space between wall and EOB with portable bed rail. sleeps supine and L side and wakes up with pain, not comfortable. PT-OP-F Manual Assessment Start: 01/04/22 08:36 Freq: Status: Active Protocol: Document 01/05/22 12:58 [facility] (Rec: 01/06/22 10:43 [facility] [id number]) Manual Assessments Joint Mobility Assessment Joint Mobility Assessment not done due to recent fracture PT-OP-G Mobility & Gait Start: 01/04/22 08:36 Freq: Status: Active Protocol: Document 01/05/22 12:58 [facility] (Rec: 01/06/22 10:43 [facility] [id number]) OP Mobility Evaluation Bed Mobility Supine to and from Sit mod assist due to inability to use right UE Transfers Sit to Stand indep Bed to Chair Transfers indep Car Transfers min assist Functional Movements Lifting and Carrying unable PT-OP-J Posture/Palpation/Skin Start: 01/04/22 08:36 Freq: Status: Active Protocol: Document 01/05/22 12:58 [facility] (Rec: 01/06/22 10:43 [facility] [id number]) Posture Evaluation Position Sitting Head/C-Spine Posture Forward Head T-Spine Posture Increased Kyphosis L-Spine Posture Increased Lordosis Shoulder Posture (L) Rounded,(R) Rounded Scapula Posture (L) Protracted,(R) Protracted Arm Posture (L) Internally Rotated,(R) Internally Rotated Skin Assessment Edema Assessment right shoulder Comments intact PT-OP-K Range of Motion Start: 01/04/22 08:36 Freq: Status: Active Protocol: Document 01/05/22 12:58 [facility] (Rec: 01/06/22 10:43 [facility] [id number]) Shoulder Goniometric Range of Motion Shoulder Right Passive Flexion 80 Extension 0 Abduction 65 External Rotation at 45 degrees 30 Abduction Internal Rotation 25 Comments Passive only allowed at this time Left Shoulder ROM WFL Yes Shoulder ROM Limitations Shoulder ROM Limitations Soft Tissue Tightness,Pain Elbow/Forearm Range of Motion Elbow/Forearm crow Elbow/Forearm ROM WFL Yes PT-OP-M Strength Start: 01/04/22 08:36 Freq: Status: Active Protocol: Document 01/05/22 12:58 [facility] (Rec: 01/06/22 10:43 [facility] [id number]) Shoulder Strength Shoulder Manual Muscle Testing Left Comments 5/5 Right Comments no MMT due to recent fracture, only PROM allowed at this time PT-OP-Q Treatments Start: 01/04/22 08:36 Freq: Status: Active Protocol: Document 01/26/22 13:49 SP (Rec: 01/26/22 14:32 SP [id number]) Therapeutic Exercises Supine Exercises R shld ER Side right Resistance AAROM Equipment Used wand Reps/Minutes x3 Comments cued comfort easy AAROM 42 deg , expressed AAROM shoulder flex Supine Exercise Name LUE help RUE Resistance AAROM 92- 108 deg Reps/Minutes 10x Comments patient right arm lifted by left as move toward AROM at 6 wks (next wk) shoulder flex Reps/Minutes x10 Comments wandee, PT providing AAROM assist PROM Supine Exercise Name flex,abd, IR/ER, horizontal add Resistance AROM Reps/Minutes 10x ea Comments manual Therapeutic Activity Therapeutic Activity sit<>SL<>supine Name Mod I on L side, Min A R side. Comments Education and cues for no UE WB on RUE. Suggested switch sides of bed and place rail on L for successful mobility using rail and self set up pillows. Manual Therapy Treatment Joint Mobilizations GH glide Joint R GH jt Direction PA, Inferior Grade I Body Position Hooklying Comments manual, good feedback response , no pain Self-Care/Home Management Treatment Education Patient Education Body Mechanics,Joint Protection,Pain Management, Posture,Safety Other Education Time spent on sleepig set up independently w/ pillows under head, under R arm, between BLE and at back while on side, under R arm supine and under B thighs with improved comfort . Provided fabric sling for assist hand on belly that achors around neck with good feedback little assist hand positioning to support arm. PT-OP-R Modalities Start: 01/04/22 08:36 Freq: Status: Active Protocol: Document 01/13/22 08:16 [facility] (Rec: 01/13/22 16:26 [facility] [id number]) Hot Pack/Cold Pack Treatment Cold Pack Location right shoulder Patient Position Supine PT-OP-T Assessment and Plan Start: 01/04/22 08:36 Freq: Status: Active Protocol: Document 01/26/22 13:49 SP (Rec: 01/26/22 14:32 SP [id number]) Physical Therapy Assessment Goals Three Impairment unable to sleep in her bed due to shoulder need for assist to get out Legger Press Operator Goal (LTG) patient able to get in and out of bed independently and sleep comfortably in her bed again. 01/26/22: progressing: see self section, reviewed sleeping on side/ supine withpillows with cues and 10%A for pillow positioning. LTG Duration 04/06/22 progressing Two Impairment ROM and strength impairment right shoudler Short Term Goal (STG) Patient to be independent and compliant with HEP for purposes of ROM and strengthening right shoulder STG Duration 02/19/22 Legger Press Operator Goal (LTG) Patient will demonstrate right shoulder ROM WNL and strength at least 4/5 all motions to allow her to return to prior activities using right UE with minimal to no pain. LTG Duration 04/06/22 One Impairment functional activities Impairment Quickdash UE disability index score 68% Short Term Goal (STG) Improve Quickdash score to no greater than 40% STG Duration 02/19/22 Legger Press Operator Goal (LTG) Improve Quickdash score to no greater than 20% as measure of improved right shoulder function LTG Duration 04/06/22 Assessment Summary Assessment Pt improved comfort and independence with use of pillow positioning after recommendation of change side bed sleeping on L to allow ease use of bed rail vs R tries to WB on RUE, Mod A to complete and maintain precautions no WB. Pt compliant, good response to PROM and AAROM RUE in supine. States RUE sore but no pain leaving today. Physical Therapy Plan Frequency and Duration Frequency of Treatment 2x/Week Duration of Treatment 12 weeks Plan of Care Start Date 01/05/22 Plan of Care End Date 04/06/22 Therapeutic Interventions Therapeutic Interventions Aquatic Therapy,Gait Training, Home Exercise Program,Manual Therapy,Patient/Caregiver Education,Self-Care/Home Management,Soft Tissue Mobilization,Taping, Therapeutic Activities, Therapeutic Exercises Modalities Cold Pack/Ice Massage,Electric Stimulation,Hot Packs, Infrared Therapy,Iontophoresis ,Ultrasound Next Visit Focus/Plan Next Note Type Treatment Note Next Visit Plan Continue right shoulder rehab with PROM, AAROM ok as tolerated (6 weeks). Next tx add R scap PNF and scapular posture seated, scap retraction. Able to add AROM as tolerated next tx. Ask if switches sides of bed to use LUE better. POC: Modalitlies and manual therapy to decrease muscle tension and pain as tolerated.
--- NOTE | 2022-02-02 14:30 | PT.OTN ---
Current Diagnoses Pain in right shoulder (02/02/22) Weakness (02/02/22) Nondisplaced fracture of coracoid process, right shoulder, subsequent encounter for fracture with routine healing (02/02/22) Physical Therapy Treatment Note PT-OP-A Visit Information Start: 01/04/22 08:36 Freq: Status: Active Protocol: Document 02/02/22 13:47 SP (Rec: 02/02/22 14:34 SP [id number]) Out-Patient Physical Therapy Visit Information Visit Information Visit Type Treatment Note Visit Note 12/18/21 s/p fracture 6.5 weeks . Visit Start Time 13:47 Visit Stop Time 14:30 Total Visit Minutes 43 Visit Number 6 Number of FELT HAT MELLOWING MACHINE OPERATOR Visits 2 Evaluation Information Evaluation Date 01/05/22 Precautions Precautions Can start AROM toleranted with out compensations. PT-OP-B Current Condition Start: 01/04/22 08:36 Freq: Status: Active Protocol: Document 01/13/22 08:16 SAK (Rec: 01/13/22 09:04 SAK [id number]) Current Condition History of Current Condition Onset Date 12/13/21 Current Complaints right shoulder pain and loss of function History of Current Condition fell and fell onto right UE while going down carpeted stairs, fractured coracoid process. Was unconscious for 16 hours; had brain blead as well as 6 fractured ribs, was at [facility] x 5 days, left . 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 Now has grab bars in bathroom, bannister up to bedroom, goes down backward. Has been sleeping in recliner. Has been doing pendulum exercises; instructed by physician. Has had nausea and dizziness, gradually getting better. Also reports floaters in visual field. Agreeable to go to doctor to discuss these persistent symptoms. Scheduled for CT of head . Patient is left handed. Fractured left arm 3 years ago with full recovery. Prior Treatments and Tests Sees TANA Stock tomorrow. Not using ice or heat. Takes Tylenol (2) at night. PT-OP-C Subjective Start: 01/04/22 08:36 Freq: Status: Active Protocol: Document 02/02/22 13:47 SP (Rec: 02/02/22 14:34 SP [id number]) OP-PT Subjective Patient Comments Patient Comments Pt reported since sleeping upstairs have been having pain and not able to reach withpulleys as high. PT-OP-F Manual Assessment Start: 01/04/22 08:36 Freq: Status: Active Protocol: Document 01/05/22 12:58 [facility] (Rec: 01/06/22 10:43 [facility] [id number]) Manual Assessments Joint Mobility Assessment Joint Mobility Assessment not done due to recent fracture PT-OP-G Mobility & Gait Start: 01/04/22 08:36 Freq: Status: Active Protocol: Document 01/05/22 12:58 [facility] (Rec: 01/06/22 10:43 [facility] [id number]) OP Mobility Evaluation Bed Mobility Supine to and from Sit mod assist due to inability to use right UE Transfers Sit to Stand indep Bed to Chair Transfers indep Car Transfers min assist Functional Movements Lifting and Carrying unable PT-OP-J Posture/Palpation/Skin Start: 01/04/22 08:36 Freq: Status: Active Protocol: Document 01/05/22 12:58 [facility] (Rec: 01/06/22 10:43 [facility] [id number]) Posture Evaluation Position Sitting Head/C-Spine Posture Forward Head T-Spine Posture Increased Kyphosis L-Spine Posture Increased Lordosis Shoulder Posture (L) Rounded,(R) Rounded Scapula Posture (L) Protracted,(R) Protracted Arm Posture (L) Internally Rotated,(R) Internally Rotated Skin Assessment Edema Assessment right shoulder Comments intact PT-OP-K Range of Motion Start: 01/04/22 08:36 Freq: Status: Active Protocol: Document 01/05/22 12:58 [facility] (Rec: 01/06/22 10:43 [facility] [id number]) Shoulder Goniometric Range of Motion Shoulder Right Passive Flexion 80 Extension 0 Abduction 65 External Rotation at 45 degrees 30 Abduction Internal Rotation 25 Comments Passive only allowed at this time Left Shoulder ROM WFL Yes Shoulder ROM Limitations Shoulder ROM Limitations Soft Tissue Tightness,Pain Elbow/Forearm Range of Motion Elbow/Forearm sagar Elbow/Forearm ROM WFL Yes PT-OP-M Strength Start: 01/04/22 08:36 Freq: Status: Active Protocol: Document 01/05/22 12:58 [facility] (Rec: 01/06/22 10:43 [facility] [id number]) Shoulder Strength Shoulder Manual Muscle Testing Left Comments 5/5 Right Comments no MMT due to recent fracture, only PROM allowed at this time PT-OP-Q Treatments Start: 01/04/22 08:36 Freq: Status: Active Protocol: Document 02/02/22 13:47 SP (Rec: 02/02/22 14:34 SP [id number]) Therapeutic Exercises Supine Exercises ABC Supine Exercise Name added to HEP Side right Resistance AROM- small range Reps/Minutes got to leter c then needed rest Comments 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 Forward punch Supine Exercise Name added to HEP Side right Reps/Minutes x6 reps Comments up to 90 deg FF AROM shoulder flex Resistance AAROM, LUE assisting RUE Reps/Minutes x10 Comments improved less UT recruit PROM Supine Exercise Name flex,abd, IR/ER, horizontal add Resistance AROM Reps/Minutes 10x ea Comments manual Sitting Exercises scap retraction Sitting Exercise Name reviewed HEP ( DC shoulder shrugs scanned in) Reps/Minutes 5 s hold x5 Comments cued tall posture seated edge chair pulleys Sitting Exercise Name flexion 88 deg today, scaption Side right Resistance AAROM Equipment Used mirror for self feedback Reps/Minutes 10x ea Comments Mod- Max cues for no R UT recruitment Manual Therapy Treatment Soft Tissue Mobilization R UT Mobilization Type Myofascial Release,Rolling Intensity/Depth Superficial Body Position Hooklying Comments manual [place] Pec Body Location R Pec Red & Pec Minor Mobilization Type Sustained Pressure,Other Intensity/Depth Moderate Body Position Hooklying Joint Mobilizations GH glide Joint R GH jt Direction PA, Inferior Grade I Body Position Hooklying Comments manual, good feedback response , no pain Manual Techniques PNF R shld Type D2 flexion Comments manual, then instruction self FF, improved ROM with less UT. Self-Care/Home Management Treatment Education Patient Education Body Mechanics,Joint Protection,Pain Management, Posture,Safety Other Education reviewed sleeping pillow positioning under arm with improved comfort. Initiated shld ER on side, serratus punch and ABCs limited reps. PT-OP-R Modalities Start: 01/04/22 08:36 Freq: Status: Active Protocol: Document 01/13/22 08:16 [facility] (Rec: 01/13/22 16:26 [facility] [id number]) Hot Pack/Cold Pack Treatment Cold Pack Location right shoulder Patient Position Supine PT-OP-T Assessment and Plan Start: 01/04/22 08:36 Freq: Status: Active Protocol: Document 02/02/22 13:47 SP (Rec: 02/02/22 14:34 SP [id number]) Physical Therapy Assessment Goals Three Impairment unable to sleep in her bed due to shoulder need for assist to get out Longterm Goal (LTG) patient able to get in and out of bed independently and sleep comfortably in her bed again. 01/26/22: progressing: see self section, reviewed sleeping on side/ supine withpillows with cues and 10%A for pillow positioning. LTG Duration 04/06/22 progressing Two Impairment ROM and strength impairment right shoudler Short Term Goal (STG) Patient to be independent and compliant with HEP for purposes of ROM and strengthening right shoulder STG Duration 02/19/22 Longterm Goal (LTG) Patient will demonstrate right shoulder ROM WNL and strength at least 4/5 all motions to allow her to return to prior activities using right UE with minimal to no pain. LTG Duration 04/06/22 One Impairment functional activities Impairment Quickdash UE disability index score 68% Short Term Goal (STG) Improve Quickdash score to no greater than 40% STG Duration 02/19/22 Universal Winding Machine Operator Goal (LTG) Improve Quickdash score to no greater than 20% as measure of improved right shoulder function LTG Duration 04/06/22 Assessment Summary Assessment Pt decreased FF ROM during pulleys, cued ROM with no UT recruitment. Initiated AROM: shld ER, forward punch and limited small range aBCs with good form, little discomfort at letter D so stated limit to painfree letter count. Recommended to pt can use heating pad for home after ther ex and if discomfort from sleeping. Pt states no pain post tx. Physical Therapy Plan Frequency and Duration Frequency of Treatment 2x/Week Duration of Treatment 12 weeks Plan of Care Start Date 01/05/22 Plan of Care End Date 04/06/22 Therapeutic Interventions Therapeutic Interventions Aquatic Therapy,Gait Training, Home Exercise Program,Manual Therapy,Patient/Caregiver Education,Self-Care/Home Management,Soft Tissue Mobilization,Taping, Therapeutic Activities, Therapeutic Exercises Modalities Cold Pack/Ice Massage,Electric Stimulation,Hot Packs, Infrared Therapy,Iontophoresis ,Ultrasound Next Visit Focus/Plan Next Note Type Treatment Note Next Visit Plan Check ortho appt response. Can continue AROM progression with tolerance. Next tx add R scap PNF. POC: Modalitlies and manual therapy to decrease muscle tension and pain as tolerated.
--- NOTE | 2022-02-05 13:32 | PT.OTN ---
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 Visit Start Time 13:47 Visit Stop Time 14:37 Total Visit Minutes 50 Visit Number 6 Number of MASKING MACHINE OPERATOR Visits 2 Evaluation Information Evaluation Date 01/05/22 Precautions Precautions Can start AROM toleranted with out compensations. PT-OP-B Current Condition Start: 01/04/22 08:36 Freq: Status: Active Protocol: Document 01/13/22 08:16 SAK (Rec: 01/13/22 09:04 SAK [id number]) Current Condition History of Current Condition Onset Date 12/13/21 Current Complaints right shoulder pain and loss of function History of Current Condition fell and fell onto right UE while going down carpeted stairs, fractured coracoid process. Was unconscious for 16 hours; had brain blead as well as 6 fractured ribs, was at [facility] x 5 days, left . 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 Now has grab bars in bathroom, bannister up to bedroom, goes down backward. Has been sleeping in recliner. Has been doing pendulum exercises; instructed by physician. Has had nausea and dizziness, gradually getting better. Also reports floaters in visual field. Agreeable to go to doctor to discuss these persistent symptoms. Scheduled for CT of head . Patient is left handed. Fractured left arm 3 years ago with full recovery. Prior Treatments and Tests Sees TANA Stock tomorrow. Not using ice or heat. Takes Tylenol (2) at night. PT-OP-C Subjective Start: 01/04/22 08:36 Freq: Status: Active Protocol: Document 02/05/22 12:18 SP (Rec: 02/05/22 13:32 SP [id number]) OP-PT Subjective Patient Comments Patient Comments Pt stated say ortho and cleared to progress with protocol and can tolerate. Pt stated doing dishes and driving now but feels continuing PT and ortho stated will approve more per PT request. PT-OP-F Manual Assessment Start: 01/04/22 08:36 Freq: Status: Active Protocol: Document 01/05/22 12:58 SAK (Rec: 01/06/22 10:43 SAK [id number]) Manual Assessments Joint Mobility Assessment Joint Mobility Assessment not done due to recent fracture PT-OP-G Mobility & Gait Start: 01/04/22 08:36 Freq: Status: Active Protocol: Document 01/05/22 12:58 SAK (Rec: 01/06/22 10:43 SAK [id number]) OP Mobility Evaluation Bed Mobility Supine to and from Sit mod assist due to inability to use right UE Transfers Sit to Stand indep Bed to Chair Transfers indep Car Transfers min assist Functional Movements Lifting and Carrying unable PT-OP-J Posture/Palpation/Skin Start: 01/04/22 08:36 Freq: Status: Active Protocol: Document 01/05/22 12:58 [facility] (Rec: 01/06/22 10:43 [facility] [id number]) Posture Evaluation Position Sitting Head/C-Spine Posture Forward Head T-Spine Posture Increased Kyphosis L-Spine Posture Increased Lordosis Shoulder Posture (L) Rounded,(R) Rounded Scapula Posture (L) Protracted,(R) Protracted Arm Posture (L) Internally Rotated,(R) Internally Rotated Skin Assessment Edema Assessment right shoulder Comments intact PT-OP-K Range of Motion Start: 01/04/22 08:36 Freq: Status: Active Protocol: Document 02/05/22 12:18 SP (Rec: 02/05/22 13:32 SP [id number]) Shoulder Goniometric Range of Motion Shoulder Right Passive Shoulder ROM WFL No Testing Position Supine Flexion 80 Extension 0 Abduction 65 External Rotation at 45 degrees 30 Abduction Internal Rotation 25 Comments Flexion: AROM 100- 120 deg PROM 107 Abd: (elbow bent 90 deg) AROM 85 deg, PROM 85 deg ER: AROM 62 deg (arm at side) IR: standing behind back: PT-OP-M Strength Start: 01/04/22 08:36 Freq: Status: Active Protocol: Document 01/05/22 12:58 SAK (Rec: 01/06/22 10:43 SAK [id number]) Shoulder Strength Shoulder Manual Muscle Testing Left Comments 5/5 Right Comments no MMT due to recent fracture, only PROM allowed at this time PT-OP-Q Treatments Start: 01/04/22 08:36 Freq: Status: Active Protocol: Document 02/05/22 12:18 SP (Rec: 02/05/22 13:32 SP [id number]) Therapeutic Exercises Supine Exercises ABC Supine Exercise Name reviewed HEP Side right Resistance AROM- moderate range Reps/Minutes a-z today Comments cued no UT recruit endurance with letters, # letter tolerance. Forward punch Supine Exercise Name reviewed HEP Side right Reps/Minutes x10 Comments at 90 deg FF AROM shoulder flex Supine Exercise Name RUE Resistance AROM Equipment Used 120 deg Reps/Minutes 5 reps Comments cued knees bent tolerant ROM PROM Supine Exercise Name flex,abd, IR/ER, horizontal add Resistance AROM Reps/Minutes 10x ea Comments manual Sidelying Exercises shld ER Sidelying Exercise Name reviewed, added last tx forgot add Side right Resistance AROM Reps/Minutes x10 Comments cued alignment and ROM to tolerance. Sitting Exercises UT, Lev scap stretch Sitting Exercise Name added toHEP Side right Resistance cued use mirror for feedback form/ alignment Equipment Used over pressure hold LUE as tolerated Reps/Minutes 30 s each x2 Comments cued gentle stretch, set up and form pulleys Sitting Exercise Name flexion 108 deg today, scaption not measured but states less pain Side right Resistance AAROM Equipment Used mirror for self feedback Reps/Minutes 10x ea Comments Min cues no R UT recruitment cervical ROM Sitting Exercise Name flex/ext, rot, sidebending Side bilateral Reps/Minutes 2 reps 10 sec hold each direction Comments cued no UT recruitment Standing Exercises self STMs Standing Exercise Name ball on wall UT, interscap Side right Equipment Used tennis ball sock Reps/Minutes 1 min Comments good feedback response for home Manual Therapy Treatment Soft Tissue Mobilization R UT Body Location R UT, lev scap, suboccipitals, deltoid Mobilization Type Myofascial Release,Rolling Intensity/Depth Superficial Body Position Hooklying Comments manual Self-Care/Home Management Treatment Education Patient Education Home Exercise Program,Posture Other Education HEP reviewed supine, seated, Initiated UT stretch, self STMs w/ball wall and add AROM FF supine. PT-OP-R Modalities Start: 01/04/22 08:36 Freq: Status: Active Protocol: Document 02/05/22 12:18 SP (Rec: 02/05/22 13:32 SP [id number]) Hot Pack/Cold Pack Treatment Moist hot pack Location R shoulder Patient Position Sitting Treatment Duration (minutes) 10 Patient Tolerance Good Comments feels alot less sore PT-OP-T Assessment and Plan Start: 01/04/22 08:36 Freq: Status: Active Protocol: Document 02/05/22 12:18 SP (Rec: 02/05/22 13:32 SP [id number]) Physical Therapy Assessment Goals Three Impairment unable to sleep in her bed due to shoulder need for assist to get out Longterm Goal (LTG) patient able to get in and out of bed independently and sleep comfortably in her bed again. 01/26/22: progressing: see self section, reviewed sleeping on side/ supine withpillows with cues and 10%A for pillow positioning. 02/05/22: still having pain sleeping but better with pillow under arm when on L side or under R arm on back. LTG Duration 04/06/22 progressing Two Impairment ROM and strength impairment right shoudler Short Term Goal (STG) Patient to be independent and compliant with HEP for purposes of ROM and strengthening right shoulder 02/05/22: progressing: supine FF AROM, serratus punch, ABCs, side shld ER, seated pulleys, UT/lev scap stretch/ tennis ball on wall post scap self STMs. STG Duration 02/19/22 progressing Longterm Goal (LTG) Patient will demonstrate right shoulder ROM WNL and strength at least 4/5 all motions to allow her to return to prior activities using right UE with minimal to no pain. 02/05/22: R Shld in supine: FF AROM: 120*, ABD 85*, ER 62*. LTG Duration 04/06/22 One Impairment functional activities Impairment Quickdash UE disability index score 68% Short Term Goal (STG) Improve Quickdash score to no greater than 40% STG Duration 02/19/22 Longterm Goal (LTG) Improve Quickdash score to no greater than 20% as measure of improved right shoulder function LTG Duration 04/06/22 Assessment Summary Assessment Pt reports said saw ortho and cleared for ROM as tolerated and continue PT as needed to progress activities per Pt report and was told will approve more visits if needed. Pt improving AROM 120 deg FF supine, continues to be limited ABD due to pain. Progressing in ADLs dishes, driving now. Good tolerance to HEP, see goal updated performing. Less soreness w/ MHP and uses at home end tx. Physical Therapy Plan Frequency and Duration Frequency of Treatment 2x/Week Duration of Treatment 12 weeks Plan of Care Start Date 01/05/22 Plan of Care End Date 04/06/22 Therapeutic Interventions Therapeutic Interventions Aquatic Therapy,Gait Training, Home Exercise Program,Manual Therapy,Patient/Caregiver Education,Self-Care/Home Management,Soft Tissue Mobilization,Taping, Therapeutic Activities, Therapeutic Exercises Modalities Cold Pack/Ice Massage,Electric Stimulation,Hot Packs, Infrared Therapy,Iontophoresis ,Ultrasound Next Visit Focus/Plan Next Note Type Treatment Note Next Visit Plan Ortho feedback per pt Can continue AROM progression with tolerance. Next: progress AROM, if ok R shld isometric if tolerated. POC: Modalities and manual therapy to decrease muscle tension and pain as tolerated.
--- NOTE | 2022-02-09 17:01 | PT.OTN ---
Current Diagnoses Pain in right shoulder (02/09/22) Weakness (02/09/22) Nondisplaced fracture of coracoid process, right shoulder, subsequent encounter for fracture with routine healing (02/09/22) Physical Therapy Treatment Note PT-OP-A Visit Information Start: 01/04/22 08:36 Freq: Status: Active Protocol: Document 02/09/22 13:49 SAK (Rec: 02/09/22 14:30 SAK [id number]) Out-Patient Physical Therapy Visit Information Visit Information Visit Type Treatment Note Visit Note 8 weeks s/p fracture Visit Start Time 13:45 Visit Stop Time 14:40 Total Visit Minutes 55 Visit Number 7 Number of SYSTEM DEVELOPMENT MANAGER Visits 0 Evaluation Information Evaluation Date 01/05/22 Precautions Precautions Can start AROM tolerated with out compensations. PT-OP-B Current Condition Start: 01/04/22 08:36 Freq: Status: Active Protocol: Document 01/13/22 08:16 SAK (Rec: 01/13/22 09:04 SAK [id number]) Current Condition History of Current Condition Onset Date 12/13/21 Current Complaints right shoulder pain and loss of function History of Current Condition fell and fell onto right UE while going down carpeted stairs, fractured coracoid process. Was unconscious for 16 hours; had brain blead as well as 6 fractured ribs, was at [facility] x 5 days, left . 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 Now has grab bars in bathroom, bannister up to bedroom, goes down backward. Has been sleeping in recliner. Has been doing pendulum exercises; instructed by physician. Has had nausea and dizziness, gradually getting better. Also reports floaters in visual field. Agreeable to go to doctor to discuss these persistent symptoms. Scheduled for CT of head . Patient is left handed. Fractured left arm 3 years ago with full recovery. Prior Treatments and Tests Sees TANA Stock tomorrow. Not using ice or heat. Takes Tylenol (2) at night. PT-OP-C Subjective Start: 01/04/22 08:36 Freq: Status: Active Protocol: Document 02/09/22 13:49 SAK (Rec: 02/09/22 14:30 SAK [id number]) OP-PT Subjective Patient Comments Patient Comments Frustrated still can't reach overhead. This week is last scheduled, agreeable to schedule more. Lifting light objects close to her, not up or out to side. PT-OP-F Manual Assessment Start: 01/04/22 08:36 Freq: Status: Active Protocol: Document 01/05/22 12:58 SAK (Rec: 01/06/22 10:43 [facility] [id number]) Manual Assessments Joint Mobility Assessment Joint Mobility Assessment not done due to recent fracture PT-OP-G Mobility & Gait Start: 01/04/22 08:36 Freq: Status: Active Protocol: Document 01/05/22 12:58 SAK (Rec: 01/06/22 10:43 [facility] [id number]) OP Mobility Evaluation Bed Mobility Supine to and from Sit mod assist due to inability to use right UE Transfers Sit to Stand indep Bed to Chair Transfers indep Car Transfers min assist Functional Movements Lifting and Carrying unable PT-OP-J Posture/Palpation/Skin Start: 01/04/22 08:36 Freq: Status: Active Protocol: Document 01/05/22 12:58 [facility] (Rec: 01/06/22 10:43 [facility] [id number]) Posture Evaluation Position Sitting Head/C-Spine Posture Forward Head T-Spine Posture Increased Kyphosis L-Spine Posture Increased Lordosis Shoulder Posture (L) Rounded,(R) Rounded Scapula Posture (L) Protracted,(R) Protracted Arm Posture (L) Internally Rotated,(R) Internally Rotated Skin Assessment Edema Assessment right shoulder Comments intact PT-OP-K Range of Motion Start: 01/04/22 08:36 Freq: Status: Active Protocol: Document 02/05/22 12:18 SP (Rec: 02/05/22 13:32 SP [id number]) Shoulder Goniometric Range of Motion Shoulder Right Passive Shoulder ROM WFL No Testing Position Supine Flexion 80 Extension 0 Abduction 65 External Rotation at 45 degrees 30 Abduction Internal Rotation 25 Comments Flexion: AROM 100- 120 deg PROM 107 Abd: (elbow bent 90 deg) AROM 85 deg, PROM 85 deg ER: AROM 62 deg (arm at side) IR: standing behind back: PT-OP-M Strength Start: 01/04/22 08:36 Freq: Status: Active Protocol: Document 01/05/22 12:58 [facility] (Rec: 01/06/22 10:43 [facility] [id number]) Shoulder Strength Shoulder Manual Muscle Testing Left Comments 5/5 Right Comments no MMT due to recent fracture, only PROM allowed at this time PT-OP-Q Treatments Start: 01/04/22 08:36 Freq: Status: Active Protocol: Document 02/09/22 13:49 [facility] (Rec: 02/09/22 14:30 [facility] [id number]) Therapeutic Exercises Supine Exercises pec stretch Supine Exercise Name manual overpressure Side right Reps/Minutes 2x1min Comments manual Forward punch Supine Exercise Name reviewed HEP Side right Reps/Minutes x10 Comments at 90 deg FF AROM shoulder flex Supine Exercise Name RUE Resistance AROM Equipment Used 120 deg Reps/Minutes 5 reps Comments cued knees bent tolerant ROM PROM Supine Exercise Name flex,abd, IR/ER, horizontal add Resistance AROM Reps/Minutes 10x ea Comments manual, manual scapular upward rotation with elevation Sidelying Exercises shld ER Side right Resistance AROM Reps/Minutes x10 Comments cued alignment and ROM to tolerance. Sitting Exercises shoulder flexion Equipment Used wand Comments forward lean, gentle pressure down scap retraction Sitting Exercise Name reviewed HEP ( DC shoulder shrugs scanned in) Reps/Minutes 5 s hold x5 Comments cued tall posture seated edge chair table slide Side right Resistance PROM Equipment Used hands in pillow case Reps/Minutes 10x Comments hip hinge trunk flexion/ ext shoulder ER Sitting Exercise Name passive Resistance PROM Equipment Used cane Reps/Minutes 10x Comments cane adjustment 3 from belly no further back into ext. shoulder extension Sitting Exercise Name row Equipment Used cane Reps/Minutes x10 Comments passive pulleys Sitting Exercise Name flexion 108 deg today, scaption not measured but states less pain Side right Resistance AAROM Equipment Used mirror for self feedback Reps/Minutes 10x ea Comments Min cues no R UT recruitment forward flex Side right Equipment Used cane upright with right hand on top Reps/Minutes 10x Comments forward lean passive cervical ROM Sitting Exercise Name flex/ext, rot, sidebending Side bilateral Reps/Minutes 2 reps 10 sec hold each direction Comments cued no UT recruitment Manual Therapy Treatment Soft Tissue Mobilization subscapular realease Mobilization Type Oscillations,Sustained Pressure Intensity/Depth Moderate Body Position Hooklying Comments with manual shoulder elevation R UT Body Location R UT, lev scap, suboccipitals, deltoid Mobilization Type Myofascial Release,Rolling Intensity/Depth Moderate Body Position Hooklying Comments manual Joint Mobilizations GH glide Joint R GH jt Direction PA, Inferior Grade II Body Position Hooklying Comments manual, good feedback response , no pain Self-Care/Home Management Treatment Education Patient Education Home Exercise Program,Posture PT-OP-R Modalities Start: 01/04/22 08:36 Freq: Status: Active Protocol: Document 02/09/22 13:49 SAK (Rec: 02/09/22 17:01 [facility] [id number]) Hot Pack/Cold Pack Treatment Moist hot pack Location R shoulder Patient Position Sitting Treatment Duration (minutes) 15 Patient Tolerance Good PT-OP-T Assessment and Plan Start: 01/04/22 08:36 Freq: Status: Active Protocol: Document 02/09/22 13:49 [facility] (Rec: 02/09/22 14:30 [facility] [id number]) Physical Therapy Assessment Goals Three Impairment unable to sleep in her bed due to shoulder need for assist to get out [facility] Goal (LTG) patient able to get in and out of bed independently and sleep comfortably in her bed again. 01/26/22: progressing: see self section, reviewed sleeping on side/ supine withpillows with cues and 10%A for pillow positioning. 02/05/22: still having pain sleeping but better with pillow under arm when on L side or under R arm on back. LTG Duration 04/06/22 progressing Two Impairment ROM and strength impairment right shoudler Short Term Goal (STG) Patient to be independent and compliant with HEP for purposes of ROM and strengthening right shoulder 02/05/22: progressing: supine FF AROM, serratus punch, ABCs, side shld ER, seated pulleys, UT/lev scap stretch/ tennis ball on wall post scap self STMs. STG Duration 02/19/22 progressing Automotive Service Cashier Goal (LTG) Patient will demonstrate right shoulder ROM WNL and strength at least 4/5 all motions to allow her to return to prior activities using right UE with minimal to no pain. 02/05/22: R Shld in supine: FF AROM: 120*, ABD 85*, ER 62*. LTG Duration 04/06/22 One Impairment functional activities Impairment Quickdash UE disability index score 68% Short Term Goal (STG) Improve Quickdash score to no greater than 40% STG Duration 02/19/22 [facility] Goal (LTG) Improve Quickdash score to no greater than 20% as measure of improved right shoulder function LTG Duration 04/06/22 Assessment Summary Assessment Patient unable to reach above shoulder level in standing against gravity, difficulty with upward rotation of scapula, needs gentle joint mobilizations at GH and scapula for correct biomechanics and to prevent impingement. Physical Therapy Plan Frequency and Duration Frequency of Treatment 2x/Week Duration of Treatment 12 weeks Plan of Care Start Date 01/05/22 Plan of Care End Date 04/06/22 Therapeutic Interventions Therapeutic Interventions Aquatic Therapy,Gait Training, Home Exercise Program,Manual Therapy,Patient/Caregiver Education,Self-Care/Home Management,Soft Tissue Mobilization,Taping, Therapeutic Activities, Therapeutic Exercises Modalities Cold Pack/Ice Massage,Electric Stimulation,Hot Packs, Infrared Therapy,Iontophoresis ,Ultrasound Next Visit Focus/Plan Next Note Type Treatment Note Next Visit Plan Add isometrics for shoulder as tolerated. Continue PROM, AAROM, AROM ex. Gentle joint mobilization and soft tissue mobilization to decrease muscle tension and pain.
--- NOTE | 2022-02-11 16:03 | PT.OTN ---
Current Diagnoses Pain in right shoulder (02/11/22) Weakness (02/11/22) Nondisplaced fracture of coracoid process, right shoulder, subsequent encounter for fracture with routine healing (02/11/22) Physical Therapy Treatment Note PT-OP-A Visit Information Start: 01/04/22 08:36 Freq: Status: Active Protocol: Document 02/11/22 13:53 SAK (Rec: 02/11/22 16:03 SAK [id number]) Out-Patient Physical Therapy Visit Information Visit Information Visit Type Treatment Note Visit Note 8 weeks s/p fracture Visit Start Time 13:45 Visit Stop Time 14:40 Total Visit Minutes 55 Visit Number 8 Number of ELECTRICAL INTERN Visits 0 Evaluation Information Evaluation Date 01/05/22 Precautions Precautions Can start AROM tolerated with out compensations. PT-OP-B Current Condition Start: 01/04/22 08:36 Freq: Status: Active Protocol: Document 01/13/22 08:16 SAK (Rec: 01/13/22 09:04 SAK [id number]) Current Condition History of Current Condition Onset Date 12/13/21 Current Complaints right shoulder pain and loss of function History of Current Condition fell and fell onto right UE while going down carpeted stairs, fractured coracoid process. Was unconscious for 16 hours; had brain blead as well as 6 fractured ribs, was at [facility] x 5 days, left . 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 Now has grab bars in bathroom, bannister up to bedroom, goes down backward. Has been sleeping in recliner. Has been doing pendulum exercises; instructed by physician. Has had nausea and dizziness, gradually getting better. Also reports floaters in visual field. Agreeable to go to doctor to discuss these persistent symptoms. Scheduled for CT of head . Patient is left handed. Fractured left arm 3 years ago with full recovery. Prior Treatments and Tests Sees TANA Stock tomorrow. Not using ice or heat. Takes Tylenol (2) at night. PT-OP-C Subjective Start: 01/04/22 08:36 Freq: Status: Active Protocol: Document 02/11/22 13:53 SAK (Rec: 02/11/22 16:03 SAK [id number]) OP-PT Subjective Patient Comments Patient Comments Feeling more positive today, feel like we zeroed in on whats causing the problem. Thinks able to do a little more with her shoulder. PT-OP-F Manual Assessment Start: 01/04/22 08:36 Freq: Status: Active Protocol: Document 01/05/22 12:58 SAK (Rec: 01/06/22 10:43 [facility] [id number]) Manual Assessments Joint Mobility Assessment Joint Mobility Assessment not done due to recent fracture PT-OP-G Mobility & Gait Start: 01/04/22 08:36 Freq: Status: Active Protocol: Document 01/05/22 12:58 SAK (Rec: 01/06/22 10:43 [facility] [id number]) OP Mobility Evaluation Bed Mobility Supine to and from Sit mod assist due to inability to use right UE Transfers Sit to Stand indep Bed to Chair Transfers indep Car Transfers min assist Functional Movements Lifting and Carrying unable PT-OP-J Posture/Palpation/Skin Start: 01/04/22 08:36 Freq: Status: Active Protocol: Document 01/05/22 12:58 [facility] (Rec: 01/06/22 10:43 [facility] [id number]) Posture Evaluation Position Sitting Head/C-Spine Posture Forward Head T-Spine Posture Increased Kyphosis L-Spine Posture Increased Lordosis Shoulder Posture (L) Rounded,(R) Rounded Scapula Posture (L) Protracted,(R) Protracted Arm Posture (L) Internally Rotated,(R) Internally Rotated Skin Assessment Edema Assessment right shoulder Comments intact PT-OP-K Range of Motion Start: 01/04/22 08:36 Freq: Status: Active Protocol: Document 02/05/22 12:18 SP (Rec: 02/05/22 13:32 SP [id number]) Shoulder Goniometric Range of Motion Shoulder Right Passive Shoulder ROM WFL No Testing Position Supine Flexion 80 Extension 0 Abduction 65 External Rotation at 45 degrees 30 Abduction Internal Rotation 25 Comments Flexion: AROM 100- 120 deg PROM 107 Abd: (elbow bent 90 deg) AROM 85 deg, PROM 85 deg ER: AROM 62 deg (arm at side) IR: standing behind back: PT-OP-M Strength Start: 01/04/22 08:36 Freq: Status: Active Protocol: Document 01/05/22 12:58 SAK (Rec: 01/06/22 10:43 [facility] [id number]) Shoulder Strength Shoulder Manual Muscle Testing Left Comments 5/5 Right Comments no MMT due to recent fracture, only PROM allowed at this time PT-OP-Q Treatments Start: 01/04/22 08:36 Freq: Status: Active Protocol: Document 02/11/22 13:53 [facility] (Rec: 02/11/22 16:03 [facility] [id number]) Therapeutic Exercises Supine Exercises pec stretch Supine Exercise Name manual overpressure Side right Reps/Minutes 2x1min Comments manual ABC Supine Exercise Name reviewed HEP Side right Resistance AROM- moderate range Reps/Minutes a-z today Comments cued no UT recruit endurance with letters, # letter tolerance. Forward punch Supine Exercise Name reviewed HEP Side right Reps/Minutes x10 Comments at 90 deg FF AROM shoulder flex Supine Exercise Name RUE Resistance AROM Equipment Used 120 deg Reps/Minutes 5 reps Comments cued knees bent tolerant ROM PROM Supine Exercise Name flex,abd, IR/ER, horizontal add Resistance AROM Reps/Minutes 10x ea Comments manual, manual scapular upward rotation with elevation Sidelying Exercises shld ER Side right Resistance AROM Reps/Minutes x10 Comments cued alignment and ROM to tolerance. Manual Therapy Treatment Soft Tissue Mobilization subscapular realease Mobilization Type Oscillations,Sustained Pressure Intensity/Depth Moderate Body Position Hooklying Comments with manual shoulder elevation R UT Body Location R UT, lev scap, suboccipitals, deltoid Mobilization Type Myofascial Release,Rolling Intensity/Depth Moderate Body Position Hooklying Comments manual Joint Mobilizations upward scapualr rotation Joint GH Grade II Body Position Sidelying GH glide Joint R GH jt Direction PA, Inferior Grade II Body Position Hooklying Comments manual, good feedback response , no pain PT-OP-R Modalities Start: 01/04/22 08:36 Freq: Status: Active Protocol: Document 02/11/22 13:53 [facility] (Rec: 02/11/22 16:03 [facility] [id number]) Electric Stimulation Electric Stimulation Interferential Current (IFC) Duration (Minutes) 15 Intensity 8 Target/Sweep Sweep Patient Position Hooklying Combined With Heat/Cold Hot Pack PT-OP-T Assessment and Plan Start: 01/04/22 08:36 Freq: Status: Active Protocol: Document 02/11/22 13:53 [facility] (Rec: 02/11/22 16:03 [facility] [id number]) Physical Therapy Assessment Goals Three Impairment unable to sleep in her bed due to shoulder need for assist to get out Intermediate Goal (LTG) patient able to get in and out of bed independently and sleep comfortably in her bed again. 01/26/22: progressing: see self section, reviewed sleeping on side/ supine withpillows with cues and 10%A for pillow positioning. 02/05/22: still having pain sleeping but better with pillow under arm when on L side or under R arm on back. LTG Duration 04/06/22 progressing Two Impairment ROM and strength impairment right shoudler Short Term Goal (STG) Patient to be independent and compliant with HEP for purposes of ROM and strengthening right shoulder 02/05/22: progressing: supine FF AROM, serratus punch, ABCs, side shld ER, seated pulleys, UT/lev scap stretch/ tennis ball on wall post scap self STMs. STG Duration 02/19/22 progressing Intermediate Goal (LTG) Patient will demonstrate right shoulder ROM WNL and strength at least 4/5 all motions to allow her to return to prior activities using right UE with minimal to no pain. 02/05/22: R Shld in supine: FF AROM: 120*, ABD 85*, ER 62*. LTG Duration 04/06/22 One Impairment functional activities Impairment Quickdash UE disability index score 68% Short Term Goal (STG) Improve Quickdash score to no greater than 40% STG Duration 02/19/22 [employer] Goal (LTG) Improve Quickdash score to no greater than 20% as measure of improved right shoulder function LTG Duration 04/06/22 Assessment Summary Assessment Started session with Sci-Fit with work primarily from legs with good tolerance. Improved shoulder flexion with sidelying MWM and subscapular release. Trial IFES with moist heat to end treatment for pain management. Right shoulder flexion AAROM to 134 deg. Physical Therapy Plan Frequency and Duration Frequency of Treatment 2x/Week Duration of Treatment 12 weeks Plan of Care Start Date 01/05/22 Plan of Care End Date 04/06/22 Therapeutic Interventions Therapeutic Interventions Aquatic Therapy,Gait Training, Home Exercise Program,Manual Therapy,Patient/Caregiver Education,Self-Care/Home Management,Soft Tissue Mobilization,Taping, Therapeutic Activities, Therapeutic Exercises Modalities Cold Pack/Ice Massage,Electric Stimulation,Hot Packs, Infrared Therapy,Iontophoresis ,Ultrasound Next Visit Focus/Plan Next Note Type Treatment Note Next Visit Plan PROM, AAROM, AROM ex. Gentle joint mobilization and MOW and soft tissue mobilization to decrease muscle tension and pain. Continue subscapular release.
--- NOTE | 2022-02-23 11:17 | PT.OTN ---
Addendum entered and electronically signed by Marguerite Sotelo PTA 02/24/22 16:16: Pt had dizziness coming up sitting and has in past just need sit and let pass, discussed maybe see vestibular PT to see if anything can do to improve. Pt responded has heard before and might seek out. Original Note: Current Diagnoses Pain in right shoulder (02/23/22) Weakness (02/23/22) Nondisplaced fracture of coracoid process, right shoulder, subsequent encounter for fracture with routine healing (02/23/22) Physical Therapy Treatment Note PT-OP-A Visit Information Start: 01/04/22 08:36 Freq: Status: Active Protocol: Document 02/23/22 10:32 SP (Rec: 02/23/22 11:37 SP [id number]) Out-Patient Physical Therapy Visit Information Visit Information Visit Type Treatment Note Visit Note 12/18/21 10 weeks s/p facture. Visit Start Time 10:32 Visit Stop Time 11:17 Total Visit Minutes 45 Visit Number 9 Number of INFORMATION RECEPTIONIST Visits 1 Evaluation Information Evaluation Date 01/05/22 Precautions Precautions Can start AROM tolerated with out compensations. PT-OP-B Current Condition Start: 01/04/22 08:36 Freq: Status: Active Protocol: Document 01/13/22 08:16 SAK (Rec: 01/13/22 09:04 SAK [id number]) Current Condition History of Current Condition Onset Date 12/13/21 Current Complaints right shoulder pain and loss of function History of Current Condition fell and fell onto right UE while going down carpeted stairs, fractured coracoid process. Was unconscious for 16 hours; had brain blead as well as 6 fractured ribs, was at [facility] x 5 days, left . 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 Now has grab bars in bathroom, bannister up to bedroom, goes down backward. Has been sleeping in recliner. Has been doing pendulum exercises; instructed by physician. Has had nausea and dizziness, gradually getting better. Also reports floaters in visual field. Agreeable to go to doctor to discuss these persistent symptoms. Scheduled for CT of head . Patient is left handed. Fractured left arm 3 years ago with full recovery. 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 Not using ice or heat. Takes Tylenol (2) at night. PT-OP-C Subjective Start: 01/04/22 08:36 Freq: Status: Active Protocol: Document 02/23/22 10:32 SP (Rec: 02/23/22 11:37 SP [id number]) OP-PT Subjective Patient Comments Patient Comments Pt stated feels able to grab objects but don't have the strength yet to lift out in front. PT-OP-F Manual Assessment Start: 01/04/22 08:36 Freq: Status: Active Protocol: Document 01/05/22 12:58 SAK (Rec: 01/06/22 10:43 SAK [id number]) Manual Assessments Joint Mobility Assessment Joint Mobility Assessment not done due to recent fracture PT-OP-G Mobility & Gait Start: 01/04/22 08:36 Freq: Status: Active Protocol: Document 01/05/22 12:58 SAK (Rec: 01/06/22 10:43 SAK [id number]) OP Mobility Evaluation Bed Mobility Supine to and from Sit mod assist due to inability to use right UE Transfers Sit to Stand indep Bed to Chair Transfers indep Car Transfers min assist Functional Movements Lifting and Carrying unable PT-OP-J Posture/Palpation/Skin Start: 01/04/22 08:36 Freq: Status: Active Protocol: Document 01/05/22 12:58 SAK (Rec: 01/06/22 10:43 SAK [id number]) Posture Evaluation Position Sitting Head/C-Spine Posture Forward Head T-Spine Posture Increased Kyphosis L-Spine Posture Increased Lordosis Shoulder Posture (L) Rounded,(R) Rounded Scapula Posture (L) Protracted,(R) Protracted Arm Posture (L) Internally Rotated,(R) Internally Rotated Skin Assessment Edema Assessment right shoulder Comments intact PT-OP-K Range of Motion Start: 01/04/22 08:36 Freq: Status: Active Protocol: Document 02/05/22 12:18 SP (Rec: 02/05/22 13:32 SP [id number]) Shoulder Goniometric Range of Motion Shoulder Right Passive Shoulder ROM WFL No Testing Position Supine Flexion 80 Extension 0 Abduction 65 External Rotation at 45 degrees 30 Abduction Internal Rotation 25 Comments Flexion: AROM 100- 120 deg PROM 107 Abd: (elbow bent 90 deg) AROM 85 deg, PROM 85 deg ER: AROM 62 deg (arm at side) IR: standing behind back: PT-OP-M Strength Start: 01/04/22 08:36 Freq: Status: Active Protocol: Document 01/05/22 12:58 SAK (Rec: 01/06/22 10:43 SAK [id number]) Shoulder Strength Shoulder Manual Muscle Testing Left Comments 5/5 Right Comments no MMT due to recent fracture, only PROM allowed at this time PT-OP-Q Treatments Start: 01/04/22 08:36 Freq: Status: Active Protocol: Document 02/23/22 10:32 SP (Rec: 02/23/22 11:37 SP [id number]) Therapeutic Exercises Supine Exercises Shld ABD Supine Exercise Name added to HEP Side right Resistance AAROM Equipment Used want Reps/Minutes x5 Comments cued allow arm touch table to decrease trunk rotation AAROM shoulder flex Supine Exercise Name LUE help RUE Resistance AAROM 135 deg Equipment Used dowel, small 1/2 foam roller under head, all shld back out way lift OH Reps/Minutes 10x Comments cued no UT recruitment PROM Supine Exercise Name flex,abd, IR/ER, horizontal add Resistance AROM Reps/Minutes 10x ea Comments manual, manual scapular upward rotation with elevation Sidelying Exercises open book Sidelying Exercise Name added to HEP Side right Resistance AROM- facilitate intially Reps/Minutes x8 reps Comments cued scap glide UR, no UT recruit shld ER Side right Resistance AROM Equipment Used towel under arm Reps/Minutes x10 Comments cued alignment and ROM to tolerance. Sitting Exercises pulleys Sitting Exercise Name flexion 117-122 deg states 5-6 /10 pain but encouraged gain ROM Side right Resistance AAROM Equipment Used used strap over shld/trunk to decrease shdl elevation (didnt ' help) Reps/Minutes 10x ea Comments Min cues no R UT recruitment and breath relax shld down Manual Therapy Treatment Soft Tissue Mobilization subscapular realease Mobilization Type Oscillations,Sustained Pressure Intensity/Depth Moderate Body Position Hooklying Comments with manual shoulder elevation R UT Body Location R UT, lev scap, suboccipitals, deltoid, Mobilization Type Myofascial Release,Rolling Intensity/Depth Moderate Body Position Hooklying Comments manual Joint Mobilizations upward scapualr rotation Joint GH Grade II Body Position Sidelying Manual Techniques PNF R shld Type D2 flexion Body Location R shld Body Position Sidelying Reps/Duration x5 reps Comments manual, then instruction open book - improved form no UT. PT-OP-R Modalities Start: 01/04/22 08:36 Freq: Status: Active Protocol: Document 02/11/22 13:53 SAK (Rec: 02/11/22 16:03 SAK [id number]) Electric Stimulation Electric Stimulation Interferential Current (IFC) Duration (Minutes) 15 Intensity 8 Target/Sweep Sweep Patient Position Hooklying Combined With Heat/Cold Hot Pack PT-OP-T Assessment and Plan Start: 01/04/22 08:36 Freq: Status: Active Protocol: Document 02/23/22 10:32 SP (Rec: 02/23/22 11:37 SP [id number]) Physical Therapy Assessment Goals Three Impairment unable to sleep in her bed due to shoulder need for assist to get out Accounting Professor Goal (LTG) patient able to get in and out of bed independently and sleep comfortably in her bed again. 01/26/22: progressing: see self section, reviewed sleeping on side/ supine withpillows with cues and 10%A for pillow positioning. 02/05/22: still having pain sleeping but better with pillow under arm when on L side or under R arm on back. LTG Duration 04/06/22 progressing Two Impairment ROM and strength impairment right shoudler Short Term Goal (STG) Patient to be independent and compliant with HEP for purposes of ROM and strengthening right shoulder 02/05/22: progressing: supine FF AROM, serratus punch, ABCs, side shld ER, seated pulleys, UT/lev scap stretch/ tennis ball on wall post scap self STMs. STG Duration 02/19/22 progressing Fdc Goal (LTG) Patient will demonstrate right shoulder ROM WNL and strength at least 4/5 all motions to allow her to return to prior activities using right UE with minimal to no pain. 02/05/22: R Shld in supine: FF AROM: 120*, ABD 85*, ER 62*. LTG Duration 04/06/22 One Impairment functional activities Impairment Quickdash UE disability index score 68% Short Term Goal (STG) Improve Quickdash score to no greater than 40% STG Duration 02/19/22 Accounting Professor Goal (LTG) Improve Quickdash score to no greater than 20% as measure of improved right shoulder function LTG Duration 04/06/22 Assessment Summary Assessment Pt able to increased AAROM during pulleys 122 deg with cues for scap relax down and 135 deg with cues for elbow straight FF post manual PNF and STMs then added open book to HEP. Pt stated shld feels more mobile. Physical Therapy Plan Frequency and Duration Frequency of Treatment 2x/Week Duration of Treatment 12 weeks Plan of Care Start Date 01/05/22 Plan of Care End Date 04/06/22 Therapeutic Interventions Therapeutic Interventions Aquatic Therapy,Gait Training, Home Exercise Program,Manual Therapy,Patient/Caregiver Education,Self-Care/Home Management,Soft Tissue Mobilization,Taping, Therapeutic Activities, Therapeutic Exercises Modalities Cold Pack/Ice Massage,Electric Stimulation,Hot Packs, Infrared Therapy,Iontophoresis ,Ultrasound Next Visit Focus/Plan Next Note Type Treatment Note Next Visit Plan Future tx: modified gentle partridge protocol. REcheck open book AROM scap glide focus and shld ABD wand. POC: PROM, AAROM, AROM ex. Gentle joint mobilization and MWM, PNF and soft tissue mobilization to decrease muscle tension and pain. Continue subscapular release.
--- NOTE | 2022-02-25 09:45 | PT.OTN ---
Current Diagnoses Pain in right shoulder (02/25/22) Weakness (02/25/22) Nondisplaced fracture of coracoid process, right shoulder, subsequent encounter for fracture with routine healing (02/25/22) Physical Therapy Treatment Note PT-OP-A Visit Information Start: 01/04/22 08:36 Freq: Status: Active Protocol: Document 02/25/22 09:03 SP (Rec: 02/25/22 09:48 SP [id number]) Out-Patient Physical Therapy Visit Information Visit Information Visit Type Treatment Note Visit Note PN note due, sees PT 12th visit. Visit Start Time 09:03 Visit Stop Time 09:45 Total Visit Minutes 42 Visit Number 10 Number of DIRECTOR [employer]ATION Visits 2 Evaluation Information Evaluation Date 01/05/22 Precautions Precautions 12/18/21 10 weeks s/p facture. Can start AROM tolerated with out compensations. PT-OP-B Current Condition Start: 01/04/22 08:36 Freq: Status: Active Protocol: Document 01/13/22 08:16 SAK (Rec: 01/13/22 09:04 SAK [id number]) Current Condition History of Current Condition Onset Date 12/13/21 Current Complaints right shoulder pain and loss of function History of Current Condition fell and fell onto right UE while going down carpeted stairs, fractured coracoid process. Was unconscious for 16 hours; had brain blead as well as 6 fractured ribs, was at [facility] x 5 days, left . 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 Now has grab bars in bathroom, bannister up to bedroom, goes down backward. Has been sleeping in recliner. Has been doing pendulum exercises; instructed by physician. Has had nausea and dizziness, gradually getting better. Also reports floaters in visual field. Agreeable to go to doctor to discuss these persistent symptoms. Scheduled for CT of head . Patient is left handed. Fractured left arm 3 years ago with full recovery. Prior Treatments and Tests Sees TANA Stock tomorrow. Not using ice or heat. Takes Tylenol (2) at night. PT-OP-C Subjective Start: 01/04/22 08:36 Freq: Status: Active Protocol: Document 02/25/22 09:03 SP (Rec: 02/25/22 09:48 SP [id number]) OP-PT Subjective Patient Comments Patient Comments Pt stated has been able to do new HEP since last tx, states gives her cues at home for proper form using HOs for guidence, more details inclined. Is able to reach RUE onto top steering wheel now. PT-OP-F Manual Assessment Start: 01/04/22 08:36 Freq: Status: Active Protocol: Document 01/05/22 12:58 [facility] (Rec: 01/06/22 10:43 [facility] [id number]) Manual Assessments Joint Mobility Assessment Joint Mobility Assessment not done due to recent fracture PT-OP-G Mobility & Gait Start: 01/04/22 08:36 Freq: Status: Active Protocol: Document 01/05/22 12:58 SAK (Rec: 01/06/22 10:43 [facility] [id number]) OP Mobility Evaluation Bed Mobility Supine to and from Sit mod assist due to inability to use right UE Transfers Sit to Stand indep Bed to Chair Transfers indep Car Transfers min assist Functional Movements Lifting and Carrying unable PT-OP-J Posture/Palpation/Skin Start: 01/04/22 08:36 Freq: Status: Active Protocol: Document 01/05/22 12:58 SAK (Rec: 01/06/22 10:43 [facility] [id number]) Posture Evaluation Position Sitting Head/C-Spine Posture Forward Head T-Spine Posture Increased Kyphosis L-Spine Posture Increased Lordosis Shoulder Posture (L) Rounded,(R) Rounded Scapula Posture (L) Protracted,(R) Protracted Arm Posture (L) Internally Rotated,(R) Internally Rotated Skin Assessment Edema Assessment right shoulder Comments intact PT-OP-K Range of Motion Start: 01/04/22 08:36 Freq: Status: Active Protocol: Document 02/05/22 12:18 SP (Rec: 02/05/22 13:32 SP [id number]) Shoulder Goniometric Range of Motion Shoulder Right Passive Shoulder ROM WFL No Testing Position Supine Flexion 80 Extension 0 Abduction 65 External Rotation at 45 degrees 30 Abduction Internal Rotation 25 Comments Flexion: AROM 100- 120 deg PROM 107 Abd: (elbow bent 90 deg) AROM 85 deg, PROM 85 deg ER: AROM 62 deg (arm at side) IR: standing behind back: PT-OP-M Strength Start: 01/04/22 08:36 Freq: Status: Active Protocol: Document 01/05/22 12:58 SAK (Rec: 01/06/22 10:43 SAK [id number]) Shoulder Strength Shoulder Manual Muscle Testing Left Comments 5/5 Right Comments no MMT due to recent fracture, only PROM allowed at this time PT-OP-Q Treatments Start: 01/04/22 08:36 Freq: Status: Active Protocol: Document 02/25/22 09:03 SP (Rec: 02/25/22 09:48 SP [id number]) Therapeutic Exercises Supine Exercises R shld ER Side right Resistance AAROM- 55 deg Equipment Used wand, towel under arm (cued hold towel to keep arm next to side) Reps/Minutes x3 Comments cued comfort easy, expressed AAROM shoulder flex Supine Exercise Name LUE help RUE Resistance AAROM 125>135 deg Equipment Used dowel, head on pillow and slight head elevation Reps/Minutes 10x (knees bent, aware TA) Comments cued no UT recruitment PROM Supine Exercise Name flex,abd, IR/ER, horizontal add Resistance AROM Reps/Minutes 10x ea Comments manual, manual scapular upward rotation with elevation Sidelying Exercises open book Sidelying Exercise Name reviewed HEP: R>L (L modified sidelying- painfree response) Side right Resistance AROM- facilitate intially Reps/Minutes x8 reps Comments cued scap glide RUE head with arm, no UT recruit shld ER Side right Resistance AROM Equipment Used towel under arm Reps/Minutes x10 Comments cued alignment and ROM to tolerance. Sitting Exercises scap retraction Sitting Exercise Name reviewed HEP ( DC shoulder shrugs scanned in) Reps/Minutes 5 s hold x5 Comments cued tall posture seated edge chair cervical ROM Sitting Exercise Name flex/ext, rot, sidebending (w/ scap retract, tall posture cue awareness) Side bilateral Reps/Minutes 2 reps 5 sec hold each direction Comments cued no UT recruitment and alignment corrections Standing Exercises shoulder flex Standing Exercise Name FF, scaption, extension Equipment Used back to wall, cane Reps/Minutes x5 reps- improved ROM into FWW , not measured Comments cued no UT recruitment Manual Therapy Treatment Joint Mobilizations modified partridge protocol Joint R shld Comments improved AAROM, see FF measurement 133 deg, ER 55deg AAROM wand upward scapualr rotation Joint R GH Grade II Body Position Sidelying GH glide Joint R GH jt Direction PA, Inferior Grade II Body Position Hooklying Comments manual, good feedback response , no pain PT-OP-R Modalities Start: 01/04/22 08:36 Freq: Status: Active Protocol: Document 02/11/22 13:53 SAK (Rec: 02/11/22 16:03 SAK [id number]) Electric Stimulation Electric Stimulation Interferential Current (IFC) Duration (Minutes) 15 Intensity 8 Target/Sweep Sweep Patient Position Hooklying Combined With Heat/Cold Hot Pack PT-OP-T Assessment and Plan Start: 01/04/22 08:36 Freq: Status: Active Protocol: Document 02/25/22 09:03 SP (Rec: 02/25/22 09:48 SP [id number]) Physical Therapy Assessment Goals Three Impairment unable to sleep in her bed due to shoulder need for assist to get out Curber Goal (LTG) patient able to get in and out of bed independently and sleep comfortably in her bed again. 01/26/22: progressing: see self section, reviewed sleeping on side/ supine withpillows with cues and 10%A for pillow positioning. 02/05/22: still having pain sleeping but better with pillow under arm when on L side or under R arm on back. 02/25/22: Goal met: not able to sleep on R shld yet, still wakes up with pain at night but less.Is ableto get in/ out bed I, more challenging on R side but able to perform during tx today. LTG Duration 04/06/22 Goal MET Two Impairment ROM and strength impairment right shoudler Short Term Goal (STG) Patient to be independent and compliant with HEP for purposes of ROM and strengthening right shoulder 02/05/22: progressing: supine FF AROM, serratus punch, ABCs, side shld ER, seated pulleys, UT/lev scap stretch/ tennis ball on wall post scap self STMs. STG Duration 02/19/22 progressing Curber Goal (LTG) Patient will demonstrate right shoulder ROM WNL and strength at least 4/5 all motions to allow her to return to prior activities using right UE with minimal to no pain. 02/05/22: R Shld in supine: FF AROM: 120*, ABD 85*, ER 62*. LTG Duration 04/06/22 One Impairment functional activities Impairment Quickdash UE disability index score 68% Short Term Goal (STG) Improve Quickdash score to no greater than 40% STG Duration 02/19/22 Halfway Goal (LTG) Improve Quickdash score to no greater than 20% as measure of improved right shoulder function LTG Duration 04/06/22 Progress Towards Goals Progress Towards Goals Progressing Toward Goals Progress Comments Met LTG Goal #3 able get in/ out bed I. Pt progressing in AAROM 135deg FF, ER 55 deg w/ wand assist supine. Assessment Summary Assessment Pt improved scapular mobiltiy and AAROM w/ dowel post manual modified partridge protocol and manual PROM. Pt demonstrated improvements in AAROM standing FF w/ back to wall for self postural alinment feedback. Physical Therapy Plan Frequency and Duration Frequency of Treatment 2x/Week Duration of Treatment 12 weeks Plan of Care Start Date 01/05/22 Plan of Care End Date 04/06/22 Therapeutic Interventions Therapeutic Interventions Aquatic Therapy,Gait Training, Home Exercise Program,Manual Therapy,Patient/Caregiver Education,Self-Care/Home Management,Soft Tissue Mobilization,Taping, Therapeutic Activities, Therapeutic Exercises Modalities Cold Pack/Ice Massage,Electric Stimulation,Hot Packs, Infrared Therapy,Iontophoresis ,Ultrasound Next Visit Focus/Plan Next Note Type Treatment Note Next Visit Plan PN due, today 10th visit. Future tx: continue modified gentle partridge protocol. REcheck open book AROM scap glide focus and shld ABD wand. Check standing AAROM and pulleys. POC: PROM, AAROM, AROM ex. Gentle joint mobilization and MWM, PNF and soft tissue mobilization to decrease muscle tension and pain. Continue subscapular release.
--- NOTE | 2022-03-04 09:00 | PT.OTN ---
Current Diagnoses Pain in right shoulder (03/04/22) Weakness (03/04/22) Nondisplaced fracture of coracoid process, right shoulder, subsequent encounter for fracture with routine healing (03/04/22) Physical Therapy Treatment Note PT-OP-A Visit Information Start: 01/04/22 08:36 Freq: Status: Active Protocol: Document 03/04/22 08:20 SP (Rec: 03/04/22 09:05 SP [id number]) Out-Patient Physical Therapy Visit Information Visit Information Visit Type Treatment Note Visit Note PN note due, sees PT 12th visit. Visit Start Time 08:20 Visit Stop Time 09:00 Total Visit Minutes 40 Visit Number 11 Number of ENGRAVER MACHINE Visits 3 Evaluation Information Evaluation Date 01/05/22 Precautions Precautions 12/18/21 11 weeks s/p facture. Allowed AROM tolerated with out compensations. PT-OP-B Current Condition Start: 01/04/22 08:36 Freq: Status: Active Protocol: Document 01/13/22 08:16 SAK (Rec: 01/13/22 09:04 SAK [id number]) Current Condition History of Current Condition Onset Date 12/13/21 Current Complaints right shoulder pain and loss of function History of Current Condition fell and fell onto right UE while going down carpeted stairs, fractured coracoid process. Was unconscious for 16 hours; had brain blead as well as 6 fractured ribs, was at [facility] x 5 days, left . 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 Now has grab bars in bathroom, bannister up to bedroom, goes down backward. Has been sleeping in recliner. Has been doing pendulum exercises; instructed by physician. Has had nausea and dizziness, gradually getting better. Also reports floaters in visual field. Agreeable to go to doctor to discuss these persistent symptoms. Scheduled for CT of head . Patient is left handed. Fractured left arm 3 years ago with full recovery. Prior Treatments and Tests Sees TANA Stock tomorrow. Not using ice or heat. Takes Tylenol (2) at night. PT-OP-C Subjective Start: 01/04/22 08:36 Freq: Status: Active Protocol: Document 03/04/22 08:20 SP (Rec: 03/04/22 09:05 SP [id number]) OP-PT Subjective Patient Comments Patient Comments Pt stated doing the exercises, stiff in the am, always feels better after PT. PT-OP-F Manual Assessment Start: 01/04/22 08:36 Freq: Status: Active Protocol: Document 01/05/22 12:58 SAK (Rec: 01/06/22 10:43 SAK [id number]) Manual Assessments Joint Mobility Assessment Joint Mobility Assessment not done due to recent fracture PT-OP-G Mobility & Gait Start: 01/04/22 08:36 Freq: Status: Active Protocol: Document 01/05/22 12:58 SAK (Rec: 01/06/22 10:43 SAK [id number]) OP Mobility Evaluation Bed Mobility Supine to and from Sit mod assist due to inability to use right UE Transfers Sit to Stand indep Bed to Chair Transfers indep Car Transfers min assist Functional Movements Lifting and Carrying unable PT-OP-J Posture/Palpation/Skin Start: 01/04/22 08:36 Freq: Status: Active Protocol: Document 01/05/22 12:58 [facility] (Rec: 01/06/22 10:43 [facility] [id number]) Posture Evaluation Position Sitting Head/C-Spine Posture Forward Head T-Spine Posture Increased Kyphosis L-Spine Posture Increased Lordosis Shoulder Posture (L) Rounded,(R) Rounded Scapula Posture (L) Protracted,(R) Protracted Arm Posture (L) Internally Rotated,(R) Internally Rotated Skin Assessment Edema Assessment right shoulder Comments intact PT-OP-K Range of Motion Start: 01/04/22 08:36 Freq: Status: Active Protocol: Document 03/04/22 08:20 SP (Rec: 03/04/22 09:05 SP [id number]) Shoulder Goniometric Range of Motion Shoulder Right Passive Shoulder ROM WFL No Testing Position Supine Flexion 139 Extension 0 Abduction 93 Comments Flexion supine: AROM 139 deg Abd: (elbow bent 90 deg) AROM 93 deg ER: AROM 62 deg (arm at side) IR: standing behind back: stand R hand over R buttocks PT-OP-M Strength Start: 01/04/22 08:36 Freq: Status: Active Protocol: Document 01/05/22 12:58 SAK (Rec: 01/06/22 10:43 [facility] [id number]) Shoulder Strength Shoulder Manual Muscle Testing Left Comments 5/5 Right Comments no MMT due to recent fracture, only PROM allowed at this time PT-OP-Q Treatments Start: 01/04/22 08:36 Freq: Status: Active Protocol: Document 03/04/22 08:20 SP (Rec: 03/04/22 09:05 SP [id number]) Therapeutic Exercises Sitting Exercises pulleys Sitting Exercise Name flexion 125 deg elbow bent/ 142 deg elbow straight, add scaption Side right Resistance AAROM Equipment Used pulleys, mirror, ed target at 45 deg abd to maintain scaption AAROM Reps/Minutes 10x ea Comments Min cues elbow straight, relaxed shlds alot better form and painfree Standing Exercises wall walking Standing Exercise Name added to HEP (FF, scaption) Side right Resistance AAROM Equipment Used facing wall Reps/Minutes x5, 5 breath at end feel range Comments Cued no UT, relax w/ breath end feel. self STMs Standing Exercise Name ball on wall UT, interscap; theracane post neck MWM head turn/ nod Side right Equipment Used tennis ball in sock, theracane Reps/Minutes 1 min Comments good feedback response for home shoulder flex Standing Exercise Name FF, scaption, extension Equipment Used back to wall, cane Reps/Minutes x5 reps Comments Mod cued no UT recruitment shoulder IR Standing Exercise Name added to HEP Side right Resistance AAROM L help R behind back Equipment Used wand Reps/Minutes x5-10 hold 3 sec Comments cued Manual Therapy Treatment Soft Tissue Mobilization R UT Body Location R UT, lev scap, Mobilization Type Myofascial Release,Rolling Intensity/Depth Moderate Body Position Hooklying Comments manual, instruct/ review self STMs pre pulleys for improved AAROM decrease muscle tightness better. PT-OP-R Modalities Start: 01/04/22 08:36 Freq: Status: Active Protocol: Document 02/11/22 13:53 SAK (Rec: 02/11/22 16:03 SAK [id number]) Electric Stimulation Electric Stimulation Interferential Current (IFC) Duration (Minutes) 15 Intensity 8 Target/Sweep Sweep Patient Position Hooklying Combined With Heat/Cold Hot Pack PT-OP-T Assessment and Plan Start: 01/04/22 08:36 Freq: Status: Active Protocol: Document 03/04/22 08:20 SP (Rec: 03/04/22 09:05 SP [id number]) Physical Therapy Assessment Goals Three Impairment unable to sleep in her bed due to shoulder need for assist to get out Campus Manager Goal (LTG) patient able to get in and out of bed independently and sleep comfortably in her bed again. 01/26/22: progressing: see self section, reviewed sleeping on side/ supine withpillows with cues and 10%A for pillow positioning. 02/05/22: still having pain sleeping but better with pillow under arm when on L side or under R arm on back. 02/25/22: Goal met: not able to sleep on R shld yet, still wakes up with pain at night but less.Is ableto get in/ out bed I, more challenging on R side but able to perform during tx today. LTG Duration 04/06/22 Goal MET Two Impairment ROM and strength impairment right shoudler Short Term Goal (STG) Patient to be independent and compliant with HEP for purposes of ROM and strengthening right shoulder 02/05/22: progressing: supine FF AROM, serratus punch, ABCs, side shld ER, seated pulleys, UT/lev scap stretch/ tennis ball on wall post scap self STMs. STG Duration 02/19/22 progressing Longterm Goal (LTG) Patient will demonstrate right shoulder ROM WNL and strength at least 4/5 all motions to allow her to return to prior activities using right UE with minimal to no pain. 02/05/22: R Shld in supine: FF AROM: 120*, ABD 85*, ER 62*. LTG Duration 04/06/22 One Impairment functional activities Impairment Quickdash UE disability index score 68% Short Term Goal (STG) Improve Quickdash score to no greater than 40% STG Duration 02/19/22 Longterm Goal (LTG) Improve Quickdash score to no greater than 20% as measure of improved right shoulder function LTG Duration 04/06/22 Progress Towards Goals Progress Towards Goals Progressing Toward Goals Progress Comments Improved AROM R shld 19 deg FF , 8 deg ABD. Assessment Summary Assessment Pt improved AAROM pulleys with decreased UT recruitment with cues for elbow straight and relax shld consistantly, ed for saying out loud. Also carry over wall walking added and shld IR wand ex. Physical Therapy Plan Frequency and Duration Frequency of Treatment 2x/Week Duration of Treatment 12 weeks Plan of Care Start Date 01/05/22 Plan of Care End Date 04/06/22 Therapeutic Interventions Therapeutic Interventions Aquatic Therapy,Gait Training, Home Exercise Program,Manual Therapy,Patient/Caregiver Education,Self-Care/Home Management,Soft Tissue Mobilization,Taping, Therapeutic Activities, Therapeutic Exercises Modalities Cold Pack/Ice Massage,Electric Stimulation,Hot Packs, Infrared Therapy,Iontophoresis ,Ultrasound Next Visit Focus/Plan Next Note Type Treatment Note Next Visit Plan Future tx: REcheck open book AROM scap glide focus and shld ABD wand. Check standing AAROM and pulleys. POC: PROM, AAROM, AROM ex. Gentle joint mobilization and MWM, PNF and soft tissue mobilization to decrease muscle tension and pain. Continue subscapular release.
--- NOTE | 2022-03-04 16:00 | PT.OPPN ---
Current Diagnoses Pain in right shoulder (03/04/22) Weakness (03/04/22) Nondisplaced fracture of coracoid process, right shoulder, subsequent encounter for fracture with routine healing (03/04/22) Physical Therapy Progress Note PT-OP-A Visit Information Start: 01/04/22 08:36 Freq: Status: Active Protocol: Document 03/04/22 08:20 SP (Rec: 03/04/22 09:05 SP [id number]) Out-Patient Physical Therapy Visit Information Visit Information Visit Type Treatment Note Visit Note PN note due, sees PT 12th visit. Visit Start Time 08:20 Visit Stop Time 09:00 Total Visit Minutes 40 Visit Number 11 Number of HOME RESTORATION SERVICE SUPERVISOR Visits 3 Evaluation Information Evaluation Date 01/05/22 Precautions Precautions 12/18/21 11 weeks s/p facture. Allowed AROM tolerated with out compensations. PT-OP-B Current Condition Start: 01/04/22 08:36 Freq: Status: Active Protocol: Document 01/13/22 08:16 SAK (Rec: 01/13/22 09:04 SAK [id number]) Current Condition History of Current Condition Onset Date 12/13/21 Current Complaints right shoulder pain and loss of function History of Current Condition fell and fell onto right UE while going down carpeted stairs, fractured coracoid process. Was unconscious for 16 hours; had brain blead as well as 6 fractured ribs, was at [facility] x 5 days, left . 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 Now has grab bars in bathroom, bannister up to bedroom, goes down backward. Has been sleeping in recliner. Has been doing pendulum exercises; instructed by physician. Has had nausea and dizziness, gradually getting better. Also reports floaters in visual field. Agreeable to go to doctor to discuss these persistent symptoms. Scheduled for CT of head . Patient is left handed. Fractured left arm 3 years ago with full recovery. Prior Treatments and Tests Sees TANA Stock tomorrow. Not using ice or heat. Takes Tylenol (2) at night. PT-OP-C Subjective Start: 01/04/22 08:36 Freq: Status: Active Protocol: Document 03/04/22 08:20 SP (Rec: 03/04/22 09:05 SP [id number]) OP-PT Subjective Patient Comments Patient Comments Pt stated doing the exercises, stiff in the am, always feels better after PT. PT-OP-F Manual Assessment Start: 01/04/22 08:36 Freq: Status: Active Protocol: Document 01/05/22 12:58 SAK (Rec: 01/06/22 10:43 SAK [id number]) Manual Assessments Joint Mobility Assessment Joint Mobility Assessment not done due to recent fracture PT-OP-G Mobility & Gait Start: 01/04/22 08:36 Freq: Status: Active Protocol: Document 01/05/22 12:58 SAK (Rec: 01/06/22 10:43 SAK [id number]) OP Mobility Evaluation Bed Mobility Supine to and from Sit mod assist due to inability to use right UE Transfers Sit to Stand indep Bed to Chair Transfers indep Car Transfers min assist Functional Movements Lifting and Carrying unable PT-OP-J Posture/Palpation/Skin Start: 01/04/22 08:36 Freq: Status: Active Protocol: Document 01/05/22 12:58 [facility] (Rec: 01/06/22 10:43 [facility] [id number]) Posture Evaluation Position Sitting Head/C-Spine Posture Forward Head T-Spine Posture Increased Kyphosis L-Spine Posture Increased Lordosis Shoulder Posture (L) Rounded,(R) Rounded Scapula Posture (L) Protracted,(R) Protracted Arm Posture (L) Internally Rotated,(R) Internally Rotated Skin Assessment Edema Assessment right shoulder Comments intact PT-OP-K Range of Motion Start: 01/04/22 08:36 Freq: Status: Active Protocol: Document 03/04/22 08:20 SP (Rec: 03/04/22 09:05 SP [id number]) Shoulder Goniometric Range of Motion Shoulder Measured in Degrees Right Passive Shoulder ROM WFL No Testing Position Supine Flexion 139 Extension 0 Abduction 93 Comments Flexion supine: AROM 139 deg Abd: (elbow bent 90 deg) AROM 93 deg ER: AROM 62 deg (arm at side) IR: standing behind back: stand R hand over R buttocks PT-OP-M Strength Start: 01/04/22 08:36 Freq: Status: Active Protocol: Document 01/05/22 12:58 [facility] (Rec: 01/06/22 10:43 SAK [id number]) Shoulder Strength Shoulder Manual Muscle Testing Left Comments 5/5 Right Comments no MMT due to recent fracture, only PROM allowed at this time PT-OP-T Assessment and Plan Start: 01/04/22 08:36 Freq: Status: Active Protocol: Document 03/04/22 08:20 SP (Rec: 03/04/22 09:05 SP [id number]) Physical Therapy Assessment Goals Three Impairment unable to sleep in her bed due to shoulder need for assist to get out Alf Goal (LTG) patient able to get in and out of bed independently and sleep comfortably in her bed again. 01/26/22: progressing: see self section, reviewed sleeping on side/ supine withpillows with cues and 10%A for pillow positioning. 02/05/22: still having pain sleeping but better with pillow under arm when on L side or under R arm on back. 02/25/22: Goal met: not able to sleep on R shld yet, still wakes up with pain at night but less.Is ableto get in/ out bed I, more challenging on R side but able to perform during tx today. LTG Duration 04/06/22 Goal MET Two Impairment ROM and strength impairment right shoudler Short Term Goal (STG) Patient to be independent and compliant with HEP for purposes of ROM and strengthening right shoulder 02/05/22: progressing: supine FF AROM, serratus punch, ABCs, side shld ER, seated pulleys, UT/lev scap stretch/ tennis ball on wall post scap self STMs. STG Duration 02/19/22 progressing Alf Goal (LTG) Patient will demonstrate right shoulder ROM WNL and strength at least 4/5 all motions to allow her to return to prior activities using right UE with minimal to no pain. 02/05/22: R Shld in supine: FF AROM: 120*, ABD 85*, ER 62*. LTG Duration 04/06/22 One Impairment functional activities Impairment Quickdash UE disability index score 68% Short Term Goal (STG) Improve Quickdash score to no greater than 40% STG Duration 02/19/22 Alf Goal (LTG) Improve Quickdash score to no greater than 20% as measure of improved right shoulder function LTG Duration 04/06/22 Progress Towards Goals Progress Towards Goals Progressing Toward Goals Progress Comments Improved AROM R shld 19 deg FF , 8 deg ABD. Assessment Summary Assessment Pt improved AAROM pulleys with decreased UT recruitment with cues for elbow straight and relax shld consistantly, ed for saying out loud. Also carry over wall walking added and shld IR wand ex. Physical Therapy Plan Frequency and Duration Frequency of Treatment 2x/Week Duration of Treatment 12 weeks Plan of Care Start Date 01/05/22 Plan of Care End Date 04/06/22 Therapeutic Interventions Therapeutic Interventions Aquatic Therapy,Gait Training, Home Exercise Program,Manual Therapy,Patient/Caregiver Education,Self-Care/Home Management,Soft Tissue Mobilization,Taping, Therapeutic Activities, Therapeutic Exercises Modalities Cold Pack/Ice Massage,Electric Stimulation,Hot Packs, Infrared Therapy,Iontophoresis ,Ultrasound Next Visit Focus/Plan Next Note Type Treatment Note Next Visit Plan Future tx: REcheck open book AROM scap glide focus and shld ABD wand. Check standing AAROM and pulleys. POC: PROM, AAROM, AROM ex. Gentle joint mobilization and MWM, PNF and soft tissue mobilization to decrease muscle tension and pain. Continue subscapular release.
--- NOTE | 2022-03-18 15:24 | PT.OTN ---
Current Diagnoses Pain in right shoulder (03/18/22) Weakness (03/18/22) Nondisplaced fracture of coracoid process, right shoulder, subsequent encounter for fracture with routine healing (03/18/22) Physical Therapy Treatment Note PT-OP-A Visit Information Start: 01/04/22 08:36 Freq: Status: Active Protocol: Document 03/18/22 14:34 SP (Rec: 03/18/22 16:04 SP [id number]) Out-Patient Physical Therapy Visit Information Visit Information Visit Type Treatment Note Visit Note Pt only 2 visits left, due for PN. She thinks she has what thinks going to get and maybe DC to HEP on last tx. Visit Start Time 14:34 Visit Stop Time 15:24 Total Visit Minutes 50 Visit Number 12 Number of MENTAL HEALTH PRACTITIONER Visits 4 Evaluation Information Evaluation Date 01/05/22 Precautions Precautions 12/18/21 11 weeks s/p facture. Allowed AROM tolerated with out compensations. PT-OP-B Current Condition Start: 01/04/22 08:36 Freq: Status: Active Protocol: Document 01/13/22 08:16 SAK (Rec: 01/13/22 09:04 SAK [id number]) Current Condition History of Current Condition Onset Date 12/13/21 Current Complaints right shoulder pain and loss of function History of Current Condition fell and fell onto right UE while going down carpeted stairs, fractured coracoid process. Was unconscious for 16 hours; had brain blead as well as 6 fractured ribs, was at [facility] x 5 days, left . 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 Now has grab bars in bathroom, bannister up to bedroom, goes down backward. Has been sleeping in recliner. Has been doing pendulum exercises; instructed by physician. Has had nausea and dizziness, gradually getting better. Also reports floaters in visual field. Agreeable to go to doctor to discuss these persistent symptoms. Scheduled for CT of head . Patient is left handed. Fractured left arm 3 years ago with full recovery. Prior Treatments and Tests Sees TANA Stock tomorrow. Not using ice or heat. Takes Tylenol (2) at night. PT-OP-C Subjective Start: 01/04/22 08:36 Freq: Status: Active Protocol: Document 03/18/22 14:34 SP (Rec: 03/18/22 16:04 SP [id number]) OP-PT Subjective Patient Comments Patient Comments Pt states thinks progressing well, but not seeing significant ROM OH FF as does in other areas. Pt states does use heating pad, feels really tight over R anterior shld when lifting and putting arms out front. Patient Reported Progress Improving PT-OP-F Manual Assessment Start: 01/04/22 08:36 Freq: Status: Active Protocol: Document 01/05/22 12:58 SAK (Rec: 01/06/22 10:43 SAK [id number]) Manual Assessments Joint Mobility Assessment Joint Mobility Assessment not done due to recent fracture PT-OP-G Mobility & Gait Start: 01/04/22 08:36 Freq: Status: Active Protocol: Document 01/05/22 12:58 SAK (Rec: 01/06/22 10:43 SAK [id number]) OP Mobility Evaluation Bed Mobility Supine to and from Sit mod assist due to inability to use right UE Transfers Sit to Stand indep Bed to Chair Transfers indep Car Transfers min assist Functional Movements Lifting and Carrying unable PT-OP-J Posture/Palpation/Skin Start: 01/04/22 08:36 Freq: Status: Active Protocol: Document 01/05/22 12:58 [facility] (Rec: 01/06/22 10:43 [facility] [id number]) Posture Evaluation Position Sitting Head/C-Spine Posture Forward Head T-Spine Posture Increased Kyphosis L-Spine Posture Increased Lordosis Shoulder Posture (L) Rounded,(R) Rounded Scapula Posture (L) Protracted,(R) Protracted Arm Posture (L) Internally Rotated,(R) Internally Rotated Skin Assessment Edema Assessment right shoulder Comments intact PT-OP-K Range of Motion Start: 01/04/22 08:36 Freq: Status: Active Protocol: Document 03/18/22 14:34 SP (Rec: 03/18/22 16:04 SP [id number]) Shoulder Goniometric Range of Motion Shoulder Right Passive Shoulder ROM WFL No Testing Position Supine Flexion 139 Extension 0 Abduction 98 External Rotation at 0 degrees Abduction 68 Comments Flexion supine: AROM 132 deg, PROM 136deg Abd AROM: 98 deg (elbow straight, PROM 105 deg ER: AROM 78 deg (arm at side) IR: standing behind back: stand R hand over R buttocks PT-OP-M Strength Start: 01/04/22 08:36 Freq: Status: Active Protocol: Document 01/05/22 12:58 SAK (Rec: 01/06/22 10:43 SAK [id number]) Shoulder Strength Shoulder Manual Muscle Testing Left Comments 5/5 Right Comments no MMT due to recent fracture, only PROM allowed at this time PT-OP-Q Treatments Start: 01/04/22 08:36 Freq: Status: Active Protocol: Document 03/18/22 14:34 SP (Rec: 03/18/22 16:04 SP [id number]) Therapeutic Exercises Supine Exercises shoulder flex Supine Exercise Name RUE FF Resistance AROM 139 deg Equipment Used 2 pillows under head for dizziness support needed, after 15 sec dizzy gone Reps/Minutes 10x (knees bent, aware TA) Comments cued no UT recruitment, better straight arm PROM Supine Exercise Name flex,abd, IR/ER, horizontal add Resistance AROM- states does at home Reps/Minutes 10x ea Comments see ROM meaurements AROM Sitting Exercises eccentric R shld FF Sitting Exercise Name added to HEP Side right Resistance Tb #1(choked up on band for AROM assist) Equipment Used seated in chair back to anchored high Reps/Minutes x8 reps Comments cued slow FF, no UT recruitment and head back neutral pulleys Sitting Exercise Name flexion 135 deg elbow straight , reviewed scaption Side right Resistance AAROM Equipment Used pulleys, mirror, ed target at 45 deg abd to maintain scaption AAROM Reps/Minutes 10x ea Comments better form and painfree Standing Exercises pec door stretch Standing Exercise Name added to - give HO for HEP next tx (MENTAL HEALTH PRACTITIONER printed) Side bilateral Resistance AROM Reps/Minutes 30 x2 Comments good anterior R arm stretch shld TB Standing Exercise Name added to HEP: IR, ER, extension Side right Resistance TB #1 Reps/Minutes x10 each isometrics Standing Exercise Name flex, ext, IR, ER, ADD, ABD Side right Reps/Minutes 5 sec hold x5 reps Comments good form- DC progress with TB wall walking Standing Exercise Name (FF, scaption)- states to challenging, doesnt like Side right Resistance AAROM Equipment Used facing wall Reps/Minutes x5, 5 breath at end feel range Comments Cued no UT, relax w/ breath end feel. self STMs Standing Exercise Name ball on wall UT, interscap; theracane post neck MWM head turn/ nod, pec Side right Equipment Used tennis ball in sock, theracane Reps/Minutes 1 min Comments good feedback response for home shoulder flex Standing Exercise Name FF AROM Side right Resistance 1# DB> AROM> instructed use cane due to lack strength/ROM and UT recruiting Equipment Used back to wall Reps/Minutes x5 reps Comments cued no UT recruitment Self-Care/Home Management Treatment Education Patient Education Home Exercise Program,Posture Other Education Added R shld TB HEP, pec stretch, seated: eccentric FF. Ed for continuing PT to progress functional ROM and strength in RUE, pt verbalized understanding but will see how next 2 txs go. PT-OP-R Modalities Start: 01/04/22 08:36 Freq: Status: Active Protocol: Document 02/11/22 13:53 SAK (Rec: 02/11/22 16:03 SAK [id number]) Electric Stimulation Electric Stimulation Interferential Current (IFC) Duration (Minutes) 15 Intensity 8 Target/Sweep Sweep Patient Position Hooklying Combined With Heat/Cold Hot Pack PT-OP-T Assessment and Plan Start: 01/04/22 08:36 Freq: Status: Active Protocol: Document 03/18/22 14:34 SP (Rec: 03/18/22 16:04 SP [id number]) Physical Therapy Assessment Goals Three Impairment unable to sleep in her bed due to shoulder need for assist to get out Finished Cloth Checker Goal (LTG) patient able to get in and out of bed independently and sleep comfortably in her bed again. 01/26/22: progressing: see self section, reviewed sleeping on side/ supine with pillows with cues and 10%A for pillow positioning. 02/05/22: still having pain sleeping but better with pillow under arm when on L side or under R arm on back. 02/25/22: Goal met: not able to sleep on R shld yet, still wakes up with pain at night but less.Is ableto get in/ out bed I, more challenging on R side but able to perform during tx today. 03/18/22: pt states able get in /out bed uses bed rail support, didnt sleep on R side yet, gets dizzy but hasn't tried, might try to see if can lay on R side for little bit to read. LTG Duration 04/06/22 Goal MET Two Impairment ROM and strength impairment right shoudler Short Term Goal (STG) Patient to be independent and compliant with HEP for purposes of ROM and strengthening right shoulder 02/05/22: progressing: supine FF AROM, serratus punch, ABCs, side shld ER, seated pulleys, UT/lev scap stretch/ tennis ball on wall post scap self STMs. 03/18/22: DC isometrics, added TB: stand: IR, ER, ADD, seated eccentric flexion STG Duration 02/19/22 progressing Mcc Goal (LTG) Patient will demonstrate right shoulder ROM WNL and strength at least 4/5 all motions to allow her to return to prior activities using right UE with minimal to no pain. 02/05/22: R Shld in supine: FF AROM: 120*, ABD 85*, ER 62*. LTG Duration 04/06/22 One Impairment functional activities Impairment Quickdash UE disability index score 68% Short Term Goal (STG) Improve Quickdash score to no greater than 40% STG Duration 02/19/22 Mcc Goal (LTG) Improve Quickdash score to no greater than 20% as measure of improved right shoulder function LTG Duration 04/06/22 Progress Towards Goals Progress Towards Goals Progressing Toward Goals Progress Comments Improved R shld ROM: FF same 139 deg, ABD + 5 deg, ER arm as side by 16 deg. Assessment Summary Assessment Pt making improvements in ROM and strength, see measurements . Pt limited with FF, ABD and OH AROM movements, cuing for postural awaress and form to decrease UT recruitment/ forward head positioning compensations. Pt tolerated progression to TB R shld, DC isometrics today. Pt ed concerned about DC in 2 visits due to lack of ROM and strength toward full function and difficulty can be to improve on own but will continue to assess next 2 treatments scheduled. Pt understands MENTAL HEALTH PRACTITIONER reasoning and recommendation not to DC in 2 visits. Physical Therapy Plan Frequency and Duration Frequency of Treatment 2x/Week Duration of Treatment 12 weeks Plan of Care Start Date 01/05/22 Plan of Care End Date 04/06/22 Therapeutic Interventions Therapeutic Interventions Aquatic Therapy,Gait Training, Home Exercise Program,Manual Therapy,Patient/Caregiver Education,Self-Care/Home Management,Soft Tissue Mobilization,Taping, Therapeutic Activities, Therapeutic Exercises Modalities Cold Pack/Ice Massage,Electric Stimulation,Hot Packs, Infrared Therapy,Iontophoresis ,Ultrasound Next Visit Focus/Plan Next Note Type Treatment Note Next Visit Plan Future tx: REcheck open book AROM scap glide focus, TB HEP, floor transfer. manual: subscap/lat/pec POC: R miranda PHILLIPS, AROM ex. Gentle joint mobilization and MWM, PNF and soft tissue mobilization.
--- NOTE | 2022-03-23 13:06 | PT.OTN ---
Current Diagnoses Pain in right shoulder (03/23/22) Weakness (03/23/22) Nondisplaced fracture of coracoid process, right shoulder, subsequent encounter for fracture with routine healing (03/23/22) Physical Therapy Treatment Note PT-OP-A Visit Information Start: 01/04/22 08:36 Freq: Status: Active Protocol: Document 03/23/22 13:06 SP (Rec: 03/23/22 13:51 SP [id number]) Out-Patient Physical Therapy Visit Information Visit Information Visit Type Treatment Note Visit Note Pt wants to be done next visit and due for PN. She thinks she has what thinks going to get and maybe DC to HEP. Visit Start Time 13:06 Visit Stop Time 13:50 Total Visit Minutes 44 Visit Number 13 Number of POCKET ASSEMBLER Visits 5 Evaluation Information Evaluation Date 01/05/22 Precautions Precautions 12/18/21 11 weeks s/p facture. Allowed AROM tolerated with out compensations. PT-OP-B Current Condition Start: 01/04/22 08:36 Freq: Status: Active Protocol: Document 01/13/22 08:16 SAK (Rec: 01/13/22 09:04 SAK [id number]) Current Condition History of Current Condition Onset Date 12/13/21 Current Complaints right shoulder pain and loss of function History of Current Condition fell and fell onto right UE while going down carpeted stairs, fractured coracoid process. Was unconscious for 16 hours; had brain blead as well as 6 fractured ribs, was at [facility] x 5 days, left . 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 Now has grab bars in bathroom, bannister up to bedroom, goes down backward. Has been sleeping in recliner. Has been doing pendulum exercises; instructed by physician. Has had nausea and dizziness, gradually getting better. Also reports floaters in visual field. Agreeable to go to doctor to discuss these persistent symptoms. Scheduled for CT of head . Patient is left handed. Fractured left arm 3 years ago with full recovery. Prior Treatments and Tests Sees TANA Stock tomorrow. Not using ice or heat. Takes Tylenol (2) at night. PT-OP-C Subjective Start: 01/04/22 08:36 Freq: Status: Active Protocol: Document 03/23/22 13:06 SP (Rec: 03/23/22 13:51 SP [id number]) OP-PT Subjective Patient Comments Patient Comments Pt reports still can't raise R arm overhead but little better. Has started changing positioning of items to get to . Just this past week notices using RUE more because can. Patient Reported Progress Improving Patient Questionnaires Quick Dash- Upper Extremity Quick Dash UE Score 15.9% Quick Dash UE Impairment 1 to 19% Impaired (Score 1-19) PT-OP-F Manual Assessment Start: 01/04/22 08:36 Freq: Status: Active Protocol: Document 01/05/22 12:58 SAK (Rec: 01/06/22 10:43 [facility] [id number]) Manual Assessments Joint Mobility Assessment Joint Mobility Assessment not done due to recent fracture PT-OP-G Mobility & Gait Start: 01/04/22 08:36 Freq: Status: Active Protocol: Document 01/05/22 12:58 SAK (Rec: 01/06/22 10:43 [facility] [id number]) OP Mobility Evaluation Bed Mobility Supine to and from Sit mod assist due to inability to use right UE Transfers Sit to Stand indep Bed to Chair Transfers indep Car Transfers min assist Functional Movements Lifting and Carrying unable PT-OP-J Posture/Palpation/Skin Start: 01/04/22 08:36 Freq: Status: Active Protocol: Document 01/05/22 12:58 SAK (Rec: 01/06/22 10:43 [facility] [id number]) Posture Evaluation Position Sitting Head/C-Spine Posture Forward Head T-Spine Posture Increased Kyphosis L-Spine Posture Increased Lordosis Shoulder Posture (L) Rounded,(R) Rounded Scapula Posture (L) Protracted,(R) Protracted Arm Posture (L) Internally Rotated,(R) Internally Rotated Skin Assessment Edema Assessment right shoulder Comments intact PT-OP-K Range of Motion Start: 01/04/22 08:36 Freq: Status: Active Protocol: Document 03/23/22 13:06 SP (Rec: 03/23/22 13:51 SP [id number]) Shoulder Goniometric Range of Motion Shoulder Right Passive Shoulder ROM WFL No Testing Position Supine Flexion 135 Abduction 98 Comments Flexion supine R shld: AROM 135 deg, Abd AROM: 98 deg (elbow straight),AAROM 110deg ER: ? since 03/18 IR: standing behind back: ? since 03/18 PT-OP-M Strength Start: 01/04/22 08:36 Freq: Status: Active Protocol: Document 01/05/22 12:58 SAK (Rec: 01/06/22 10:43 SAK [id number]) Shoulder Strength Shoulder Manual Muscle Testing Left Comments 5/5 Right Comments no MMT due to recent fracture, only PROM allowed at this time PT-OP-Q Treatments Start: 01/04/22 08:36 Freq: Status: Active Protocol: Document 03/23/22 13:06 SP (Rec: 03/23/22 13:51 SP [id number]) Cardio Equipment Upper Body Ergometer (UBE) Duration (Minutes) 4 RPM 120 Seat Position 9 Height 2.5 Other 30s f/b Therapeutic Exercises Sitting Exercises eccentric R shld FF Sitting Exercise Name reviewed HEP Side right Resistance Tb #1(choked up on band for AAROM assist) Equipment Used seated in chair back to anchored high Reps/Minutes x10 reps Comments cued slow FF, no UT recruitment and head back neutral Standing Exercises pec door stretch Standing Exercise Name reviewed HEP-gave HO Side bilateral Resistance AROM Reps/Minutes 30 x2 Comments good anterior R arm stretch shld TB Standing Exercise Name reviewed HEP: IR, ER, extension Side right Resistance TB #1 Equipment Used wall posture Reps/Minutes 2x10 each Comments cued tall posture, shlders back/down shoulder flex Standing Exercise Name FF AROM Side right Resistance 1# DB> AROM> instructed use cane due to lack strength/ROM and UT recruiting Equipment Used back to wall Reps/Minutes x5 reps Comments cued no UT recruitment PT-OP-R Modalities Start: 01/04/22 08:36 Freq: Status: Active Protocol: Document 02/11/22 13:53 SAK (Rec: 02/11/22 16:03 SAK [id number]) Electric Stimulation Electric Stimulation Interferential Current (IFC) Duration (Minutes) 15 Intensity 8 Target/Sweep Sweep Patient Position Hooklying Combined With Heat/Cold Hot Pack PT-OP-T Assessment and Plan Start: 01/04/22 08:36 Freq: Status: Active Protocol: Document 03/23/22 13:06 SP (Rec: 03/23/22 13:51 SP [id number]) Physical Therapy Assessment Goals Three Impairment unable to sleep in her bed due to shoulder need for assist to get out Shot Blast Equipment Operator Goal (LTG) patient able to get in and out of bed independently and sleep comfortably in her bed again. 01/26/22: progressing: see self section, reviewed sleeping on side/ supine with pillows with cues and 10%A for pillow positioning. 02/05/22: still having pain sleeping but better with pillow under arm when on L side or under R arm on back. 02/25/22: Goal met: not able to sleep on R shld yet, still wakes up with pain at night but less.Is ableto get in/ out bed I, more challenging on R side but able to perform during tx today. 03/18/22: pt states able get in /out bed uses bed rail support, didnt sleep on R side yet, gets dizzy but hasn't tried, might try to see if can lay on R side for little bit to read. LTG Duration 04/06/22 Goal MET Two Impairment ROM and strength impairment right desiraeler Short Term Goal (STG) Patient to be independent and compliant with HEP for purposes of ROM and strengthening right shoulder 02/05/22: progressing: supine FF AROM, serratus punch, ABCs, side shld ER, seated pulleys, UT/lev scap stretch/ tennis ball on wall post scap self STMs. 03/18/22: DC isometrics, added TB: stand: IR, ER, ADD, seated eccentric flexion STG Duration 02/19/22 progressing 03/18/22: Shot Blast Equipment Operator Goal (LTG) Patient will demonstrate right shoulder ROM WNL and strength at least 4/5 all motions to allow her to return to prior activities using right UE with minimal to no pain. 02/05/22: R Shld in supine: FF AROM: 120*, ABD 85*, ER 62*. 03/23/22: R shld supine: FF AROM 135 deg 4 degrees less than last tx, ABD 98deg improved by 13 deg since January . LTG Duration 04/06/22 progressin03/23/22 One Impairment functional activities Impairment Quickdash UE disability index score 68% Short Term Goal (STG) Improve Quickdash score to no greater than 40% 03/23/22: 15.9% (1-20% impairment) STG Duration 02/19/22 GOAL MET Shot Blast Equipment Operator Goal (LTG) Improve Quickdash score to no greater than 20% as measure of improved right shoulder function 03/23/22: 15.9% (1-20% impairment) with less achiness and able reach higher than used to but not full ROM LTG Duration 04/06/22 GOAL MET Progress Towards Goals Progress Towards Goals Progressing Toward Goals Assessment Summary Assessment Pt overall making improvement in ROM, still lacking full ROM in all directions, pt stated is ready to work on her own and understands not back to full function and is adjusting her surroundings to accomodate that but feels is what she is going to get and is using her RUE more in daily activities. POCKET ASSEMBLER education on continue for full ROM but understands pt feedback. Physical Therapy Plan Frequency and Duration Frequency of Treatment 2x/Week Duration of Treatment 12 weeks Plan of Care Start Date 01/05/22 Plan of Care End Date 04/06/22 Therapeutic Interventions Therapeutic Interventions Aquatic Therapy,Gait Training, Home Exercise Program,Manual Therapy,Patient/Caregiver Education,Self-Care/Home Management,Soft Tissue Mobilization,Taping, Therapeutic Activities, Therapeutic Exercises Modalities Cold Pack/Ice Massage,Electric Stimulation,Hot Packs, Infrared Therapy,Iontophoresis ,Ultrasound Next Visit Focus/Plan Next Note Type Treatment Note Next Visit Plan Future tx: REcheck ROM, HEP for success gain ROM, floor transfer. manual: subscap/lat/ pec POC: R shld AAROM, AROM ex. Gentle joint mobilization and MWM, PNF and soft tissue mobilization.
--- NOTE | 2022-03-25 15:13 | PT.OTRE ---
Current Diagnoses Pain in right shoulder (03/25/22) Weakness (03/25/22) Nondisplaced fracture of coracoid process, right shoulder, subsequent encounter for fracture with routine healing (03/25/22) Past Medical History (Last Updated 07/28/18 @ 18:56 by Rekha Vargas) Back pain (~1973) Chicken pox (~1944) Colon polyps (~2011) Fractures Gas bloat syndrome (~1984) Headache (~1979) Hepatitis B (~1970) Herpes (~1998) History of oral surgery (~1979) History of varicose vein stripping (~1977) Knee pain (~2013) Measles (~194) Mumps (~1944) Seasonal allergies (~2011) Surgical History (Last Updated 07/28/18 @ 18:56 by Rekha Vargas) Anesthesia History of oral surgery (~1979) History of varicose vein stripping (~1977) Status post breast reduction (~1969) Status post colonoscopy Status post laminectomy (~1973) Visit Care Team Role Provider Type TANA Stock Family Provider Advanced Ingot Car Operator Primary Care Provider Specialty: [facility] Address: [address] [place] [address], [facility] Email: [email or web address] Ofelia Rivera MD Attending Provider Physician Referring Provider Specialty: Orthopedics Orthopedic Surgery Address: [address] [place] [address], [facility] Email: [email or web address] Physical Therapy Re-Evaluation PT-OP-A Visit Information Start: 01/04/22 08:36 Freq: Status: Active Protocol: Document 03/25/22 14:34 SAK (Rec: 03/25/22 15:12 SAK [id number]) Out-Patient Physical Therapy Visit Information Visit Information Visit Type Treatment Note Visit Start Time 14:30 Visit Stop Time 15:10 Total Visit Minutes 40 Visit Number 14 Number of RAILCAR FOREMAN Visits 0 Precautions Precautions 12/18/21 11 weeks s/p facture. Allowed AROM tolerated with out compensations. PT-OP-B Current Condition Start: 01/04/22 08:36 Freq: Status: Active Protocol: Document 01/13/22 08:16 SAK (Rec: 01/13/22 09:04 [facility] [id number]) Current Condition History of Current Condition Onset Date 12/13/21 Current Complaints right shoulder pain and loss of function History of Current Condition fell and fell onto right UE while going down carpeted stairs, fractured coracoid process. Was unconscious for 16 hours; had brain blead as well as 6 fractured ribs, was at [facility] x 5 days, left . 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 Now has grab bars in bathroom, bannister up to bedroom, goes down backward. Has been sleeping in recliner. Has been doing pendulum exercises; instructed by physician. Has had nausea and dizziness, gradually getting better. Also reports floaters in visual field. Agreeable to go to doctor to discuss these persistent symptoms. Scheduled for CT of head . Patient is left handed. Fractured left arm 3 years ago with full recovery. Prior Treatments and Tests Sees TANA Stock tomorrow. Not using ice or heat. Takes Tylenol (2) at night. PT-OP-C Subjective Start: 01/04/22 08:36 Freq: Status: Active Protocol: Document 03/25/22 14:34 [facility] (Rec: 03/25/22 15:12 [facility] [id number]) OP-PT Subjective Patient Comments Patient Comments Goals in head: reach to mid back to pull pants up, reach up to shelves (got molded goods controls operator), reach to passenger seat when driving, lift a little heavier objects, can wash hair, WAnts to deal with dizziness, teeth, carpal tunnel, cataract surgery, requests d/c. Agreeable to follow-up in 1 month Feels she has made good progress. Patient Reported Progress Improving PT-OP-F Manual Assessment Start: 01/04/22 08:36 Freq: Status: Active Protocol: Document 01/05/22 12:58 SAK (Rec: 01/06/22 10:43 [facility] [id number]) Manual Assessments Joint Mobility Assessment Joint Mobility Assessment not done due to recent fracture PT-OP-G Mobility & Gait Start: 01/04/22 08:36 Freq: Status: Active Protocol: Document 01/05/22 12:58 [facility] (Rec: 01/06/22 10:43 [facility] [id number]) OP Mobility Evaluation Bed Mobility Supine to and from Sit mod assist due to inability to use right UE Transfers Sit to Stand indep Bed to Chair Transfers indep Car Transfers min assist Functional Movements Lifting and Carrying unable PT-OP-J Posture/Palpation/Skin Start: 01/04/22 08:36 Freq: Status: Active Protocol: Document 01/05/22 12:58 [facility] (Rec: 01/06/22 10:43 [facility] [id number]) Posture Evaluation Position Sitting Head/C-Spine Posture Forward Head T-Spine Posture Increased Kyphosis L-Spine Posture Increased Lordosis Shoulder Posture (L) Rounded,(R) Rounded Scapula Posture (L) Protracted,(R) Protracted Arm Posture (L) Internally Rotated,(R) Internally Rotated Skin Assessment Edema Assessment right shoulder Comments intact PT-OP-K Range of Motion Start: 01/04/22 08:36 Freq: Status: Active Protocol: Document 03/23/22 13:06 SP (Rec: 03/23/22 13:51 SP [id number]) Shoulder Goniometric Range of Motion Shoulder Measured in Degrees Right Passive Shoulder ROM WFL No Testing Position Supine Flexion 135 Abduction 98 Comments Flexion supine R shld: AROM 135 deg, Abd AROM: 98 deg (elbow straight),AAROM 110deg ER: ? since 03/18 IR: standing behind back: ? since 03/18 PT-OP-M Strength Start: 01/04/22 08:36 Freq: Status: Active Protocol: Document 01/05/22 12:58 [facility] (Rec: 01/06/22 10:43 [facility] [id number]) Shoulder Strength Shoulder Manual Muscle Testing Left Comments 5/5 Right Comments no MMT due to recent fracture, only PROM allowed at this time PT-OP-Q Treatments Start: 01/04/22 08:36 Freq: Status: Active Protocol: Document 03/25/22 14:34 SAK (Rec: 03/25/22 15:12 [facility] [id number]) Cardio Equipment Upper Body Ergometer (UBE) Duration (Minutes) 8 RPM 120 Seat Position 9 Height 2.5 Other 60s f/b Therapeutic Exercises Supine Exercises posterior capsule stretch Reps/Minutes 2x30 shoulder flex Supine Exercise Name RUE FF Resistance L1 TB unil, then with hor ab tension Equipment Used 2 pillows under head for dizziness support needed, after 15 sec dizzy gone Reps/Minutes 10x2 (knees bent, aware TA) Comments cued no UT recruitment, better straight arm PROM Supine Exercise Name flex,abd, IR/ER, horizontal add Resistance AROM- states does at home Reps/Minutes 10x ea Comments see ROM meaurements AROM Sitting Exercises eccentric R shld FF Sitting Exercise Name reviewed HEP Side right Resistance Tb #1(choked up on band for AAROM assist) Equipment Used seated in chair back to anchored high Reps/Minutes x10 reps Comments cued slow FF, no UT recruitment and head back neutral pulleys Sitting Exercise Name flexion 135 deg elbow straight , reviewed scaption Side right Resistance AAROM Equipment Used pulleys, mirror, ed target at 45 deg abd to maintain scaption AAROM Reps/Minutes 10x ea Comments better form and painfree Standing Exercises pec door stretch Standing Exercise Name reviewed HEP-gave HO Side bilateral Resistance AROM Reps/Minutes 30 x2 Comments good anterior R arm stretch shld TB Standing Exercise Name reviewed HEP: IR, ER, extension Side right Resistance TB #1 Equipment Used wall posture Reps/Minutes 2x10 each Comments cued tall posture, shlders back/down shoulder flex Standing Exercise Name FF AROM Side right Resistance 1# DB> AROM> instructed use cane due to lack strength/ROM and UT recruiting Equipment Used back to wall Reps/Minutes x5 reps Comments cued no UT recruitment PT-OP-R Modalities Start: 01/04/22 08:36 Freq: Status: Active Protocol: Document 02/11/22 13:53 [facility] (Rec: 02/11/22 16:03 [facility] [id number]) Electric Stimulation Electric Stimulation Interferential Current (IFC) Duration (Minutes) 15 Intensity 8 Target/Sweep Sweep Patient Position Hooklying Combined With Heat/Cold Hot Pack PT-OP-T Assessment and Plan Start: 01/04/22 08:36 Freq: Status: Active Protocol: Document 03/25/22 14:34 [facility] (Rec: 03/25/22 15:12 [facility] [id number]) Physical Therapy Assessment Goals Three Impairment unable to sleep in her bed due to shoulder need for assist to get out Shelter Goal (LTG) patient able to get in and out of bed independently and sleep comfortably in her bed again. 01/26/22: progressing: see self section, reviewed sleeping on side/ supine with pillows with cues and 10%A for pillow positioning. 02/05/22: still having pain sleeping but better with pillow under arm when on L side or under R arm on back. 02/25/22: Goal met: not able to sleep on R shld yet, still wakes up with pain at night but less.Is ableto get in/ out bed I, more challenging on R side but able to perform during tx today. 03/18/22: pt states able get in /out bed uses bed rail support, didnt sleep on R side yet, gets dizzy but hasn't tried, might try to see if can lay on R side for little bit to read. LTG Duration 04/06/22 Goal MET Two Impairment ROM and strength impairment right desiraeler Short Term Goal (STG) Patient to be independent and compliant with HEP for purposes of ROM and strengthening right shoulder 02/05/22: progressing: supine FF AROM, serratus punch, ABCs, side shld ER, seated pulleys, UT/lev scap stretch/ tennis ball on wall post scap self STMs. 03/18/22: DC isometrics, added TB: stand: IR, ER, ADD, seated eccentric flexion STG Duration 02/19/22 progressing 03/18/22: Shelter Goal (LTG) Patient will demonstrate right shoulder ROM WNL and strength at least 4/5 all motions to allow her to return to prior activities using right UE with minimal to no pain. 02/05/22: R Shld in supine: FF AROM: 120*, ABD 85*, ER 62*. 03/23/22: R shld supine: FF AROM 135 deg 4 degrees less than last tx, ABD 98deg improved by 13 deg since January . LTG Duration 04/29/22 One Impairment functional activities Impairment Quickdash UE disability index score 68% Short Term Goal (STG) Improve Quickdash score to no greater than 40% 03/23/22: 15.9% (1-20% impairment) STG Duration 02/19/22 GOAL MET Shelter Goal (LTG) Improve Quickdash score to no greater than 20% as measure of improved right shoulder function 03/23/22: 15.9% (1-20% impairment) with less achiness and able reach higher than used to but not full ROM LTG Duration 04/06/22 GOAL MET Progress Towards Goals Progress Towards Goals Progressing Toward Goals Assessment Summary Assessment Patient has met most goals she had for herself, difficulty reaching overhead so has lowered many things for improved ease. AROM supine improved to 154 deg today. Has multiple other medical issues that she is needing to deal with at this point. Independent with HEP. Agreeable to follow-up in 1 month to assure continued progression, modify HEP as indicated. Physical Therapy Plan Frequency and Duration Frequency of Treatment 2x/Week Duration of Treatment 12 weeks Plan of Care Start Date 03/25/22 Plan of Care End Date 04/29/22 Therapeutic Interventions Therapeutic Interventions Aquatic Therapy,Gait Training, Home Exercise Program,Manual Therapy,Patient/Caregiver Education,Self-Care/Home Management,Soft Tissue Mobilization,Taping, Therapeutic Activities, Therapeutic Exercises Modalities Cold Pack/Ice Massage,Electric Stimulation,Hot Packs, Infrared Therapy,Iontophoresis ,Ultrasound Next Visit Focus/Plan Next Note Type Treatment Note Next Visit Plan follow-up appointment in 1 month, evaluate progress and update HEP as indicated.
--- NOTE | 2022-03-25 15:13 | PT.OPPOC ---
Physical, Occupational & Speech Therapy At [facility] Current Diagnoses Pain in right shoulder (03/25/22) Weakness (03/25/22) Nondisplaced fracture of coracoid process, right shoulder, subsequent encounter for fracture with routine healing (03/25/22) Visit Care Team Role Provider Type TANA Stock Family Provider Advanced Elevator Constructor Electric Primary Care Provider Specialty: Family Practice Address: [address] [place] [address], [place], [address] Email: [email or web address] Ofelia Rivera MD Attending Provider Physician Referring Provider Specialty: Orthopedics Orthopedic Surgery Address: [address] [place] [address], [id number] Email: [email or web address] Plan Of Care PT-OP-T Assessment and Plan Start: 01/04/22 08:36 Freq: Status: Active Protocol: Document 03/25/22 14:34 [facility] (Rec: 03/25/22 15:12 [facility] [id number]) Physical Therapy Assessment Goals Three Impairment unable to sleep in her bed due to shoulder need for assist to get out Alf Goal (LTG) patient able to get in and out of bed independently and sleep comfortably in her bed again. 01/26/22: progressing: see self section, reviewed sleeping on side/ supine with pillows with cues and 10%A for pillow positioning. 02/05/22: still having pain sleeping but better with pillow under arm when on L side or under R arm on back. 02/25/22: Goal met: not able to sleep on R shld yet, still wakes up with pain at night but less.Is ableto get in/ out bed I, more challenging on R side but able to perform during tx today. 03/18/22: pt states able get in /out bed uses bed rail support, didnt sleep on R side yet, gets dizzy but hasn't tried, might try to see if can lay on R side for little bit to read. LTG Duration 04/06/22 Goal MET Two Impairment ROM and strength impairment right shoudler Short Term Goal (STG) Patient to be independent and compliant with HEP for purposes of ROM and strengthening right shoulder 02/05/22: progressing: supine FF AROM, serratus punch, ABCs, side shld ER, seated pulleys, UT/lev scap stretch/ tennis ball on wall post scap self STMs. 03/18/22: DC isometrics, added TB: stand: IR, ER, ADD, seated eccentric flexion STG Duration 02/19/22 progressing 03/18/22: Grinder Machine Knife Setter Goal (LTG) Patient will demonstrate right shoulder ROM WNL and strength at least 4/5 all motions to allow her to return to prior activities using right UE with minimal to no pain. 02/05/22: R Shld in supine: FF AROM: 120*, ABD 85*, ER 62*. 03/23/22: R shld supine: FF AROM 135 deg 4 degrees less than last tx, ABD 98deg improved by 13 deg since January . LTG Duration 04/29/22 One Impairment functional activities Impairment Quickdash UE disability index score 68% Short Term Goal (STG) Improve Quickdash score to no greater than 40% 03/23/22: 15.9% (1-20% impairment) STG Duration 02/19/22 GOAL MET Alf Goal (LTG) Improve Quickdash score to no greater than 20% as measure of improved right shoulder function 03/23/22: 15.9% (1-20% impairment) with less achiness and able reach higher than used to but not full ROM LTG Duration 04/06/22 GOAL MET Progress Towards Goals Progress Towards Goals Progressing Toward Goals Assessment Summary Assessment Patient has met most goals she had for herself, difficulty reaching overhead so has lowered many things for improved ease. AROM supine improved to 154 deg today. Has multiple other medical issues that she is needing to deal with at this point. Independent with HEP. Agreeable to follow-up in 1 month to assure continued progression, modify HEP as indicated. Physical Therapy Plan Frequency and Duration Frequency of Treatment 2x/Week Duration of Treatment 12 weeks Plan of Care Start Date 03/25/22 Plan of Care End Date 04/29/22 Therapeutic Interventions Therapeutic Interventions Aquatic Therapy,Gait Training, Home Exercise Program,Manual Therapy,Patient/Caregiver Education,Self-Care/Home Management,Soft Tissue Mobilization,Taping, Therapeutic Activities, Therapeutic Exercises Modalities Cold Pack/Ice Massage,Electric Stimulation,Hot Packs, Infrared Therapy,Iontophoresis ,Ultrasound Next Visit Focus/Plan Next Note Type Treatment Note Next Visit Plan follow-up appointment in 1 month, evaluate progress and update HEP as indicated. Plan of Care Dates Plan of Care Start Date 03/25/22 Plan of Care End Date 04/29/22 Electronically Signed by: Bailey Garrett, PT 03/25/22 [id number] If you are in agreement with this Plan of Care, please return a signed and dated copy. I have reviewed this Plan of Care and certify that the skilled therapy services above are required to meet the patient?s needs. Physician Signature Date Printed Name and Credentials Clinical Instructor Signature Printed Name and Credentials
--- NOTE | 2022-04-27 16:13 | PT.OTN ---
Current Diagnoses Pain in right shoulder (04/27/22) Weakness (04/27/22) Nondisplaced fracture of coracoid process, right shoulder, subsequent encounter for fracture with routine healing (04/27/22) Physical Therapy Treatment Note PT-OP-A Visit Information Start: 01/04/22 08:36 Freq: Status: Active Protocol: Document 04/27/22 15:17 [facility] (Rec: 04/27/22 16:13 [facility] [id number]) Out-Patient Physical Therapy Visit Information Visit Information Visit Type Treatment Note Visit Start Time 15:15 Visit Stop Time 16:05 Total Visit Minutes 50 Visit Number 15 Number of COMPUTER ART INSTRUCTOR Visits 0 Evaluation Information Evaluation Date 01/05/22 Precautions Precautions 12/18/21 11 weeks s/p facture. Allowed AROM tolerated with out compensations. PT-OP-B Current Condition Start: 01/04/22 08:36 Freq: Status: Active Protocol: Document 01/13/22 08:16 [facility] (Rec: 01/13/22 09:04 [facility] [id number]) Current Condition History of Current Condition Onset Date 12/13/21 Current Complaints right shoulder pain and loss of function History of Current Condition fell and fell onto right UE while going down carpeted stairs, fractured coracoid process. Was unconscious for 16 hours; had brain blead as well as 6 fractured ribs, was at [facility] x 5 days, left . 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 Now has grab bars in bathroom, bannister up to bedroom, goes down backward. Has been sleeping in recliner. Has been doing pendulum exercises; instructed by physician. Has had nausea and dizziness, gradually getting better. Also reports floaters in visual field. Agreeable to go to doctor to discuss these persistent symptoms. Scheduled for CT of head . Patient is left handed. Fractured left arm 3 years ago with full recovery. Prior Treatments and Tests Sees TANA Stock tomorrow. Not using ice or heat. Takes Tylenol (2) at night. PT-OP-C Subjective Start: 01/04/22 08:36 Freq: Status: Active Protocol: Document 04/27/22 15:17 [facility] (Rec: 04/27/22 16:13 [facility] [id number]) OP-PT Subjective Patient Comments Patient Comments A couple weeks ago passed out in the [place] parking lot. Has planning management it specialist for 2 weeks. Continues to do her exercises. Asking about soreness after theraband exercises. I'm going to keep working at it, but I think this may be as much as I'm going to get out of my schoulder. PT-OP-F Manual Assessment Start: 01/04/22 08:36 Freq: Status: Active Protocol: Document 01/05/22 12:58 [facility] (Rec: 01/06/22 10:43 [facility] [id number]) Manual Assessments Joint Mobility Assessment Joint Mobility Assessment not done due to recent fracture PT-OP-G Mobility & Gait Start: 01/04/22 08:36 Freq: Status: Active Protocol: Document 01/05/22 12:58 [facility] (Rec: 01/06/22 10:43 [facility] [id number]) OP Mobility Evaluation Bed Mobility Supine to and from Sit mod assist due to inability to use right UE Transfers Sit to Stand indep Bed to Chair Transfers indep Car Transfers min assist Functional Movements Lifting and Carrying unable PT-OP-J Posture/Palpation/Skin Start: 01/04/22 08:36 Freq: Status: Active Protocol: Document 01/05/22 12:58 [facility] (Rec: 01/06/22 10:43 [facility] [id number]) Posture Evaluation Position Sitting Head/C-Spine Posture Forward Head T-Spine Posture Increased Kyphosis L-Spine Posture Increased Lordosis Shoulder Posture (L) Rounded,(R) Rounded Scapula Posture (L) Protracted,(R) Protracted Arm Posture (L) Internally Rotated,(R) Internally Rotated Skin Assessment Edema Assessment right shoulder Comments intact PT-OP-K Range of Motion Start: 01/04/22 08:36 Freq: Status: Active Protocol: Document 04/27/22 15:17 [facility] (Rec: 04/27/22 16:13 [facility] [id number]) Shoulder Goniometric Range of Motion Shoulder Right Passive Internal Rotation Behind Back (text) AROM sit: flex: 114 abduction 112 Comments PROM: Flexion supine 152 Abd 122 ER: 64 IR: 57 PT-OP-M Strength Start: 01/04/22 08:36 Freq: Status: Active Protocol: Document 01/05/22 12:58 [facility] (Rec: 01/06/22 10:43 [facility] [id number]) Shoulder Strength Shoulder Manual Muscle Testing Left Comments 5/5 Right Comments no MMT due to recent fracture, only PROM allowed at this time PT-OP-Q Treatments Start: 01/04/22 08:36 Freq: Status: Active Protocol: Document 04/27/22 15:17 [facility] (Rec: 04/27/22 16:13 [facility] [id number]) Cardio Equipment Upper Body Ergometer (UBE) Duration (Minutes) 8 RPM 120 Seat Position 9 Height 2.5 Other 60s f/b Therapeutic Exercises Supine Exercises posterior capsule stretch Reps/Minutes 2x30 R shld ER Side right Resistance AAROM Equipment Used wand, towel under arm (cued hold towel to keep arm next to side) Reps/Minutes x3 shoulder flex Supine Exercise Name RUE FF Comments AAROM, PROM PROM Supine Exercise Name flex,abd, IR/ER, horizontal add Resistance AROM- states does at home Reps/Minutes 10x ea Sitting Exercises pulleys Sitting Exercise Name flexion deg elbow straight, reviewed scaption Side right Resistance AAROM Equipment Used pulleys, mirror, ed target at 45 deg abd to maintain scaption AAROM Reps/Minutes 10x ea Comments better form and painfree Standing Exercises pec door stretch Standing Exercise Name reviewed HEP Side bilateral Resistance AROM Reps/Minutes 30 x2 Comments good anterior R arm stretch shld TB Standing Exercise Name reviewed HEP: IR, ER, extension Side right Resistance TB #1 Equipment Used wall posture Reps/Minutes 10x each Comments cued tall posture, shlders back/down Manual Therapy Treatment Soft Tissue Mobilization 1 Body Location right biceps, UT, deltoid Mobilization Type Myofascial Release Body Position Supine Self-Care/Home Management Treatment Education Patient Education Home Exercise Program,Posture Other Education education on importance of postural correction and alignment with daily activity and exercises. Thumb up for flexion, towel under arm with shoulder ER and IR with TB PT-OP-R Modalities Start: 01/04/22 08:36 Freq: Status: Active Protocol: Document 04/27/22 15:17 [facility] (Rec: 04/27/22 16:13 [facility] [id number]) Hot Pack/Cold Pack Treatment Moist hot pack Location R shoulder Patient Position Supine Treatment Duration (minutes) 10 Patient Tolerance Good PT-OP-T Assessment and Plan Start: 01/04/22 08:36 Freq: Status: Active Protocol: Document 04/27/22 15:17 [facility] (Rec: 04/27/22 16:13 [facility] [id number]) Physical Therapy Assessment Goals Three Impairment unable to sleep in her bed due to shoulder need for assist to get out Usp Goal (LTG) patient able to get in and out of bed independently and sleep comfortably in her bed again. 01/26/22: progressing: see self section, reviewed sleeping on side/ supine with pillows with cues and 10%A for pillow positioning. 02/05/22: still having pain sleeping but better with pillow under arm when on L side or under R arm on back. 02/25/22: Goal met: not able to sleep on R shld yet, still wakes up with pain at night but less.Is ableto get in/ out bed I, more challenging on R side but able to perform during tx today. 03/18/22: pt states able get in /out bed uses bed rail support, didnt sleep on R side yet, gets dizzy but hasn't tried, might try to see if can lay on R side for little bit to read. LTG Duration 04/06/22 Goal MET Two Impairment ROM and strength impairment right shoudler Short Term Goal (STG) Patient to be independent and compliant with HEP for purposes of ROM and strengthening right shoulder 02/05/22: progressing: supine FF AROM, serratus punch, ABCs, side shld ER, seated pulleys, UT/lev scap stretch/ tennis ball on wall post scap self STMs. 03/18/22: DC isometrics, added TB: stand: IR, ER, ADD, seated eccentric flexion STG Duration 02/19/22 progressing 03/18/22: Recreation Attendant Supervisor Goal (LTG) Patient will demonstrate right shoulder ROM WNL and strength at least 4/5 all motions to allow her to return to prior activities using right UE with minimal to no pain. 02/05/22: R Shld in supine: FF AROM: 120*, ABD 85*, ER 62*. 03/23/22: R shld supine: FF AROM 135 deg 4 degrees less than last tx, ABD 98deg improved by 13 deg since January . 04/27/22: FF inc to 152, otherwise stable, minimal change. Patient independent with HEP after further adjustments and corrections, cues for alignment/posture LTG Duration 04/29/22 One Impairment functional activities Impairment Quickdash UE disability index score 68% Short Term Goal (STG) Improve Quickdash score to no greater than 40% 03/23/22: 15.9% (1-20% impairment) STG Duration 02/19/22 GOAL MET Usp Goal (LTG) Improve Quickdash score to no greater than 20% as measure of improved right shoulder function 03/23/22: 15.9% (1-20% impairment) with less achiness and able reach higher than used to but not full ROM LTG Duration 04/06/22 GOAL MET Assessment Summary Assessment Patient progressed has plateaued, she expresses that she will continue with HEP, work to make more improvements . Demonstrated good understanding of importance of postural correction for improved shoulder function. Requests discharge at this time. Physical Therapy Plan Discharge Physical Therapy Discharge Reasons Plateau in Progress Next Visit Focus/Plan Next Note Type Discharge Summary
== END | disposition home or self-care (01) ==
LOC: PHYS 01-05 12:41
PROVIDERS: Family Provider Internal Medicine; PCP Internal Medicine; Referring Provider Orthopaedic Surgery Foot and Ankle Surgery; Visit Provider Orthopaedic Surgery Foot and Ankle Surgery
DX: S42.134D Nondisplaced fracture of coracoid process, right shoulder, subsequent encounter for fracture with routine healing (principal); M25.511 Pain in right shoulder; R53.1 Weakness
CPT/HCPCS: 97014; 97110; 97140; 97162; 97535; G0283

== ENCOUNTER → 2023-07-20 15:19 | Outpatient (CLI) | payer MEDICARE, OTHER, SELFPAY ==
[2023-07-20 18:07] LABS: BUN Creatinine Ratio 18.2 (6-22); Blood Urea Nitrogen 14 mg/dL (7-17); Carbon Dioxide 28 mmol/L (22-32); Chloride 101 mmol/L (98-107); Estimated Glomerular Filt Rate > 60 mL/min (>60); Glucose 80 mg/dL (80-110); HEMOLYSIS < 15 (0-50); Magnesium 2.1 mg/dL (1.6-2.3); Potassium 3.9 mmol/L (3.4-5.1); Sodium 136 mmol/L (137-145)
== END ==
PROVIDERS: Family Provider Internal Medicine; PCP Internal Medicine; Referring Provider Nurse Practitioner; Visit Provider Nurse Practitioner
DX: I49.3 Ventricular premature depolarization (principal); I47.1 Supraventricular tachycardia
CPT/HCPCS: 36415; 80048; 83735

== ENCOUNTER → 2023-11-14 13:39 | Outpatient (CLI) | payer MEDICARE, OTHER, SELFPAY ==
[2023-11-14 15:51] LABS: BUN Creatinine Ratio 17.4 (6-22); Blood Urea Nitrogen 12 mg/dL (7-17); Calcium 10.3 mg/dL (8.4-10.2); Carbon Dioxide 29 mmol/L (22-32); Chloride 98 mmol/L (98-107); Estimated Glomerular Filt Rate > 60 mL/min (>60); Glucose 92 mg/dL (80-110); HEMOLYSIS < 15 (0-50); Potassium 4.3 mmol/L (3.4-5.1); Sodium 131 mmol/L (137-145)
== END ==
PROVIDERS: Family Provider Internal Medicine; PCP Internal Medicine; Referring Provider Internal Medicine Endocrinology, Diabetes & Metabolism; Visit Provider Internal Medicine Endocrinology, Diabetes & Metabolism
DX: M81.0 Age-related osteoporosis without current pathological fracture (principal)
CPT/HCPCS: 36415; 80048

== ENCOUNTER → 2024-02-21 11:27 | Outpatient (CLI) | payer MEDICARE, OTHER, SELFPAY ==
[2024-02-21 12:44] LABS: Vitamin D 25 Hydroxy (D3) 59.5 ng/mL (30.0-100.0)
== END ==
PROVIDERS: Family Provider Internal Medicine; PCP Internal Medicine; Referring Provider Internal Medicine Endocrinology, Diabetes & Metabolism; Visit Provider Internal Medicine Endocrinology, Diabetes & Metabolism
DX: E55.9 Vitamin D deficiency, unspecified (principal)
CPT/HCPCS: 36415; 82306

== ENCOUNTER → 2024-08-07 11:20 | Outpatient (CLI) | payer MEDICARE, OTHER, SELFPAY ==
[2024-08-07 12:30] LABS: Blood Urea Nitrogen 18 mg/dL (7-17); Calcium 9.8 mg/dL (8.4-10.2); Carbon Dioxide 26 mmol/L (22-32); Chloride 101 mmol/L (98-107); Estimated Glomerular Filt Rate > 60 mL/min (>60); Glucose 97 mg/dL (80-110); HEMOLYSIS < 15 (0-50); Potassium 4.2 mmol/L (3.4-5.1); Sodium 134 mmol/L (137-145)
[2024-08-07 12:43] LABS: Vitamin D 25 Hydroxy (D3) 68.3 ng/mL (30.0-100.0)
== END ==
LOC: LAB 11:22
PROVIDERS: Family Provider Internal Medicine; PCP Internal Medicine; Referring Provider Internal Medicine Endocrinology, Diabetes & Metabolism; Visit Provider Internal Medicine Endocrinology, Diabetes & Metabolism
DX: M81.0 Age-related osteoporosis without current pathological fracture (principal)
CPT/HCPCS: 36415; 80048; 82306

== ENCOUNTER → 2025-02-27 14:51 | Outpatient (CLI) | payer MEDICARE, OTHER, SELFPAY ==
--- NOTE | 2025-02-27 14:52 | DI.ECHO.S_ITS ---
[facility] : : [address] : : [place] : : [id number] : : Phone: [phone] Echocardiogram Report + + :Name: VIOLETTE BRUNO Study Date: 02/27/2025 Height: 66 in : :[facility] ReadingLocation: Weight: 148 lb : : Gender: Female BSA: 1.8 m2 : :: 1940 Age: 84 yrs BP: 137/74 mmHg: :Reason For Study: NONRHEUMATIC MITRAL VALVE REGURGITATION : :Ordering Physician: REUBEN, : :ANNA Performed By: Eris Moran : :Referring: ANNA ALEXIS : + + Interpretation Summary The left ventricle is normal in size. The left ventricular ejection fraction is normal. The ejection fraction is estimated to be 60-65%. The right ventricle is grossly normal size. The right ventricular systolic function is normal. There is mild mitral regurgitation. Compared to the prior echo study, there has been a decrease in the severity of mitral regurgitation. There is trace tricuspid regurgitation. The right ventricular systolic pressure is estimated to be at least 25 mmHg based on an estimated right atrial pressure of 3 mm Hg. Procedure: A two-dimensional transthoracic echocardiogram with color flow and Doppler was performed. The study quality was technically good. Comparison is made with the echocardiogram of 05/25/2022. The patient was in normal sinus rhythm during the exam. Left Ventricle: The left ventricle is normal in size. Left ventricular wall thickness is mildly increased. There is no ventricular septal defect visualized. The ejection fraction is estimated to be 60-65%. The left ventricular ejection fraction is normal. There are no focal wall motion abnormalities. MV E/A: 0.83 Med Peak E' Ronaldo: 3.9 cm/sec E/E' med: 14.5. Right Ventricle: The right ventricle is grossly normal size. The right ventricular systolic function is normal. Atria: The left atrium is moderately dilated. The left atrium has mildly decreased in size since the prior echo exam. The right atrium is mildly dilated. There is no Doppler evidence for an interatrial shunt. Mitral Valve: There is mild mitral annular calcification. The mitral valve leaflets appear mildly thickened, but open well. There is mild mitral regurgitation. Compared to the prior echo study, there has been a decrease in the severity of mitral regurgitation. Aortic Valve: The aortic valve is trileaflet. The aortic valve is mildly calcified. The aortic valve opens well. There is no aortic valve stenosis. No aortic regurgitation is present. Tricuspid Valve: The tricuspid valve leaflets are thin and pliable. There is trace tricuspid regurgitation. The right ventricular systolic pressure is estimated to be at least 25 mmHg based on an estimated right atrial pressure of 3 mm Hg. Pulmonic Valve: The pulmonic valve leaflets are thin and pliable; valve motion is normal. There is trace pulmonic regurgitation. Great Vessels: The aortic root is normal size. The dimensions of the ascending aorta are normal. The pulmonary artery is normal size. The IVC is of normal diameter and collapses greater than 50% with a sniff. This suggests a low right atrial pressure of 3 mm Hg. Pericardium/ Pleura There is no pericardial effusion. There is no pleural effusion. MMode/2D Measurements & Calculations LVIDd: 4.4 cm LVOT diam: 2.0 cm LVIDs: 3.0 cm Ao root diam: 2.9 cm FS: 31.8 % asc Aorta Diam: 2.7 cm EPSS: 0.58 cm Ao Arch Diam (Prox Trans): 1.9 cm IVSd: 1.1 cm LVPWd: 1.1 cm LV sofia. diameter/BSA (cm/m^2): 2.5 LV sys. diameter/BSA (cm/m^2): 1.7 LA A2 area: 19.1 cm2 RA long axis: 4.5 cm LA A4 area: 23.7 cm2 RA area: 15.9 cm2 LA length (vol): 5.7 cm RA vol: 47.8 ml LA vol: 67.1 ml RA : 27.2 ml/m2 LA vol index: 38.1 ml/m2 IVC diam: 1.2 cm RVD1 (basal): 3.5 cm RVD2 (mid): 2.6 cm TAPSE: 2.7 cm Doppler Measurements & Calculations Ao V2 max: 121.7 cm/sec LVOT Max Ronaldo: 83.9 cm/sec Ao V2 mean: 89.8 cm/sec LV V1 max P.8 mmHg Ao max P.9 mmHg LV V1 VTI: 18.0 cm Ao mean P.5 mmHg ANUP(I,D): 2.1 cm2 Ao V2 VTI: 25.6 cm ANUP(V,D): 2.1 cm2 sev ratio: 0.70 ANUP indexed to BSA (cm^2/m^2): 1.2 MV E max ronaldo: 56.5 cm/sec TR max ronaldo: 235.4 cm/sec MV A max ronaldo: 67.8 cm/sec TR max P.2 mmHg MV E/A: 0.83 PA V2 max: 124.6 cm/sec Med Peak E' Ronaldo: 3.9 cm/sec PA V2 mean: 82.3 cm/sec E/E' med: 14.5 PA mean P.1 mmHg Lat Peak E' Ronaldo: 7.7 cm/sec PA pr(Accel): 63.6 mmHg E/E' lat: 7.4 E/e' average: 10.9 MV dec time: 0.29 sec SV(LVOT): 54.6 ml Reading Physician:04:04 PM
== END ==
PROVIDERS: Family Provider Internal Medicine; PCP Family Medicine; Referring Provider Internal Medicine Cardiovascular Disease; Visit Provider Internal Medicine Cardiovascular Disease
DX: I34.81 Nonrheumatic mitral (valve) annulus calcification (principal); I34.0 Nonrheumatic mitral (valve) insufficiency
CPT/HCPCS: 93306

== ENCOUNTER → 2025-08-15 10:39 | Outpatient (CLI) | payer MEDICARE, OTHER, SELFPAY ==
--- NOTE | 2025-08-15 10:42 | DI.RAD.S_ITS ---
PROCEDURE: XR DEXA AXIAL SKELETON INDICATIONS: OSTEOPOROSIS SCREENING COMPARISON: [facility], , XR DEXA AXIAL SKELETON, 01/18/2023, 12:35. [facility], CR, XR DEXA AXIAL SKELETON, 11/27/2018, 15:37. FINDINGS: Lumbar Spine: Bone mineral density 0.934 g/cm2, T score -0.8, L4 excluded from calculations.. Left Femoral Neck: Bone mineral density 0.591 g/cm2, T score -2.3. Left Hip: Bone mineral density 0.710 g/cm2, T score -1.9, osteopenia. Fracture Risk Calculation (when applicable): 10-year fracture risk of a major osteoporotic fracture 17 percent and of a hip fracture 5.7 percent. (T score greater or equal to -1.0 to: NORMAL) (T score from -1.1 to -2.4: OSTEOPENIA) (T score less than or equal to -2.5: OSTEOPOROSIS) IMPRESSION: Osteopenia. Dissimilar scan types limits comparison. Follow-up guidelines as follows: Osteoporosis: Consider a repeat DEXA and Vertebral Fracture Assessment (VFA) exam in 2 years or sooner if medically necessary, to reassess this patient's status. Osteopenia: Consider a repeat DEXA in 2-3 years to reassess this patient's status, or if there is a new clinical indication. Normal: Consider a repeat DEXA in 5 years or sooner, or if there is a new clinical indication. All treatment decisions require clinical judgment and consideration of individual patient factors, including patient preferences, comorbidities, previous drug use, risk factors not captured in the FRAX model (e.g., frailty, falls, vitamin D deficiency, increased bone turnover, interval significant decline in bone density ) and possible under- or over-estimation of fracture risk by FRAX. In addition, the NOF Guide recommends that FDA-approved medical therapies be considered in postmenopausal women and men age >= 50 years with a: * Hip or vertebral (clinical or morphometric) fracture * T-score of <=-2.5 at the spine or hip * Ten-year fracture probability by FRAX of >= 3% for hip fracture or >=20% for major osteoporotic fracture. Dictated by: Hortensia Figueroa M.D. on 08/15/2025 at 14:11 Approved by: Hortensia Figueroa M.D. on 08/15/2025 at 14:15
== END ==
PROVIDERS: Family Provider Internal Medicine; PCP Family Medicine; Referring Provider Family Medicine; Visit Provider Internal Medicine Endocrinology, Diabetes & Metabolism
DX: M81.0 Age-related osteoporosis without current pathological fracture (principal); M85.89 Other specified disorders of bone density and structure, multiple sites
CPT/HCPCS: 77080

== ENCOUNTER → 2025-09-10 11:21 | Outpatient (CLI) | payer MEDICARE, OTHER, SELFPAY ==
[2025-09-10 12:37] LABS: Blood Urea Nitrogen 22 mg/dL (7-17); Calcium 10.2 mg/dL (8.4-10.2); Carbon Dioxide 24 mmol/L (22-32); Chloride 99 mmol/L (98-107); Estimated Glomerular Filt Rate > 60 mL/min (>60); Glucose 93 mg/dL (70-99); HEMOLYSIS < 15 (0-50); Potassium 4.5 mmol/L (3.4-5.1); Sodium 132 mmol/L (137-145)
[2025-09-10 14:08] LABS: Vitamin D 25 Hydroxy (D3) 64.9 ng/mL (30.0-100.0)
== END ==
PROVIDERS: Family Provider Internal Medicine; PCP Family Medicine; Referring Provider Internal Medicine Endocrinology, Diabetes & Metabolism; Visit Provider Internal Medicine Endocrinology, Diabetes & Metabolism
DX: E55.9 Vitamin D deficiency, unspecified (principal); M81.0 Age-related osteoporosis without current pathological fracture
CPT/HCPCS: 36415; 80048; 82306